=== PATIENT | male | born 1945 | race Caucasian/White ===

== ENCOUNTER 2017-01-27 22:18 | Observation (INO) | payer MEDICARE ==
[~2017-01-27] VITALS: Ht 182.9 cm; Wt 117.5 kg
[~2017-01-27 22:18] MED LIST: ASPI1TAB7 PO; ATOR20TA PO; CLOP75 PO; DEXA1TAB2; FISH500C PO; METO50CR PO; PACLPB100P; RAMI10CA35 PO; TAMS0.4C4 PO; UBIQ100C PO; [UNRECOGNIZED DRUG - CODE]; [UNRECOGNIZED DRUG - CODE]
[2017-01-27 22:30] VITALS: BP 139/78; PULSE 159; RESP 22; TEMP 98.3; O2SAT 92; O2SAT 96
[2017-01-27] MEDS ORDERED: SODIUM CHLORIDE 0.9% FLUSH 10 ML FLUSH IVF PRN ×2 (22:30)
[2017-01-27] MEDS ORDERED: ASPIRIN 81 MG CHEW TAB PO ONE (22:30)
[2017-01-27] MEDS ORDERED: DILTIAZEM HCL 25 MG/5 ML VIAL IV ONE ×2 (22:30→23:00)
[2017-01-27] MEDS ORDERED: SODIUM CHLORID 0.9% 500 ML INJ 500 ML IV ONE (22:30)
--- NOTE | 2017-01-27 22:35 | PD ---
HPI Chief Complaint: shortness of breath Time Seen by Provider: 22:28 Travel History International Travel<30 days: No Contact w/Intl Traveler<30days: No Traveled to known affect area: No History of Present Illness HPI The patient is a 71-year-old male who presents emergency department via EMS for shortness of breath. Patient has shortness breath or last several hours that is worse with exertion, but still present at rest. The patient does have a history of stage IV non-small cell lung carcinoma which is followed by Dr. Muhammad. The patient's primary physician is Dr. Cortez. The patient is currently receiving chemotherapy every 2 weeks on a Saturday, followed by one half week. The patient is scheduled for his next chemotherapy on this Saturday. 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 Andrews. Symptoms are moderate, exacerbated by activity, minimally alleviated at rest. Patient does note shortness of breath, but denies any chest pain, diaphoresis, nausea, or vomiting. The patient is on home oxygen, 2 L via nasal cannula. PFSH Past Medical History Cancer: Yes ("STAGE 4 CHEST AND LUNG" PER PT) Cardiovascular Problems: Yes (MD YEARS AGO, HIGH CHOLESTEROL) High Cholesterol: Yes Diabetes: No Endocrine: No Genitourinary: No Hepatitis: No Hiatal Hernia: No Hypertension: Yes Immune Disorder: No Musculoskeletal: No Neurologic: No Psychiatric: No Reproductive: No Respiratory: No Myocardial Infarction: Yes () Thyroid Disease: No Past Surgical History Abdominal Surgery: No AICD: No Cardiac Surgery: Yes (ANGIOPLASTY) Ear Surgery: Yes (RIGHT EAR REMOVED) Endocrine Surgery: No Genitourinary Surgery: No Gynecologic Surgery: No Joint Replacement: No Oral Surgery: No Pacemaker: No Thoracic Surgery: No Other Surgery: Yes (RIGHT EAR REMOVAL FROM CANCER) Social History Alcohol Use: Yes (occ) Tobacco Use: No Substance Use: No Allergies-Medications (Allergen,Severity, Reaction): Coded Allergies: No Known Allergies (Unverified , 01/27/17) Reported Meds & Prescriptions Reported Meds & Active Scripts Active Plavix (Clopidogrel Bisulfate) 75 Mg Tab 75 Mg PO DAILY 30 Days Reported Aloxi (Palonosetron HCl) 0.25 Mg/5 Ml Inj 25 Mcg Decadron 1 mg (Dexamethasone) 1 Mg Tab 1 Take 4 tabs by mouth 4 times a day for 3 days then 3 tabs 4 times a day for 3 days then 2 tabs 4 times a day for 3 days then 1 tab 4 times a day for 3 days then 1 tab 2 times a day for 3 days then 1/2 tab 2 times a day for 3 doses, then stop. Should have 1/2 tab left over when finished. Carboplatin 50 Mg/5 Ml Inj 50 Mg Abraxane (Paclitaxel Protein-Bound) 100 Mg Inj 1 Mg Fish Oil 500 Mg Cap 500 Mg PO DAILY Ubiquinol 100 Mg Cap 100 Mg PO DAILY Aspirin 81 mg Tab (Aspirin) 81 Mg Tab 1 Tab PO HS Metoprolol Succinate ER 50 mg (Metoprolol Succinate) 50 Mg Tab 50 Mg PO DAILY Tamsulosin 0.4 mg (Tamsulosin HCl) 0.4 Mg Cap 1 Cap PO HS Atorvastatin 20 mg tab (Atorvastatin Calcium) 20 Mg Tab 20 Mg PO HS 30 Days Ramipril 10 mg (Ramipril) 10 Mg Cap 10 Cap PO DAILY Review of Systems Except as stated in HPI: all other systems reviewed are Neg General / Constitutional: No: Fever HENT: No: Lightheadedness Cardiovascular: Positive: Tachycardia, Dyspnea on exertion, No: Chest Pain or Discomfort, Irregular Rhythm (denies any previous history of atrial fibrillation ) Respiratory: Positive: Shortness of Breath Gastrointestinal: No: Nausea, Vomiting, Abdominal Pain Neurologic: No: Dizziness Physical Exam Narrative GENERAL: Awake, alert, pleasant 71-year-old male who appears his stated age and is in no acute respiratory distress. SKIN: Focused skin assessment warm/dry. HEAD: Atraumatic. Normocephalic. EYES: Pupils equal and round. No scleral icterus. No injection or drainage. ENT: No nasal bleeding or discharge. Right facial droop noted on the right. NECK: Trachea midline. No JVD. CARDIOVASCULAR: Irregularly irregular, tachycardic with a heart rate in the 150s. Port in place right chest wall. RESPIRATORY: No accessory muscle use. Clear to auscultation. Breath sounds equal bilaterally. GASTROINTESTINAL: Abdomen soft, non-tender, nondistended. No rebound tenderness. MUSCULOSKELETAL: No obvious deformities. No clubbing. No cyanosis. No edema. NEUROLOGICAL: Awake and alert. Right facial droop and ptosis of the right upper eyelid. PSYCHIATRIC: Appropriate mood and affect; insight and judgment normal. Data Data Last Documented VS Vital Signs Date Time Temp Pulse Resp B/P Pulse Ox O2 Delivery O2 Flow Rate FiO2 01/27/17 23:19 85 18 130/71 95 Nasal Cannula 2 01/27/17 22:30 98.3 Orders Electrocardiogram (01/27/17 22:28) B-Type Natriuretic Peptide (01/27/17 22:28) Ckmb (Isoenzyme) Profile (01/27/17 22:28) Complete Blood Count With Diff (01/27/17 22:28) Comprehensive Metabolic Panel (01/27/17 22:28) Magnesium (Mg) (01/27/17 22:28) Prothrombin Time / Inr (Pt) (01/27/17 22:28) Act Partial Throm Time (Ptt) (01/27/17 22:28) Troponin I (01/27/17 22:28) Chest, Single Ap (01/27/17 22:28) Ecg Monitoring (01/27/17 22:28) Bilateral Bp Monitoring (01/27/17 22:28) Iv Access Insert/Monitor (01/27/17 22:28) Oximetry (01/27/17 22:28) Oxygen Administration (01/27/17 22:28) Aspirin Chew (Aspirin Chew) (01/27/17 22:30) Sodium Chloride 0.9% Flush (Ns Flush) (01/27/17 22:30) Sodium Chloride 0.9% Flush (Ns Flush) (01/27/17 22:30) Diltiazem Inj (Cardizem Inj) (01/27/17 22:30) Sodium Chlorid 0.9% 500 Ml Inj (Ns 500 M (01/27/17 22:30) Diltiazem Inj (Cardizem Inj) (01/27/17 23:00) Diltiazem Inj (Cardizem Inj) (01/27/17 23:00) Admit Order (Ed Use Only) (01/27/17 23:56) Labs Laboratory Tests Test 01/27/17 22:45 White Blood Count 7.6 TH/MM3 Red Blood Count 3.66 MIL/MM3 Hemoglobin 12.2 GM/DL Hematocrit 37.8 % Mean Corpuscular Volume 103.3 FL Mean Corpuscular Hemoglobin 33.2 PG Mean Corpuscular Hemoglobin 32.2 % Concent Red Cell Distribution Width 21.4 % Platelet Count 181 TH/MM3 Mean Platelet Volume 8.9 FL Neutrophils (%) (Auto) 66.7 % Lymphocytes (%) (Auto) 17.3 % Monocytes (%) (Auto) 14.2 % Eosinophils (%) (Auto) 1.1 % Basophils (%) (Auto) 0.7 % Neutrophils # (Auto) 5.1 TH/MM3 Lymphocytes # (Auto) 1.3 TH/MM3 Monocytes # (Auto) 1.1 TH/MM3 Eosinophils # (Auto) 0.1 TH/MM3 Basophils # (Auto) 0.1 TH/MM3 CBC Comment DIFF FINAL Differential Comment Prothrombin Time 13.8 SEC Prothromb Time International 1.2 RATIO Ratio Activated Partial 55.5 SEC Thromboplast Time Sodium Level 140 MEQ/L Potassium Level 3.9 MEQ/L Chloride Level 105 MEQ/L Carbon Dioxide Level 26.0 MEQ/L Anion Gap 9 MEQ/L Blood Urea Nitrogen 12 MG/DL Creatinine 0.95 MG/DL Estimat Glomerular Filtration 78 ML/MIN Rate Random Glucose 93 MG/DL Calcium Level 8.6 MG/DL Magnesium Level 2.1 MG/DL Total Bilirubin 1.0 MG/DL Aspartate Amino Transf 22 U/L (AST/SGOT) Alanine Aminotransferase 27 U/L (ALT/SGPT) Alkaline Phosphatase 103 U/L Total Creatine Kinase 50 U/L Troponin I 0.03 NG/ML B-Type Natriuretic Peptide 112 PG/ML Total Protein 6.7 GM/DL Albumin 3.1 GM/DL MDM Medical Decision Making Medical Screen Exam Complete: Yes Emergency Medical Condition: Yes Medical Record Reviewed: Yes Interpretation(s) EKG reveals atrial flutter with what appears to be 2-1 block, rate 153. Nonspecific T wave changes. EKG #2 reveals normal sinus rhythm with a rate 82. Low QRS voltage precordial leads. Last Impressions Chest X-Ray 01/27/17 9743 Signed Impressions: Service Date/Time: Friday, January 27, 2017 22:51 - CONCLUSION: 1. Bibasilar patchiness consistent with atelectasis and/or infiltrates. 2. Stable mild cardiomegaly. Dionte Barnes MD Laboratory Tests Test 01/27/17 22:45 White Blood Count 7.6 TH/MM3 Red Blood Count 3.66 MIL/MM3 Hemoglobin 12.2 GM/DL Hematocrit 37.8 % Mean Corpuscular Volume 103.3 FL Mean Corpuscular Hemoglobin 33.2 PG Mean Corpuscular Hemoglobin 32.2 % Concent Red Cell Distribution Width 21.4 % Platelet Count 181 TH/MM3 Mean Platelet Volume 8.9 FL Neutrophils (%) (Auto) 66.7 % Lymphocytes (%) (Auto) 17.3 % Monocytes (%) (Auto) 14.2 % Eosinophils (%) (Auto) 1.1 % Basophils (%) (Auto) 0.7 % Neutrophils # (Auto) 5.1 TH/MM3 Lymphocytes # (Auto) 1.3 TH/MM3 Monocytes # (Auto) 1.1 TH/MM3 Eosinophils # (Auto) 0.1 TH/MM3 Basophils # (Auto) 0.1 TH/MM3 CBC Comment DIFF FINAL Differential Comment Prothrombin Time 13.8 SEC Prothromb Time International 1.2 RATIO Ratio Activated Partial 55.5 SEC Thromboplast Time Sodium Level 140 MEQ/L Potassium Level 3.9 MEQ/L Chloride Level 105 MEQ/L Carbon Dioxide Level 26.0 MEQ/L Anion Gap 9 MEQ/L Blood Urea Nitrogen 12 MG/DL Creatinine 0.95 MG/DL Estimat Glomerular Filtration 78 ML/MIN Rate Random Glucose 93 MG/DL Calcium Level 8.6 MG/DL Magnesium Level 2.1 MG/DL Total Bilirubin 1.0 MG/DL Aspartate Amino Transf 22 U/L (AST/SGOT) Alanine Aminotransferase 27 U/L (ALT/SGPT) Alkaline Phosphatase 103 U/L Total Creatine Kinase 50 U/L Troponin I 0.03 NG/ML B-Type Natriuretic Peptide 112 PG/ML Total Protein 6.7 GM/DL Albumin 3.1 GM/DL Differential Diagnosis Differential diagnosis includes atrial flutter with RVR, A. fib with RVR, pulmonary embolism, congestive heart failure, cardiomyopathy, pneumonia, sepsis , electrolyte abnormality. Narrative Course IV was established, labs are drawn and sent, and the patient was placed on cardiac telemetry monitoring and continuous pulse oximetry monitoring. EKG was ordered and interpreted. Chest x-ray was obtained. The patient was administered Cardizem 20 mg intravenously, after 20 minutes the patient converted to what appeared to be a normal sinus rhythm. Repeat EKG was performed which revealed normal sinus rhythm with a rate in the 80s. The patient already takes aspirin and Plavix on a daily basis as well as metoprolol. The patient thinks he had a nuclear medicine myocardial perfusion scan performed at his online marketing coordinator office within the last 6 months. The patient 's symptoms had improved, had a discussion with the patient regarding outpatient follow-up versus 23 hour observation for cardiac telemetry monitoring and echocardiogram. After discussion with the patient, he would prefer to stay overnight for telemetry monitoring and possible echocardiogram. Therefore, the on-call medical service was paged for admission. The patient will need admission/observation to [facility] as he did have atrial flutter with RVR and may require further boluses of IV medicines if the atrial fibrillation/ atrial flutter reoccurs. I reviewed the patient's chest x-ray and previous chest x-ray, no significant changes, I do not believe the patient has acute pneumonia. Physician Communication Physician Communication The on-call medical service was paged for 23 hour observation. I discussed patient with Dr. Su who agrees with 23 hour observation. Diagnosis Primary Impression: Atrial flutter with rapid ventricular response Admitting Information Admitting Physician Requests: Observation Condition: Stable Prieto Rizzo MD January 27, 2017 22:35
[2017-01-27 22:50] VITALS: BP 134/86; PULSE 84; RESP 18; O2SAT 96
[2017-01-27 22:53] LABS: AUTOMATED NEUTROPHIL # 5.1 TH/MM3 (1.8-7.7); BASOPHIL # 0.1 TH/MM3 (0-0.2); BASOPHIL % 0.7 % (0.0-2.0); EOSINOPHIL # 0.1 TH/MM3 (0-0.4); EOSINOPHIL % 1.1 % (0.0-4.0); HEMATOCRIT 37.8 % (39.0-51.0); HEMO FLAGS DIFF FINAL; LYMPH % 17.3 % (9.0-44.0); LYMPHOCYTE # 1.3 TH/MM3 (1.0-4.8); MEAN CELL VOLUME 103.3 FL (80.0-100.0); MEAN CORPUSCULAR HEMOGLOBIN 33.2 PG (27.0-34.0); MEAN CORPUSCULAR HGB CONC 32.2 % (32.0-36.0); MONO % 14.2 % (0.0-8.0); NEUT % 66.7 % (16.0-70.0); PLATELET COUNT 181 TH/MM3 (150-450); RED BLOOD COUNT 3.66 MIL/MM3 (4.50-5.90); RED CELL DISTRIBUTION WIDTH 21.4 % (11.6-17.2); WHITE BLOOD COUNT 7.6 TH/MM3 (4.0-11.0)
--- NOTE | 2017-01-27 22:59 | RADRPT ---
EXAM DATE/TIME: 01/27/2017 22:51 [facility] COMPARISON: CHEST SINGLE AP, November 04, 2015, 3:08. INDICATIONS : Chest pain MEDICAL HISTORY : Squamous cell lung carcinoma. SURGICAL HISTORY : [id number], cardiac stent ENCOUNTER: Initial ACUITY: 1 day PAIN SCORE: 4/10 LOCATION: Bilateral chest FINDINGS: A right internal jugular [id number] has its tip in the superior vena cava. There is no pneumothor ax. The heart is mildly prominent but stable. Bibasilar patchiness is noted consistent with atelect asis and/or infiltrates. Degenerative changes are noted throughout the thoracic spine. CONCLUSION: 1. Bibasilar patchiness consistent with atelectasis and/or infiltrates. 2. Stable mild cardiomegaly. Dionte Barnes MD on January 27, 2017 at 22:54 Board Certified Radiologist. This report was verified electronically.
[2017-01-27] MEDS ORDERED: DILTIAZEM INJ 125 MG in SODIUM CHLORIDE 0.9% INJ 100 ML IV SCH (23:00)
[2017-01-27 23:17] LABS: ANION GAP 9 MEQ/L (5-15); AST (GOT) 22 U/L (15-37); BLOOD UREA NITROGEN 12 MG/DL (7-18); CHLORIDE 105 MEQ/L (98-107); GLOMERULAR FILTRATION RATE 78 ML/MIN (>89); MAGNESIUM 2.1 MG/DL (1.5-2.5); POTASSIUM 3.9 MEQ/L (3.5-5.1); SODIUM (NA) 140 MEQ/L (136-145)
[2017-01-27 23:19] VITALS: BP_SYST 130; BP_DIAS 68; BP_DIAS 71; PULSE 85; RESP 18; O2SAT 95
[2017-01-27 23:19] LABS: APTT (PATIENT) 55.5 SEC (24.3-30.1); INTERNATIONAL NORMALIZED RATIO 1.2 RATIO; PROTHROMBIN TIME - PATIENT 13.8 SEC (9.8-11.6)
[2017-01-27 23:22] LABS: ALKALINE PHOSPHATASE 103 U/L (45-117); ALT (GPT) 27 U/L (12-78)
[2017-01-27 23:25] LABS: CREATINE KINASE 50 U/L (39-308)
--- NOTE | 2017-01-27 23:59 | HHI.HP ---
HPI Service [facility] Primary Care Physician Isac Cortez M.D. Admission Diagnosis new onset atrial flutter with RVR Diagnoses: (1) New onset a-fib Diagnosis: Principal (2) CAD (coronary artery disease) Diagnosis: Principal (3) HTN (hypertension) Diagnosis: Principal (4) Lung cancer Diagnosis: Principal Travel History International Travel<30 Days: No Contact w/Intl Traveler <30 Da: No Traveled to Known Affected Are: No History of Present Illness This is a 71-year-old male with a PMH of HTN, Redd's Palsy, CAD and Stage IV Non -Small Cell Lung Ca on Chemo who was brought to the ER by EMS secondary to acute onset of SOB and chest pain. Per pt, he is usually on 2L NC at home during the day, has noted increased SOB x2 days but "mild". Today, had sudden onset of severe SOB, "couldn't catch my breath" and associated chest tightness. Denies fever, chills or cough. Follows w/ Dr. Muhammad as outpatient, next Chemo scheduled for Saturday. Also follows w/ Diplomatic Officer Dr. Mcintosh as outpatient. Notes recent Nuclear Stress and Echo as outpatient, reportedly normal. H/o NSTEMI 11/2015 s/p stent to LAD and LCx, currently on ASA/Plavix. On arrival, pt noted to be in A-fib w/ RVR, HR 150's. No h/o A-fib in the past. S/p Cardizem IV x1 dose w/ conversion back to NSR, no recurrent A-fib. CBC with no significant abnormalities. Chemistry unremarkable except for GFR 78. Troponin 0.03. EKG with no acute ischemia. INR 1.2. CXR with bibasilar patchiness consistent with atelectasis and or infiltrates. Review of Systems Except as stated in HPI: all other systems reviewed are Neg ROS: 14 point review of systems otherwise negative. Past Family Social History Past Medical History PMH: HTN, CAD, Redd's Palsy and Stage IV Non-Small Cell Lung Ca on Chemo Past Surgical History PAST SURGICAL HISTORY: Cardiac Stent, Right Ear Surgery Allergies: Coded Allergies: No Known Allergies (Unverified , 01/27/17) Family History PAST FAMILY HISTORY: Reviewed. No h/o DM or CAD Social History PAST SOCIAL HISTORY: Occasional alcohol. Negative for tobacco or drugs. Physical Exam Vital Signs Vital Signs Date Time Temp Pulse Resp B/P Pulse Ox O2 Delivery O2 Flow Rate FiO2 01/27/17 23:19 85 18 130/71 95 Nasal Cannula 2 01/27/17 23:19 130/68 01/27/17 22:50 84 18 134/86 96 Nasal Cannula 2 01/27/17 22:30 96 Nasal Cannula 2 01/27/17 22:30 98.3 159 22 139/78 92 01/27/17 22:30 160 22 95 Nasal Cannula 2 01/27/17 22:30 96 Nasal Cannula 2 Physical Exam PE: GENERAL: Very pleasant elderly white male in no acute distress. at bedside. HEENT: PERRLA, EOMI. No scleral icterus or conjunctival pallor. No lid lag. Right facial droop, chronic. CARDIOVASCULAR: Regular rate and rhythm, in NSR. No obvious murmurs to auscultation. No chest tenderness to palpation. RESPIRATORY: No obvious rhonchi or wheezing. Clear to auscultation. Breath sounds equal bilaterally. GASTROINTESTINAL: Abdomen soft, non-tender, nondistended. BS normal. MUSCULOSKELETAL: Extremities without clubbing, cyanosis, or edema. No obvious deformities. NEUROLOGICAL: Awake, alert and oriented x4. No focal neurologic deficits. Moving both upper and lower extremities spontaneously. Laboratory Laboratory Tests Test 01/27/17 22:45 White Blood Count 7.6 Red Blood Count 3.66 Hemoglobin 12.2 Hematocrit 37.8 Mean Corpuscular Volume 103.3 Mean Corpuscular Hemoglobin 33.2 Mean Corpuscular Hemoglobin 32.2 Concent Red Cell Distribution Width 21.4 Platelet Count 181 Mean Platelet Volume 8.9 Neutrophils (%) (Auto) 66.7 Lymphocytes (%) (Auto) 17.3 Monocytes (%) (Auto) 14.2 Eosinophils (%) (Auto) 1.1 Basophils (%) (Auto) 0.7 Neutrophils # (Auto) 5.1 Lymphocytes # (Auto) 1.3 Monocytes # (Auto) 1.1 Eosinophils # (Auto) 0.1 Basophils # (Auto) 0.1 CBC Comment DIFF FINAL Differential Comment Prothrombin Time 13.8 Prothromb Time International 1.2 Ratio Activated Partial 55.5 Thromboplast Time Sodium Level 140 Potassium Level 3.9 Chloride Level 105 Carbon Dioxide Level 26.0 Anion Gap 9 Blood Urea Nitrogen 12 Creatinine 0.95 Estimat Glomerular Filtration 78 Rate Random Glucose 93 Calcium Level 8.6 Magnesium Level 2.1 Total Bilirubin 1.0 Aspartate Amino Transf 22 (AST/SGOT) Alanine Aminotransferase 27 (ALT/SGPT) Alkaline Phosphatase 103 Total Creatine Kinase 50 Troponin I 0.03 B-Type Natriuretic Peptide 112 Total Protein 6.7 Albumin 3.1 Result Diagram: 01/27/17224401/27/172244 Assessment and Plan Problem List: (1) New onset a-fib ICD Code: I48.91 Status: Acute (2) CAD (coronary artery disease) ICD Code: I25.10 Status: Acute (3) HTN (hypertension) ICD Code: I10 Status: Acute (4) Lung cancer ICD Code: C34.90 Status: Acute Assessment and Plan A/P: 1. A. fib: New Onset. Acute episode of SOB and chest tightness, on arrival noted to be in A-fib w/ RVR, HR 150's. S/p Cardizem IV x1 dose in ER w/ conversion to NSR. No h/o A-fib in the past. Follows w/ Diplomatic Officer Dr. Mcintosh as outpatient, recent Echo reportedly normal. Remains in A-fib. Will admit for observation, telemetry, monitor for recurrence of A-fib. Initial trop negative, check serial enzymes to eval for underlying ischemia. O2 sat stable. Plan for outpatient follow up w/ Dr. Mcintosh. Continue Metoprolol, increase to bid , continue home ASA/Plavix. 2. CAD: H/o NSTEMI 11/2015, s/p Cardiac Cath by Dr. Mcintosh w/ stent to LAD and LCx. Compliant w/ meds and follow up. Continue home medications. Telemetry, check serial cardiac enzymes. 3. HTN: Controlled. BP 130-140's. Resume home medications. 4. Lung CA: Metastatic. O2 Dependent on 2L, O2 stable. Will monitor. 5. DVT Prophylaxis: SCD/Teds 6. Social work for d/c planning as needed. 7. Case discussed at length w/ ER physician Sahara Su MD January 27, 2017 23:59
[2017-01-28] VITALS (14 sets, daily range): BP systolic 129–145; BP diastolic 62–86; PULSE 70–82; RESP 16–18; TEMP 97.7–98; O2SAT 93–96
[2017-01-28] MEDS ORDERED: ACETAMINOPHEN/HYDROcodone 325 MG/5 MG TAB PO PRN (00:15)
[2017-01-28] MEDS ORDERED: MAGNESIUM HYDROXIDE SUSP 30 ML CUP PO PRN (00:15)
[2017-01-28] MEDS ORDERED: ACETAMINOPHEN 325 MG TAB PO PRN (00:15)
[2017-01-28] MEDS ORDERED: SENNOSIDES 8.6 MG TAB PO PRN (00:15)
[2017-01-28] MEDS ORDERED: BISACODYL 10 MG SUPP RECTAL PRN (00:15)
[2017-01-28] MEDS ORDERED: ONDANSETRON HCL 4 MG/2 ML VIAL IVP PRN (00:15)
[2017-01-28] MEDS ORDERED: SODIUM CHLORIDE 0.9% FLUSH 10 ML FLUSH IV FLUSH PRN (00:15)
[2017-01-28] MEDS ORDERED: MORPHINE SULFATE 4 MG/ML INJ IV PRN (00:15)
[2017-01-28] MEDS ORDERED: LACTULOSE SYRUP 20 GM/30 ML CUP PO PRN (00:15)
--- NOTE | 2017-01-28 08:19 | EKG ---
Date Performed: 01/27/2017 Time Performed: 23:12:37 PTAGE: 71 years EKG: Sinus rhythm LOW QRS VOLTAGE IN PRECORDIAL LEADS POSSIBLE ANTERIOR MYOCARDIAL INFARCTION BORDERLINE ECG Compared to prior electrocardiogram,Rate has slowed. Prior EKG has marked artifact and this may have represen liz atrial flutter. NO PREVIOUS TRACING DOCTOR: Rodo Ricketts Interpretating Date/Time 01/28/2017 08:18:16
--- NOTE | 2017-01-28 08:21 | EKG ---
Date Performed: 01/27/2017 Time Performed: 22:29:19 PTAGE: 71 years EKG: ATRIAL FLUTTER/TACHYCARDIA WITH RAPID VENTRICULAR RESPONSE LOW QRS VOLTAGE IN PRECORDIAL LE ADS NONSPECIFIC ST & T-WAVE ABNORMALITY ABNORMAL RHYTHM ECG Compared to prior electrocardiogram,Proba ble atrial flutter with rapid response has replaced Sinus rhythm . PREVIOUS TRACING : 11/05/2015 16.17 DOCTOR: Rodo Ricketts Interpretating Date/Time 01/28/2017 08:20:04
[2017-01-28] MEDS ORDERED: DOCUSATE SODIUM 50 MG/SENNA 8.6 MG TAB PO SCH (09:00)
[2017-01-28] MEDS ORDERED: CLOPIDOGREL 75 MG TAB PO SCH (09:00)
[2017-01-28] MEDS ORDERED: RAMIPRIL 5 MG CAP PO SCH (09:00)
[2017-01-28] MEDS ORDERED: METOPROLOL TARTRATE 50 MG TAB PO SCH (09:00)
[2017-01-28] MEDS ORDERED: SODIUM CHLORIDE 0.9% FLUSH 10 ML FLUSH IV FLUSH SCH (09:00)
[2017-01-28] MEDS ORDERED: METO-309 PO (09:25)
--- NOTE | 2017-01-28 09:25 | HHI.DS ---
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 Per pt, he is usually on 2L NC at home during the day, has noted increased SOB x2 days but "mild". Today, had sudden onset of severe SOB, "couldn't catch my breath" and associated chest tightness. Denies fever, chills or cough. Follows w/ Dr. Muhammad as outpatient, next Chemo scheduled for Saturday. Also follows w/ [employer] Dr. Mcintosh as outpatient. Notes recent Nuclear Stress and Echo as outpatient, reportedly normal. H/o NSTEMI 11/2015 s/p stent to LAD and LCx, currently on ASA/Plavix. On arrival, pt noted to be in A-fib w/ RVR, HR 150's. No h/o A-fib in the past. S/p Cardizem IV x1 dose w/ conversion back to NSR, no recurrent A-fib. CBC with no significant abnormalities. Chemistry unremarkable except for GFR 78. Troponin 0.03. EKG with no acute ischemia. INR 1.2. CXR with bibasilar patchiness consistent with atelectasis and or infiltrates. CBC/BMP: 01/27/17224401/27/172244 Significant Findings Laboratory Tests Test 01/27/17 01/28/17 22:45 04:28 Red Blood Count 3.66 MIL/MM3 (4.50-5.90) Hemoglobin 12.2 GM/DL (13.0-17.0) Hematocrit 37.8 % (39.0-51.0) Mean Corpuscular Volume 103.3 FL (80.0-100.0) Red Cell Distribution Width 21.4 % (11.6-17.2) Monocytes (%) (Auto) 14.2 % (0.0-8.0) Monocytes # (Auto) 1.1 TH/MM3 (0-0.9) Prothrombin Time 13.8 SEC (9.8-11.6) Activated Partial 55.5 SEC Thromboplast Time (24.3-30.1) Estimat Glomerular Filtration 78 ML/MIN (>89) Rate B-Type Natriuretic Peptide 112 PG/ML (0-100) Albumin 3.1 GM/DL (3.4-5.0) Troponin I 0.06 NG/ML (0.02-0.05) Imaging Last Impressions Chest X-Ray 01/27/17 8140 Signed Impressions: Service Date/Time: Friday, January 27, 2017 22:51 - CONCLUSION: 1. Bibasilar patchiness consistent with atelectasis and/or infiltrates. 2. Stable mild cardiomegaly. Dionte Barnes MD PE at Discharge GENERAL: in NAD CARDIOVASCULAR: Regular rate and rhythm without murmurs, gallops, or rubs. RESPIRATORY: Breath sounds equal bilaterally. No accessory muscle use. GASTROINTESTINAL: Abdomen soft, non-tender, nondistended. MUSCULOSKELETAL: No cyanosis, or edema. Pt update on day of discharge Follow-up with shortness of breathing secondary to atrial fibrillation with RVR Patient has been in sinus rhythm since last night. He stated that since he's been in sinus rhythm his symptoms has resolved. Patient stated that he does have baseline shortness of breathing due to his cancer but that is at his baseline. Patient stated that he feels great wants to go home. Denies any chest pain, palpitation, lightheadedness or dizziness. Hospital Course 1. A. fib: New Onset. Resolved quickly. -Acute episode of SOB and chest tightness, on arrival noted to be in A-fib w/ RVR, HR 150's. - S/p Cardizem IV x1 dose in ER w/ conversion to NSR. No h/o A-fib in the past. Follows w/ [employer] Dr. Mcintosh as outpatient, recent Echo reportedly normal. -Patient is on aspirin and Plavix. He converted quickly back into sinus rhythm. Since patient converted back quickly and this seems to be a isolated episode he was told to follow with his knee bolter in regards to anticoagulation. Patient is currently on aspirin and Plavix. -Patient educated on diagnosis, and management. -Patient total follow with his knee bolter this week. -His metoprolol was increased to short acting 5 mg by mouth twice a day. CAD: - H/o NSTEMI 11/2015, s/p Cardiac Cath by Dr. Mcintosh w/ stent to LAD and LCx. - Compliant w/ meds and follow up. Continue home medications. -He had no events over telemetry. Mildly elevated troponin due to age of fibrillation with RVR caused by demand ischemia. Otherwise asymptomatic. HTN: - Controlled. BP 130-140's. His home medication was resumed. Lung CA: -Metastatic. O2 Dependent on 2L, O2 stable. He was stable on his home oxygen. Pt Condition on Discharge: Good Discharge Disposition: Discharge Home Discharge Time: <= 30 minutes Discharge Instructions DIET: Follow Instructions for: Heart Healthy Diet Activities you can perform: Regular-No Restrictions Follow up Referrals: Cardiology - 3-5 Days PCP Follow-up - 1 Week New Medications: Metoprolol Tartrate (Lopressor) 50 Mg Tab 50 MG PO Q12HR atrial fibrillation and CAD #60 Ref 0 TAB Continued Medications: Aspirin 81 mg Tab (Aspirin 81 mg Tab) 81 Mg Tab 1 TAB PO HS TAB Atorvastatin 20 mg (Atorvastatin 20 mg tab) 20 Mg Tab 20 MG PO HS Days 30 TAB Carboplatin (Carboplatin) 50 Mg/5 Ml Inj 50 MG Clopidogrel Bisulfate (Plavix) 75 Mg Tab 75 MG PO DAILY CAD Days 30 TAB Dexamethasone 1 mg (Decadron 1 mg) 1 Mg Tab 1 Take 4 tabs by mouth 4 times a day for 3 days then 3 tabs 4 times a day for 3 days then 2 tabs 4 times a day for 3 days then 1 tab 4 times a day for 3 days then 1 tab 2 times a day for 3 days then 1/2 tab 2 times a day for 3 doses, then stop. Should have 1/2 tab left over when finished. #128 TAB [place]-3 Fatty Acids (Fish Oil) 500 Mg Cap 500 MG PO DAILY CAP Paclitaxel Protein-Bound (Abraxane) 100 Mg Inj 1 MG Palonosetron HCl (Aloxi) 0.25 Mg/5 Ml Inj 25 MCG Ramipril 10 mg (Ramipril 10 mg) 10 Mg Cap 10 CAP PO DAILY CAP Tamsulosin 0.4 mg (Tamsulosin 0.4 mg) 0.4 Mg Cap 1 CAP PO HS Ubiquinol (Ubiquinol) 100 Mg Cap 100 MG PO DAILY CAP Discontinued Medications: Metoprolol Succinate ER 50 mg (Metoprolol Succinate ER 50 mg) 50 Mg Tab 50 MG PO DAILY TAB Charmaine Macario MD January 28, 2017 09:25
--- NOTE | 2017-01-28 09:25 | HHI.DCPOC ---
Discharge Care Plan Diagnosis: (1) New onset a-fib (2) HTN (hypertension) (3) Lung cancer (4) CAD (coronary artery disease) Goals to Promote Your Health * To prevent worsening of your condition and complications * To maintain your health at the optimal level Directions to Meet Your Goals Take your medications as prescribed Follow your dietary instruction Follow activity as directed Keep your appointments as scheduled Take your immunizations and boosters as scheduled If your symptoms worsen call your PCP, if no PCP go to Urgent Care Center or Emergency Room Smoking is Dangerous to Your Health. Avoid second hand smoke Call the 24-hour hour crisis hotline for domestic abuse at Charmaine Macario MD January 28, 2017 09:25
[2017-01-28] MEDS ORDERED: ATORVASTATIN 20 MG TAB PO SCH (21:00)
[2017-01-28] MEDS ORDERED: ASPIRIN EC 81 MG TABEC PO SCH (21:00)
[2017-01-28] MEDS ORDERED: TAMSULOSIN HCL 0.4 MG CAP PO SCH (21:00)
== END 2017-01-28 11:15 | disposition home or self-care (01) ==
LOC: NEPC 22:18 → NEDA 23:58 → UNDOADMOB 23:58 → HCIN 01-28 01:02 → NEDA 01-28 01:02 → UNDODISOB 01-28 11:15
PROVIDERS: ADMIT Family Medicine; ATTEND Family Medicine
DX: I48.91 Unspecified atrial fibrillation (principal); I25.10 Atherosclerotic heart disease of native coronary artery without angina pectoris; I10 Essential (primary) hypertension; C78.00 Secondary malignant neoplasm of unspecified lung; G51.0 Bell's palsy; Z79.82 Long term (current) use of aspirin; Z95.5 Presence of coronary angioplasty implant and graft; Z99.81 Dependence on supplemental oxygen; E78.00 Pure hypercholesterolemia, unspecified; Z79.02 Long term (current) use of antithrombotics/antiplatelets; I25.2 Old myocardial infarction; Z85.22 Personal history of malignant neoplasm of nasal cavities, middle ear, and accessory sinuses
CPT/HCPCS: 71010; 80053; 82550; 83735; 83880; 84484; 85025; 85610; 85730; 93005; 96361; 96374; 99285; J7040; G0378

== ENCOUNTER 2017-02-07 18:38 | Inpatient (IN) | payer MEDICARE ==
[2017-02-07] VITALS (9 sets, daily range): BP systolic 112–126; BP diastolic 65–90; PULSE 67–160; RESP 18–28; TEMP 97.8; O2SAT 89–97
[~2017-02-07] VITALS: Ht 180.3 cm; Wt 110.0 kg
[~2017-02-07 18:38] MED LIST changes: +METO-309 PO; -METO50CR PO
[2017-02-07] MEDS ORDERED: DILTIAZEM INJ 125 MG in SODIUM CHLORIDE 0.9% INJ 100 ML IV SCH (19:15)
[2017-02-07] MEDS ORDERED: DILTIAZEM HCL 25 MG/5 ML VIAL IV PUSH ONE (19:15)
[2017-02-07] MEDS ORDERED: SODIUM CHLORIDE 0.9% FLUSH 10 ML FLUSH IVF PRN (19:15)
--- NOTE | 2017-02-07 19:45 | RADRPT ---
EXAM DATE/TIME: 02/07/2017 19:15 [facility] COMPARISON: CHEST SINGLE AP, January 27, 2017, 22:51. INDICATIONS : Shortness of breath and heart palpitations. MEDICAL HISTORY : Squamous cell lung carcinoma. A-fib. SURGICAL HISTORY : [id number]. ENCOUNTER: Initial ACUITY: 1 day PAIN SCORE: 0/10 LOCATION: Bilateral chest FINDINGS: Right chest port is stable in position. Lungs are symmetrically aerated and grossly clear. Cardiac co ntours are stable. CONCLUSION: Stable chest without definite acute disease Carlos Sebastian MD on February 07, 2017 at 19:42 Board Certified Radiologist. This report was verified electronically.
[2017-02-07 19:52] LABS: AUTOMATED NEUTROPHIL # 6.9 TH/MM3 (1.8-7.7); BASOPHIL % 0.6 % (0.0-2.0); EOSINOPHIL # 0.2 TH/MM3 (0-0.4); HEMATOCRIT 33.2 % (39.0-51.0); HEMO FLAGS DIFF FINAL; LYMPH % 13.1 % (9.0-44.0); LYMPHOCYTE # 1.1 TH/MM3 (1.0-4.8); MEAN CELL VOLUME 101.8 FL (80.0-100.0); MEAN CORPUSCULAR HGB CONC 33.4 % (32.0-36.0); MONO % 3.4 % (0.0-8.0); NEUT % 80.9 % (16.0-70.0); PLATELET COUNT 154 TH/MM3 (150-450); RED BLOOD COUNT 3.26 MIL/MM3 (4.50-5.90); RED CELL DISTRIBUTION WIDTH 19.6 % (11.6-17.2); WHITE BLOOD COUNT 8.5 TH/MM3 (4.0-11.0)
[2017-02-07 20:04] LABS: APTT (PATIENT) 57.2 SEC (24.3-30.1); INTERNATIONAL NORMALIZED RATIO 1.1 RATIO; PROTHROMBIN TIME - PATIENT 12.7 SEC (9.8-11.6)
--- NOTE | 2017-02-07 20:17 | PD ---
HPI Chief Complaint: Cardiac Complaint Time Seen by Provider: 19:03 Travel History International Travel<30 days: No Contact w/Intl Traveler<30days: No Traveled to known affect area: No History of Present Illness HPI Patient is a 71-year-old male with history of lung cancer on chemotherapy presents emergency Department with "I think I have atrial fibrillation". Patient states he was just recently diagnosed atrial fibrillation spent the day in the hospital. He states his heart is been racing fast all day and is been having shortness of breath. States never had any blood clots before. Is not currently on any blood thinners. Review the patient's chart indeed shows that he presented in atrial flutter and had to be rate controlled with Cardizem and went home the next morning. Patient on arrival is tachycardic able to give his own history. Symptoms are moderate, stable for the past few hours. PFSH Past Medical History Hx Anticoagulant Therapy: Yes (PLAVIX) Atrial Fibrillation: Yes Cancer: Yes ("STAGE 4 CHEST AND LUNG" PER PT) Cardiovascular Problems: Yes High Cholesterol: Yes Chemotherapy: Yes COPD: Yes Diabetes: No Diminished Hearing: Yes Endocrine: No Genitourinary: No Hepatitis: No Hiatal Hernia: No Hypertension: Yes Immune Disorder: No Implanted Vascular Access Dvce: Yes (RIGHT CHEST) Musculoskeletal: No Neurologic: No Psychiatric: No Reproductive: No Respiratory: Yes Myocardial Infarction: Yes () Sleep Apnea: Yes (NEVRER BEEN DX) Thyroid Disease: No Past Surgical History Abdominal Surgery: No AICD: No Cardiac Surgery: Yes (ANGIOPLASTY EITH STENTS) Ear Surgery: Yes (RIGHT EAR REMOVED) Endocrine Surgery: No Genitourinary Surgery: No Gynecologic Surgery: No Joint Replacement: No Oral Surgery: No Pacemaker: No Thoracic Surgery: No Other Surgery: Yes (PORT PLACE RIGHT CHEST) Social History Alcohol Use: No Tobacco Use: No Substance Use: No Allergies-Medications (Allergen,Severity, Reaction): Coded Allergies: No Known Allergies (Unverified , 01/28/17) Reported Meds & Prescriptions Reported Meds & Active Scripts Active Lopressor (Metoprolol Tartrate) 50 Mg Tab 50 Mg PO Q12HR Reported Digoxin 0.125 Mg Tab 0.125 Mg PO DAILY Potassium Chloride ER (Potassium Chloride) 10 Meq Cap 10 Meq PO DAILY Furosemide 40 Mg Tab 40 Mg PO DAILY Aspirin 81 Mg Chew 81 Mg CHEW DAILY Clopidogrel (Clopidogrel Bisulfate) 75 Mg Tab 75 Mg PO DAILY Tamsulosin (Tamsulosin HCl) 0.4 Mg Cap 0.4 Mg PO HS Atorvastatin (Atorvastatin Calcium) 20 Mg Tab 20 Mg PO HS Review of Systems Except as stated in HPI: all other systems reviewed are Neg Physical Exam Narrative GENERAL: Well-developed well-nourished no apparent distress. SKIN: Focused skin assessment warm/dry. HEAD: Atraumatic. Normocephalic. EYES: Pupils equal and round. No scleral icterus. No injection or drainage. ENT: No nasal bleeding or discharge. Mucous membranes pink and moist. NECK: Trachea midline. No JVD. CARDIOVASCULAR: Regular rhythm with tachycardia. No murmur appreciated. 2+ bilateral equal pulses in all 4 extremities. RESPIRATORY: No accessory muscle use. Clear to auscultation. Breath sounds equal bilaterally. GASTROINTESTINAL: Abdomen soft, non-tender, nondistended. Hepatic and splenic margins not palpable. MUSCULOSKELETAL: No obvious deformities. No clubbing. No cyanosis. No edema. NEUROLOGICAL: Awake and alert. No obvious cranial nerve deficits. Motor grossly within normal limits. Normal speech. PSYCHIATRIC: Appropriate mood and affect; insight and judgment normal. Data Data Last Documented VS Vital Signs Date Time Temp Pulse Resp B/P Pulse Ox O2 Delivery O2 Flow Rate FiO2 02/07/17 22:00 137 20 116/78 96 Nasal Cannula 2 02/07/17 18:56 97.8 Orders Complete Blood Count With Diff (02/07/17 19:03) Comprehensive Metabolic Panel (02/07/17 19:03) Magnesium (Mg) (02/07/17 19:03) Prothrombin Time / Inr (Pt) (02/07/17 19:03) Act Partial Throm Time (Ptt) (02/07/17 19:03) Troponin I (02/07/17 19:03) Chest, Single Ap (02/07/17 19:03) Ecg Monitoring (02/07/17 19:03) Iv Access Insert/Monitor (02/07/17 19:03) Oximetry (02/07/17 19:03) Oxygen Administration (02/07/17 19:03) Sodium Chloride 0.9% Flush (Ns Flush) (02/07/17 19:15) Vital Signs (Adult) Q15MX4,Q4H (02/07/17 19:04) Magnet Placer / Telemetry MYLENE.Q8H (02/07/17 19:04) Cardiac Rhythm MYLENE.Q8H (02/07/17 19:04) Notify Dr: Other (02/07/17 19:04) Diltiazem Inj (Cardizem Inj) (02/07/17 19:15) Diltiazem Inj (Cardizem Inj) (02/07/17 19:15) B-Type Natriuretic Peptide (02/07/17 19:04) Ct Pulmonary Angiogram (02/07/17 ) Iohexol 350 Inj (Omnipaque 350 Inj) (02/07/17 21:22) Electrocardiogram (02/07/17 18:51) Electrocardiogram (02/07/17 20:11) Aspirin Chew (Aspirin Chew) (02/07/17 22:00) Admit Order (Ed Use Only) (02/07/17 ) Labs Laboratory Tests Test 02/07/17 19:15 White Blood Count 8.5 TH/MM3 Red Blood Count 3.26 MIL/MM3 Hemoglobin 11.1 GM/DL Hematocrit 33.2 % Mean Corpuscular Volume 101.8 FL Mean Corpuscular Hemoglobin 34.0 PG Mean Corpuscular Hemoglobin 33.4 % Concent Red Cell Distribution Width 19.6 % Platelet Count 154 TH/MM3 Mean Platelet Volume 8.3 FL Neutrophils (%) (Auto) 80.9 % Lymphocytes (%) (Auto) 13.1 % Monocytes (%) (Auto) 3.4 % Eosinophils (%) (Auto) 2.0 % Basophils (%) (Auto) 0.6 % Neutrophils # (Auto) 6.9 TH/MM3 Lymphocytes # (Auto) 1.1 TH/MM3 Monocytes # (Auto) 0.3 TH/MM3 Eosinophils # (Auto) 0.2 TH/MM3 Basophils # (Auto) 0.0 TH/MM3 CBC Comment DIFF FINAL Differential Comment Prothrombin Time 12.7 SEC Prothromb Time International 1.1 RATIO Ratio Activated Partial 57.2 SEC Thromboplast Time Sodium Level 141 MEQ/L Potassium Level 4.5 MEQ/L Chloride Level 106 MEQ/L Carbon Dioxide Level 22.8 MEQ/L Anion Gap 12 MEQ/L Blood Urea Nitrogen 28 MG/DL Creatinine 0.96 MG/DL Estimat Glomerular Filtration 77 ML/MIN Rate Random Glucose 91 MG/DL Calcium Level 8.7 MG/DL Magnesium Level 1.9 MG/DL Total Bilirubin 1.0 MG/DL Aspartate Amino Transf 29 U/L (AST/SGOT) Alanine Aminotransferase 34 U/L (ALT/SGPT) Alkaline Phosphatase 86 U/L Troponin I 0.21 NG/ML B-Type Natriuretic Peptide 565 PG/ML Total Protein 6.4 GM/DL Albumin 3.0 GM/DL MDM Medical Decision Making Medical Screen Exam Complete: Yes Emergency Medical Condition: Yes Interpretation(s) EKG shows atrial flutter 2-1, rate of 154, borderline left axis deviation late R -wave transition. No concerning ST segment changes. Intervals otherwise within normal limits. This an abnormal EKG. Repeat EKG after Cardizem shows atrial flutter 41, rate of 82, no concerning ST segment changes otherwise unchanged EKG. This an abnormal EKG. Differential Diagnosis Age fibrillation, ACS, AMI, PE. Narrative Course Patient was roomed emergency department, he was given Cardizem bolus which seemed to control his heart rate for some time but ultimately he required a drip. He is otherwise stable, no signs of overt congestive heart failure. Patient's labs are significant for a troponin of 0.21, review of his labs his eyes troponin on last admission was 0.06. Patient does have risk factors for pulmonary embolism and I believe that this needs exclusion at this point. Last 24 hours Impressions Chest X-Ray 02/07/17 1903 Signed Impressions: Service Date/Time: January 19:15 - CONCLUSION: Stable chest without definite acute disease Carlos Sebastian MD CT Angiography 02/07/17 0000 Signed Impressions: Service Date/Time: January 21:16 - CONCLUSION: Mild parenchymal edema and bilateral effusions. No evidence of pulmonary embolism Carlos Sebastian MD Results were discussed with the patient and recommended admission to the hospital for rate control and further evaluation. He was given aspirin, this point his troponin is equivocal and I will defer to the admitting team regarding heparinization. Patient was discussed with Dr. Beck for admission and she is agreeable. Go to [facility]. Diagnosis Primary Impression: Atrial flutter with rapid ventricular response Admitting Information Admitting Physician Requests: Admit Condition: Stable Dionte Leon MD Feb 07, 2017 20:17
[2017-02-07 20:21] LABS: ALT (GPT) 34 U/L (12-78); ANION GAP 12 MEQ/L (5-15); AST (GOT) 29 U/L (15-37); BICARBONATE 22.8 MEQ/L (21.0-32.0); BLOOD UREA NITROGEN 28 MG/DL (7-18); CHLORIDE 106 MEQ/L (98-107); MAGNESIUM 1.9 MG/DL (1.5-2.5); POTASSIUM 4.5 MEQ/L (3.5-5.1); SODIUM (NA) 141 MEQ/L (136-145)
[2017-02-07 20:25] LABS: ALKALINE PHOSPHATASE 86 U/L (45-117); GLOMERULAR FILTRATION RATE 77 ML/MIN (>89)
[2017-02-07] MEDS ORDERED: POTA10CA PO (20:36)
[2017-02-07] MEDS ORDERED: DIGO0.12 PO (20:36)
[2017-02-07] MEDS ORDERED: CLOP75TA PO (20:36)
[2017-02-07] MEDS ORDERED: FURO40TA PO (20:36)
[2017-02-07] MEDS ORDERED: TAMS0.4C4 PO (20:36)
[2017-02-07] MEDS ORDERED: ATOR20TA15 PO (20:36)
[2017-02-07] MEDS ORDERED: ASPI81CH CHEW (20:36)
[2017-02-07] MEDS ORDERED: IOHEXOL 350 MG/ML 10 ML VIAL (for RAD DIAG) IV ONE (21:22)
--- NOTE | 2017-02-07 21:39 | RADRPT ---
EXAM DATE/TIME: 02/07/2017 21:16 This report includes an Addendum and supersedes previous reports for this exam. [facility] COMPARISON: CHEST SINGLE AP, February 07, 2017, 19:15. INDICATIONS : Shortness of breath. IV CONTRAST: 75 cc Omnipaque 350 (iohexol) IV RADIATION DOSE: 27.07 CTDIvol (mGy) MEDICAL HISTORY : Hypertension. Myocardial infarction. Emphysema.COPD. Carcinoma, lung. SURGICAL HISTORY : Port. ENCOUNTER: Initial ACUITY: 1 day PAIN SCALE: 0/10 LOCATION: chest TECHNIQUE: Volumetric scanning of the chest was performed using a pulmonary embolism protocol MIP images were re constructed. Using automated exposure control and adjustment of the mA and/or kV according to patien t size, radiation dose was kept as low as reasonably achievable to obtain optimal diagnostic quality images. FINDINGS: PULMONARY ARTERIES: No filling defects are seen in the pulmonary arteries through the segmental level. LUNGS: Mild groundglass parenchymal opacities. PLEURAE: Moderate bilateral effusions. MEDIASTINUM: There is good visualization of the great vessels of the middle mediastinum. No evidence of mediastin al or hilar adenopathy/mass. MUSCULOSKELETAL: Within normal limits for patient age. MISCELLANEOUS: The visualized upper abdominal organs demonstrate no acute abnormality. CONCLUSION: Mild parenchymal edema and bilateral effusions. No evidence of pulmonary embolism Carlos Sebastian MD on February 07, 2017 at 21:35 Board Certified Radiologist. This report was verified electronically. ADDENDUM: The previously described 3.2 cm nodular density within the posterior medial aspect of the left lower lobe is again noted and the essentially stable in appearance compared to previous examination. The pa tient has developed small pleural effusions and bibasilar atelectasis which are new compared to previ ous examination. Mild scattered ground-glass infiltrates are also new compared to the previous examin ation. Dionte Barnes MD on February 12, 2017 at 12:48 Board Certified Radiologist. This report was verified electronically.
[2017-02-07] MEDS ORDERED: ASPIRIN 81 MG CHEW TAB CHEW ONE (22:00)
--- NOTE | 2017-02-07 22:26 | HHI.HP ---
HPI Service [facility] Primary Care Physician Isac Cortez M.D. 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 Recent admit 01/27-01/28/17 for New Onset A-fib w/ conversion to NSR after Cardizem IV x1 dose. Follows w/ Dr. Mcintosh as outpatient. States he had episode of palpitations earlier today w/ HR 150's, was seen in Cardiologists office, had EKG and was started on Digoxin 0.125mg qd, told to take 2 tablets today which he did at approx 3pm and was to follow up again in office tomorrow morning. States he had no improvement after Digoxin w/ persistent palpitations at which point he decided to come to ER. On arrival, pt noted to be in A-fib w/ RVR, HR 150-160's. S/p Cardizem x1 and started on Cardizem gtt, HR currently 60-80's. Recent outpatient Echo reportedly normal per patient. CBC at baseline. Chemistry essentially unremarkable except for GFR 77. Troponin 0.21. BNP 565. INR 1.1. CXR with no acute findings. CTA Pulm negative for PE, mild parenchymal edema and bilateral pleural effusions. Review of Systems Except as stated in HPI: all other systems reviewed are Neg ROS: 14 point review of systems otherwise negative. Past Family Social History Past Medical History PMH: HTN, Redd's Palsy, CAD and Stage IV Non-Small Cell Lung Ca on Chemo Past Surgical History PAST SURGICAL HISTORY: Cardiac Stent, Right Ear Surgery Allergies: Coded Allergies: No Known Allergies (Unverified , 01/28/17) Family History PAST FAMILY HISTORY: Reviewed. No h/o DM or CAD Social History PAST SOCIAL HISTORY: Occasional alcohol. Negative for tobacco or drugs. Physical Exam Vital Signs Vital Signs Date Time Temp Pulse Resp B/P Pulse Ox O2 Delivery O2 Flow Rate FiO2 02/07/17 22:00 137 20 116/78 96 Nasal Cannula 2 02/07/17 21:44 154 20 116/90 95 Nasal Cannula 2 02/07/17 20:58 128 18 121/71 96 Nasal Cannula 2 02/07/17 20:10 82 20 123/65 96 Nasal Cannula 2 02/07/17 19:21 102 20 115/69 95 Nasal Cannula 2 02/07/17 19:18 96 Nasal Cannula 2 02/07/17 19:17 160 20 112/74 96 Nasal Cannula 2 02/07/17 18:56 97.8 154 20 116/81 97 Nasal Cannula 02/07/17 18:50 22 Nasal Cannula 2 02/07/17 18:41 150 28 126/77 89 Room Air Physical Exam PE: GENERAL: Very pleasant elderly white male in no acute distress. at bedside. HEENT: PERRLA, EOMI. No scleral icterus or conjunctival pallor. No lid lag. Right facial droop, chronic. CARDIOVASCULAR: Irregularly irregular, and A. fib. No obvious murmurs to auscultation. No chest tenderness to palpation. RESPIRATORY: No obvious rhonchi or wheezing. Clear to auscultation. Breath sounds equal bilaterally. GASTROINTESTINAL: Abdomen soft, non-tender, nondistended. BS normal. MUSCULOSKELETAL: Extremities without clubbing, cyanosis, or edema. No obvious deformities. NEUROLOGICAL: Awake, alert and oriented x4. No focal neurologic deficits. Moving both upper and lower extremities spontaneously. Laboratory Laboratory Tests Test 02/07/17 19:15 White Blood Count 8.5 Red Blood Count 3.26 Hemoglobin 11.1 Hematocrit 33.2 Mean Corpuscular Volume 101.8 Mean Corpuscular Hemoglobin 34.0 Mean Corpuscular Hemoglobin 33.4 Concent Red Cell Distribution Width 19.6 Platelet Count 154 Mean Platelet Volume 8.3 Neutrophils (%) (Auto) 80.9 Lymphocytes (%) (Auto) 13.1 Monocytes (%) (Auto) 3.4 Eosinophils (%) (Auto) 2.0 Basophils (%) (Auto) 0.6 Neutrophils # (Auto) 6.9 Lymphocytes # (Auto) 1.1 Monocytes # (Auto) 0.3 Eosinophils # (Auto) 0.2 Basophils # (Auto) 0.0 CBC Comment DIFF FINAL Differential Comment Prothrombin Time 12.7 Prothromb Time International 1.1 Ratio Activated Partial 57.2 Thromboplast Time Sodium Level 141 Potassium Level 4.5 Chloride Level 106 Carbon Dioxide Level 22.8 Anion Gap 12 Blood Urea Nitrogen 28 Creatinine 0.96 Estimat Glomerular Filtration 77 Rate Random Glucose 91 Calcium Level 8.7 Magnesium Level 1.9 Total Bilirubin 1.0 Aspartate Amino Transf 29 (AST/SGOT) Alanine Aminotransferase 34 (ALT/SGPT) Alkaline Phosphatase 86 Troponin I 0.21 B-Type Natriuretic Peptide 565 Total Protein 6.4 Albumin 3.0 Result Diagram: 02/07/17191402/07/171914 Assessment and Plan Problem List: (1) Atrial fibrillation with RVR ICD Code: I48.91 Status: Acute (2) HTN (hypertension) ICD Code: I10 Status: Acute (3) Lung cancer ICD Code: C34.90 Status: Acute Assessment and Plan A/P: 1. A-fib: w/ RVR, recent admit 01/27-01/28/17 for New Onset A-fib s/p conversion to NSR during hospitalization, now w/ recurrent A-fib. Follows w/ Dr. Mcintosh as outpatient, seen in office today and started on Digoxin 0.125mg qd, told to take 2 tablets today which he did. Currently on Cardizem gtt, HR 60-70 , wean gtt as tolerated. Cardiology consult for further evaluation. Resume home ASA, Plavix, Metoprolol and Statin. CXR negative for acute findings, images reviewed by me. 2. Lung CA: Metastatic. Currently on Chemo. O2 Dependent on 2L, O2 stable. Will monitor. CTA Pulm negative for PE, images reviewed by me. 3. HTN: Controlled. BP 120's, will monitor. Resume home medications. 4. DVT Prophylaxis: Heparin sq 5. Social work for d/c planning as needed. 6. Case discussed w/ ER physician at length. Physician Certification 2 Midnight Certification Type: Admission for Inpatient Services Order for Inpatient Services The services are ordered in accordance with Medicare regulations or non- Medicare payer requirements, as applicable. In the case of services not specified as inpatient-only, they are appropriately provided as inpatient services in accordance with the 2-midnight benchmark. Estimated LOS (days): 2 days is the estimated time the patient will need to remain in the hospital, assuming treatment plan goals are met and no additional complications. Post-Hospital Plan: Not yet determined Sahara Su MD Feb 07, 2017 22:26
[2017-02-07] MEDS ORDERED: MORPHINE SULFATE 4 MG/ML INJ IV PRN (22:30)
[2017-02-07] MEDS ORDERED: SENNOSIDES 8.6 MG TAB PO PRN (22:30)
[2017-02-07] MEDS ORDERED: ONDANSETRON HCL 4 MG/2 ML VIAL IVP PRN (22:30)
[2017-02-07] MEDS ORDERED: MAGNESIUM HYDROXIDE SUSP 30 ML CUP PO PRN (22:30)
[2017-02-07] MEDS ORDERED: SODIUM CHLORIDE 0.9% FLUSH 10 ML FLUSH IV FLUSH PRN (22:30)
[2017-02-07] MEDS ORDERED: ACETAMINOPHEN 325 MG TAB PO PRN (22:30)
[2017-02-07] MEDS ORDERED: LACTULOSE SYRUP 20 GM/30 ML CUP PO PRN (22:30)
[2017-02-07] MEDS ORDERED: ACETAMINOPHEN/HYDROcodone 325 MG/5 MG TAB PO PRN (22:30)
[2017-02-07] MEDS ORDERED: BISACODYL 10 MG SUPP RECTAL PRN (22:30)
[2017-02-07] MEDS: SODIUM CHLOR 0.9% 1000 ML INJ 1,000 ML IV SCH (22:50)
[2017-02-08] VITALS (12 sets, daily range): BP systolic 99–151; BP diastolic 57–83; PULSE 68–79; RESP 16–22; TEMP 97.6–98.3; O2SAT 92–95
[2017-02-08] MEDS ORDERED: SODIUM CHLORIDE 0.9% FLUSH 10 ML FLUSH IVF PRN (06:15)
[2017-02-08 07:04] LABS: AUTOMATED NEUTROPHIL # 6.2 TH/MM3 (1.8-7.7); BASOPHIL % 0.3 % (0.0-2.0); EOSINOPHIL # 0.3 TH/MM3 (0-0.4); EOSINOPHIL % 3.3 % (0.0-4.0); HEMATOCRIT 30.3 % (39.0-51.0); HEMO FLAGS DIFF FINAL; LYMPH % 12.8 % (9.0-44.0); MEAN CELL VOLUME 101.2 FL (80.0-100.0); MEAN CORPUSCULAR HEMOGLOBIN 34.5 PG (27.0-34.0); MEAN CORPUSCULAR HGB CONC 34.1 % (32.0-36.0); MONO % 2.2 % (0.0-8.0); NEUT % 81.4 % (16.0-70.0); PLATELET COUNT 132 TH/MM3 (150-450); RED CELL DISTRIBUTION WIDTH 19.1 % (11.6-17.2); WHITE BLOOD COUNT 7.7 TH/MM3 (4.0-11.0)
[2017-02-08 07:29] LABS: ALT (GPT) 31 U/L (12-78); ANION GAP 11 MEQ/L (5-15); AST (GOT) 24 U/L (15-37); BICARBONATE 23.3 MEQ/L (21.0-32.0); BLOOD UREA NITROGEN 28 MG/DL (7-18); CHLORIDE 108 MEQ/L (98-107); GLOMERULAR FILTRATION RATE 78 ML/MIN (>89); POTASSIUM 4.1 MEQ/L (3.5-5.1); SODIUM (NA) 142 MEQ/L (136-145)
[2017-02-08 07:33] LABS: ALKALINE PHOSPHATASE 81 U/L (45-117)
[2017-02-08] MEDS: SODIUM CHLOR 0.9% 1000 ML INJ 1,000 ML IV SCH (08:18)
--- NOTE | 2017-02-08 08:44 | PD.CONS ---
HPI Service cardiology Consult Requested By Dr. Su Reason for Consult recurrent Afib Primary Care Physician Isac Cortez M.D. History of Present Illness 71 yo WM with history of HTN, CAD s/p 2 cardiac stents placed approximately one year ago by and non-small cell lung ca currently receiving chemo who was admitted yesterday for palpitations and found to be in afib RVR. He was recently admitted for new onset afib RVR that converted with cardizem po x 1. He then began to noticed increased SOB and fast heart rate a few days ago; he contacted Dr. Mcintosh's office who advised to increase his digoxin. When this did not offer relief he came to the ED. Currently he is feeling well and rate controlled on Cardizem gtt. denies chest pain. 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 Past Surgical History PAST SURGICAL HISTORY: Cardiac Stent, Right Ear Surgery Reported Medications Reported Meds & Active Scripts Active Lopressor (Metoprolol Tartrate) 50 Mg Tab 50 Mg PO Q12HR Reported Digoxin 0.125 Mg Tab 0.125 Mg PO DAILY Potassium Chloride ER (Potassium Chloride) 10 Meq Cap 10 Meq PO DAILY Furosemide 40 Mg Tab 40 Mg PO DAILY Aspirin 81 Mg Chew 81 Mg CHEW DAILY Clopidogrel (Clopidogrel Bisulfate) 75 Mg Tab 75 Mg PO DAILY Tamsulosin (Tamsulosin HCl) 0.4 Mg Cap 0.4 Mg PO HS Atorvastatin (Atorvastatin Calcium) 20 Mg Tab 20 Mg PO HS Active Ordered Medications Current Medications Medications (Trade) Dose Ordered Sig/Angie Route Start Time Stop Time Status Last Admin Sodium Chloride 2 ml 2 ml UNSCH PRN IVF 02/07/17 19:15 Diltiazem HCl 125 mg/Sodium Chloride 125 ml @ 0 mls/hr TITRATE IV 02/07/17 19:15 02/07/17 20:57 (NS 1000 ml Inj) 1,000 ml @ 100 mls/hr Q10H IV 02/07/17 22:18 02/07/17 22:50 (NS Flush) 2 ml UNSCH PRN IV FLUSH 02/07/17 22:30 (NS Flush) 2 ml BID IV FLUSH 02/08/17 09:00 (Zofran Inj) 4 mg Q6H PRN IVP 02/07/17 22:30 (Heparin Inj) 5,000 units Q12H SQ 02/08/17 23:00 (Tylenol) 650 mg Q6H PRN PO 02/07/17 22:30 (Cumby 5-325 Mg) 1 tab Q4H PRN PO 02/07/17 22:30 (Morphine Inj) 4 mg Q3H PRN IV 02/07/17 22:30 (Amelia-Colace) 1 tab BID PO 02/08/17 09:00 (Milk Of Magnesia Liq) 30 ml Q12H PRN PO 02/07/17 22:30 (Senokot) 17.2 mg Q12H PRN PO 02/07/17 22:30 (Dulcolax Supp) 10 mg DAILY PRN RECTAL 02/07/17 22:30 (Lactulose Liq) 30 ml DAILY PRN PO 02/07/17 22:30 (Aspirin Chew) 81 mg DAILY CHEW 02/08/17 09:00 (Lipitor) 20 mg HS PO 02/08/17 21:00 (Plavix) 75 mg DAILY PO 02/08/17 09:00 (Lanoxin) 0.125 mg DAILY PO 02/08/17 09:00 (Lasix) 40 mg DAILY PO 02/08/17 09:00 (Lopressor) 50 mg Q12HR PO 02/08/17 09:00 (Flomax) 0.4 mg HS PO 02/08/17 21:00 (Heparin Central Flush) 500 units UNSCH IV FLUSH 02/08/17 06:15 (NS Flush) 5 ml UNSCH PRN IVF 02/08/17 06:15 (Heparin Central Flush) 250 units UNSCH PRN IV FLUSH 02/08/17 06:15 Family History PAST FAMILY HISTORY: Reviewed. No h/o DM or CAD Social History Occasional alcohol. Negative for tobacco or drugs. (Joselyn Barry) Physical Exam Vital Signs Vital Signs Date Time Temp Pulse Resp B/P Pulse Ox O2 Delivery O2 Flow Rate FiO2 02/08/17 08:00 98.3 68 20 133/65 94 02/08/17 07:51 69 18 95 02/08/17 06:00 69 02/08/17 05:46 97.6 68 16 151/83 92 02/08/17 05:00 69 02/08/17 04:10 68 18 99/58 94 2 02/08/17 03:43 69 18 106/57 94 Nasal Cannula 2 02/08/17 00:17 77 18 104/59 95 Nasal Cannula 2 02/07/17 22:52 67 20 119/72 97 Nasal Cannula 2 02/07/17 22:00 137 20 116/78 96 Nasal Cannula 2 02/07/17 21:44 154 20 116/90 95 Nasal Cannula 2 02/07/17 20:58 128 18 121/71 96 Nasal Cannula 2 02/07/17 20:10 82 20 123/65 96 Nasal Cannula 2 02/07/17 19:21 102 20 115/69 95 Nasal Cannula 2 02/07/17 19:18 96 Nasal Cannula 2 02/07/17 19:17 160 20 112/74 96 Nasal Cannula 2 02/07/17 18:56 97.8 154 20 116/81 97 Nasal Cannula 02/07/17 18:50 22 Nasal Cannula 2 02/07/17 18:41 150 28 126/77 89 Room Air Physical Exam SKIN: Warm and dry. HEAD: Atraumatic. Normocephalic. EYES: Pupils equal and round. ENT: No nasal bleeding or discharge. t. NECK: Trachea midline. No JVD. CARDIOVASCULAR: Regular rate and rhythm. No murmur RESPIRATORY: No accessory muscle use. Clear to auscultation. Breath sounds equal bilaterally. GASTROINTESTINAL: Abdomen soft, non-tender, nondistended. MUSCULOSKELETAL: Extremities without clubbing, cyanosis, or edema. No obvious deformities. NEUROLOGICAL: Awake and alert. No obvious cranial nerve deficits. Normal speech. PSYCHIATRIC: Appropriate mood and affect; insight and judgment normal. Laboratory Laboratory Tests Test 02/07/17 02/08/17 02/08/17 19:15 02:05 05:45 White Blood Count 8.5 7.7 Red Blood Count 3.26 3.00 Hemoglobin 11.1 10.3 Hematocrit 33.2 30.3 Mean Corpuscular Volume 101.8 101.2 Mean Corpuscular Hemoglobin 34.0 34.5 Mean Corpuscular Hemoglobin 33.4 34.1 Concent Red Cell Distribution Width 19.6 19.1 Platelet Count 154 132 Mean Platelet Volume 8.3 8.0 Neutrophils (%) (Auto) 80.9 81.4 Lymphocytes (%) (Auto) 13.1 12.8 Monocytes (%) (Auto) 3.4 2.2 Eosinophils (%) (Auto) 2.0 3.3 Basophils (%) (Auto) 0.6 0.3 Neutrophils # (Auto) 6.9 6.2 Lymphocytes # (Auto) 1.1 1.0 Monocytes # (Auto) 0.3 0.2 Eosinophils # (Auto) 0.2 0.3 Basophils # (Auto) 0.0 0.0 CBC Comment DIFF FINAL DIFF FINAL Differential Comment Prothrombin Time 12.7 Prothromb Time International 1.1 Ratio Activated Partial 57.2 Thromboplast Time Sodium Level 141 142 Potassium Level 4.5 4.1 Chloride Level 106 108 Carbon Dioxide Level 22.8 23.3 Anion Gap 12 11 Blood Urea Nitrogen 28 28 Creatinine 0.96 0.95 Estimat Glomerular Filtration 77 78 Rate Random Glucose 91 92 Calcium Level 8.7 8.6 Magnesium Level 1.9 Total Bilirubin 1.0 1.0 Aspartate Amino Transf 29 24 (AST/SGOT) Alanine Aminotransferase 34 31 (ALT/SGPT) Alkaline Phosphatase 86 81 Troponin I 0.21 0.59 0.51 B-Type Natriuretic Peptide 565 Total Protein 6.4 5.8 Albumin 3.0 2.9 Date/Time Procedure Status Source Growth 02/08/17 04:40 MRSA Surveillance Culture Received Nasopharyngeal Pending (Joselyn Barry) Result Diagram: 02/08/17 0545 02/08/17 0545 Imaging Last Impressions Chest X-Ray 02/07/17 1903 Signed Impressions: Service Date/Time: January 19:15 - CONCLUSION: Stable chest without definite acute disease Carlos Sebastian MD CT Angiography 02/07/17 0000 Signed Impressions: Service Date/Time: January 21:16 - CONCLUSION: Mild parenchymal edema and bilateral effusions. No evidence of pulmonary embolism Carlos Sebastian MD (Joselyn Barry) Assessment and Plan Problem List: (1) Atrial flutter with rapid ventricular response (2) HTN (hypertension) Assessment and Plan 71 yo WM with hx of CAD s/p stenting, HTN, NSCLC, and recent admission for new onset afib. He converted on last admission with cardizem po x.1. Yesterday readmitted for aflutter RVR; now in NSR with cardizem gtt. afib RVR- in NSR and rate controlled. troponin elevation likely demand mediated , no chest pain. cont metoprolol and digoxin. follow up with Dr.s Mcintosh and Deepak in outpatient setting. ok for dischage. (Joselyn Barry) Assessment and Plan agree with above (Bao Davis MD) Joselyn Barry Feb 08, 2017 08:44 Bao Davis MD Feb 08, 2017 11:46
[2017-02-08] MEDS ORDERED: DIGOXIN 0.125 MG TAB PO SCH (09:00)
[2017-02-08] MEDS ORDERED: FUROSEMIDE 40 MG TAB PO SCH (09:00)
[2017-02-08] MEDS ORDERED: CLOPIDOGREL 75 MG TAB PO SCH (09:00)
[2017-02-08] MEDS ORDERED: ASPIRIN 81 MG CHEW TAB CHEW SCH (09:00)
[2017-02-08] MEDS ORDERED: SODIUM CHLORIDE 0.9% FLUSH 10 ML FLUSH IV FLUSH SCH (09:00)
[2017-02-08] MEDS ORDERED: METOPROLOL TARTRATE 50 MG TAB PO SCH (09:00)
[2017-02-08] MEDS ORDERED: DOCUSATE SODIUM 50 MG/SENNA 8.6 MG TAB PO SCH (09:00)
--- NOTE | 2017-02-08 09:09 | HHI.PR ---
Subjective Remarks Pt denies any CP/SOB/n/v/palpitations. tells me that he was supposed to have an appt w Dr. Eason today but will call to reschedule for next week. is hopeful to go home later today Objective Vitals Vital Signs Date Time Temp Pulse Resp B/P Pulse Ox O2 Delivery O2 Flow Rate FiO2 02/08/17 08:00 98.3 68 20 133/65 94 02/08/17 07:51 69 18 95 02/08/17 06:00 69 02/08/17 05:46 97.6 68 16 151/83 92 02/08/17 05:00 69 02/08/17 04:10 68 18 99/58 94 2 02/08/17 03:43 69 18 106/57 94 Nasal Cannula 2 02/08/17 00:17 77 18 104/59 95 Nasal Cannula 2 02/07/17 22:52 67 20 119/72 97 Nasal Cannula 2 02/07/17 22:00 137 20 116/78 96 Nasal Cannula 2 02/07/17 21:44 154 20 116/90 95 Nasal Cannula 2 02/07/17 20:58 128 18 121/71 96 Nasal Cannula 2 02/07/17 20:10 82 20 123/65 96 Nasal Cannula 2 02/07/17 19:21 102 20 115/69 95 Nasal Cannula 2 02/07/17 19:18 96 Nasal Cannula 2 02/07/17 19:17 160 20 112/74 96 Nasal Cannula 2 02/07/17 18:56 97.8 154 20 116/81 97 Nasal Cannula 02/07/17 18:50 22 Nasal Cannula 2 02/07/17 18:41 150 28 126/77 89 Room Air I/O 02/07/17 02/07/17 02/07/17 02/08/17 02/08/17 02/08/17 07:00 15:00 23:00 07:00 15:00 23:00 Intake Total 818 ml Output Total 350 ml Balance 468 ml Intake Oral 50 ml IV Total 768 ml Output Urine Total 350 ml Result Diagram: 02/08/17 0545 02/08/17 0545 Imaging Last Impressions Chest X-Ray 02/07/17 178 Signed Impressions: Service Date/Time: January 19:15 - CONCLUSION: Stable chest without definite acute disease Carlos Sebastian MD CT Angiography 02/07/17 0000 Signed Impressions: Service Date/Time: January 21:16 - CONCLUSION: Mild parenchymal edema and bilateral effusions. No evidence of pulmonary embolism Carlos Sebastian MD Objective Remarks GENERAL: Very pleasant elderly white male in no acute distress. at bedside. CARDIOVASCULAR: Irregularly irregular,rate controlled. No obvious murmurs to auscultation. No chest tenderness to palpation. RESPIRATORY: No obvious rhonchi or wheezing. Clear to auscultation. GASTROINTESTINAL: Abdomen soft, non-tender, nondistended. BS normal. MUSCULOSKELETAL: Extremities without edema. No obvious deformities. NEUROLOGICAL: Awake, alert and oriented x4. No focal neurologic deficits. Moving both upper and lower extremities spontaneously A/P Problem List: (1) Atrial fibrillation with RVR ICD Code: I48.91 Status: Acute (2) HTN (hypertension) ICD Code: I10 Status: Acute (3) Lung cancer ICD Code: C34.90 Status: Acute Assessment and Plan 1. A-fib: w/ RVR, recent admit 01/27-01/28/17 for New Onset A-fib s/p conversion to NSR during hospitalization, now w/ recurrent A-fib. Follows w/ Dr. Eason as outpatient, seen in office day of admission and started on Digoxin 0.125mg qd, told to take 2 tablets that day which he did. Currently on Cardizem gtt on 5mcg/hr, HR 60-70. Cardiology evaluated the pt and recommends restarting home meds and then ok to d/c home. Pt back on his ASA, Plavix, Metoprolol and Statin. CXR negative for acute findings. d/c cardizem gtt, once pt take his meds. monitor until noon and if rate controlled w d/c home. 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 appreciate assistance from cards. pt has been chest pain free and elevated troponins felt to be demand mediated. 2. Lung CA: Metastatic. Currently on Chemo. O2 Dependent on 2L, O2 stable. CTA Pulm negative for PE 3. HTN: Controlled. BP 120's, will monitor. on home medications. 4. DVT Prophylaxis: Heparin sq Discharge Planning anticipate d/c later today Shantel Estrella MD Feb 08, 2017 09:09
[2017-02-08] MEDS ORDERED: POTASSIUM CHLORIDE 10 MEQ CAP PO SCH (09:15)
--- NOTE | 2017-02-08 17:43 | EKG ---
Date Performed: 02/07/2017 Time Performed: 20:11:48 PTAGE: 71 years EKG: ATRIAL FLUTTER LOW QRS VOLTAGE IN PRECORDIAL LEADS ABNORMAL RHYTHM ECG PREVIOUS TRACING : 02/07/2017 18.51 Compared to the previous tracing rate slower DOCTOR: Bettye Rausch Interpretating Date/Time 02/08/2017 17:41:53
--- NOTE | 2017-02-08 17:44 | EKG ---
Date Performed: 02/07/2017 Time Performed: 18:51:56 PTAGE: 71 years EKG: ATRIAL FLUTTER WITH RAPID VENTRICULAR RESPONSE ABNORMAL RHYTHM ECG PREVIOUS TRACING : 01/27/2017 23.12 Compared to the previous tracing SR no longer present DOCTOR: Bettye Rausch Interpretating Date/Time 02/08/2017 17:43:59
[2017-02-08] MEDS ORDERED: TAMSULOSIN HCL 0.4 MG CAP PO SCH (21:00)
[2017-02-08] MEDS ORDERED: ATORVASTATIN 20 MG TAB PO SCH (21:00)
[2017-02-08] MEDS ORDERED: HEPARIN SODIUM - SQ 10,000 UNITS/ML VIAL SQ SCH (23:00)
== END 2017-02-08 16:35 | disposition home or self-care (01) | DRG 309 ==
LOC: NEPC 18:38 → NEDA 22:00 → HIMN 02-08 04:28 → HCIS 02-08 14:53
PROVIDERS: ADMIT Hospitalist; ATTEND Hospitalist
DX: I48.91 Unspecified atrial fibrillation (principal); C34.90 Malignant neoplasm of unspecified part of unspecified bronchus or lung; Z99.81 Dependence on supplemental oxygen; J44.9 Chronic obstructive pulmonary disease, unspecified; I10 Essential (primary) hypertension; I25.10 Atherosclerotic heart disease of native coronary artery without angina pectoris; E78.00 Pure hypercholesterolemia, unspecified; I25.2 Old myocardial infarction; I48.92 Unspecified atrial flutter; H91.90 Unspecified hearing loss, unspecified ear; Z95.5 Presence of coronary angioplasty implant and graft
CPT/HCPCS: 71010; 71275; 80053; 83735; 83880; 84484; 85025; 85610; 85730; 86403; 87081; 87186; 93005; 96365; 96366; J7030; Q9967

== ENCOUNTER 2017-02-22 17:44 | Inpatient (IN) | payer MEDICARE ==
[~2017-02-22] VITALS: Ht 180.3 cm; Wt 105.6 kg
[~2017-02-22 17:44] MED LIST changes: -ASPI1TAB7 PO; +ASPI81CH CHEW; -ATOR20TA PO; +ATOR20TA15 PO; -CLOP75 PO; +CLOP75TA PO; -DEXA1TAB2; +DIGO0.12 PO; -FISH500C PO; +FURO40TA PO; -PACLPB100P; +POTA10CA PO; -RAMI10CA35 PO; -UBIQ100C PO; -[UNRECOGNIZED DRUG - CODE]; -[UNRECOGNIZED DRUG - CODE]
[2017-02-22 17:52] VITALS: BP 141/63; PULSE 68; RESP 22; O2SAT 85
[2017-02-22 17:59] VITALS: BP 170/67; PULSE 75; RESP 22; O2SAT 99
--- NOTE | 2017-02-22 18:10 | PD ---
HPI . increasing shortness of breath Chief Complaint: Respiratory Distress Time Seen by Provider: 18:10 Travel History International Travel<30 days: No Contact w/Intl Traveler<30days: No Traveled to known affect area: No History of Present Illness HPI 71-year-old male with history of stage IV lung cancer non-small cell who receives chemotherapy every Saturday here with complaints of worsening shortness of breath brought in by fire rescue. Patient reports baseline level of shortness of breath and uses oxygen at home, however over the past few days he' s been developing increasingly worse shortness of breath. He does report that he was recently in the hospital twice within the past several weeks for A. fib. He tells me that he was given medication and immediately cardioverted. He has since followed with cardiology and had a couple of tests including a stress test and echocardiogram done. He was in the hospital on February [address] angiogram done without any evidence of pulmonary emboli. At this present time patient is complaining of shortness of breath. On room air oxygen saturation 85 %, with nonrebreather his oxygen saturation is 100%. PFSH Past Medical History Hx Anticoagulant Therapy: Yes (PLAVIX) Atrial Fibrillation: Yes Heart Rhythm Problems: No (Afib started last week.) Cancer: Yes (stage 4 non-small cell lung and stomach since 2015) Cardiovascular Problems: Yes (2 stents 2015) High Cholesterol: Yes Chemotherapy: Yes Chest Pain: No Congestive Heart Failure: No COPD: Yes Diabetes: No Diminished Hearing: Yes Endocrine: No Genitourinary: No Hepatitis: No Hiatal Hernia: No Hypertension: Yes Immune Disorder: No Implanted Vascular Access Dvce: Yes (RIGHT CHEST) Musculoskeletal: No Neurologic: No Psychiatric: No Reproductive: No Respiratory: No Myocardial Infarction: Yes Radiation Therapy: No Sleep Apnea: Yes (NEVRER BEEN DX) Thyroid Disease: No Tetanus Vaccination: Unknown Influenza Vaccination: Yes ?: Not Past Surgical History Abdominal Surgery: No AICD: No Arteriovenous Shunt: No Cardiac Surgery: Yes (2 stents 2015) Ear Surgery: Yes (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) Endocrine Surgery: No Eye Surgery: Yes (2015: cataract both eyes & cornea surgery to right eye ) Genitourinary Surgery: No Gynecologic Surgery: No Insulin Pump: No Joint Replacement: No Oral Surgery: Yes (several crowns) Pacemaker: No Thoracic Surgery: Yes (right side rib biopsy for cancer) Other Surgery: Yes (PORT PLACE RIGHT CHEST) Social History Alcohol Use: No Tobacco Use: No Substance Use: No Allergies-Medications (Allergen,Severity, Reaction): Coded Allergies: No Known Allergies (Unverified , 01/28/17) Reported Meds & Prescriptions Reported Meds & Active Scripts Active Lopressor (Metoprolol Tartrate) 50 Mg Tab 50 Mg PO Q12HR Reported Digoxin 0.125 Mg Tab 0.125 Mg PO DAILY Potassium Chloride ER (Potassium Chloride) 10 Meq Cap 10 Meq PO DAILY Furosemide 40 Mg Tab 40 Mg PO DAILY Aspirin 81 Mg Chew 81 Mg CHEW DAILY Clopidogrel (Clopidogrel Bisulfate) 75 Mg Tab 75 Mg PO DAILY Tamsulosin (Tamsulosin HCl) 0.4 Mg Cap 0.4 Mg PO HS Atorvastatin (Atorvastatin Calcium) 20 Mg Tab 20 Mg PO HS Review of Systems General / Constitutional: No: Fever Eyes: No: Visual changes HENT: No: Headaches Cardiovascular: No: Chest Pain or Discomfort Respiratory: Positive: Shortness of Breath Gastrointestinal: No: Abdominal Pain Genitourinary: No: Dysuria Musculoskeletal: No: Pain Skin: No Rash Neurologic: No: Weakness Psychiatric: No: Depression Endocrine: No: Polydipsia Hematologic/Lymphatic: No: Easy Bruising Physical Exam Narrative GENERAL: AAO x 3, no acute distress, Well-nourished, well-developed patient. SKIN: Warm and dry. No visible rashes or bruising. HEAD: Normocephalic and atraumatic. EYES: No scleral icterus. No injection or drainage. EOM intact, PERRLA ENT: No nasal drainage noted. Mucous membranes pink. Airway patent. right sided facial droop NECK: Supple, trachea midline. No JVD. no lymphadenopathy CARDIOVASCULAR: Regular rate and rhythm without murmurs, gallops, or rubs. RESPIRATORY: diminished breath sounds b/l, slight rales, GASTROINTESTINAL: Abdomen soft, non-tender, nondistended. EXTREMITIES: No cyanosis or edema. BACK: Nontender without obvious deformity. No CVA tenderness. 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 Data Data Last Documented VS Vital Signs Date Time Temp Pulse Resp B/P Pulse Ox O2 Delivery O2 Flow Rate FiO2 02/22/17 22:11 61 19 137/61 95 Nasal Cannula 6 Orders Electrocardiogram (02/22/17 ) Arterial Blood Gas (Abg) (02/22/17 ) Chest, Single Ap (02/22/17 ) Albuterol-Ipratropium Neb (Duoneb Neb) (02/22/17 18:15) Albuterol Neb (Albuterol Neb) (02/22/17 18:15) Electrocardiogram (02/22/17 19:59) Basic Metabolic Panel (Bmp) (02/22/17 19:59) B-Type Natriuretic Peptide (02/22/17 19:59) Ckmb (Isoenzyme) Profile (02/22/17 19:59) Complete Blood Count With Diff (02/22/17 19:59) Magnesium (Mg) (02/22/17 19:59) Prothrombin Time / Inr (Pt) (02/22/17 19:59) Act Partial Throm Time (Ptt) (02/22/17 19:59) Troponin I (02/22/17 19:59) Ecg Monitoring (02/22/17 19:59) Bilateral Bp Monitoring (02/22/17 19:59) Iv Access Insert/Monitor (02/22/17 19:59) Oximetry (02/22/17 19:59) Oxygen Administration (02/22/17 19:59) Sodium Chloride 0.9% Flush (Ns Flush) (02/22/17 20:00) Furosemide Inj (Lasix Inj) (02/22/17 20:30) Admit Order (Ed Use Only) (02/22/17 22:18) Labs Laboratory Tests Test 02/22/17 02/22/17 18:34 20:10 Blood Gas Puncture Site RT RADIAL Blood Gas Patient Temperature 98.6 Blood Gas HCO3 26 mmol/L Blood Gas Base Excess 2.2 mmol/L Blood Gas Oxygen Saturation 81 % Arterial Blood pH 7.48 Arterial Blood Partial 35 mmHg Pressure CO2 Arterial Blood Partial 46 mmHG Pressure O2 Arterial Blood Oxygen Content 11.0 Vol % Arterial Blood 2.3 % Carboxyhemoglobin Arterial Blood Methemoglobin 0.4 % Blood Gas Hemoglobin 9.7 G/DL Oxygen Delivery Device ROOM AIR White Blood Count 9.8 TH/MM3 Red Blood Count 2.76 MIL/MM3 Hemoglobin 9.4 GM/DL Hematocrit 28.5 % Mean Corpuscular Volume 103.1 FL Mean Corpuscular Hemoglobin 34.1 PG Mean Corpuscular Hemoglobin 33.0 % Concent Red Cell Distribution Width 20.0 % Platelet Count 265 TH/MM3 Mean Platelet Volume 8.1 FL Neutrophils (%) (Auto) 94.1 % Lymphocytes (%) (Auto) 4.0 % Monocytes (%) (Auto) 0.6 % Eosinophils (%) (Auto) 0.5 % Basophils (%) (Auto) 0.8 % Neutrophils # (Auto) 9.3 TH/MM3 Lymphocytes # (Auto) 0.4 TH/MM3 Monocytes # (Auto) 0.1 TH/MM3 Eosinophils # (Auto) 0.0 TH/MM3 Basophils # (Auto) 0.1 TH/MM3 CBC Comment DIFF FINAL Differential Comment Prothrombin Time 14.6 SEC Prothromb Time International 1.3 RATIO Ratio Activated Partial 34.3 SEC Thromboplast Time Sodium Level 138 MEQ/L Potassium Level 4.4 MEQ/L Chloride Level 103 MEQ/L Carbon Dioxide Level 26.0 MEQ/L Anion Gap 9 MEQ/L Blood Urea Nitrogen 35 MG/DL Creatinine 1.28 MG/DL Estimat Glomerular Filtration 55 ML/MIN Rate Random Glucose 115 MG/DL Calcium Level 8.1 MG/DL Magnesium Level 2.4 MG/DL Total Creatine Kinase 65 U/L Troponin I 0.05 NG/ML B-Type Natriuretic Peptide 103 PG/ML MDM Medical Decision Making Medical Screen Exam Complete: Yes Emergency Medical Condition: Yes Medical Record Reviewed: Yes Differential Diagnosis CHF, non small cell lung cancer, stage IV lung cancer, pulmonary emboli, worsening lung cancer, pneumonia Narrative Course 71-year-old male here with complaints of worsening shortness of breath. Blood gas and chest x-ray ordered. Patient recently had CT angio done and demonstrated no evidence of pulmonary emboli on February 07. Labs were ordered. Xray with pulmonary edema. Patient given IV lasix here in ED. Labs reviewed; slight decrease in H/H. Elevated BNP as expected. His oxygen saturation is improved significantly on nasal cannula. He is hemodynamically stable and in no signs of distress. Case discussed with Dr. Su. Patient accepted for admission; He will go to med /surg with tele. Last Impressions Chest X-Ray 02/22/17 0000 Signed Impressions: Service Date/Time: Wednesday, February 22, 2017 18:29 - CONCLUSION: Radiographic findings consistent with intra-alveolar pulmonary edema. Ric Chang Jr., MD Laboratory Tests Test 02/22/17 02/22/17 18:34 20:10 Blood Gas Puncture Site RT RADIAL Blood Gas Patient Temperature 98.6 Blood Gas HCO3 26 mmol/L Blood Gas Base Excess 2.2 mmol/L Blood Gas Oxygen Saturation 81 % Arterial Blood pH 7.48 Arterial Blood Partial 35 mmHg Pressure CO2 Arterial Blood Partial 46 mmHG Pressure O2 Arterial Blood Oxygen Content 11.0 Vol % Arterial Blood 2.3 % Carboxyhemoglobin Arterial Blood Methemoglobin 0.4 % Blood Gas Hemoglobin 9.7 G/DL Oxygen Delivery Device ROOM AIR White Blood Count 9.8 TH/MM3 Red Blood Count 2.76 MIL/MM3 Hemoglobin 9.4 GM/DL Hematocrit 28.5 % Mean Corpuscular Volume 103.1 FL Mean Corpuscular Hemoglobin 34.1 PG Mean Corpuscular Hemoglobin 33.0 % Concent Red Cell Distribution Width 20.0 % Platelet Count 265 TH/MM3 Mean Platelet Volume 8.1 FL Neutrophils (%) (Auto) 94.1 % Lymphocytes (%) (Auto) 4.0 % Monocytes (%) (Auto) 0.6 % Eosinophils (%) (Auto) 0.5 % Basophils (%) (Auto) 0.8 % Neutrophils # (Auto) 9.3 TH/MM3 Lymphocytes # (Auto) 0.4 TH/MM3 Monocytes # (Auto) 0.1 TH/MM3 Eosinophils # (Auto) 0.0 TH/MM3 Basophils # (Auto) 0.1 TH/MM3 CBC Comment DIFF FINAL Differential Comment Prothrombin Time 14.6 SEC Prothromb Time International 1.3 RATIO Ratio Activated Partial 34.3 SEC Thromboplast Time Sodium Level 138 MEQ/L Potassium Level 4.4 MEQ/L Chloride Level 103 MEQ/L Carbon Dioxide Level 26.0 MEQ/L Anion Gap 9 MEQ/L Blood Urea Nitrogen 35 MG/DL Creatinine 1.28 MG/DL Estimat Glomerular Filtration 55 ML/MIN Rate Random Glucose 115 MG/DL Calcium Level 8.1 MG/DL Magnesium Level 2.4 MG/DL Total Creatine Kinase 65 U/L Troponin I 0.05 NG/ML B-Type Natriuretic Peptide 103 PG/ML Admission with discussed with patient and his at bedside. They are in agreement with the current treatment plan. Patient also seen by Dr. Rodriguez. Diagnosis Primary Impression: Pulmonary edema Qualified Code: J81.0 - Acute pulmonary edema Admitting Information Admitting Physician Requests: Admit Condition: Stable Penny Burgos Feb 22, 2017 18:10
[2017-02-22] MEDS ORDERED: RESP: ALBUTEROL 2.5 MG/3 ML NEB (SCH) NEB ONE (18:15)
[2017-02-22] MEDS ORDERED: RESP: ALBUTEROL 2.5 MG/IPRATROPIUM 0.5 MG NEB (SCH) NEB ONE (18:15)
[2017-02-22 18:39] LABS: BLOOD GAS BASE EXCESS 2.2 mmol/L (-2-2); BLOOD GAS CARBOXYHEMOGLOBIN 2.3 % (0-4); BLOOD GAS HCO3 26 mmol/L (22-26); BLOOD GAS METHEMOGLOBIN 0.4 % (0-2); BLOOD GAS O2 HGB SATURATION 81 % (90-100); BLOOD GAS PCO2 35 mmHg (38-42); BLOOD GAS PO2 46 mmHG (61-120); BLOOD GAS TOTAL HGB 9.7 G/DL (12.0-16.0); TEMP CORR TO 98.6
[2017-02-22 18:40] LABS: CRITICAL VALUE YES; DRAW SITE RT RADIAL; NUMBER OF ARTERIAL PUNCTURES 1; OXYGEN DEVICE ROOM AIR; STAT YES; ULNAR PULSE PRESENT
[2017-02-22 18:59] VITALS: BP 142/64; PULSE 67; RESP 19; O2SAT 98
--- NOTE | 2017-02-22 19:04 | RADRPT ---
EXAM DATE/TIME: 02/22/2017 18:29 [facility] COMPARISON: CHEST SINGLE AP, February 07, 2017, 19:15. INDICATIONS : Patient states Shortness of breath. MEDICAL HISTORY : Hypertension. Carcinoma, lung. Squamous cell lung carcinoma. A-fib. SURGICAL HISTORY : [id number]. ENCOUNTER: Initial ACUITY: 1 day PAIN SCORE: 0/10 LOCATION: Bilateral chest FINDINGS: A single portable frontal view the chest shows small bilateral pleural effusions and bibasilar intra- alveolar infiltrates. Heart is enlarged. Port-A-Cath overlies the right chest. A degenerative thoraci c spine. CONCLUSION: Radiographic findings consistent with intra-alveolar pulmonary edema. Ric Chang Jr., MD on February 22, 2017 at 19:01 Board Certified Radiologist. This report was verified electronically.
[2017-02-22] MEDS ORDERED: SODIUM CHLORIDE 0.9% FLUSH 10 ML FLUSH IVF PRN (20:00)
[2017-02-22 20:29] LABS: AUTOMATED NEUTROPHIL # 9.3 TH/MM3 (1.8-7.7); BASOPHIL # 0.1 TH/MM3 (0-0.2); BASOPHIL % 0.8 % (0.0-2.0); EOSINOPHIL % 0.5 % (0.0-4.0); HEMATOCRIT 28.5 % (39.0-51.0); HEMO FLAGS DIFF FINAL; LYMPHOCYTE # 0.4 TH/MM3 (1.0-4.8); MEAN CELL VOLUME 103.1 FL (80.0-100.0); MEAN CORPUSCULAR HEMOGLOBIN 34.1 PG (27.0-34.0); MONO % 0.6 % (0.0-8.0); NEUT % 94.1 % (16.0-70.0); PLATELET COUNT 265 TH/MM3 (150-450); RED BLOOD COUNT 2.76 MIL/MM3 (4.50-5.90); WHITE BLOOD COUNT 9.8 TH/MM3 (4.0-11.0)
[2017-02-22] MEDS ORDERED: FUROSEMIDE 40 MG/4 ML VIAL IV PUSH ONE (20:30)
[2017-02-22 20:42] LABS: APTT (PATIENT) 34.3 SEC (24.3-30.1); INTERNATIONAL NORMALIZED RATIO 1.3 RATIO; PROTHROMBIN TIME - PATIENT 14.6 SEC (9.8-11.6)
[2017-02-22 20:48] LABS: MAGNESIUM 2.4 MG/DL (1.5-2.5); POTASSIUM 4.4 MEQ/L (3.5-5.1)
--- NOTE | 2017-02-22 20:54 | PD ---
Physical Exam Date Seen by Provider: Feb 22, 2017 Time Seen by Provider: 20:48 Narrative 71-year-old male came to the emergency room with history of respiratory distress. He was hypoxic when he initially arrived. ABG was suggestive of hypoxia as well. Patient was seen by the nurse practitioner and I'm supervising her. The workup included the ABG and the chest x-ray. The chest x- ray suggestive of pulmonary edema. Patient has history of lung cancer as well and is getting chemotherapy. 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 He was told that everything looked okay. However patient was in the emergency room 3 times in past 3 weeks and was diagnosed with atrial fibrillation in the first time. He says he went back and saw his apparatus lineman and was started on Eliquis which he has been taking every day for past 1 week like he supposed to. He did not have any repeat echocardiogram at that point. He was back again for shortness of breath and then today was the third time. I discussed with him and his at length to let them know that he probably should get admitted at this point given the pulmonary edema finding and may require an echocardiogram. hall monitor showed that he was in atrial fibrillation which was confirmed by a repeat EKG done. His blood pressure is okay. I have asked the nurse practitioner to order further labs including cardiac enzymes. He will be getting IV 40 of Lasix. Once the lab test results are back and she will talk to the admitting physician. All this was explained to the patient and the in all their questions were answered to the best of my ability. Data Data Last Documented VS Orders Electrocardiogram (02/22/17 ) Arterial Blood Gas (Abg) (02/22/17 ) Chest, Single Ap (02/22/17 ) Albuterol-Ipratropium Neb (Duoneb Neb) (02/22/17 18:15) Albuterol Neb (Albuterol Neb) (02/22/17 18:15) Electrocardiogram (02/22/17 19:59) Basic Metabolic Panel (Bmp) (02/22/17 19:59) B-Type Natriuretic Peptide (02/22/17 19:59) Ckmb (Isoenzyme) Profile (02/22/17 19:59) Complete Blood Count With Diff (02/22/17 19:59) Magnesium (Mg) (02/22/17 19:59) Prothrombin Time / Inr (Pt) (02/22/17 19:59) Act Partial Throm Time (Ptt) (02/22/17 19:59) Troponin I (02/22/17 19:59) Ecg Monitoring (02/22/17 19:59) Bilateral Bp Monitoring (02/22/17 19:59) Iv Access Insert/Monitor (02/22/17 19:59) Oximetry (02/22/17 19:59) Oxygen Administration (02/22/17 19:59) Sodium Chloride 0.9% Flush (Ns Flush) (02/22/17 20:00) Furosemide Inj (Lasix Inj) (02/22/17 20:30) Admit Order (Ed Use Only) (02/22/17 22:18) Labs MDM Supervised Visit with TIO: Yes Critical Care Narrative Aggregate critical care time was 30 minutes. Time to perform other separately billable procedures was not included in the critical care time. My time did not include minutes spent treating any other patients simultaneously or on activities that did not directly contribute to the patient's treatment. The services I provided to this patient were to treat and/or prevent clinically significant deterioration that could result in: Respiratory distress, hypoxia, A. fib I provided critical care services requiring my management, as noted below: Chart data review, documentation time, medication orders and management, vital sign assessments/reviewing monitor data, ordering and reviewing lab tests, ordering and interpreting/reviewing x-rays and diagnostic studies, care of the patient and discussion of the patient with the admitting physicians. Condition: Stable Zechariah Sánchez MD Feb 22, 2017 20:54 Blood Gas Oxygen Saturation 81 % Arterial Blood pH 7.48 Arterial Blood Partial 35 mmHg Pressure CO2 Arterial Blood Partial 46 mmHG Pressure O2 Arterial Blood Oxygen Content 11.0 Vol % Arterial Blood 2.3 % Carboxyhemoglobin Arterial Blood Methemoglobin 0.4 % Blood Gas Hemoglobin 9.7 G/DL Oxygen Delivery Device ROOM AIR White Blood Count 9.8 TH/MM3 Red Blood Count 2.76 MIL/MM3 Hemoglobin 9.4 GM/DL Hematocrit 28.5 % Mean Corpuscular Volume 103.1 FL Mean Corpuscular Hemoglobin 34.1 PG Mean Corpuscular Hemoglobin 33.0 % Concent Red Cell Distribution Width 20.0 % Platelet Count 265 TH/MM3 Mean Platelet Volume 8.1 FL Neutrophils (%) (Auto) 94.1 % Lymphocytes (%) (Auto) 4.0 % Monocytes (%) (Auto) 0.6 % Eosinophils (%) (Auto) 0.5 % Basophils (%) (Auto) 0.8 % Neutrophils # (Auto) 9.3 TH/MM3 Lymphocytes # (Auto) 0.4 TH/MM3 Monocytes # (Auto) 0.1 TH/MM3 Eosinophils # (Auto) 0.0 TH/MM3 Basophils # (Auto) 0.1 TH/MM3 CBC Comment DIFF FINAL Differential Comment Prothrombin Time 14.6 SEC Prothromb Time International 1.3 RATIO Ratio Activated Partial 34.3 SEC Thromboplast Time Sodium Level 138 MEQ/L Potassium Level 4.4 MEQ/L Chloride Level 103 MEQ/L Carbon Dioxide Level 26.0 MEQ/L Anion Gap 9 MEQ/L Blood Urea Nitrogen 35 MG/DL Creatinine 1.28 MG/DL Estimat Glomerular Filtration 55 ML/MIN Rate Random Glucose 115 MG/DL Calcium Level 8.1 MG/DL Magnesium Level 2.4 MG/DL [facility] Supervised Visit with TIO: Yes Critical Care Narrative Aggregate critical care time was 30 minutes. Time to perform other separately billable procedures was not included in the critical care time. My time did not include minutes spent treating any other patients simultaneously or on activities that did not directly contribute to the patient's treatment. The services I provided to this patient were to treat and/or prevent clinically significant deterioration that could result in: Respiratory distress, hypoxia, A. fib I provided critical care services requiring my management, as noted below: Chart data review, documentation time, medication orders and management, vital sign assessments/reviewing monitor data, ordering and reviewing lab tests, ordering and interpreting/reviewing x-rays and diagnostic studies, care of the patient and discussion of the patient with the admitting physicians. Condition: Stable Zechariah Sánchez MD Feb 22, 2017 20:54
[2017-02-22 22:11] VITALS: BP 137/61; PULSE 61; RESP 19; O2SAT 95
--- NOTE | 2017-02-22 22:37 | HHI.HP ---
[facility] Isac Cortez M.D. Admission Diagnosis Pulmonary edema Diagnoses: (1) Hypoxia Diagnosis: Principal (2) Lung cancer Diagnosis: Principal (3) CHF (congestive heart failure) Diagnosis: Principal (4) A-fib Diagnosis: Principal (5) HTN (hypertension) Diagnosis: Principal Travel History International Travel<30 Days: No Contact w/Intl Traveler <30 Da: No Traveled to Known Affected Are: No History of Present Illness This is a 71-year-old male with a PMH of Stage IV Lung CA, HTN, COPD, O2 Dependent and A-fib who was brought to the ER by EMS secondary to SOB since this morning. O2 sat 85% on RA, placed on NRM w/ improvement. Denies fever, chills, cough or chest pain. On arrival, BP 141/63, HR 68 On arrival, , O2 sat currently 94% on 6L NC. CBC essentially at baseline. Chemistry unremarkable except for mild hypocalcemia. Troponin 0.05. INR 1.3. CXR with intra- alveolar pulmonary edema. While in ER, patient noted to be in A. fib however no episodes of RVR. Admitted twice since 01/27/17 for A-fib w/ RVR. Follows w/ Dr. Eason as outpatient. Review of Systems Except as stated in HPI: all other systems reviewed are Neg ROS: 14 point review of systems otherwise negative. Past Family Social History Past Medical History PMH: Stage IV Lung CA, HTN, COPD, O2 Dependent and A-fib Past Surgical History PAST SURGICAL HISTORY: Cardiac Stent, Cataract Surgery, Right Chest Port Allergies: Coded Allergies: No Known Allergies (Unverified , 01/28/17) Family History PAST FAMILY HISTORY: Reviewed. No h/o DM or CAD Social History PAST SOCIAL HISTORY: Negative for alcohol, tobacco or drugs Physical Exam Vital Signs Vital Signs Date Time Temp Pulse Resp B/P Pulse Ox O2 Delivery O2 Flow Rate FiO2 02/22/17 22:11 61 19 137/61 95 Nasal Cannula 6 02/22/17 19:00 75 19 96 Nasal Cannula 6 02/22/17 18:59 67 19 142/64 98 Non-Rebreather 15 02/22/17 17:59 75 22 170/67 99 Non-Rebreather 15 02/22/17 17:59 77 22 99 Non-Rebreather 15 02/22/17 17:52 68 22 141/63 85 Physical Exam PE: GENERAL: Pleasant elderly white male in no acute distress. HEENT: PERRLA, EOMI. No scleral icterus or conjunctival pallor. No lid lag. h/o Redd's Palsy, chronic facial droop. CARDIOVASCULAR: Regular rate and rhythm. No obvious murmurs to auscultation. No chest tenderness to palpation. RESPIRATORY: No obvious rhonchi or wheezing. Clear to auscultation. Breath sounds equal bilaterally. GASTROINTESTINAL: Abdomen soft, non-tender, nondistended. BS normal. MUSCULOSKELETAL: Extremities without clubbing, cyanosis, or edema. No obvious deformities. NEUROLOGICAL: Awake, alert and oriented x4. No focal neurologic deficits. Moving both upper and lower extremities spontaneously. Laboratory Laboratory Tests Test 02/22/17 02/22/17 18:34 20:10 Blood Gas Puncture Site RT RADIAL Blood Gas Patient Temperature 98.6 Blood Gas HCO3 26 Blood Gas Base Excess 2.2 Blood Gas Oxygen Saturation 81 Arterial Blood pH 7.48 Arterial Blood Partial 35 Pressure CO2 Arterial Blood Partial 46 Pressure O2 Arterial Blood Oxygen Content 11.0 Arterial Blood 2.3 Carboxyhemoglobin Arterial Blood Methemoglobin 0.4 Blood Gas Hemoglobin 9.7 Oxygen Delivery Device ROOM AIR White Blood Count 9.8 Red Blood Count 2.76 Hemoglobin 9.4 Hematocrit 28.5 Mean Corpuscular Volume 103.1 Mean Corpuscular Hemoglobin 34.1 Mean Corpuscular Hemoglobin 33.0 Concent Red Cell Distribution Width 20.0 Platelet Count 265 Mean Platelet Volume 8.1 Neutrophils (%) (Auto) 94.1 Lymphocytes (%) (Auto) 4.0 Monocytes (%) (Auto) 0.6 Eosinophils (%) (Auto) 0.5 Basophils (%) (Auto) 0.8 Neutrophils # (Auto) 9.3 Lymphocytes # (Auto) 0.4 Monocytes # (Auto) 0.1 Eosinophils # (Auto) 0.0 Basophils # (Auto) 0.1 CBC Comment DIFF FINAL Differential Comment Prothrombin Time 14.6 Prothromb Time International 1.3 Ratio Activated Partial 34.3 Thromboplast Time Sodium Level 138 Potassium Level 4.4 Chloride Level 103 Carbon Dioxide Level 26.0 Anion Gap 9 Blood Urea Nitrogen 35 Creatinine 1.28 Estimat Glomerular Filtration 55 Rate Random Glucose 115 Calcium Level 8.1 Magnesium Level 2.4 Total Creatine Kinase 65 Troponin I 0.05 B-Type Natriuretic Peptide 103 Result Diagram: 02/22/17200902/22/172009 Assessment and Plan Problem List: (1) Hypoxia ICD Code: R09.02 Status: Acute (2) CHF (congestive heart failure) ICD Code: I50.9 Status: Acute (3) Lung cancer ICD Code: C34.90 Status: Acute (4) A-fib ICD Code: I48.91 Status: Acute (5) HTN (hypertension) ICD Code: I10 Status: Acute Assessment and Plan A/P: 1. Hypoxia: Multifactorial-State IV Lung CA, COPD and CHF. O2 sat 85% on RA, placed on NRM w/ improvement, now weaned to 6L NC w/ O2 sat 94%. Will continue to monitor. CXR w/ intra-alveolar pulmonary edema, images reviewed by me. 2. CHF: Follows w/ Dr. Eason as outpatient, EF unknown. Will obtain Echo. S/p Lasix IV, will continue w/ Lasix, monitor I/O. 3. Lung CA: Stage IV, currently on Chemo. Continue w/ treatment as planned. 4. HTN: BP 170's on arrival, currently 130's systolic. Will monitor. Resume home medications. 5. A-fib: Paroxysmal. Rate-controlled. Resume home medications. Will monitor. 6. DVT Prophylaxis: SCD/Teds. 7. Social work for d/c planning as needed. 8. Case discussed w/ ER physician at length Physician Certification 2 Midnight Certification Type: Admission for Inpatient Services Order for Inpatient Services The services are ordered in accordance with Medicare regulations or non- Medicare payer requirements, as applicable. In the case of services not specified as inpatient-only, they are appropriately provided as inpatient services in accordance with the 2-midnight benchmark. Estimated LOS (days): 2 days is the estimated time the patient will need to remain in the hospital, assuming treatment plan goals are met and no additional complications. Post-Hospital Plan: Not yet determined Sahara Su MD Feb 22, 2017 22:37
[2017-02-22] MEDS ORDERED: ACETAMINOPHEN/HYDROcodone 325 MG/5 MG TAB PO PRN (22:45)
[2017-02-22] MEDS ORDERED: BISACODYL 10 MG SUPP RECTAL PRN (22:45)
[2017-02-22] MEDS ORDERED: RESP: ALBUTEROL 2.5 MG/IPRATROPIUM 0.5 MG NEB (PRN) NEB (22:45)
[2017-02-22] MEDS ORDERED: LACTULOSE SYRUP 20 GM/30 ML CUP PO PRN (22:45)
[2017-02-22] MEDS ORDERED: MAGNESIUM HYDROXIDE SUSP 30 ML CUP PO PRN (22:45)
[2017-02-22] MEDS ORDERED: SENNOSIDES 8.6 MG TAB PO PRN (22:45)
[2017-02-22] MEDS ORDERED: SODIUM CHLORIDE 0.9% FLUSH 10 ML FLUSH IV FLUSH PRN (22:45)
[2017-02-22] MEDS ORDERED: ACETAMINOPHEN 325 MG TAB PO PRN (22:45)
[2017-02-22 23:33] VITALS: RESP 20; O2SAT 94
[2017-02-23] VITALS (12 sets, daily range): BP systolic 116–142; BP diastolic 57–66; PULSE 50–82; RESP 16–20; TEMP 96.1–97.6; O2SAT 90–97
[2017-02-23] MEDS: HEPARIN SODIUM - SQ 10,000 UNITS/ML VIAL SQ SCH ×4 (00:07→23:18)
[2017-02-23] MEDS: ASPIRIN 81 MG CHEW TAB CHEW SCH (08:40)
[2017-02-23] MEDS: SODIUM CHLORIDE 0.9% FLUSH 10 ML FLUSH IV FLUSH SCH ×2 (08:40→21:00)
[2017-02-23] MEDS: DIGOXIN 0.125 MG TAB PO SCH (08:41)
[2017-02-23] MEDS: DOCUSATE SODIUM 50 MG/SENNA 8.6 MG TAB PO SCH ×2 (08:43→21:00)
[2017-02-23] MEDS: FUROSEMIDE 40 MG/4 ML VIAL IV PUSH SCH ×2 (08:44→17:31)
[2017-02-23] MEDS: CLOPIDOGREL 75 MG TAB PO SCH (08:45)
[2017-02-23] MEDS ORDERED: METOPROLOL TARTRATE 50 MG TAB PO SCH (09:00)
[2017-02-23 10:57] LABS: AUTOMATED NEUTROPHIL # 7.5 TH/MM3 (1.8-7.7); BASOPHIL % 0.3 % (0.0-2.0); EOSINOPHIL # 0.1 TH/MM3 (0-0.4); EOSINOPHIL % 1.4 % (0.0-4.0); HEMO FLAGS DIFF FINAL; LYMPH % 6.1 % (9.0-44.0); LYMPHOCYTE # 0.5 TH/MM3 (1.0-4.8); MEAN CELL VOLUME 103.7 FL (80.0-100.0); MEAN CORPUSCULAR HEMOGLOBIN 33.8 PG (27.0-34.0); MEAN CORPUSCULAR HGB CONC 32.6 % (32.0-36.0); MONO % 1.1 % (0.0-8.0); NEUT % 91.1 % (16.0-70.0); PLATELET COUNT 270 TH/MM3 (150-450); RED BLOOD COUNT 2.89 MIL/MM3 (4.50-5.90); RED CELL DISTRIBUTION WIDTH 19.4 % (11.6-17.2); WHITE BLOOD COUNT 8.2 TH/MM3 (4.0-11.0)
[2017-02-23 11:13] LABS: ANION GAP 6 MEQ/L (5-15); AST (GOT) 21 U/L (15-37); BICARBONATE 28.9 MEQ/L (21.0-32.0); BLOOD UREA NITROGEN 32 MG/DL (7-18); CHLORIDE 104 MEQ/L (98-107); GLOMERULAR FILTRATION RATE 55 ML/MIN (>89); POTASSIUM 4.5 MEQ/L (3.5-5.1); SODIUM (NA) 139 MEQ/L (136-145)
[2017-02-23 11:15] LABS: ALKALINE PHOSPHATASE 83 U/L (45-117); ALT (GPT) 28 U/L (12-78); TOTAL BILIRUBIN ADULT 0.8 MG/DL (0.2-1.0)
[2017-02-23] MEDS: DILTIAZEM HCL 60 MG TAB PO SCH ×3 (11:32→23:18)
--- NOTE | 2017-02-23 11:51 | EKG ---
Date Performed: 02/22/2017 Time Performed: 18:00:25 PTAGE: 71 years EKG: Sinus rhythm WITH FIRST DEGREE AV BLOCK LOW QRS VOLTAGE IN PRECORDIAL LEADS POSSIBLE ANTERIOR MYOCARDIAL INFARCTI ON NONSPECIFIC ST-T CHANGES Compared to previous tracing, sinus rhythm has replaced atrial fibrillati on and nonspecific ST-T changes are more prominant. ABNORMAL ECG PREVIOUS TRACING : 02/07/2017 20.11 DOCTOR: Justice Merlos Interpretating Date/Time 02/23/2017 11:49:40
--- NOTE | 2017-02-23 11:51 | EKG ---
Date Performed: 02/22/2017 Time Performed: 20:37:08 PTAGE: 71 years EKG: ATRIAL FIBRILLATION WITH SLOW VENTRICULAR RESPONSE LOW QRS VOLTAGE IN PRECORDIAL LEADS POSS IBLE ANTERIOR MYOCARDIAL INFARCTION Compared to previous tracing, atrial fibrillation has replaced Si nus rhythm . ABNORMAL RHYTHM ECG PREVIOUS TRACING : 02/22/2017 18.00 DOCTOR: Justice Merlos Interpretating Date/Time 02/23/2017 11:50:22
--- NOTE | 2017-02-23 13:48 | HHI.PR ---
Subjective Remarks The patient says he is normally on 2 L of oxygen at home. His is at the bedside. The patient endorses blurry vision. He says he normally has blurry vision that goes away after the morning but today it has lingered. He says he has not urinated too much today. Discussed with nursing. Objective Vitals Vital Signs Date Time Temp Pulse Resp B/P Pulse Ox O2 Delivery O2 Flow Rate FiO2 02/23/17 12:42 96.8 82 20 131/61 91 02/23/17 08:59 97.6 77 20 142/66 92 02/23/17 08:30 97 Nasal Cannula 6.00 02/23/17 08:01 50 02/23/17 06:40 71 02/23/17 02:45 96.3 72 18 137/59 92 02/23/17 00:06 91 Nasal Cannula 6.00 02/23/17 00:00 96.1 68 18 116/57 91 02/22/17 23:33 20 94 Nasal Cannula 6 02/22/17 22:11 61 19 137/61 95 Nasal Cannula 6 02/22/17 19:10 96 Nasal Cannula 6 02/22/17 19:00 75 19 96 Nasal Cannula 6 02/22/17 18:59 67 19 142/64 98 Non-Rebreather 15 02/22/17 17:59 75 22 170/67 99 Non-Rebreather 15 02/22/17 17:59 77 22 99 Non-Rebreather 15 02/22/17 17:52 68 22 141/63 85 I/O 02/22/17 02/22/17 02/22/17 02/23/17 02/23/17 02/23/17 07:00 15:00 23:00 07:00 15:00 23:00 Intake Total 480 ml Balance 480 ml Intake Oral 480 ml # Voids 1 # Bowel Movements 1 Result Diagram: 02/23/17 1023 02/23/17 1023 Imaging Last Impressions Chest X-Ray 02/22/17 0000 Signed Impressions: Service Date/Time: Wednesday, February 22, 2017 18:29 - CONCLUSION: Radiographic findings consistent with intra-alveolar pulmonary edema. Ric Chang Jr., MD Objective Remarks GENERAL: Pleasant elderly male in no acute distress. HEENT: PERRLA, EOMI. No scleral icterus or conjunctival pallor. Chronic facial droop on the right. CARDIOVASCULAR: Regular rate and rhythm. No obvious murmurs to auscultation. No chest tenderness to palpation. RESPIRATORY: No obvious rhonchi or wheezing. Clear to auscultation. Breath sounds equal bilaterally. GASTROINTESTINAL: Abdomen soft, non-tender, nondistended. BS normal. MUSCULOSKELETAL: Extremities without clubbing, cyanosis, or edema. No obvious deformities. NEUROLOGICAL: Awake, alert and oriented x4. No focal neurologic deficits. Moving both upper and lower extremities spontaneously. PSYCH: Mood and affect appropriate. Medications and IVs Current Medications Medications (Trade) Dose Ordered Sig/Angie Route Start Time Stop Time Status Last Admin (Lasix Inj) 40 mg BID@,18 IV PUSH 02/23/17 09:00 02/23/17 08:44 (NS Flush) 2 ml UNSCH PRN IV FLUSH 02/22/17 22:45 (NS Flush) 2 ml BID IV FLUSH 02/23/17 09:00 02/23/17 08:40 (Zofran Inj) 4 mg Q6H PRN IVP 02/22/17 22:45 (Heparin Inj) 5,000 units Q8H SQ 02/23/17 00:00 02/23/17 08:45 (Tylenol) 650 mg Q6H PRN PO 02/22/17 22:45 ([place] 5-325 Mg) 1 tab Q4H PRN PO 02/22/17 22:45 (Morphine Inj) 2 mg Q3H PRN IV 02/22/17 22:45 (Amelia-Colace) 1 tab BID PO 02/23/17 09:00 (Milk Of Magnesia Liq) 30 ml Q12H PRN PO 02/22/17 22:45 (Senokot) 17.2 mg Q12H PRN PO 02/22/17 22:45 (Dulcolax Supp) 10 mg DAILY PRN RECTAL 02/22/17 22:45 (Lactulose Liq) 30 ml DAILY PRN PO 02/22/17 22:45 (Aspirin Chew) 81 mg DAILY CHEW 02/23/17 09:00 02/23/17 08:40 (Lipitor) 20 mg HS PO 02/23/17 21:00 (Plavix) 75 mg DAILY PO 02/23/17 09:00 02/23/17 08:45 (Lanoxin) 0.125 mg DAILY PO 02/23/17 09:00 02/23/17 08:41 (Flomax) 0.4 mg HS PO 02/23/17 21:00 (Cardizem) 60 mg QID PO 02/23/17 12:00 02/23/17 11:32 A/P Problem List: (1) Hypoxia ICD Code: R09.02 Status: Acute (2) CHF (congestive heart failure) ICD Code: I50.9 Status: Acute (3) Lung cancer ICD Code: C34.90 Status: Acute (4) A-fib ICD Code: I48.91 Status: Acute (5) HTN (hypertension) ICD Code: I10 Status: Acute Assessment and Plan Hypoxemia Multifactorial. The pt has stage IV Lung CA, COPD and CHF. O2 sat 85% on RA, placed on NRM w/ improvement, now weaned to 3L NC. CXR w/ intra-alveolar pulmonary edema. - oxygen and nebs as needed. - continue diuresis. - incentive spirometry. - physical therapy. CHF Follows w/ Dr. Eason as outpatient. Echo with normal EF, trace MR, trace TR. - continue w/ Lasix. - monitor I/O. Lung CA Stage IV, currently on Chemo. - Continue w/ treatment as planned. Blurry vision Chronic, but more prolonged. - CT of the brain pending to rule out mets. - ophtho consult if no improvement. HTN BP 170's on arrival. Improved. - Resume home medications. A-fib Paroxysmal. Rate-controlled. - Resume home medications. - telemetry. Hyperglycemia Glucose has been elevated. - Check hemoglobin A1c. DVT Prophylaxis: SCD/Teds. Discharge Planning Awaiting clinical improvement Juan Luis Perea DO Feb 23, 2017 13:48
--- NOTE | 2017-02-23 15:50 | ECHRPT ---
Indication: Cardiomyopathy, unspecified CONCLUSIONS Mildly dilated left ventricle. Wall thickness is normal. The left ventricular systolic function is normal with an estimated ejection fraction in the range of 55-60%. Trace mitral valve regurgitation. There is trace tricuspid valve regurgitation. BP: / HR: 79 Rhythm: MEASUREMENTS (Male / Female) Normal Values Technical Quality:Technically difficult study 2D ECHO LV Diastolic Diameter PLAX 5.8 cm 4.2 - 5.9 / 3.9 - 5.3 cm LV Systolic Diameter PLAX 4.3 cm IVS Diastolic Thickness 0.8 cm 0.6 - 1.0 / 0.6 - 0.9 cm LVPW Diastolic Thickness 1.0 cm 0.6 - 1.0 / 0.6 - 0.9 cm LV Relative Wall Thickness 0.3 RV Internal Dim ED PLAX 2.5 cm M-MODE Aortic Root Diameter MM 3.7 cm LA Systolic Diameter MM 4.4 cm LA Ao Ratio MM 1.2 AV Cusp Separation MM 2.2 cm FINDINGS LEFT VENTRICLE There was limited left ventricular wall motion assessment due to poor endocardial visualization. Mildly dilated left ventricle. Wall thickness is normal. The left ventricular systolic function is normal with an estimated ejection fraction in the range of 55-60%. MITRAL VALVE Structurally normal mitral valve. Trace mitral valve regurgitation. AORTIC VALVE Aortic valve sclerosis is present. Trileaflet aortic valve. No aortic valve stenosis or regurgitation. TRICUSPID VALVE There is trace tricuspid valve regurgitation. Structurally normal tricuspid valve. Olu Padron MD (Electronically Signed) Final Date:23 February 2017 15:49
--- NOTE | 2017-02-23 17:38 | RADRPT ---
EXAM DATE/TIME: 02/23/2017 17:12 [place] COMPARISON: No previous studies available for comparison. INDICATIONS : Lung cancer; evaluate for metastatic disease. RADIATION DOSE: 42.43 CTDIvol (mGy) MEDICAL HISTORY : Cardiovascular disease. Hypertension. Carcinoma, lung. SURGICAL HISTORY : eye prostesis. ENCOUNTER: Initial ACUITY: 1 day PAIN SCALE: 3/10 LOCATION: cranial TECHNIQUE: Multiple contiguous axial images were obtained of the head. Using automated exposure control and adj ustment of the mA and/or kV according to patient size, radiation dose was kept as low as reasonably a chievable to obtain optimal diagnostic quality images. DICOM format image data is available electro nically for review and comparison. FINDINGS: CEREBRUM: The ventricles are normal for age. No evidence of midline shift, mass lesion, hemorrhage or acute in farction. No extra-axial fluid collections are seen. Mild periventricular and subcortical white castro er small vessel ischemic changes are noted bilaterally. POSTERIOR FOSSA: The cerebellum and brainstem are intact. The 4th ventricle is midline. The cerebellopontine angle i s unremarkable. EXTRACRANIAL: The visualized portion of the orbits is intact. SKULL: The calvaria is intact. No evidence of skull fracture. CONCLUSION: 1. Mild periventricular and subcortical white matter small vessel ischemic changes bilaterally. 2. No acute infarct, acute hemorrhage, mass effect or extra-axial fluid collections. Dionte Barnes MD on February 23, 2017 at 17:34 Board Certified Radiologist. This report was verified electronically.
[2017-02-23] MEDS: ATORVASTATIN 20 MG TAB PO SCH (23:18)
[2017-02-23] MEDS: TAMSULOSIN HCL 0.4 MG CAP PO SCH (23:18)
[2017-02-24] VITALS (9 sets, daily range): BP systolic 132–144; BP diastolic 60–67; PULSE 69–87; RESP 16–21; TEMP 96.3–97.8; O2SAT 92–95
[2017-02-24 06:39] LABS: MEAN CELL VOLUME 101.7 FL (80.0-100.0); MEAN CORPUSCULAR HEMOGLOBIN 33.9 PG (27.0-34.0); MEAN CORPUSCULAR HGB CONC 33.4 % (32.0-36.0); PLATELET COUNT 268 TH/MM3 (150-450); RED BLOOD COUNT 2.85 MIL/MM3 (4.50-5.90); RED CELL DISTRIBUTION WIDTH 19.4 % (11.6-17.2); REVIEW FLAG FINAL; WHITE BLOOD COUNT 4.9 TH/MM3 (4.0-11.0)
[2017-02-24 07:06] LABS: BICARBONATE 30.3 MEQ/L (21.0-32.0); MAGNESIUM 2.3 MG/DL (1.5-2.5); POTASSIUM 3.9 MEQ/L (3.5-5.1)
[2017-02-24] MEDS: CLOPIDOGREL 75 MG TAB PO SCH (08:35)
[2017-02-24] MEDS: ASPIRIN 81 MG CHEW TAB CHEW SCH (08:36)
[2017-02-24] MEDS: DILTIAZEM HCL 60 MG TAB PO SCH ×4 (08:36→20:47)
[2017-02-24] MEDS: DIGOXIN 0.125 MG TAB PO SCH (08:36)
[2017-02-24] MEDS: DOCUSATE SODIUM 50 MG/SENNA 8.6 MG TAB PO SCH ×2 (08:36→20:48)
[2017-02-24] MEDS: HEPARIN SODIUM - SQ 10,000 UNITS/ML VIAL SQ SCH ×3 (08:37→20:54)
[2017-02-24] MEDS: SODIUM CHLORIDE 0.9% FLUSH 10 ML FLUSH IV FLUSH SCH ×2 (08:37→20:48)
[2017-02-24] MEDS: FUROSEMIDE 40 MG/4 ML VIAL IV PUSH SCH (08:37)
[2017-02-24 13:09] LABS: HEMOGLOBIN A1a 1.1 %; HEMOGLOBIN A1b 0.9 %; HEMOGLOBIN Ao 86.3 %; HEMOGLOBIN F 1.3 %; HEMOGLOBIN LA1C 1.7 %; HEMOGLOBIN P3 4.6 %
--- NOTE | 2017-02-24 14:17 | HHI.PR ---
Subjective Remarks The patient wanted to go home. He said he was breathing at baseline while sitting but still is very short of breath with minimal movement. He says he does not have lung doctor. He also says his eye blurriness continues and has not improved. is at the bedside. Discussed with nursing. Objective Vitals Vital Signs Date Time Temp Pulse Resp B/P Pulse Ox O2 Delivery O2 Flow Rate FiO2 02/24/17 12:05 96.4 80 21 136/60 94 02/24/17 09:00 95 Nasal Cannula 5.00 02/24/17 08:54 96.3 87 21 140/63 93 02/24/17 04:00 97.8 73 16 133/62 94 02/24/17 00:00 97.8 76 18 141/65 95 02/23/17 20:52 66 02/23/17 20:40 90 Nasal Cannula 5.00 02/23/17 20:00 97.4 67 16 121/57 92 02/23/17 16:54 96.4 65 20 125/60 93 I/O 02/23/17 02/23/17 02/23/17 02/24/17 02/24/17 02/24/17 06:59 14:59 22:59 06:59 14:59 22:59 Intake Total 480 ml 600 ml 720 ml 240 ml 600 ml Balance 480 ml 600 ml 720 ml 240 ml 600 ml Intake Oral 480 ml 600 ml 720 ml 240 ml 600 ml # Voids 1 2 1 2 # Bowel Movements 1 1 Result Diagram: 02/24/17 0555 02/24/17 0555 Imaging Last Impressions Head CT 02/23/17 0000 Signed Impressions: Service Date/Time: Thursday, February 23, 2017 17:12 - CONCLUSION: 1. Mild periventricular and subcortical white matter small vessel ischemic changes bilaterally. 2. No acute infarct, acute hemorrhage, mass effect or extra- axial fluid collections. Dionte Barnes MD Chest X-Ray 02/22/17 0000 Signed Impressions: Service Date/Time: Wednesday, February 22, 2017 18:29 - CONCLUSION: Radiographic findings consistent with intra-alveolar pulmonary edema. Ric Chang Jr., MD Objective Remarks GENERAL: Pleasant elderly male in no acute distress. HEENT: PERRLA, EOMI. No scleral icterus or conjunctival pallor. Chronic facial droop on the right. CARDIOVASCULAR: Regular rate and rhythm. No obvious murmurs to auscultation. No chest tenderness to palpation. RESPIRATORY: No obvious rhonchi or wheezing. Clear to auscultation. Breath sounds equal bilaterally. GASTROINTESTINAL: Abdomen soft, non-tender, nondistended. BS normal. MUSCULOSKELETAL: Extremities without clubbing, cyanosis, or edema. No obvious deformities. NEUROLOGICAL: Awake, alert and oriented x4. No focal neurologic deficits. Moving both upper and lower extremities spontaneously. PSYCH: Mood and affect appropriate. Medications and IVs Current Medications Medications (Trade) Dose Ordered Sig/Angie Route Start Time Stop Time Status Last Admin (NS Flush) 2 ml UNSCH PRN IV FLUSH 02/22/17 22:45 (NS Flush) 2 ml BID IV FLUSH 02/23/17 09:00 02/24/17 08:37 (Zofran Inj) 4 mg Q6H PRN IVP 02/22/17 22:45 (Heparin Inj) 5,000 units Q8H SQ 02/23/17 00:00 02/24/17 08:37 (Tylenol) 650 mg Q6H PRN PO 02/22/17 22:45 ([place] 5-325 Mg) 1 tab Q4H PRN PO 02/22/17 22:45 (Morphine Inj) 2 mg Q3H PRN IV 02/22/17 22:45 (Amelia-Colace) 1 tab BID PO 02/23/17 09:00 (Milk Of Magnesia Liq) 30 ml Q12H PRN PO 02/22/17 22:45 (Senokot) 17.2 mg Q12H PRN PO 02/22/17 22:45 (Dulcolax Supp) 10 mg DAILY PRN RECTAL 02/22/17 22:45 (Lactulose Liq) 30 ml DAILY PRN PO 02/22/17 22:45 (Aspirin Chew) 81 mg DAILY CHEW 02/23/17 09:00 02/24/17 08:36 (Lipitor) 20 mg HS PO 02/23/17 21:00 02/23/17 23:18 (Plavix) 75 mg DAILY PO 02/23/17 09:00 02/24/17 08:35 (Lanoxin) 0.125 mg DAILY PO 02/23/17 09:00 02/24/17 08:36 (Flomax) 0.4 mg HS PO 02/23/17 21:00 02/23/17 23:18 (Cardizem) 60 mg QID PO 02/23/17 12:00 02/24/17 13:15 (Tears Naturale Opth Soln) 1 drop Q2H PRN EACH EYE 02/24/17 15:00 A/P Problem List: (1) Hypoxia ICD Code: R09.02 Status: Acute (2) CHF (congestive heart failure) ICD Code: I50.9 Status: Acute (3) Lung cancer ICD Code: C34.90 Status: Acute (4) A-fib ICD Code: I48.91 Status: Acute (5) HTN (hypertension) ICD Code: I10 Status: Acute Assessment and Plan Hypoxemia Multifactorial. The pt has stage IV Lung CA, COPD and CHF. O2 sat 85% on RA, placed on NRM w/ improvement, now weaned to 3L NC. CXR w/ intra-alveolar pulmonary edema. - oxygen and nebs as needed. Add standing nebs. - continue PO Lasix in the AM. - incentive spirometry. - physical therapy. - pulmonology consult requested. CHF Follows w/ Dr. Eason as outpatient. Echo with normal EF, trace MR, trace TR. - continue w/ PO Lasix. - monitor I/O. Lung CA Stage IV, currently on Chemo. Significant reason for his hypoxemia. - Continue w/ treatment as planned. Blurry vision Chronic, but more prolonged. CT of the brain negative for an acute process. - ophtho consult requested. HTN BP 170's on arrival. Improved. - Resume home medications. A-fib Paroxysmal. Rate-controlled. - Resume home medications. - telemetry. Hyperglycemia Glucose has been elevated. - Check hemoglobin A1c. DVT Prophylaxis: SCD/Teds. Discharge Planning Awaiting clinical improvement Juan Luis Perea DO Feb 24, 2017 14:16
[2017-02-24] MEDS ORDERED: ARTIFICIAL TEARS OPTH SOLN 15 ML BTL EACH EYE PRN (15:00)
[2017-02-24] MEDS: RESP: ALBUTEROL 2.5 MG/IPRATROPIUM 0.5 MG NEB (SCH) NEB ×2 (16:06→19:51)
[2017-02-24] MEDS: ONDANSETRON HCL 4 MG/2 ML VIAL IVP PRN (17:05)
[2017-02-24] MEDS: TAMSULOSIN HCL 0.4 MG CAP PO SCH (20:47)
[2017-02-24] MEDS: ATORVASTATIN 20 MG TAB PO SCH (20:47)
[2017-02-25] VITALS (12 sets, daily range): BP systolic 117–175; BP diastolic 57–71; PULSE 72–105; RESP 19–28; TEMP 98.3–104.1; O2SAT 88–96
[2017-02-25] MEDS: RESP: ALBUTEROL 2.5 MG/IPRATROPIUM 0.5 MG NEB (SCH) NEB ×3 (08:53→19:57)
[2017-02-25] MEDS: DOCUSATE SODIUM 50 MG/SENNA 8.6 MG TAB PO SCH ×2 (10:24→20:07)
[2017-02-25] MEDS: CLOPIDOGREL 75 MG TAB PO SCH (10:24)
[2017-02-25] MEDS: SODIUM CHLORIDE 0.9% FLUSH 10 ML FLUSH IV FLUSH SCH ×2 (10:25→20:09)
[2017-02-25] MEDS: DIGOXIN 0.125 MG TAB PO SCH (10:25)
[2017-02-25] MEDS: DILTIAZEM HCL 60 MG TAB PO SCH ×4 (10:25→20:07)
[2017-02-25] MEDS: ASPIRIN 81 MG CHEW TAB CHEW SCH (10:25)
[2017-02-25] MEDS: HEPARIN SODIUM - SQ 10,000 UNITS/ML VIAL SQ SCH ×2 (10:27→17:40)
--- NOTE | 2017-02-25 10:47 | RADRPT ---
EXAM DATE/TIME: 02/25/2017 09:58 [facility] COMPARISON: CT PULMONARY ANGIOGRAM, February 07, 2017, 21:16. CT NEEDLE BIOPSY LUNG, LEFT, July 13, 2015, 11:06. INDICATIONS : Short of breath,lung and stomach cancer RADIATION DOSE: 10.00 CTDIvol (mGy) MEDICAL HISTORY : Cardiovascular disease. Hypertension. Chronic obstructive pulmonary disease. SURGICAL HISTORY : Cardiac stent ENCOUNTER: Subsequent ACUITY: 4 - 6 days PAIN SCALE: 2/10 LOCATION: Bilateral chest TECHNIQUE: Volumetric scanning of the chest was performed. Using automated exposure control and adjustment of t he mA and/or kV according to patient size, radiation dose was kept as low as reasonably achievable to obtain optimal diagnostic quality images. DICOM format image data is available electronically for r eview and comparison. FINDINGS: LUNGS: Previously described diffuse bilateral groundglass opacities have improved. There are slightly more p rominent bilateral lower lobe air space consolidation likely reflecting worsening compressive atelect asis. Previously noted 3 cm posterior medial left lower lobe mass is obscured by lower lobe airspace consolidation. PLEURAE: There are moderate sized bilateral pleural effusions, mildly enlarged in the interval. MEDIASTINUM: There is a right IJ central line with tip terminating in the atrial caval junction. Severe coronary a rtery calcifications are noted. Mild pericardial effusion. Heart is otherwise grossly unremarkable. S ubcentimeter mediastinal nodes do not need CT size criteria. AXILLAE: Within normal limits. No lymphadenopathy. MUSCULOSKELETAL: Within normal limits for patient age. MISCELLANEOUS: Partially imaged splenic calcified mass similar to prior exam. Otherwise, as well as upper abdomen is unremarkable. CONCLUSION: 1. Moderate sized simple appearing bilateral pleural effusions, mildly enlarged since 02/07/2017. 2. Improved diffuse bilateral groundglass opacities likely reflects improved positive fluid balance. 3. Slightly more prominent associated bilateral lower lobe airspace consolidation likely reflects pro gressive compressive atelectasis. 4. Previously noted 3 cm posterior medial left lower lobe mass is obscured by left lower lobe air spa ce consolidation on current exam. 5. Severe coronary artery calcifications. 6. Stable very small pericardial effusion. Wayne Betancur MD on February 25, 2017 at 10:05 Board Certified Radiologist. This report was verified electronically.
[2017-02-25] MEDS: FUROSEMIDE 40 MG TAB PO SCH (13:09)
--- NOTE | 2017-02-25 13:19 | HHI.PR ---
Subjective Remarks The patient was feeling tired today. His is at the bedside. He was unsure that he could go home today. He still had blurry vision. Has not been ambulating much. Was seen by pulmonology earlier. Objective Vitals Vital Signs Date Time Temp Pulse Resp B/P Pulse Ox O2 Delivery O2 Flow Rate FiO2 02/25/17 08:54 92 Nasal Cannula 3.00 02/25/17 08:00 98.9 93 22 154/67 91 02/25/17 04:00 98.3 92 19 158/69 91 02/25/17 00:00 98.3 81 19 144/65 93 02/24/17 20:00 96.9 85 20 144/67 92 02/24/17 19:51 94 Nasal Cannula 2.50 02/24/17 16:11 96.6 79 21 132/62 95 I/O 02/24/17 02/24/17 02/24/17 02/25/17 02/25/17 02/25/17 07:00 15:00 23:00 07:00 15:00 23:00 Intake Total 240 ml 600 ml 480 ml Balance 240 ml 600 ml 480 ml Intake Oral 240 ml 600 ml 480 ml # Voids 1 2 1 # Bowel Movements 1 Result Diagram: 02/24/17 0555 02/24/17 0555 Imaging Last Impressions Chest CT 02/25/17 0000 Signed Impressions: Service Date/Time: Saturday, February 25, 2017 09:58 - CONCLUSION: 1. Moderate sized simple appearing bilateral pleural effusions, mildly enlarged since 02/07/2017. 2. Improved diffuse bilateral groundglass opacities likely reflects improved positive fluid balance. 3. Slightly more prominent associated bilateral lower lobe airspace consolidation likely reflects progressive compressive atelectasis. 4. Previously noted 3 cm posterior medial left lower lobe mass is obscured by left lower lobe air space consolidation on current exam. 5. Severe coronary artery calcifications. 6. Stable very small pericardial effusion. Wayne Betancur MD Head CT 02/23/17 0000 Signed Impressions: Service Date/Time: Thursday, February 23, 2017 17:12 - CONCLUSION: 1. Mild periventricular and subcortical white matter small vessel ischemic changes bilaterally. 2. No acute infarct, acute hemorrhage, mass effect or extra- axial fluid collections. Dionte Barnes MD Chest X-Ray 02/22/17 0000 Signed Impressions: Service Date/Time: Wednesday, February 22, 2017 18:29 - CONCLUSION: Radiographic findings consistent with intra-alveolar pulmonary edema. Ric Chang Jr., MD Objective Remarks GENERAL: Pleasant elderly male in no acute distress. HEENT: PERRLA, EOMI. No scleral icterus or conjunctival pallor. Chronic facial droop on the right. CARDIOVASCULAR: Regular rate and rhythm. No obvious murmurs to auscultation. No chest tenderness to palpation. RESPIRATORY: No obvious rhonchi or wheezing. Clear to auscultation. Breath sounds equal bilaterally. GASTROINTESTINAL: Abdomen soft, non-tender, nondistended. BS normal. MUSCULOSKELETAL: Extremities without clubbing, cyanosis, or edema. No obvious deformities. NEUROLOGICAL: Lethargic. No focal neurologic deficits. Moving both upper and lower extremities spontaneously. PSYCH: Flattened affect. Medications and IVs Current Medications Medications (Trade) Dose Ordered Sig/Angie Route Start Time Stop Time Status Last Admin (NS Flush) 2 ml UNSCH PRN IV FLUSH 02/22/17 22:45 (NS Flush) 2 ml BID IV FLUSH 02/23/17 09:00 02/25/17 10:25 (Zofran Inj) 4 mg Q6H PRN IVP 02/22/17 22:45 02/24/17 17:05 (Heparin Inj) 5,000 units Q8H SQ 02/23/17 00:00 02/25/17 10:27 (Tylenol) 650 mg Q6H PRN PO 02/22/17 22:45 02/25/17 13:09 ([place] 5-325 Mg) 1 tab Q4H PRN PO 02/22/17 22:45 (Morphine Inj) 2 mg Q3H PRN IV 02/22/17 22:45 (Amelia-Colace) 1 tab BID PO 02/23/17 09:00 02/25/17 10:24 (Milk Of Magnesia Liq) 30 ml Q12H PRN PO 02/22/17 22:45 (Senokot) 17.2 mg Q12H PRN PO 02/22/17 22:45 (Dulcolax Supp) 10 mg DAILY PRN RECTAL 02/22/17 22:45 (Lactulose Liq) 30 ml DAILY PRN PO 02/22/17 22:45 (Aspirin Chew) 81 mg DAILY CHEW 02/23/17 09:00 02/25/17 10:25 (Lipitor) 20 mg HS PO 02/23/17 21:00 02/24/17 20:47 (Plavix) 75 mg DAILY PO 02/23/17 09:00 02/25/17 10:24 (Lanoxin) 0.125 mg DAILY PO 02/23/17 09:00 02/25/17 10:25 (Flomax) 0.4 mg HS PO 02/23/17 21:00 02/24/17 20:47 (Cardizem) 60 mg QID PO 02/23/17 12:00 02/25/17 13:09 (Tears Naturale Opth Soln) 1 drop Q2H PRN EACH EYE 02/24/17 15:00 02/24/17 14:49 (Lasix) 40 mg DAILY PO 02/25/17 12:30 02/25/17 13:09 A/P Problem List: (1) Hypoxia ICD Code: R09.02 Status: Acute (2) CHF (congestive heart failure) ICD Code: I50.9 Status: Acute (3) Lung cancer ICD Code: C34.90 Status: Acute (4) A-fib ICD Code: I48.91 Status: Acute (5) HTN (hypertension) ICD Code: I10 Status: Acute Assessment and Plan Hypoxemia Multifactorial. The pt has stage IV Lung CA, COPD and CHF. O2 sat 85% on RA, placed on NRM w/ improvement, now weaned to 3L NC. CXR w/ intra-alveolar pulmonary edema. Pulmonology consult appreciated. CT scan noted, no acute changes. - oxygen and nebs as needed. Add standing nebs. - continue PO Lasix. - incentive spirometry. - physical therapy. - pulmonology f/u. - PFTs ordered. - recheck ABG. CHF Follows w/ Dr. Eason as outpatient. Echo with normal EF, trace MR, trace TR. - continue w/ PO Lasix. - monitor I/O. Lung CA Stage IV, currently on Chemo. Significant reason for his hypoxemia. - Continue w/ treatment as planned. Blurry vision Chronic, but more prolonged. CT of the brain negative for an acute process. - ophtho consult requested. Lethargy Likely s/t underlying illness. - check ABG, TSH. - treatment as above. HTN BP 170's on arrival. Improved. - Resume home medications. A-fib Paroxysmal. Rate-controlled. - Resume home medications. - telemetry. Hyperglycemia Glucose has been elevated. Hemoglobin A1c 5.1%. - resolved. DVT Prophylaxis: SCD/Teds. Discharge Planning Awaiting clinical improvement Juan Luis Perea DO Feb 25, 2017 13:19
[2017-02-25 13:55] LABS: BLOOD GAS BASE EXCESS 0.8 mmol/L (-2-2); BLOOD GAS CARBOXYHEMOGLOBIN 2.6 % (0-4); BLOOD GAS HCO3 24 mmol/L (22-26); BLOOD GAS METHEMOGLOBIN 1.1 % (0-2); BLOOD GAS O2 HGB SATURATION 77 % (90-100); BLOOD GAS OXYGEN CONTENT 11.1 Vol % (12.0-20.0); BLOOD GAS PCO2 30 mmHg (38-42); BLOOD GAS PO2 43 mmHg (61-120); BLOOD GAS TOTAL HGB 10.3 G/DL (12.0-16.0); TEMP CORR TO 98.6
[2017-02-25 13:57] LABS: CRITICAL VALUE YES; DRAW SITE RT RADIAL; LITER FLOW 3 L/M; NUMBER OF ARTERIAL PUNCTURES 1; OXYGEN DEVICE NASAL CANNULA; STAT NO; ULNAR PULSE PRESENT
[2017-02-25] MEDS ORDERED: FUROSEMIDE 40 MG/4 ML VIAL IV PUSH ONE ×2 (15:00→16:45)
[2017-02-25] MEDS ORDERED: methylPREDNISolone SOD SUCC 125 MG/2 ML VIAL ONE (16:43)
[2017-02-25] MEDS ORDERED: LORazepam 2 MG/ML VIAL ONE (16:44)
[2017-02-25] MEDS ORDERED: methylPREDNISolone SOD SUCC 125 MG/2 ML VIAL IV ONE (16:45)
[2017-02-25] MEDS ORDERED: LORazepam 2 MG/ML VIAL IM ONE (16:45)
[2017-02-25] MEDS ORDERED: DILTIAZEM HCL 25 MG/5 ML VIAL IVP ONE (17:30)
[2017-02-25] MEDS ORDERED: DILTIAZEM INJ 125 MG in SODIUM CHLORIDE 0.9% INJ 100 ML IV SCH (17:30)
[2017-02-25] MEDS ORDERED: Vancomycin Consult Pharmacy 1 EA OTHER SCH (17:30)
[2017-02-25 17:54] LABS: AUTOMATED NEUTROPHIL # 5.4 TH/MM3 (1.8-7.7); BASOPHIL % 0.4 % (0.0-2.0); EOSINOPHIL % 0.4 % (0.0-4.0); HEMATOCRIT 32.8 % (39.0-51.0); LYMPH % 2.5 % (9.0-44.0); LYMPHOCYTE # 0.1 TH/MM3 (1.0-4.8); MEAN CELL VOLUME 101.4 FL (80.0-100.0); MEAN CORPUSCULAR HEMOGLOBIN 33.7 PG (27.0-34.0); MEAN CORPUSCULAR HGB CONC 33.3 % (32.0-36.0); MONO % 5.8 % (0.0-8.0); NEUT % 90.9 % (16.0-70.0); PLATELET COUNT 230 TH/MM3 (150-450); RED BLOOD COUNT 3.24 MIL/MM3 (4.50-5.90); RED CELL DISTRIBUTION WIDTH 19.3 % (11.6-17.2)
--- NOTE | 2017-02-25 17:58 | RADRPT ---
EXAM DATE/TIME: 02/25/2017 17:18 [facility] COMPARISON: CHEST SINGLE AP, February 22, 2017, 18:29. INDICATIONS : Respiratory failure. MEDICAL HISTORY : Cardiovascular disease. Hypertension. Chronic obstructive pulmonary disease. SURGICAL HISTORY : Cardiac stent. ENCOUNTER: Subsequent ACUITY: 4 - 6 days PAIN SCORE: Non-responsive. LOCATION: Bilateral chest FINDINGS: [id number] in good position. The heart is enlarged. Mild interstitial edema is present. Minimal bibasilar parenchymal changes are noted, worse on the right than the left. CONCLUSION: 1. Congestive failure. 2. Minimal improvement when compared to 02/22/17. Yaron Peters MD FACR on February 25, 2017 at 17:49 Board Certified Radiologist. This report was verified electronically.
[2017-02-25 18:00] LABS: HEMO FLAGS AUTO DIFF
[2017-02-25] MEDS ORDERED: SODIUM CHLOR 0.9% 1000 ML INJ 1,000 ML IV SCH (18:00)
[2017-02-25] MEDS: MORPHINE SULFATE 4 MG/ML INJ IV PRN (18:33)
[2017-02-25 18:35] LABS: BANDS 11 % (0-6); CORRECTED NUCLEATED RBC 3 /100 WBC (0-0); MYELOCYTES 1 % (0-0); NEUTROPHIL # MANUAL DIFF 5.5 TH/MM3 (1.8-7.7); POLYS (SEG NEUTROPHILS) 79 % (16-70); WBC DIFF SAMPLE 100
[2017-02-25 18:36] LABS: ALKALINE PHOSPHATASE 115 U/L (45-117); ALT (GPT) 39 U/L (12-78); ANION GAP 12 MEQ/L (5-15); AST (GOT) 72 U/L (15-37); BICARBONATE 25.3 MEQ/L (21.0-32.0); BLOOD UREA NITROGEN 24 MG/DL (7-18); CHLORIDE 99 MEQ/L (98-107); GLOMERULAR FILTRATION RATE 50 ML/MIN (>89); PLATELET ESTIMATE SMEAR NORMAL (NORMAL); PLATELET MORPHOLOGY NORMAL (NORMAL); SCAN/DIFF FINAL DIFF MANUAL; SODIUM (NA) 136 MEQ/L (136-145); TOTAL BILIRUBIN ADULT 1.3 MG/DL (0.2-1.0)
[2017-02-25] MEDS ORDERED: METOLAZONE 5 MG TAB PO ONE (19:30)
[2017-02-25] MEDS ORDERED: VANCOMYCIN INJ 1,500 MG in SODIUM CHLORID 0.9% 500 ML INJ 500 ML IV ONE (20:00)
[2017-02-25] MEDS: SODIUM CHLOR 0.9% 1000 ML INJ 1,000 ML IV SCH (20:00)
[2017-02-25] MEDS: TAMSULOSIN HCL 0.4 MG CAP PO SCH (20:07)
[2017-02-25] MEDS: PIPERACIL-TAZO 4.5 GM PREMIX 100 ML IV SCH (20:08)
[2017-02-25] MEDS: ATORVASTATIN 20 MG TAB PO SCH (20:08)
[2017-02-25 20:21] LABS: BACTERIA, URINE RARE /hpf; BLOOD, URINE SMALL (NEG); GLUCOSE,URINE NEG (NEG); HYALINE CAST, URINE 1 /lpf (RARE); KETONE, URINE NEG (NEG); NITRITE,URINE NEG (NEG); PH, URINE 5.5 (5.0-8.5); SQUAMOUS EPITHELIAL CELL URINE <1 /hpf (0-5); URINE COLOR YELLOW (YELLW/STRAW)
[2017-02-25 20:24] LABS: COMMENT (UR) CATH-CULTURE IND; CULTURE IF INDICATED CATH CULTURE IND
[2017-02-26] VITALS (11 sets, daily range): BP systolic 111–144; BP diastolic 55–66; PULSE 63–86; RESP 16–27; TEMP 96–98.5; O2SAT 90–95
[2017-02-26] MEDS: PIPERACIL-TAZO 4.5 GM PREMIX 100 ML IV SCH ×3 (00:44→13:30)
[2017-02-26] MEDS: HEPARIN SODIUM - SQ 10,000 UNITS/ML VIAL SQ SCH ×3 (00:44→16:11)
[2017-02-26 05:04] LABS: BICARBONATE 27.5 MEQ/L (21.0-32.0); POTASSIUM 4.3 MEQ/L (3.5-5.1)
--- NOTE | 2017-02-26 07:51 | MB ---
cc: Marlena HEMPHILL M.D. DATE OF CONSULTATION 02/25/2017 HISTORY Mr. Ramos is a 71-year-old white male with a past history of stage IV lung cancer that is treated by Dr. Muhammad at [facility] and he has received chemotherapy for that, no surgery and no radiation. That was originally diagnosed in June of 2016. It appears as though he has a history of the left lower lobe mass. He could not recall the details of the diagnosis or the side of his lung. He was a former smoker of one to two packs per day for 25-30 years although he quit smoking over 20 years ago. He was brought into the hospital for shortness of breath. He has been recently diagnosed with atrial fibrillation that has been controlled with medication and he also has a prior history of coronary artery disease having had a stent placed back in December of 2015. His first heart attack was at 40 at which time he had an angioplasty. He had an echocardiogram during this admission which reveals good LV function, although the LV is dilated with an EF of 55-60%, trace mitral and tricuspid regurgitation. He also has a past history of a basal cell cancer on his head which metastasized it sounds like to the lymph nodes in his neck. He had some major reconstructive surgery on that at [facility] a number of years ago, I think about 15. ALLERGIES None known. MEDICATIONS Reviewed in the EMR. 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 No alcohol use. living with his who is at his bedside today. Originally from the [facility] area. REVIEW OF SYSTEMS He denies chest pain. His breathing has improved since admission. No cough or purulent sputum. Increased fluid in his legs. No recent GI symptoms such as reflux or diarrhea. PHYSICAL EXAMINATION 98 degrees, 150/67, pulse is 90, respirations 18-20 and his sat is 92-93% on three liters. HEAD, EYES, EARS, NOSE, AND THROAT: Pharynx is clear. Neck veins are flat. CHEST: Diminished at both bases, soft systolic murmur. No audible S3. ABDOMEN: Very obese, but soft. He does have peripheral edema. No cyanosis or clubbing. CT scan does reveal bilateral effusions and some basilar atelectasis and some ground glass densities possibly infection or fluid. White blood cell counts 4900, hemoglobin is 9.7, BUN is 27 with a creatinine of one. DISCUSSION Mr. Ramos presents with several comorbidities, probably underlying COPD is a prior smoker, also was some degree of left ventricular dysfunction with a dilated left ventricle and probable cardiomyopathy. He does have a history of ischemic heart disease. He has responded to some extent to diuresis. I am giving him an extra dose of Zaroxolyn today making his aerosol therapy four times a day and continuing his oxygen. He does not appear to have significant advance in his lung cancer at this point at least based on a CT of his chest. Further diagnostic and/or therapeutic intervention will depend on his response and ongoing clinical course. R. MD JULISSA Argueta/JELANI /5:33 PM /7:45 AM
[2017-02-26] MEDS: RESP: ALBUTEROL 2.5 MG/IPRATROPIUM 0.5 MG NEB (SCH) NEB ×4 (08:45→19:21)
[2017-02-26] MEDS ORDERED: BUMETANIDE INJ 1 MG/4 ML VIAL IV PUSH ONE (09:00)
--- NOTE | 2017-02-26 09:00 | RADRPT ---
EXAM DATE/TIME: 02/26/2017 08:14 [facility] COMPARISON: CT THORAX W/O CONTRAST, February 25, 2017, 9:58. CHEST SINGLE AP, February 25, 2017, 17:18. INDICATIONS : Short of breath. MEDICAL HISTORY : Cardiovascular disease. Hypertension. Carcinoma, lung. SURGICAL HISTORY : eye prostesis. ENCOUNTER: Subsequent ACUITY: 2 weeks PAIN SCORE: 0/10 LOCATION: Bilateral chest FINDINGS: Stable right IJ [id number]. Cardiac silhouette is enlarged. There is diffuse interstitial prominen ce with small to moderate left pleural effusion and improved small right pleural effusion and associa liz lower lobe airspace disease. Remainder of exam is unchanged. CONCLUSION: 1. Cardiomegaly with perivascular congestion. 2. Small right pleural effusion and associated right lower lobe airspace disease improved from prior exams. 3. Stable small to moderate left pleural effusion with associated airspace disease. Wayne Betancur MD on February 26, 2017 at 8:54 Board Certified Radiologist. This report was verified electronically.
[2017-02-26 09:15] LABS: AUTOMATED NEUTROPHIL # 11.1 TH/MM3 (1.8-7.7); BASOPHIL % 0.2 % (0.0-2.0); HEMATOCRIT 30.5 % (39.0-51.0); LYMPH % 1.8 % (9.0-44.0); LYMPHOCYTE # 0.2 TH/MM3 (1.0-4.8); MEAN CELL VOLUME 100.4 FL (80.0-100.0); MEAN CORPUSCULAR HGB CONC 33.8 % (32.0-36.0); PLATELET COUNT 159 TH/MM3 (150-450); RED BLOOD COUNT 3.04 MIL/MM3 (4.50-5.90); RED CELL DISTRIBUTION WIDTH 19.5 % (11.6-17.2); WHITE BLOOD COUNT 12.1 TH/MM3 (4.0-11.0)
--- NOTE | 2017-02-26 09:15 | HHI.PR ---
Subjective Remarks The pt is resting comfortably in bed, still on BiPAP. at the bedside. The pt said his breathing was better. He has some face and neck pain s/t BiPAP use. He still has not seen the eye doctor. His updated his oncologist. He denied any acute complaints. Objective Vitals Vital Signs Date Time Temp Pulse Resp B/P Pulse Ox O2 Delivery O2 Flow Rate FiO2 02/26/17 08:53 95 40 02/26/17 07:00 90 Bi-Pap 70 02/26/17 04:06 94 70 02/26/17 04:00 97.3 63 16 114/55 94 02/26/17 01:15 93 70 02/26/17 00:00 96.0 66 25 111/57 93 02/25/17 23:00 72 02/25/17 20:00 100.9 83 21 117/57 95 02/25/17 19:58 93 70 02/25/17 19:01 22 02/25/17 19:00 90 Bi-Pap 70 02/25/17 18:00 105 02/25/17 18:00 104.1 02/25/17 18:00 94 Bi-Pap 70 02/25/17 17:30 103.1 88 28 175/71 96 02/25/17 17:20 96 70 02/25/17 16:53 94 70 02/25/17 12:00 101.6 105 24 151/68 88 I/O 02/25/17 02/25/17 02/25/17 02/26/17 02/26/17 02/26/17 07:00 15:00 23:00 07:00 15:00 23:00 Intake Total 806 ml 388 ml Output Total 650 ml 150 ml Balance 156 ml 238 ml IV Total 806 ml 388 ml Output Urine Total 650 ml 150 ml Result Diagram: 02/25/17 1730 02/26/17 0402 Imaging Last Impressions Chest CT 02/25/17 0000 Signed Impressions: Service Date/Time: Saturday, February 25, 2017 09:58 - CONCLUSION: 1. Moderate sized simple appearing bilateral pleural effusions, mildly enlarged since 02/07/2017. 2. Improved diffuse bilateral groundglass opacities likely reflects improved positive fluid balance. 3. Slightly more prominent associated bilateral lower lobe airspace consolidation likely reflects progressive compressive atelectasis. 4. Previously noted 3 cm posterior medial left lower lobe mass is obscured by left lower lobe air space consolidation on current exam. 5. Severe coronary artery calcifications. 6. Stable very small pericardial effusion. Wayne Betancur MD Head CT 02/23/17 0000 Signed Impressions: Service Date/Time: Thursday, February 23, 2017 17:12 - CONCLUSION: 1. Mild periventricular and subcortical white matter small vessel ischemic changes bilaterally. 2. No acute infarct, acute hemorrhage, mass effect or extra- axial fluid collections. Dionte Barnes MD Chest X-Ray 02/22/17 0000 Signed Impressions: Service Date/Time: Wednesday, February 22, 2017 18:29 - CONCLUSION: Radiographic findings consistent with intra-alveolar pulmonary edema. Ric Chang Jr., MD Objective Remarks GENERAL: Pleasant elderly male in no acute distress, on BiPAP. HEENT: PERRLA, EOMI. No scleral icterus or conjunctival pallor. Chronic facial droop on the right. CARDIOVASCULAR: Irregularly irregular rhythm. No obvious murmurs to auscultation. No chest tenderness to palpation. RESPIRATORY: Crackles at the bases. GASTROINTESTINAL: Abdomen soft, non-tender, nondistended. BS normal. MUSCULOSKELETAL: TR edema in the lower extremities. NEUROLOGICAL: Awake and alert. No focal neurologic deficits. Moving both upper and lower extremities spontaneously. PSYCH: Mood and affect appropriate. Medications and IVs Current Medications Medications (Trade) Dose Ordered Sig/Angie Route Start Time Stop Time Status Last Admin (NS Flush) 2 ml UNSCH PRN IV FLUSH 02/22/17 22:45 (NS Flush) 2 ml BID IV FLUSH 02/23/17 09:00 02/25/17 20:09 (Zofran Inj) 4 mg Q6H PRN IVP 02/22/17 22:45 02/24/17 17:05 (Heparin Inj) 5,000 units Q8H SQ 02/23/17 00:00 02/26/17 00:44 (Tylenol) 650 mg Q6H PRN PO 02/22/17 22:45 02/25/17 13:09 ([place] 5-325 Mg) 1 tab Q4H PRN PO 02/22/17 22:45 (Morphine Inj) 2 mg Q3H PRN IV 02/22/17 22:45 02/25/17 18:33 (Amelia-Colace) 1 tab BID PO 02/23/17 09:00 02/25/17 20:07 (Milk Of Magnesia Liq) 30 ml Q12H PRN PO 02/22/17 22:45 (Senokot) 17.2 mg Q12H PRN PO 02/22/17 22:45 (Dulcolax Supp) 10 mg DAILY PRN RECTAL 02/22/17 22:45 (Lactulose Liq) 30 ml DAILY PRN PO 02/22/17 22:45 (Aspirin Chew) 81 mg DAILY CHEW 02/23/17 09:00 02/25/17 10:25 (Lipitor) 20 mg HS PO 02/23/17 21:00 02/25/17 20:08 (Plavix) 75 mg DAILY PO 02/23/17 09:00 02/25/17 10:24 (Lanoxin) 0.125 mg DAILY PO 02/23/17 09:00 02/25/17 10:25 (Flomax) 0.4 mg HS PO 02/23/17 21:00 02/25/17 20:07 (Cardizem) 60 mg QID PO 02/23/17 12:00 02/25/17 20:07 (Tears Naturale Opth Soln) 1 drop Q2H PRN EACH EYE 02/24/17 15:00 02/24/17 14:49 Furosemide 40 mg 40 mg DAILY PO 02/25/17 12:30 Hold 02/25/17 13:09 Pharmacy Profile Note 0 ml @ 0 mls/hr UNSCH OTHER 02/25/17 17:30 Piperacillin Sod/ Tazobactam Sod 100 ml @ 200 mls/hr Q6H IV 02/25/17 20:00 02/26/17 00:44 Sodium Chloride 1,000 ml @ 10 mls/hr Q24H IV 02/25/17 20:00 (Vancomycin Inj/ NS 500 ml Inj) 517 ml @ 250 mls/hr Q18H IV 02/26/17 15:00 Miscellaneous Information SPECIFIC LAB TO BE DRAWN:VANCO TROUGH DATE TO BE DRJoan.. ONCE ONCE .XX 02/28/17 02:45 02/28/17 02:46 (Bumex Inj) 2 mg ONCE ONCE IV PUSH 02/26/17 09:00 02/26/17 09:01 UNV (SoluMEDROL INJ) 40 mg Q8HR IV PUSH 02/26/17 09:00 UNV A/P Problem List: (1) Hypoxia ICD Code: R09.02 Status: Acute (2) CHF (congestive heart failure) ICD Code: I50.9 Status: Acute (3) Lung cancer ICD Code: C34.90 Status: Acute (4) A-fib ICD Code: I48.91 Status: Acute (5) HTN (hypertension) ICD Code: I10 Status: Acute Assessment and Plan Sepsis/ Bacteremia He was found to be febrile up to 104 so vancomycin and Zosyn were ordered. He was pancultured. Blood cultures growing 4/4 gpc. UA indicative of possible infection. Pt recently had an echo without evidence of vegetation. Likely has post-obstructive PNA s/t lung cancer. - continue IV vancomycin and Zosyn. - follow culture data. - ID consult requested. - Tylenol as needed. Hypoxemia Multifactorial. The pt has stage IV Lung CA, COPD and CHF. CXR w/ intra- alveolar pulmonary edema. Pulmonology consult appreciated. CT scan noted, no acute changes. The patient required a simple mask and was saturating low on that. He was also quite tremulous. A Halicat was called. The patient was started on BiPAP. IV Solu-Medrol, IV Lasix were ordered. He received fluids for sepsis. Repeat CXR with evidence of volume overload. - oxygen and nebs as needed. Add standing nebs. - continue diuretics. - incentive spirometry. - physical therapy. - pulmonology f/u. - PFTs ordered. - recheck ABG. - continue BiPAP for now. - palliative care consult requested. CHF/ Elevated troponin Follows w/ Dr. Sotelo as an outpatient. Echo with normal EF, trace MR, trace TR. Evidence of volume overload. Elevated troponin likely s/t sepsis. - continue diuresis. - cardiology consult requested. - monitor I/O. - trend trops. - monitor on telemetry. - repeat EKG. Lung CA Stage IV, currently on Chemo. Significant reason for his hypoxemia. - Continue w/ treatment as planned. His notified his oncologist, Dr. Muhammad, about the current status of the pt. Blurry vision Chronic, but more prolonged. CT of the brain negative for an acute process. - ophtho consult requested. HTN BP 170's on arrival. Improved. - Resume home medications. A-fib Paroxysmal. Rate-controlled at this time. - Resume home medications. - telemetry. Hyperglycemia Glucose has been elevated. Hemoglobin A1c 5.1%. - resolved. DVT Prophylaxis: SCD/Teds. Discharge Planning Awaiting clinical improvement Juan Luis Perea DO Feb 26, 2017 09:15
[2017-02-26 09:23] LABS: HEMO FLAGS AUTO DIFF
[2017-02-26 09:36] LABS: BLOOD GAS BASE EXCESS 2.2 mmol/L (-2-2); BLOOD GAS CARBOXYHEMOGLOBIN 1.8 % (0-4); BLOOD GAS HCO3 26 mmol/L (22-26); BLOOD GAS METHEMOGLOBIN 0.8 % (0-2); BLOOD GAS O2 HGB SATURATION 90 % (90-100); BLOOD GAS OXYGEN CONTENT 13.2 Vol % (12.0-20.0); BLOOD GAS PCO2 36 mmHg (38-42); BLOOD GAS PO2 63 mmHg (61-120); BLOOD GAS TOTAL HGB 10.4 G/DL (12.0-16.0); CRITICAL VALUE NO; DRAW SITE RT RADIAL; FIO2 40 %; NUMBER OF ARTERIAL PUNCTURES 1; OXYGEN DEVICE BIPAP; STAT NO; TEMP CORR TO 98.6; ULNAR PULSE PRESENT
[2017-02-26] MEDS: DILTIAZEM HCL 60 MG TAB PO SCH ×4 (10:01→21:19)
[2017-02-26] MEDS: CLOPIDOGREL 75 MG TAB PO SCH (10:01)
[2017-02-26] MEDS: DIGOXIN 0.125 MG TAB PO SCH (10:01)
[2017-02-26] MEDS: DOCUSATE SODIUM 50 MG/SENNA 8.6 MG TAB PO SCH ×2 (10:02→21:19)
[2017-02-26] MEDS: ASPIRIN 81 MG CHEW TAB CHEW SCH (10:02)
[2017-02-26] MEDS: methylPREDNISolone SOD SUCC 40 MG/1 ML VIAL IV PUSH SCH ×3 (10:02→21:19)
[2017-02-26] MEDS: SODIUM CHLORIDE 0.9% FLUSH 10 ML FLUSH IV FLUSH SCH ×2 (10:03→21:19)
[2017-02-26 10:22] LABS: BANDS 31 % (0-6); CORRECTED NUCLEATED RBC 1 /100 WBC (0-0); NEUTROPHIL # MANUAL DIFF 11.3 TH/MM3 (1.8-7.7); PLATELET ESTIMATE SMEAR NORMAL (NORMAL); PLATELET MORPHOLOGY CLUMPED (NORMAL); POLYS (SEG NEUTROPHILS) 62 % (16-70); SCAN/DIFF FINAL DIFF MANUAL; WBC DIFF SAMPLE 100
--- NOTE | 2017-02-26 10:29 | PD.CONS ---
Consult Service Palliative Care Consult Requested By Dr Perea . Primary Care Physician Isac Cortez M.D. Reason for Consultation a. To assist with evaluation and management of symptoms including: dyspnea, anxiety b. To assist medical decision maker(s) with: better understanding of current medical conditions; weighing benefits/burdens of medical treatment options; making medical treatment decisions. HPI History of Present Illness 71-year-old patient presented to the ED on 02/22/17, with complaints of worsening shortness of breath, via EMS. Receives chemotherapy every Saturday, reports some baseline level of shortness of breath, O2 dependent at home. Over the few days prior to admission developed worsening shortness of breath. Also noted to recently rehospitalized for atrial fibrillation, which was apparently treated with medication, immediately cardioverted. Apparently in the hospital on February [address] angiogram done without any evidence of pulmonary emboli. * ED course: O2 sats 85% on roomair, 100% on NRB. Noted to have recent CT angiogram which demonstrated no evidence of PE. CXR indicative of pulmonary edema, patient treated with IV Lasix. BNP 103. Troponin 0.05. BUN 35/. 1.2. Patient was admitted for further evaluation and management. * 2-D echo: EF 5560 percent. Trace mitral valve regurg.Aortic valve sclerosis. * 02/25 c/o blurry vision, ? chronic/ CT brain neg for acute process. ophthalmology consulted. Still w shortness of breath, O2 sats decreased later in the day- required simple mask. Pulmonology consulted. [facility]ICAT called 545pm, pt started on BIPAP. Febrile, 103.1. Panculture sent, + started vancomycin, Zosyn. Telemetry noted with atrial fibrillation, rate controlled. Additional labs pending. Transferred to ICU. Medical attending notes discussion with patient and regarding CODE STATUS, they both confirmed DNR status. * Pulmonology: Dr. Londono evaluated patient 02/25 he notes patient original cancer diagnosis June 2016, follows with Dr. Muhammad receiving chemotherapy no surgery, no radiation. + left lower lobe mass. Patient noted to be responding some to diuresis, giving extra diuretic as well as nebulizers. Pulmonology further notes does not appear to have significant advance of lung cancer at this point based on CT of chest. * Palliative care was consulted to assist with clarification of goals of treatment. Patient has apparently updated his known oncologist regarding hospitalized status. Repeat troponin 0.15. BUN 24/creatinine 1.39. TSH 7.1. Albumin 2.8. Pt on/off BIPAP * 02/26 preliminary blood culture results from 02/25 with gram-positive cocci. ID consultation is pending. Remains on Zosyn, Vanco. Pt seen in room, step son at bedside. Met w pt, step son at length. D/w RN, pulmonary . Function/Cognitive Trajectory ambulatory without assist at home, + short distances, limited by SOB. O2 dependent. No cognitive deficits. . Review of Systems Constitutional: COMPLAINS OF: Weight loss (20-30 lbs since 2016), Change in appetite (decreased w ongoing chemo), Generalized weakness, DENIES: Pain Endocrine: DENIES: Polyuria Eyes: COMPLAINS OF: Blurred vision (onset during hospital course), DENIES: Vision loss, Double Vision Ears, nose, mouth, throat: COMPLAINS OF: Throat pain (mild soreness while on BIPAP), DENIES: Oral lesions, Hoarseness Respiratory: COMPLAINS OF: Wheezing, Shortness of breath, DENIES: Apneas, Cough, Sputum production Cardiovascular: COMPLAINS OF: Palpitations (intermittent , none currently ), Dyspnea on Exertion, Lower Extremity Edema, DENIES: Chest pain, Syncope Gastrointestinal: COMPLAINS OF: Constipation, Diarrhea (reports "normal" is alt. w/ constipation/ alt w diarrhea depending on oral intake ), Nausea ( intermittent following chemo), DENIES: Abdominal pain, Vomiting, Difficulty Swallowing Genitourinary: DENIES: Urinary frequency, Urinary incontinence, Hematuria Musculoskeletal: DENIES: Joint pain, Muscle aches, Back pain Integumentary: DENIES: Rash Neurologic: DENIES: Abnormal gait, Headache, Localized weakness Psychiatric: COMPLAINS OF: Anxiety (mild with SOB) Past Family Social History Coded Allergies: No Known Allergies (Unverified , 01/28/17) Past Medical History Stage IV Lung Cancer-currently on chemotherapy Hypertension CAD MD at age 40 COPD, O2 Dependent Atrial fibrillation (newly dx 01/2017) Basal cell carcinoma face . Past Surgical History Cardiac Stent x2 2016 Cataract Surgery bilateral, 2015 Right Chest Port resection right face/jaw/earlobe 2/2 basal cell carcinoma right chest biopsy . Reported Medications Lopressor (Metoprolol Tartrate) 50 Mg Tab 50 Mg PO Q12HR Digoxin 0.125 Mg Tab 0.125 Mg PO DAILY Potassium Chloride ER (Potassium Chloride) 10 Meq Cap 10 Meq PO DAILY Furosemide 40 Mg Tab 40 Mg PO DAILY Aspirin 81 Mg Chew 81 Mg CHEW DAILY Clopidogrel (Clopidogrel Bisulfate) 75 Mg Tab 75 Mg PO DAILY Tamsulosin (Tamsulosin HCl) 0.4 Mg Cap 0.4 Mg PO HS Atorvastatin (Atorvastatin Calcium) 20 Mg Tab 20 Mg PO HS . Current Medications Medications (Trade) Dose Ordered Sig/Angie Route Start Time Stop Time Status Last Admin (NS Flush) 2 ml UNSCH PRN IV FLUSH 02/22/17 22:45 (NS Flush) 2 ml BID IV FLUSH 02/23/17 09:00 02/25/17 20:09 (Zofran Inj) 4 mg Q6H PRN IVP 02/22/17 22:45 02/24/17 17:05 (Heparin Inj) 5,000 units Q8H SQ 02/23/17 00:00 02/26/17 00:44 (Tylenol) 650 mg Q6H PRN PO 02/22/17 22:45 02/25/17 13:09 (Victor 5-325 Mg) 1 tab Q4H PRN PO 02/22/17 22:45 (Morphine Inj) 2 mg Q3H PRN IV 02/22/17 22:45 02/25/17 18:33 (Amelia-Colace) 1 tab BID PO 02/23/17 09:00 02/25/17 20:07 (Milk Of Magnesia Liq) 30 ml Q12H PRN PO 02/22/17 22:45 (Senokot) 17.2 mg Q12H PRN PO 02/22/17 22:45 (Dulcolax Supp) 10 mg DAILY PRN RECTAL 02/22/17 22:45 (Lactulose Liq) 30 ml DAILY PRN PO 02/22/17 22:45 (Aspirin Chew) 81 mg DAILY CHEW 02/23/17 09:00 02/25/17 10:25 (Lipitor) 20 mg HS PO 02/23/17 21:00 02/25/17 20:08 (Plavix) 75 mg DAILY PO 02/23/17 09:00 02/25/17 10:24 (Lanoxin) 0.125 mg DAILY PO 02/23/17 09:00 02/25/17 10:25 (Flomax) 0.4 mg HS PO 02/23/17 21:00 02/25/17 20:07 (Cardizem) 60 mg QID PO 02/23/17 12:00 02/25/17 20:07 (Tears Naturale Opth Soln) 1 drop Q2H PRN EACH EYE 02/24/17 15:00 02/24/17 14:49 Furosemide 40 mg 40 mg DAILY PO 02/25/17 12:30 Hold 02/25/17 13:09 Pharmacy Profile Note 0 ml @ 0 mls/hr UNSCH OTHER 02/25/17 17:30 Piperacillin Sod/ Tazobactam Sod 100 ml @ 200 mls/hr Q6H IV 02/25/17 20:00 02/26/17 00:44 Sodium Chloride 1,000 ml @ 10 mls/hr Q24H IV 02/25/17 20:00 (Vancomycin Inj/ NS 500 ml Inj) 517 ml @ 250 mls/hr Q18H IV 02/26/17 15:00 Miscellaneous Information SPECIFIC LAB TO BE DRAWN:VANCO TROUGH DATE TO BE DR... ONCE ONCE .XX 02/28/17 02:45 02/28/17 02:46 (SoluMEDROL INJ) 40 mg Q8HR IV PUSH 02/26/17 09:00 Family History No h/o DM or CAD . Substance Use Tobacco: Former smoker 12 PPD times 2530 years, quit > 20 years ago. Alcohol: None Prescription med abuse: None Illicits: None . Psychosocial History Originally from [facility]. 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 , supported by his . + also supported by daughter, jonoon, and 5 grandchildren. . Spiritual/Cultural Factors Rastafarian . Ethical and Legal Issues Pt is alert, oriented, appears capacitated to make his own decisions. This may fluctuate with oxygenation status. Supported by his spouse. . Physical Exam Vital Signs Date Time Temp Pulse Resp B/P Pulse Ox O2 Delivery O2 Flow Rate FiO2 02/26/17 08:53 95 40 02/26/17 08:00 98.5 72 24 122/60 93 02/26/17 07:00 90 Bi-Pap 70 02/26/17 04:06 94 70 02/26/17 04:00 97.3 63 16 114/55 94 02/26/17 01:15 93 70 02/26/17 00:00 96.0 66 25 111/57 93 02/25/17 23:00 72 02/25/17 20:00 100.9 83 21 117/57 95 02/25/17 19:58 93 70 02/25/17 19:01 22 02/25/17 19:00 90 Bi-Pap 70 02/25/17 18:00 105 02/25/17 18:00 104.1 02/25/17 18:00 94 Bi-Pap 70 02/25/17 17:30 103.1 88 28 175/71 96 02/25/17 17:20 96 70 02/25/17 16:53 94 70 02/25/17 12:00 101.6 105 24 151/68 88 02/25/17 02/26/17 19:00 07:00 Intake Total 1194 ml Output Total 800 ml Balance 394 ml IV Total 1194 ml Output Urine Total 800 ml Exam Draft/pending/template CONSTITUTIONAL/GENERAL: This is an adequately nourished patient, in no apparent distress. TUBES/LINES/DRAINS: SKIN: No jaundice, rashes, or lesions. Ecchymoses on upper extremities. No wounds seen anteriorly. Skin temperature appropriate. Not diaphoretic. HEAD: Atraumatic. Normocephalic. EYES: Pupils equal and round and reactive. Extraocular motions intact. No scleral icterus. No injection or drainage. Fundi not examined. ENT: Hearing grossly normal. Nose without bleeding or purulent drainage. Throat without visible erythema, exudates, masses, or lesions. NECK: Trachea midline. Supple, nontender. No palpable thyroid enlargement or nodularity. CARDIOVASCULAR: Regular rate and rhythm without murmurs, gallops, or rubs. No JVD. Peripheral pulses symmetric. RESPIRATORY/CHEST: Symmetric, unlabored respirations. Clear to auscultation. Breath sounds equal bilaterally. No wheezes, rales, or rhonchi. GASTROINTESTINAL: Abdomen soft, non-tender, nondistended. No hepato-splenomegaly , or palpable masses. No guarding. Bowel sounds present. GENITOURINARY: Without palpable bladder distension. Montilla catheter in place. MUSCULOSKELETAL: Extremities without clubbing, cyanosis, or edema. No joint tenderness or effusion noted. No calf tenderness. No mottling or clubbing. LYMPHATICS: No palpable cervical or supraclavicular adenopathy. NEUROLOGICAL: Awake and alert. Motor and sensory grossly within normal limits. Follows commands. Cognitively sharp. Moves all extremities. PSYCHIATRIC: No obvious anxiety/depression. no apparent hallucinations or other psychotic thought process. Diagnostic Tests Laboratory Laboratory Tests Test 02/23/17 02/24/17 02/25/17 02/25/17 10:23 05:55 13:39 17:30 White Blood Count 8.2 TH/MM3 4.9 TH/MM3 6.0 TH/MM3 (4.0-11.0) (4.0-11.0) (4.0-11.0) Red Blood Count 2.89 MIL/MM3 2.85 MIL/MM3 3.24 MIL/MM3 (4.50-5.90) (4.50-5.90) (4.50-5.90) Hemoglobin 9.8 GM/DL 9.7 GM/DL 10.9 GM/DL (13.0-17.0) (13.0-17.0) (13.0-17.0) Hematocrit 30.0 % 29.0 % 32.8 % (39.0-51.0) (39.0-51.0) (39.0-51.0) Mean Corpuscular Volume 103.7 FL 101.7 FL 101.4 FL (80.0-100.0) (80.0-100.0) (80.0-100.0) Mean Corpuscular Hemoglobin 33.8 PG 33.9 PG 33.7 PG (27.0-34.0) (27.0-34.0) (27.0-34.0) Mean Corpuscular Hemoglobin 32.6 % 33.4 % 33.3 % Concent (32.0-36.0) (32.0-36.0) (32.0-36.0) Red Cell Distribution Width 19.4 % 19.4 % 19.3 % (11.6-17.2) (11.6-17.2) (11.6-17.2) Platelet Count 270 TH/MM3 268 TH/MM3 230 TH/MM3 (150-450) (150-450) (150-450) Mean Platelet Volume 7.9 FL 7.5 FL 8.1 FL (7.0-11.0) (7.0-11.0) (7.0-11.0) Neutrophils (%) (Auto) 91.1 % 90.9 % (16.0-70.0) (16.0-70.0) Lymphocytes (%) (Auto) 6.1 % 2.5 % (9.0-44.0) (9.0-44.0) Monocytes (%) (Auto) 1.1 % (0.0-8.0) 5.8 % (0.0-8.0) Eosinophils (%) (Auto) 1.4 % (0.0-4.0) 0.4 % (0.0-4.0) Basophils (%) (Auto) 0.3 % (0.0-2.0) 0.4 % (0.0-2.0) Neutrophils # (Auto) 7.5 TH/MM3 5.4 TH/MM3 (1.8-7.7) (1.8-7.7) Lymphocytes # (Auto) 0.5 TH/MM3 0.1 TH/MM3 (1.0-4.8) (1.0-4.8) Monocytes # (Auto) 0.1 TH/MM3 0.3 TH/MM3 (0-0.9) (0-0.9) Eosinophils # (Auto) 0.1 TH/MM3 0.0 TH/MM3 (0-0.4) (0-0.4) Basophils # (Auto) 0.0 TH/MM3 0.0 TH/MM3 (0-0.2) (0-0.2) CBC Comment DIFF FINAL AUTO DIFF Differential Comment FINAL DIFF MANUAL Sodium Level 139 MEQ/L 141 MEQ/L 136 MEQ/L (136-145) (136-145) (136-145) Potassium Level 4.5 MEQ/L 3.9 MEQ/L 5.0 MEQ/L (3.5-5.1) (3.5-5.1) (3.5-5.1) Chloride Level 104 MEQ/L 103 MEQ/L 99 MEQ/L (98-107) (98-107) (98-107) Carbon Dioxide Level 28.9 MEQ/L 30.3 MEQ/L 25.3 MEQ/L (21.0-32.0) (21.0-32.0) (21.0-32.0) Anion Gap 6 MEQ/L (5-15) 8 MEQ/L (5-15) 12 MEQ/L (5-15) Blood Urea Nitrogen 32 MG/DL (7-18) 27 MG/DL (7-18) 24 MG/DL (7-18) Creatinine 1.29 MG/DL 1.08 MG/DL 1.39 MG/DL (0.60-1.30) (0.60-1.30) (0.60-1.30) Estimat Glomerular Filtration 55 ML/MIN (>89) 67 ML/MIN (>89) 50 ML/MIN (>89) Rate Random Glucose 153 MG/DL 88 MG/DL 109 MG/DL (74-106) (74-106) (74-106) Calcium Level 8.2 MG/DL 8.4 MG/DL 8.5 MG/DL (8.5-10.1) (8.5-10.1) (8.5-10.1) Total Bilirubin 0.8 MG/DL 1.3 MG/DL (0.2-1.0) (0.2-1.0) Aspartate Amino Transf 21 U/L (15-37) 72 U/L (15-37) (AST/SGOT) Alanine Aminotransferase 28 U/L (12-78) 39 U/L (12-78) (ALT/SGPT) Alkaline Phosphatase 83 U/L (45-117) 115 U/L (45-117) Total Protein 6.3 GM/DL 7.0 GM/DL (6.4-8.2) (6.4-8.2) Albumin 2.8 GM/DL 2.8 GM/DL (3.4-5.0) (3.4-5.0) Hemoglobin A1c 5.1 % (4.3-6.0) Magnesium Level 2.3 MG/DL (1.5-2.5) Thyroid Stimulating Hormone 7.100 uIU/ML 3rd Gen (0.358-3.740) Blood Gas Puncture Site RT RADIAL Blood Gas Patient Temperature 98.6 Blood Gas HCO3 24 mmol/L (22-26) Blood Gas Base Excess 0.8 mmol/L (-2-2) Blood Gas Oxygen Saturation 77 % (90-100) Arterial Blood pH 7.51 (7.380-7.420) Arterial Blood Partial 30 mmHg (38-42) Pressure CO2 Arterial Blood Partial 43 mmHg Pressure O2 (61-120) Arterial Blood Oxygen Content 11.1 Vol % (12.0-20.0) Arterial Blood 2.6 % (0-4) Carboxyhemoglobin Arterial Blood Methemoglobin 1.1 % (0-2) Blood Gas Hemoglobin 10.3 G/DL (12.0-16.0) Oxygen Delivery Device NASAL CANNULA Blood Gas Liter Flow 3 L/M Differential Total Cells 100 Counted Neutrophils % (Manual) 79 % (16-70) Band Neutrophils % 11 % (0-6) Lymphocytes % 7 % (9-44) Monocytes % 2 % (0-8) Neutrophils # (Manual) 5.5 TH/MM3 (1.8-7.7) Myelocytes 1 % (0-0) Nucleated Red Blood Cells 3 /100 WBC (0-0) Platelet Estimate NORMAL (NORMAL) Platelet Morphology Comment NORMAL (NORMAL) Urine Color YELLOW (YELLW/STRAW) Urine Turbidity CLEAR (CLEAR) Urine pH 5.5 (5.0-8.5) Urine Specific [place] 1.011 (1.002-1.035) Urine Protein 30 mg/dL (NEG-TRACE) Urine Glucose (UA) NEG mg/dL (NEG) Urine Ketones NEG mg/dL (NEG) Urine Occult Blood SMALL (NEG) Urine Nitrite NEG (NEG) Urine Bilirubin NEG (NEG) Urine Urobilinogen LESS THAN 2.0 MG/DL (LESS THAN 2.0) Urine Leukocyte Esterase TRACE (NEG) Urine RBC 2 /hpf (0-3) Urine WBC 2 /hpf (0-5) Urine Squamous Epithelial <1 /hpf (0-5) Cells Urine Amorphous Sediment RARE Urine Bacteria RARE /hpf (NONE) Urine Hyaline Casts 1 /lpf (RARE) Microscopic Urinalysis Comment CATH-CULTURE IND Nasal Screen MRSA (PCR) MRSA NOT DETECTED (NOT DETECT) Lactic Acid Level 4.7 mmol/L (0.4-2.0) Troponin I 0.15 NG/ML (0.02-0.05) Test 02/26/17 02/26/17 02/26/17 04:02 08:42 09:26 Sodium Level 138 MEQ/L (136-145) Potassium Level 4.3 MEQ/L (3.5-5.1) Chloride Level 102 MEQ/L (98-107) Carbon Dioxide Level 27.5 MEQ/L (21.0-32.0) Anion Gap 9 MEQ/L (5-15) Blood Urea Nitrogen 27 MG/DL (7-18) Creatinine 1.25 MG/DL (0.60-1.30) Estimat Glomerular Filtration 57 ML/MIN (>89) Rate Random Glucose 149 MG/DL (74-106) Calcium Level 7.9 MG/DL (8.5-10.1) White Blood Count 12.1 TH/MM3 (4.0-11.0) Red Blood Count 3.04 MIL/MM3 (4.50-5.90) Hemoglobin 10.3 GM/DL (13.0-17.0) Hematocrit 30.5 % (39.0-51.0) Mean Corpuscular Volume 100.4 FL (80.0-100.0) Mean Corpuscular Hemoglobin 34.0 PG (27.0-34.0) Mean Corpuscular Hemoglobin 33.8 % Concent (32.0-36.0) Red Cell Distribution Width 19.5 % (11.6-17.2) Platelet Count 159 TH/MM3 (150-450) Mean Platelet Volume 7.7 FL (7.0-11.0) Neutrophils (%) (Auto) 92.0 % (16.0-70.0) Lymphocytes (%) (Auto) 1.8 % (9.0-44.0) Monocytes (%) (Auto) 6.0 % (0.0-8.0) Eosinophils (%) (Auto) 0.0 % (0.0-4.0) Basophils (%) (Auto) 0.2 % (0.0-2.0) Neutrophils # (Auto) 11.1 TH/MM3 (1.8-7.7) Lymphocytes # (Auto) 0.2 TH/MM3 (1.0-4.8) Monocytes # (Auto) 0.7 TH/MM3 (0-0.9) Eosinophils # (Auto) 0.0 TH/MM3 (0-0.4) Basophils # (Auto) 0.0 TH/MM3 (0-0.2) CBC Comment AUTO DIFF Lactic Acid Level 2.3 mmol/L (0.4-2.0) Troponin I 0.10 NG/ML (0.02-0.05) Blood Gas Puncture Site RT RADIAL Blood Gas Patient Temperature 98.6 Blood Gas HCO3 26 mmol/L (22-26) Blood Gas Base Excess 2.2 mmol/L (-2-2) Blood Gas Oxygen Saturation 90 % (90-100) Arterial Blood pH 7.46 (7.380-7.420) Arterial Blood Partial 36 mmHg (38-42) Pressure CO2 Arterial Blood Partial 63 mmHg Pressure O2 (61-120) Arterial Blood Oxygen Content 13.2 Vol % (12.0-20.0) Arterial Blood 1.8 % (0-4) Carboxyhemoglobin Arterial Blood Methemoglobin 0.8 % (0-2) Blood Gas Hemoglobin 10.4 G/DL (12.0-16.0) Oxygen Delivery Device BIPAP Blood Gas Inspired Oxygen 40 % Result Diagram: 02/26/17 0842 02/26/17 0402 Microbiology Microbiology Date/Time Procedure Status Source Growth 02/25/17 17:30 Urine Culture Received Urine Catheterized Urine Pending 02/25/17 17:45 Aerobic Blood Culture - Preliminary Resulted Blood Peripheral Gram Positive Cocci 02/25/17 17:45 Anaerobic Blood Culture - Preliminary Resulted Gram Positive Cocci 02/25/17 18:33 Aerobic Blood Culture - Preliminary Resulted Blood Peripheral Gram Positive Cocci 02/25/17 18:33 Anaerobic Blood Culture - Preliminary Resulted Gram Positive Cocci Imaging Last Impressions Chest X-Ray 02/26/17 0000 Signed Impressions: Service Date/Time: Sunday, February 26, 2017 08:14 - CONCLUSION: 1. Cardiomegaly with perivascular congestion. 2. Small right pleural effusion and associated right lower lobe airspace disease improved from prior exams. 3. Stable small to moderate left pleural effusion with associated airspace disease. Wayne Betancur MD Chest CT 02/25/17 0000 Signed Impressions: Service Date/Time: Saturday, February 25, 2017 09:58 - CONCLUSION: 1. Moderate sized simple appearing bilateral pleural effusions, mildly enlarged since 02/07/2017. 2. Improved diffuse bilateral groundglass opacities likely reflects improved positive fluid balance. 3. Slightly more prominent associated bilateral lower lobe airspace consolidation likely reflects progressive compressive atelectasis. 4. Previously noted 3 cm posterior medial left lower lobe mass is obscured by left lower lobe air space consolidation on current exam. 5. Severe coronary artery calcifications. 6. Stable very small pericardial effusion. Wayne Betancur MD Head CT 02/23/17 0000 Signed Impressions: Service Date/Time: Thursday, February 23, 2017 17:12 - CONCLUSION: 1. Mild periventricular and subcortical white matter small vessel ischemic changes bilaterally. 2. No acute infarct, acute hemorrhage, mass effect or extra- axial fluid collections. Dionte Barnes MD Patient/Family Conference Present at Family Conference: pt, step son Family Conference Time (mins): 40 Family Conference Location: Bedside Issues Discussed: Pt has gone home to rest. met w pt, step son at bedside. Discussion included: * Palliative care role, purpose, approach * Additional medical, psychosocial, and spiritual history * Patients general health, functional status, in the months leading up to the current hospitalization * Patient/family understanding of the current medical problems; review of COPD process/trajectory, review of underlying lung disease process/recent trajectory as per patient * Patient/family understanding of prognosis * Patients goals of care as best understood from advance directives and/or conversations and/or values * Current medical treatment options and benefits/burdens of those options * code status--patientrachid affirmed DNR status * Likely scenarios comparing ongoing aggressive care with a transition to comfort measures only-- gentle exploration of limitations of BiPAP, in the presence of underlying lung disease, and that in patients who do not desire escalation to intubation and mechanical ventilation if lung condition worsens and is not responsive to BiPAP and other medical treatments then alternative option would be transition to comfort focus. * Questions answered to the best of my ability * Palliative care contact information provided Bulmaro and rachid appear to have a reasonable understanding of conditions, prognosis. Patient indicates lots of physicians have been coming in, he just wants to know what is causing "it" -meaning his breathing difficulties. Explore with him underlying disease process and that probable COPD exacerbation on top of underlying lung cancer is causing his current dyspneic state, explain ongoing treatment course treating with diuretics etc. and giving time for response to treatments. Review that in the coming days medical team will monitor condition and response and adjust therapies as indicated. Currently his goals are aggressive to continue treatment course with the hopes that his disease process can be stabilized, and that he can return home to his prior quality of life. He does not desire CPR or artificial life support. He is open to ongoing review of conditions and goals as clinical course evolves. Assessment and Plan Disease Oriented Problem List: (1) Lung cancer, lower lobe (2) CAD (coronary artery disease) (3) CHF (congestive heart failure) (4) Pulmonary edema (5) Hypoxia (6) A-fib (7) HTN (hypertension) (8) Status post coronary artery stent placement Symptom Scale: (1) Anxiety 0-10 Scale: Unable to quantify (2) Dyspnea 0-10 Scale: Unable to quantify (3) Malnutrition 0-10 Scale: Unable to quantify (4) Weakness 0-10 Scale: Unable to quantify Pertinent Non-Medical Issues Psychosocial: Originally from [facility]. 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 , supported by his . + also supported by daughter, rachid, and 5 grandchildren. Spiritual:. amish Legal:Pt is alert, oriented, appears capacitated to make his own decisions. This may fluctuate with oxygenation status. Supported by his spouse Ethical issues impacting care: . Important Contacts spouse Moon Rachel [phone] / [phone] . Prognosis This patient has an underlying stage IV non-small cell carcinoma of the lung, undergoing chemotherapy treatment with Dr. Muhammad. He was diagnosed in 2016, given a prognosis To live until August 2016. His disease has apparently responded well to chemotherapy and has not seen any increase in tumor burden. There is some question of COPD the patient indicates has not yet been formally diagnosed with this, hx 1-2 PPD smoker , COPD would be likely. Possible his conditions could be stabilized and with optimize medical management he could discharge home and continue to have some quality of life though long-term prognosis for survival will likely be limited by stage IV cancer, possible COPD exacerbations. Code Status: No Code Plan Legal decision maker: Pt is alert, oriented, appears capacitated to make his own decisions. This may fluctuate with oxygenation status. Supported by his spouse Goals: Met w ptrachid today. Patient and stepson appear to have a reasonable understanding of conditions, prognosis. Patient indicates lots of physicians have been coming in, he just wants to know what is causing "it" - meaning his breathing difficulties. Explore with him underlying disease process and that probable COPD exacerbation on top of underlying lung cancer is causing his current dyspneic state, explain ongoing treatment course treating with diuretics etc. and giving time for response to treatments. Review that in the coming days medical team will monitor condition and response and adjust therapies as indicated. Currently his goals are aggressive to continue treatment course with the hopes that his disease process can be stabilized, and that he can return home to his prior quality of life. He does not desire CPR or artificial life support. He is open to ongoing review of conditions and goals as clinical course evolves CODE STATUS: DNR SYMPTOMS: --Dyspnea- progressively worsening SOB in days prior to ED presentation; underlying lung CA, probable COPD (though had not been formally Dx w COPD) ; currently tx with steroids, nebulizers, abx, BIPAP --Anxiety- some mild anxiety accompanying episodes of shortness of breath; consider adding low-dose Xanax 0.25mg PO Q 6 hr PRN --Malnutrition-patient describes chronic lack of appetite/intermittent nausea with no vomiting for several days following his chemotherapy. He does indicate some weight loss though not exactly sure how much may be 20-30 pounds since sometime in 2016. Albumin is low 2.8. + Hypermetabolic state from COPD. Would benefit from high-calorie, high-protein supplement. --Weakness-patient describes generalized fatigue and weakness, activity limited by shortness of breath. Likely this is chronic deconditioning secondary to his cancer, chemotherapy, and pulmonary limitations. Recommend PT inpatient to maximize safe physical mobility, possible may benefit from home health at discharge Palliative care will continue to follow during hospital course as condition evolves, to assist patient/decision-maker with understanding of medical conditions, weighing benefits/burdens of treatment options, for clarification of goals of treatment. Additionally will assist with any symptoms of palliative concern Time Spent Total Floor Time (mins): 60 Thank you for the opportunity to participate in the care of Mr. Ramos. Attestation To help prompt me to consider important information that might be impacting today's encounter and assessment, information from prior notes written by myself or my colleagues may have been "brought forward" into today's note. My signature on this note, however, is an attestation that I personally performed the exam, history, and/or decision-making noted today, and, unless otherwise indicated, the interactions with patient, family, and staff as well as the review of records all occurred today. I also attest that the listed assessment and stated plan reflect my best clinical judgment today based on the combination of historical information, prior notes, and today's exam/ interactions. When time spent is documented, it refers only to time spent today by the signer, or if indicated, combined time spent today by collaborating physician/nurse practitioner. Laura Moss Feb 26, 2017 10:29
--- NOTE | 2017-02-26 11:30 | RSPPFT ---
DATE OF PROCEDURE: 02/25/17 COMMENTS: VOLUMES DYNAMIC: FVC and FEV1 severely reduced. FLOWS: FEV1% moderately reduced; FEF 25-75 severely reduced. IMPRESSION: Probable significant restrictive ventilatory defect with associated obstruction. There is no improvement post-bronchodilator. Full lung volumes might be of help if clinically indicated.
--- NOTE | 2017-02-26 12:56 | PD.ID.CON ---
History of Present Illness Service ID Consult Requested By Dr Perea Reason for Consult sepsis, bacteremia 12/04 Primary Care Physician Isac Cortez M.D. Diagnoses: History of Present Illness 71-year-old male with stage IV lung cancer on palliative chemotherapy presented to the ED on 02/22/17, with complaints of worsening shortness of breath , via EMS. He was placed on BIPAP for acute resp failure, he is DNR 2 days into hospitalisation he developped fever up to 104 and blood clx were taken He was started on vancomycin and zosyn; his blood cultures came positive with MSSA 4/ bottles He has Infusaport for chemotherapy that was placed by Radiology 1 year ago Review of Systems Constitutional: COMPLAINS OF: Fever, Chills Eyes: COMPLAINS OF: Blurred vision Respiratory: COMPLAINS OF: Shortness of breath Cardiovascular: COMPLAINS OF: Dyspnea on Exertion Except as stated in HPI: all other systems reviewed are Neg Past Family Social History Allergies: Coded Allergies: No Known Allergies (Unverified , 01/28/17) Past Medical History Stage IV Lung Cancer-currently on chemotherapy Hypertension CAD CT at age 40 COPD, O2 Dependent Atrial fibrillation (newly dx 01/2017) Basal cell carcinoma face . Past Surgical History Cardiac Stent x2 2016 Cataract Surgery bilateral, 2014 Right Chest Port resection right face/jaw/earlobe 2/2 basal cell carcinoma right chest biopsy Active Ordered Medications Medications where reviewed in EMR Antibiotics Include: vancomycin zosyn Family History Reviewed. No h/o DM or CAD Social History Negative for alcohol, tobacco or drugs Physical Exam Vital Signs Vital Signs Date Time Temp Pulse Resp B/P Pulse Ox O2 Delivery O2 Flow Rate FiO2 02/26/17 08:53 95 40 02/26/17 08:00 98.5 72 24 122/60 93 02/26/17 07:00 90 Bi-Pap 70 02/26/17 04:06 94 70 02/26/17 04:00 97.3 63 16 114/55 94 02/26/17 01:15 93 70 02/26/17 00:00 96.0 66 25 111/57 93 02/25/17 23:00 72 02/25/17 20:00 100.9 83 21 117/57 95 02/25/17 19:58 93 70 02/25/17 19:01 22 02/25/17 19:00 90 Bi-Pap 70 02/25/17 18:00 105 6/26/17 18:00 104.1 02/25/17 18:00 94 Bi-Pap 70 02/25/17 17:30 103.1 88 28 175/71 96 02/25/17 17:20 96 70 02/25/17 16:53 94 70 Physical Exam CONSTITUTIONAL/GENERAL: This is an obses elderly patient, in no apparent distress. TUBES/LINES/DRAINS: PORT in place R chest wo skin changes or tenderness to palpation SKIN: No jaundice, rashes, or lesions. Skin temperature appropriate. Not diaphoretic. HEAD: Atraumatic. Normocephalic. R facial droop ( chronic) Surgically absent R pinna EYES: Pupils equaly dilated (for ophthalmology exam). Extraocular motions intact. No scleral icterus. No injection or drainage. Fundi not examined. R eyelid droop (chronic) ENT: Hearing grossly normal. Nose without bleeding or purulent drainage. Throat without visible erythema, exudates, masses, or lesions. NECK: Trachea midline. Supple, nontender. CARDIOVASCULAR: Regular rate and rhythm without murmurs, gallops, or rubs. No JVD. Peripheral pulses symmetric. RESPIRATORY/CHEST: Symmetric, unlabored respirations. Clear to auscultation. Breath sounds equal bilaterally. No wheezes, rales, or rhonchi. GASTROINTESTINAL: Abdomen soft, non-tender, nondistended. No hepato-splenomegaly , or palpable masses. No guarding. Bowel sounds present. GENITOURINARY: Without palpable bladder distension. Montilla catheter in place with clear yellow urine MUSCULOSKELETAL: Extremities without clubbing, cyanosis, + 1 edema. No mottling or clubbing. LYMPHATICS: No palpable cervical or supraclavicular adenopathy. NEUROLOGICAL: Awake and alert. Motor and sensory grossly within normal limits. Follows commands. Clear speech . Moves all extremities. PSYCHIATRIC: No obvious anxiety/depression. no apparent hallucinations or other psychotic thought process. Laboratory Laboratory Tests Test 02/25/17 02/25/17 02/26/17 02/26/17 13:39 17:30 04:02 08:42 Blood Gas Puncture Site RT RADIAL Blood Gas Patient Temperature 98.6 Blood Gas HCO3 24 Blood Gas Base Excess 0.8 Blood Gas Oxygen Saturation 77 Arterial Blood pH 7.51 Arterial Blood Partial 30 Pressure CO2 Arterial Blood Partial 43 Pressure O2 Arterial Blood Oxygen Content 11.1 Arterial Blood 2.6 Carboxyhemoglobin Arterial Blood Methemoglobin 1.1 Blood Gas Hemoglobin 10.3 Oxygen Delivery Device NASAL CANNULA Blood Gas Liter Flow 3 White Blood Count 6.0 12.1 Red Blood Count 3.24 3.04 Hemoglobin 10.9 10.3 Hematocrit 32.8 30.5 Mean Corpuscular Volume 101.4 100.4 Mean Corpuscular Hemoglobin 33.7 34.0 Mean Corpuscular Hemoglobin 33.3 33.8 Concent Red Cell Distribution Width 19.3 19.5 Platelet Count 230 159 Mean Platelet Volume 8.1 7.7 Neutrophils (%) (Auto) 90.9 92.0 Lymphocytes (%) (Auto) 2.5 1.8 Monocytes (%) (Auto) 5.8 6.0 Eosinophils (%) (Auto) 0.4 0.0 Basophils (%) (Auto) 0.4 0.2 Neutrophils # (Auto) 5.4 11.1 Lymphocytes # (Auto) 0.1 0.2 Monocytes # (Auto) 0.3 0.7 Eosinophils # (Auto) 0.0 0.0 Basophils # (Auto) 0.0 0.0 CBC Comment AUTO DIFF AUTO DIFF Differential Total Cells 100 100 Counted Neutrophils % (Manual) 79 62 Band Neutrophils % 11 31 Lymphocytes % 7 1 Monocytes % 2 6 Neutrophils # (Manual) 5.5 11.3 Myelocytes 1 Nucleated Red Blood Cells 3 1 Differential Comment FINAL DIFF FINAL DIFF MANUAL MANUAL Platelet Estimate NORMAL NORMAL Platelet Morphology Comment NORMAL CLUMPED Urine Color YELLOW Urine Turbidity CLEAR Urine pH 5.5 Urine Specific [place] 1.011 Urine Protein 30 Urine Glucose (UA) NEG Urine Ketones NEG Urine Occult Blood SMALL Urine Nitrite NEG Urine Bilirubin NEG Urine Urobilinogen LESS THAN 2.0 Urine Leukocyte Esterase TRACE Urine RBC 2 Urine WBC 2 Urine Squamous Epithelial <1 Cells Urine Amorphous Sediment RARE Urine Bacteria RARE Urine Hyaline Casts 1 Microscopic Urinalysis Comment CATH-CULTURE IND Nasal Screen MRSA (PCR) MRSA NOT DETECTED Sodium Level 136 138 Potassium Level 5.0 4.3 Chloride Level 99 102 Carbon Dioxide Level 25.3 27.5 Anion Gap 12 9 Blood Urea Nitrogen 24 27 Creatinine 1.39 1.25 Estimat Glomerular Filtration 50 57 Rate Random Glucose 109 149 Lactic Acid Level 4.7 2.3 Calcium Level 8.5 7.9 Total Bilirubin 1.3 Aspartate Amino Transf 72 (AST/SGOT) Alanine Aminotransferase 39 (ALT/SGPT) Alkaline Phosphatase 115 Troponin I 0.15 0.10 Total Protein 7.0 Albumin 2.8 B-Type Natriuretic Peptide 115 Test 02/26/17 09:26 Blood Gas Puncture Site RT RADIAL Blood Gas Patient Temperature 98.6 Blood Gas HCO3 26 Blood Gas Base Excess 2.2 Blood Gas Oxygen Saturation 90 Arterial Blood pH 7.46 Arterial Blood Partial 36 Pressure CO2 Arterial Blood Partial 63 Pressure O2 Arterial Blood Oxygen Content 13.2 Arterial Blood 1.8 Carboxyhemoglobin Arterial Blood Methemoglobin 0.8 Blood Gas Hemoglobin 10.4 Oxygen Delivery Device BIPAP Blood Gas Inspired Oxygen 40 Date/Time Procedure Status Source Growth 02/25/17 18:33 Aerobic Blood Culture - Preliminary Resulted Blood Peripheral Gram Positive Cocci 02/25/17 18:33 Anaerobic Blood Culture - Preliminary Resulted Gram Positive Cocci 02/25/17 17:30 Urine Culture - Preliminary Resulted Urine Catheterized Urine RESULTS PENDING Result Diagram: 02/26/17 0842 02/26/17 0402 Imaging Last Impressions Chest X-Ray 02/26/17 0000 Signed Impressions: Service Date/Time: Sunday, February 26, 2017 08:14 - CONCLUSION: 1. Cardiomegaly with perivascular congestion. 2. Small right pleural effusion and associated right lower lobe airspace disease improved from prior exams. 3. Stable small to moderate left pleural effusion with associated airspace disease. Wayne Betancur MD Chest CT 02/25/17 0000 Signed Impressions: Service Date/Time: Saturday, February 25, 2017 09:58 - CONCLUSION: 1. Moderate sized simple appearing bilateral pleural effusions, mildly enlarged since 02/07/2017. 2. Improved diffuse bilateral groundglass opacities likely reflects improved positive fluid balance. 3. Slightly more prominent associated bilateral lower lobe airspace consolidation likely reflects progressive compressive atelectasis. 4. Previously noted 3 cm posterior medial left lower lobe mass is obscured by left lower lobe air space consolidation on current exam. 5. Severe coronary artery calcifications. 6. Stable very small pericardial effusion. Wayne Betancur MD Head CT 02/23/17 0000 Signed Impressions: Service Date/Time: Thursday, February 23, 2017 17:12 - CONCLUSION: 1. Mild periventricular and subcortical white matter small vessel ischemic changes bilaterally. 2. No acute infarct, acute hemorrhage, mass effect or extra- axial fluid collections. Dionte Barnes MD Assessment and Plan Assessment and Plan Stage IV non small lung CA, on chemotherapy Resp distress - reason for admission COPD /CHF exacerabation Staph aureaus sepsis, ? PORT infection - prelim MSSA Leukocytosis, bandemia 2/2 MSSA sepsis dc zosyn start cefazolin - will dc vanco once RYAN s availabe consult int radiology to remove the PORT fu BC to ensure resolution of bvacterimia after PORT is removed 2 D echo Vale Mccall MD Feb 26, 2017 12:56
--- NOTE | 2017-02-26 13:38 | PD.CONS ---
History of Present Illness Consult Requested By Primary Care Physician Isac Cortez M.D. Diagnoses: History of Present Illness 71 yo M with stage IV lung cancer on palliative chemotherapy, HTN, COPD, AFib presented to the ED on 02/22/17 with SOB. Blood cultures came positive with MSSA. CXR shows intra-alveolar pulmonary edema. Patient states 3 days ago he noticed his vision getting blurry in both eyes. Since then his right eye seems to have improved but his left eye is still blurry. He normally wakes up with blurry vision, which clears up as the day progresses but this seems to not have gotten better. Ocular history significant for cataract surgery in both eyes ( Dr. 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 Past Family Social History Allergies: Coded Allergies: No Known Allergies (Unverified , 01/28/17) Physical Exam Vital Signs Vital Signs Date Time Temp Pulse Resp B/P Pulse Ox O2 Delivery O2 Flow Rate FiO2 02/26/17 12:36 92 Nasal Cannula 4.00 02/26/17 08:53 95 40 02/26/17 08:00 98.5 72 24 122/60 93 02/26/17 07:00 90 Bi-Pap 70 02/26/17 04:06 94 70 02/26/17 04:00 97.3 63 16 114/55 94 02/26/17 01:15 93 70 02/26/17 00:00 96.0 66 25 111/57 93 02/25/17 23:00 72 02/25/17 20:00 100.9 83 21 117/57 95 02/25/17 19:58 93 70 02/25/17 19:01 22 02/25/17 19:00 90 Bi-Pap 70 02/25/17 18:00 105 02/25/17 18:00 104.1 02/25/17 18:00 94 Bi-Pap 70 02/25/17 17:30 103.1 88 28 175/71 96 02/25/17 17:20 96 70 02/25/17 16:53 94 70 Physical Exam Va cc at near OD 20/100, OS 20/200 EOM full OU, no diplopia CVF full OU Pupils 3-1 no APD OU IOP normal to palpation OU Anterior exam OD - normal eyelid, C/S W&Q, DSEK in place, AC deep, pupil round, PCIOL OS - normal eyelid, C/S W&Q, K edema?, AC deep, pupil round, PCIOL Dilated exam OD - ON s/p/f, ves normal, vit clear, retina flat OS - ON s/p/f, ves normal, vit clear, retina flat Laboratory Laboratory Tests Test 02/25/17 02/25/17 02/26/17 02/26/17 13:39 17:30 04:02 08:42 Blood Gas Puncture Site RT RADIAL Blood Gas Patient Temperature 98.6 Blood Gas HCO3 24 Blood Gas Base Excess 0.8 Blood Gas Oxygen Saturation 77 Arterial Blood pH 7.51 Arterial Blood Partial 30 Pressure CO2 Arterial Blood Partial 43 Pressure O2 Arterial Blood Oxygen Content 11.1 Arterial Blood 2.6 Carboxyhemoglobin Arterial Blood Methemoglobin 1.1 Blood Gas Hemoglobin 10.3 Oxygen Delivery Device NASAL CANNULA Blood Gas Liter Flow 3 White Blood Count 6.0 12.1 Red Blood Count 3.24 3.04 Hemoglobin 10.9 10.3 Hematocrit 32.8 30.5 Mean Corpuscular Volume 101.4 100.4 Mean Corpuscular Hemoglobin 33.7 34.0 Mean Corpuscular Hemoglobin 33.3 33.8 Concent Red Cell Distribution Width 19.3 19.5 Platelet Count 230 159 Mean Platelet Volume 8.1 7.7 Neutrophils (%) (Auto) 90.9 92.0 Lymphocytes (%) (Auto) 2.5 1.8 Monocytes (%) (Auto) 5.8 6.0 Eosinophils (%) (Auto) 0.4 0.0 Basophils (%) (Auto) 0.4 0.2 Neutrophils # (Auto) 5.4 11.1 Lymphocytes # (Auto) 0.1 0.2 Monocytes # (Auto) 0.3 0.7 Eosinophils # (Auto) 0.0 0.0 Basophils # (Auto) 0.0 0.0 CBC Comment AUTO DIFF AUTO DIFF Differential Total Cells 100 100 Counted Neutrophils % (Manual) 79 62 Band Neutrophils % 11 31 Lymphocytes % 7 1 Monocytes % 2 6 Neutrophils # (Manual) 5.5 11.3 Myelocytes 1 Nucleated Red Blood Cells 3 1 Differential Comment FINAL DIFF FINAL DIFF MANUAL MANUAL Platelet Estimate NORMAL NORMAL Platelet Morphology Comment NORMAL CLUMPED Urine Color YELLOW Urine Turbidity CLEAR Urine pH 5.5 Urine Specific [place] 1.011 Urine Protein 30 Urine Glucose (UA) NEG Urine Ketones NEG Urine Occult Blood SMALL Urine Nitrite NEG Urine Bilirubin NEG Urine Urobilinogen LESS THAN 2.0 Urine Leukocyte Esterase TRACE Urine RBC 2 Urine WBC 2 Urine Squamous Epithelial <1 Cells Urine Amorphous Sediment RARE Urine Bacteria RARE Urine Hyaline Casts 1 Microscopic Urinalysis Comment CATH-CULTURE IND Nasal Screen MRSA (PCR) MRSA NOT DETECTED Sodium Level 136 138 Potassium Level 5.0 4.3 Chloride Level 99 102 Carbon Dioxide Level 25.3 27.5 Anion Gap 12 9 Blood Urea Nitrogen 24 27 Creatinine 1.39 1.25 Estimat Glomerular Filtration 50 57 Rate Random Glucose 109 149 Lactic Acid Level 4.7 2.3 Calcium Level 8.5 7.9 Total Bilirubin 1.3 Aspartate Amino Transf 72 (AST/SGOT) Alanine Aminotransferase 39 (ALT/SGPT) Alkaline Phosphatase 115 Troponin I 0.15 0.10 Total Protein 7.0 Albumin 2.8 B-Type Natriuretic Peptide 115 Test 02/26/17 09:26 Blood Gas Puncture Site RT RADIAL Blood Gas Patient Temperature 98.6 Blood Gas HCO3 26 Blood Gas Base Excess 2.2 Blood Gas Oxygen Saturation 90 Arterial Blood pH 7.46 Arterial Blood Partial 36 Pressure CO2 Arterial Blood Partial 63 Pressure O2 Arterial Blood Oxygen Content 13.2 Arterial Blood 1.8 Carboxyhemoglobin Arterial Blood Methemoglobin 0.8 Blood Gas Hemoglobin 10.4 Oxygen Delivery Device BIPAP Blood Gas Inspired Oxygen 40 Date/Time Procedure Status Source Growth 02/25/17 18:33 Aerobic Blood Culture - Preliminary Resulted Blood Peripheral Gram Positive Cocci 02/25/17 18:33 Anaerobic Blood Culture - Preliminary Resulted Gram Positive Cocci 02/25/17 17:30 Urine Culture - Preliminary Resulted Urine Catheterized Urine RESULTS PENDING Result Diagram: 02/26/17 0842 02/26/17 0402 Assessment and Plan Problem List: (1) Corneal edema Status: Acute Plan: Most likely cause of blurry vision (has a history of Fuchs corneal dystrophy). Difficult to assess corneal edema at bedside without a slit lamp. Will start NaCl 5% eyedrops and ointment to see if this helps his symptoms. Will follow. Karen Leach MD Feb 26, 2017 13:38
[2017-02-26 13:54] LABS: MAGNESIUM 2.1 MG/DL (1.5-2.5); POTASSIUM 3.9 MEQ/L (3.5-5.1)
[2017-02-26] MEDS: VANCOMYCIN INJ 1,700 MG in SODIUM CHLORID 0.9% 500 ML INJ 500 ML IV SCH (14:26)
--- NOTE | 2017-02-26 16:06 | EKG ---
Date Performed: 02/26/2017 Time Performed: 10:57:44 PTAGE: 71 years EKG: ATRIAL FIBRILLATION LOW QRS VOLTAGE IN PRECORDIAL LEADS ABNORMAL QRS-T ANGLE ABNORMAL ECG PREVIOUS TRACING : 02/25/2017 19.55 DOCTOR: Umberto Mccall Interpretating Date/Time 02/26/2017 16:05:54
--- NOTE | 2017-02-26 16:06 | EKG ---
Date Performed: 02/25/2017 Time Performed: 19:55:02 PTAGE: 71 years EKG: ATRIAL FLUTTER/TACHYCARDIA LOW QRS VOLTAGE IN PRECORDIAL LEADS ANTEROSEPTAL MYOCARDIAL INFA RCTION , OF INDETERMINATE AGE ABNORMAL ECG PREVIOUS TRACING : 02/25/2017 16.56 DOCTOR: Umberto Mccall Interpretating Date/Time 02/26/2017 16:05:47
--- NOTE | 2017-02-26 16:06 | EKG ---
Date Performed: 02/25/2017 Time Performed: 16:56:09 PTAGE: 71 years EKG: ATRIAL FIBRILLATION WITH RAPID VENTRICULAR RESPONSE LOW QRS VOLTAGE POSSIBLE ANTERIOR MYOCA RDIAL INFARCTION , PROBABLY OLD ABNORMAL ECG Baseline artifact significantly limits accuracy of inter pretation. PREVIOUS TRACING : 02/22/2017 20.37 DOCTOR: Umberto Mccall Interpretating Date/Time 02/26/2017 16:04:53
[2017-02-26] MEDS: SODIUM CHLORIDE 5% OPHT SOLN 15 ML BTL EACH EYE SCH ×2 (18:00→21:52)
[2017-02-26] MEDS: ceFAZolin 2 GM PREMIX 50 ML IV SCH (18:33)
--- NOTE | 2017-02-26 20:21 | PD.CONS ---
HPI Service Cardiology Consult Requested By Dr. Perea Reason for Consult Acute on Chronic CHF, afib Primary Care Physician Isac Cortez M.D. History of Present Illness 71-year-old man, patient known to my practice, with history of stage IV lung cancer non-small cell who receives chemotherapy every Saturday here with complaints of worsening shortness of breath brought in by fire rescue on 2016. He has been treated for pneumonia, and bacteremia. He has had several hospitalizations recently. He has hx of paroxysmal afib, diastolic CHF, CAD, s/p LAD stenting 11/04/2015 CRISTY, HTN JHLP. Recent echo 10/2016 and 02/23/2017 LVEF 55-60%. Telemetry showed afib with rate control. Review of Systems Consitutional: COMPLAINS OF: Fatigue Eyes: COMPLAINS OF: Change in vision HEENT: COMPLAINS OF: Lightheadedness Respiratory: COMPLAINS OF: See HPI Cardiovascular: COMPLAINS OF: See HPI Gastrointestinal: COMPLAINS OF: Nausea Genitourinary: DENIES: Urinary incontinence Integumentary: DENIES: Rash Neurologic: DENIES: Tingling or numbness Musculoskeletal: COMPLAINS OF: Joint pain, Muscle pain Psychiatric: DENIES: Depression Hematologic: DENIES: Bruising tendencies Endocrine: DENIES: Weight gain Past Family Social History Allergies: Coded Allergies: No Known Allergies (Unverified , 01/28/17) Past Medical History Stage IV Lung CA, HTN, COPD, O2 Dependent and A-fib, CAD, Past Surgical History Cardiac Stent, Cataract Surgery, Right Chest Port Reported Medications Reported Meds & Active Scripts Active Lopressor (Metoprolol Tartrate) 50 Mg Tab 50 Mg PO Q12HR Reported Digoxin 0.125 Mg Tab 0.125 Mg PO DAILY Potassium Chloride ER (Potassium Chloride) 10 Meq Cap 10 Meq PO DAILY Furosemide 40 Mg Tab 40 Mg PO DAILY Aspirin 81 Mg Chew 81 Mg CHEW DAILY Clopidogrel (Clopidogrel Bisulfate) 75 Mg Tab 75 Mg PO DAILY Tamsulosin (Tamsulosin HCl) 0.4 Mg Cap 0.4 Mg PO HS Atorvastatin (Atorvastatin Calcium) 20 Mg Tab 20 Mg PO HS Active Ordered Medications Current Medications Medications (Trade) Dose Ordered Sig/Angie Route Start Time Stop Time Status Last Admin (NS Flush) 2 ml UNSCH PRN IV FLUSH 02/22/17 22:45 (NS Flush) 2 ml BID IV FLUSH 02/23/17 09:00 02/26/17 10:03 (Zofran Inj) 4 mg Q6H PRN IVP 02/22/17 22:45 02/24/17 17:05 (Heparin Inj) 5,000 units Q8H SQ 02/23/17 00:00 02/26/17 16:11 (Tylenol) 650 mg Q6H PRN PO 02/22/17 22:45 02/25/17 13:09 (Lindside 5-325 Mg) 1 tab Q4H PRN PO 02/22/17 22:45 (Morphine Inj) 2 mg Q3H PRN IV 02/22/17 22:45 02/25/17 18:33 (Amelia-Colace) 1 tab BID PO 02/23/17 09:00 02/26/17 10:02 (Milk Of Magnesia Liq) 30 ml Q12H PRN PO 02/22/17 22:45 (Senokot) 17.2 mg Q12H PRN PO 02/22/17 22:45 (Dulcolax Supp) 10 mg DAILY PRN RECTAL 02/22/17 22:45 (Lactulose Liq) 30 ml DAILY PRN PO 02/22/17 22:45 (Aspirin Chew) 81 mg DAILY CHEW 02/23/17 09:00 02/26/17 10:02 (Lipitor) 20 mg HS PO 02/23/17 21:00 02/25/17 20:08 (Plavix) 75 mg DAILY PO 02/23/17 09:00 02/26/17 10:01 (Lanoxin) 0.125 mg DAILY PO 02/23/17 09:00 02/26/17 10:01 (Flomax) 0.4 mg HS PO 02/23/17 21:00 02/25/17 20:07 (Cardizem) 60 mg QID PO 02/23/17 12:00 02/26/17 18:32 (Tears Naturale Opth Soln) 1 drop Q2H PRN EACH EYE 02/24/17 15:00 02/24/17 14:49 Furosemide 40 mg 40 mg DAILY PO 02/25/17 12:30 Hold 02/25/17 13:09 Pharmacy Profile Note 0 ml @ 0 mls/hr UNSCH OTHER 02/25/17 17:30 Sodium Chloride 1,000 ml @ 10 mls/hr Q24H IV 02/25/17 20:00 (Vancomycin Inj/ NS 500 ml Inj) 517 ml @ 250 mls/hr Q18H IV 02/26/17 15:00 02/26/17 14:26 Miscellaneous Information SPECIFIC LAB TO BE DRAWN:VANCO TROUGH DATE TO BE DR... ONCE ONCE .XX 02/28/17 02:45 02/28/17 02:46 (SoluMEDROL INJ) 40 mg Q8HR IV PUSH 02/26/17 09:00 02/26/17 14:26 (Jayashree 128 5% Opth Oint) 1 applic HS EACH EYE 02/26/17 21:00 Sodium Chloride 1 drop 1 drop QID EACH EYE 02/26/17 18:00 (Ancef 2 Gm Premix) 50 ml @ 150 mls/hr Q8H IV 02/26/17 18:00 02/26/17 18:33 Family History No h/o DM or CAD Social History Negative for alcohol, tobacco or drugs Physical Exam Vital Signs Vital Signs Date Time Temp Pulse Resp B/P Pulse Ox O2 Delivery O2 Flow Rate FiO2 02/26/17 19:22 90 Nasal Cannula 4.00 02/26/17 16:00 97.7 79 18 123/60 02/26/17 12:36 92 Nasal Cannula 4.00 02/26/17 12:00 97.7 66 17 144/65 92 02/26/17 08:53 95 40 02/26/17 08:00 98.5 72 24 122/60 93 02/26/17 07:00 90 Bi-Pap 70 02/26/17 04:06 94 70 02/26/17 04:00 97.3 63 16 114/55 94 02/26/17 01:15 93 70 02/26/17 00:00 96.0 66 25 111/57 93 02/25/17 23:00 72 Physical Exam GENERAL: Pleasant elderly white male in no acute distress. HEENT: PERRLA, EOMI. No scleral icterus or conjunctival pallor. No lid lag. h/o Redd's Palsy, chronic facial droop. CARDIOVASCULAR: Irregularily irregular rate and rhythm. No obvious murmurs to auscultation. No chest tenderness to palpation. RESPIRATORY: No obvious rhonchi or wheezing. Clear to auscultation. Breath sounds equal bilaterally. GASTROINTESTINAL: Abdomen soft, non-tender, nondistended. BS normal. MUSCULOSKELETAL: Extremities without clubbing, cyanosis, or edema. No obvious deformities. NEUROLOGICAL: Awake, alert and oriented x4. No focal neurologic deficits. Moving both upper and lower extremities spontaneously. Laboratory Laboratory Tests Test 02/26/17 02/26/17 02/26/17 02/26/17 04:02 08:42 09:26 13:22 Sodium Level 138 Potassium Level 4.3 3.9 Chloride Level 102 Carbon Dioxide Level 27.5 Anion Gap 9 Blood Urea Nitrogen 27 Creatinine 1.25 Estimat Glomerular Filtration 57 Rate Random Glucose 149 Calcium Level 7.9 White Blood Count 12.1 Red Blood Count 3.04 Hemoglobin 10.3 Hematocrit 30.5 Mean Corpuscular Volume 100.4 Mean Corpuscular Hemoglobin 34.0 Mean Corpuscular Hemoglobin 33.8 Concent Red Cell Distribution Width 19.5 Platelet Count 159 Mean Platelet Volume 7.7 Neutrophils (%) (Auto) 92.0 Lymphocytes (%) (Auto) 1.8 Monocytes (%) (Auto) 6.0 Eosinophils (%) (Auto) 0.0 Basophils (%) (Auto) 0.2 Neutrophils # (Auto) 11.1 Lymphocytes # (Auto) 0.2 Monocytes # (Auto) 0.7 Eosinophils # (Auto) 0.0 Basophils # (Auto) 0.0 CBC Comment AUTO DIFF Differential Total Cells 100 Counted Neutrophils % (Manual) 62 Band Neutrophils % 31 Lymphocytes % 1 Monocytes % 6 Neutrophils # (Manual) 11.3 Nucleated Red Blood Cells 1 Differential Comment FINAL DIFF MANUAL Platelet Estimate NORMAL Platelet Morphology Comment CLUMPED Lactic Acid Level 2.3 Troponin I 0.10 B-Type Natriuretic Peptide 115 Blood Gas Puncture Site RT RADIAL Blood Gas Patient Temperature 98.6 Blood Gas HCO3 26 Blood Gas Base Excess 2.2 Blood Gas Oxygen Saturation 90 Arterial Blood pH 7.46 Arterial Blood Partial 36 Pressure CO2 Arterial Blood Partial 63 Pressure O2 Arterial Blood Oxygen Content 13.2 Arterial Blood 1.8 Carboxyhemoglobin Arterial Blood Methemoglobin 0.8 Blood Gas Hemoglobin 10.4 Oxygen Delivery Device BIPAP Blood Gas Inspired Oxygen 40 Magnesium Level 2.1 Date/Time Procedure Status Source Growth 02/25/17 18:33 Aerobic Blood Culture - Preliminary Resulted Blood Peripheral Gram Positive Cocci 02/25/17 18:33 Anaerobic Blood Culture - Preliminary Resulted Gram Positive Cocci 02/25/17 17:30 Urine Culture - Preliminary Resulted Urine Catheterized Urine RESULTS PENDING Result Diagram: 02/26/17 0842 02/26/17 1322 Assessment and Plan Problem List: (1) A-fib (2) HTN (hypertension) (3) CAD (coronary artery disease) (4) Lung cancer, lower lobe (5) Weakness (6) CHF (congestive heart failure) Assessment and Plan 1. CHF, Diastolic, normal LVEF, acute on chronic, likely due to COPD exacerbation and pneumonia. 2. Paroxysmal afib. Continue Eliquis for stroke prevention. Rate control on CCB 3. CAD, s/p LAD CRISTY stenting 11/2015 stable 4. stage IV lung cancer, \ 5. Pneumonia with bacteremia. ID follows. Echo 02/23/2017 showed no vegetation. Port was removed. Wing Katarzyna Sotelo MD Feb 26, 2017 20:20
[2017-02-26] MEDS: TAMSULOSIN HCL 0.4 MG CAP PO SCH (21:19)
[2017-02-26] MEDS: SODIUM CHLORIDE 5% OPHT OINT 3.5 GM TUBE EACH EYE SCH (21:19)
[2017-02-26] MEDS: ATORVASTATIN 20 MG TAB PO SCH (21:19)
[2017-02-26] MEDS: SODIUM CHLOR 0.9% 1000 ML INJ 1,000 ML IV SCH (21:20)
[2017-02-26] MEDS: APIXABAN 5 MG TABLET PO SCH (21:52)
[2017-02-26] MEDS: ONDANSETRON HCL 4 MG/2 ML VIAL IVP PRN (22:52)
[2017-02-26] MEDS: MORPHINE SULFATE 4 MG/ML INJ IV PRN (22:52)
[2017-02-27] VITALS (8 sets, daily range): BP systolic 128–147; BP diastolic 63–66; PULSE 78–89; RESP 14–24; TEMP 97.2–98; O2SAT 90–98
[2017-02-27] MEDS: ceFAZolin 2 GM PREMIX 50 ML IV SCH ×3 (02:00→18:27)
[2017-02-27] MEDS: methylPREDNISolone SOD SUCC 40 MG/1 ML VIAL IV PUSH SCH ×2 (06:32→20:53)
[2017-02-27] MEDS: RESP: ALBUTEROL 2.5 MG/IPRATROPIUM 0.5 MG NEB (SCH) NEB ×4 (08:20→19:35)
[2017-02-27] MEDS: ASPIRIN 81 MG CHEW TAB CHEW SCH (09:00)
[2017-02-27] MEDS: APIXABAN 5 MG TABLET PO SCH ×2 (09:00→21:12)
[2017-02-27] MEDS: SODIUM CHLORIDE 0.9% FLUSH 10 ML FLUSH IV FLUSH SCH ×2 (09:00→20:53)
[2017-02-27] MEDS: DIGOXIN 0.125 MG TAB PO SCH (10:10)
[2017-02-27] MEDS: DILTIAZEM HCL 60 MG TAB PO SCH ×4 (10:10→20:53)
[2017-02-27] MEDS: VANCOMYCIN INJ 1,700 MG in SODIUM CHLORID 0.9% 500 ML INJ 500 ML IV SCH (10:10)
[2017-02-27] MEDS: DOCUSATE SODIUM 50 MG/SENNA 8.6 MG TAB PO SCH ×2 (10:10→20:53)
[2017-02-27] MEDS: SODIUM CHLORIDE 5% OPHT SOLN 15 ML BTL EACH EYE SCH ×4 (10:43→20:54)
--- NOTE | 2017-02-27 11:45 | HHI.HCPN ---
Reason for visit a. To assist with evaluation and management of symptoms including: dyspnea, anxiety b. To assist medical decision maker(s) with: better understanding of current medical conditions; weighing benefits/burdens of medical treatment options; making medical treatment decisions. Subjective/Interval History Stable, off of Bipap, tolerating NC 4-5L. ID consulted, following. BC + MSSA. Remains on Vanco, zosyn d/c, cefazolin added. Afebrile. VS WNL. Pt seen in room, at bedside. Seen with Katy Mendiola RN, [employer]-student. Pt alert , oriented, pleasant. Good insight. Able to report recommendations/course per ID , ophthalmology etc. Feeling well today overall. Endorses no pain currently, + some pain to rt abd/flank with activity, ?muscle strain. Responded to low dose morphine, pain has not returned. Still w mild, intermittent nausea. Appetite fair, ate breakfast good per . Recommend utilize zofran at meal times to help with nausea. d/w pt, , COPD, trajectory, txs, underlying lung CA, + MSSA infection, port removal, potential can be replaced once infection cleared. Overall prognosis, that current conditions still treatable however given mutl co morbids does remain at risk for complications/setbacks. All questions answered. Goals remain aggressive, open to ongoing conversations as condition evolves. D/w RN . Objective Vital Signs Date Time Temp Pulse Resp B/P Pulse Ox O2 Delivery O2 Flow Rate FiO2 02/27/17 08:21 96 Nasal Cannula 5.00 02/27/17 04:00 97.8 78 16 139/65 92 02/27/17 00:00 97.4 82 14 133/63 92 02/26/17 22:57 26 02/26/17 20:00 97.8 86 27 143/66 90 02/26/17 19:22 90 Nasal Cannula 4.00 02/26/17 19:00 90 Nasal Cannula 3.00 02/26/17 16:00 97.7 79 18 123/60 02/26/17 12:36 92 Nasal Cannula 4.00 02/26/17 12:00 97.7 66 17 144/65 92 Physical Exam CONSTITUTIONAL/GENERAL: This is an adequately nourished patient, in no apparent distress, alert pleasant TUBES/LINES/DRAINS: PIV upper extremity, NC, barker catheter , SCDs SKIN: No jaundice, rashes, or lesions. several areas Ecchymoses on upper extremities. skin warm,dry CARDIOVASCULAR: Irregular rate and rhythm without murmurs. Peripheral pulses symmetric. RESPIRATORY/CHEST: Symmetric, unlabored respirations. On NC. Clear to auscultation, decreased air movement. Breath sounds equal bilaterally. GASTROINTESTINAL: Abdomen soft,round, non-tender, nondistended. No palpable masses. No guarding. Bowel sounds present. GENITOURINARY: Without palpable bladder distension. Barker catheter in place clear yellow MUSCULOSKELETAL: Extremities without clubbing, cyanosis, or edema. N No mottling or clubbing. NEUROLOGICAL: Awake and alert. Oriented, appropriate, good insight. Moves all 4 extremities well, equal. + rt facial droop evident today, was not visible yesterday w bipap, reports 2/2 nerve damage from surgery. PSYCHIATRIC: No obvious anxiety/depression. no apparent hallucinations or other psychotic thought process. Diagnostic Tests Laboratory Laboratory Tests Test 02/25/17 02/25/17 02/26/17 02/26/17 13:39 17:30 04:02 08:42 Blood Gas Puncture Site RT RADIAL Blood Gas Patient Temperature 98.6 Blood Gas HCO3 24 mmol/L (22-26) Blood Gas Base Excess 0.8 mmol/L (-2-2) Blood Gas Oxygen Saturation 77 % (90-100) Arterial Blood pH 7.51 (7.380-7.420) Arterial Blood Partial 30 mmHg (38-42) Pressure CO2 Arterial Blood Partial 43 mmHg Pressure O2 (61-120) Arterial Blood Oxygen Content 11.1 Vol % (12.0-20.0) Arterial Blood 2.6 % (0-4) Carboxyhemoglobin Arterial Blood Methemoglobin 1.1 % (0-2) Blood Gas Hemoglobin 10.3 G/DL (12.0-16.0) Oxygen Delivery Device NASAL CANNULA Blood Gas Liter Flow 3 L/M White Blood Count 6.0 TH/MM3 12.1 TH/MM3 (4.0-11.0) (4.0-11.0) Red Blood Count 3.24 MIL/MM3 3.04 MIL/MM3 (4.50-5.90) (4.50-5.90) Hemoglobin 10.9 GM/DL 10.3 GM/DL (13.0-17.0) (13.0-17.0) Hematocrit 32.8 % 30.5 % (39.0-51.0) (39.0-51.0) Mean Corpuscular Volume 101.4 FL 100.4 FL (80.0-100.0) (80.0-100.0) Mean Corpuscular Hemoglobin 33.7 PG 34.0 PG (27.0-34.0) (27.0-34.0) Mean Corpuscular Hemoglobin 33.3 % 33.8 % Concent (32.0-36.0) (32.0-36.0) Red Cell Distribution Width 19.3 % 19.5 % (11.6-17.2) (11.6-17.2) Platelet Count 230 TH/MM3 159 TH/MM3 (150-450) (150-450) Mean Platelet Volume 8.1 FL 7.7 FL (7.0-11.0) (7.0-11.0) Neutrophils (%) (Auto) 90.9 % 92.0 % (16.0-70.0) (16.0-70.0) Lymphocytes (%) (Auto) 2.5 % 1.8 % (9.0-44.0) (9.0-44.0) Monocytes (%) (Auto) 5.8 % (0.0-8.0) 6.0 % (0.0-8.0) Eosinophils (%) (Auto) 0.4 % (0.0-4.0) 0.0 % (0.0-4.0) Basophils (%) (Auto) 0.4 % (0.0-2.0) 0.2 % (0.0-2.0) Neutrophils # (Auto) 5.4 TH/MM3 11.1 TH/MM3 (1.8-7.7) (1.8-7.7) Lymphocytes # (Auto) 0.1 TH/MM3 0.2 TH/MM3 (1.0-4.8) (1.0-4.8) Monocytes # (Auto) 0.3 TH/MM3 0.7 TH/MM3 (0-0.9) (0-0.9) Eosinophils # (Auto) 0.0 TH/MM3 0.0 TH/MM3 (0-0.4) (0-0.4) Basophils # (Auto) 0.0 TH/MM3 0.0 TH/MM3 (0-0.2) (0-0.2) CBC Comment AUTO DIFF AUTO DIFF Differential Total Cells 100 100 Counted Neutrophils % (Manual) 79 % (16-70) 62 % (16-70) Band Neutrophils % 11 % (0-6) 31 % (0-6) Lymphocytes % 7 % (9-44) 1 % (9-44) Monocytes % 2 % (0-8) 6 % (0-8) Neutrophils # (Manual) 5.5 TH/MM3 11.3 TH/MM3 (1.8-7.7) (1.8-7.7) Myelocytes 1 % (0-0) Nucleated Red Blood Cells 3 /100 WBC 1 /100 WBC (0-0) (0-0) Differential Comment FINAL DIFF FINAL DIFF MANUAL MANUAL Platelet Estimate NORMAL NORMAL (NORMAL) (NORMAL) Platelet Morphology Comment NORMAL CLUMPED (NORMAL) (NORMAL) Urine Color YELLOW (YELLW/STRAW) Urine Turbidity CLEAR (CLEAR) Urine pH 5.5 (5.0-8.5) Urine Specific Mcdonald 1.011 (1.002-1.035) Urine Protein 30 mg/dL (NEG-TRACE) Urine Glucose (UA) NEG mg/dL (NEG) Urine Ketones NEG mg/dL (NEG) Urine Occult Blood SMALL (NEG) Urine Nitrite NEG (NEG) Urine Bilirubin NEG (NEG) Urine Urobilinogen LESS THAN 2.0 MG/DL (LESS THAN 2.0) Urine Leukocyte Esterase TRACE (NEG) Urine RBC 2 /hpf (0-3) Urine WBC 2 /hpf (0-5) Urine Squamous Epithelial <1 /hpf (0-5) Cells Urine Amorphous Sediment RARE Urine Bacteria RARE /hpf (NONE) Urine Hyaline Casts 1 /lpf (RARE) Microscopic Urinalysis Comment CATH-CULTURE IND Nasal Screen MRSA (PCR) MRSA NOT DETECTED (NOT DETECT) Sodium Level 136 MEQ/L 138 MEQ/L (136-145) (136-145) Potassium Level 5.0 MEQ/L 4.3 MEQ/L (3.5-5.1) (3.5-5.1) Chloride Level 99 MEQ/L 102 MEQ/L (98-107) (98-107) Carbon Dioxide Level 25.3 MEQ/L 27.5 MEQ/L (21.0-32.0) (21.0-32.0) Anion Gap 12 MEQ/L (5-15) 9 MEQ/L (5-15) Blood Urea Nitrogen 24 MG/DL (7-18) 27 MG/DL (7-18) Creatinine 1.39 MG/DL 1.25 MG/DL (0.60-1.30) (0.60-1.30) Estimat Glomerular Filtration 50 ML/MIN (>89) 57 ML/MIN (>89) Rate Random Glucose 109 MG/DL 149 MG/DL (74-106) (74-106) Lactic Acid Level 4.7 mmol/L 2.3 mmol/L (0.4-2.0) (0.4-2.0) Calcium Level 8.5 MG/DL 7.9 MG/DL (8.5-10.1) (8.5-10.1) Total Bilirubin 1.3 MG/DL (0.2-1.0) Aspartate Amino Transf 72 U/L (15-37) (AST/SGOT) Alanine Aminotransferase 39 U/L (12-78) (ALT/SGPT) Alkaline Phosphatase 115 U/L (45-117) Troponin I 0.15 NG/ML 0.10 NG/ML (0.02-0.05) (0.02-0.05) Total Protein 7.0 GM/DL (6.4-8.2) Albumin 2.8 GM/DL (3.4-5.0) B-Type Natriuretic Peptide 115 PG/ML (0-100) Test 02/26/17 02/26/17 09:26 13:22 Blood Gas Puncture Site RT RADIAL Blood Gas Patient Temperature 98.6 Blood Gas HCO3 26 mmol/L (22-26) Blood Gas Base Excess 2.2 mmol/L (-2-2) Blood Gas Oxygen Saturation 90 % (90-100) Arterial Blood pH 7.46 (7.380-7.420) Arterial Blood Partial 36 mmHg (38-42) Pressure CO2 Arterial Blood Partial 63 mmHg Pressure O2 (61-120) Arterial Blood Oxygen Content 13.2 Vol % (12.0-20.0) Arterial Blood 1.8 % (0-4) Carboxyhemoglobin Arterial Blood Methemoglobin 0.8 % (0-2) Blood Gas Hemoglobin 10.4 G/DL (12.0-16.0) Oxygen Delivery Device BIPAP Blood Gas Inspired Oxygen 40 % Potassium Level 3.9 MEQ/L (3.5-5.1) Magnesium Level 2.1 MG/DL (1.5-2.5) Result Diagram: 02/26/17 0842 02/26/17 1322 Microbiology Microbiology Date/Time Procedure Status Source Growth 02/25/17 17:30 Urine Culture - Final Complete Urine Catheterized Urine NO GROWTH IN 48 HOURS. 02/25/17 17:45 Aerobic Blood Culture - Preliminary Resulted Blood Peripheral Staphylococcus Aureus 02/25/17 17:45 Anaerobic Blood Culture - Preliminary Resulted Staphylococcus Aureus 02/25/17 18:33 Aerobic Blood Culture - Preliminary Resulted Blood Peripheral Staphylococcus Aureus 02/25/17 18:33 Anaerobic Blood Culture - Preliminary Resulted Staphylococcus Aureus Imaging Last Impressions Chest X-Ray 02/26/17 0000 Signed Impressions: Service Date/Time: Sunday, February 26, 2017 08:14 - CONCLUSION: 1. Cardiomegaly with perivascular congestion. 2. Small right pleural effusion and associated right lower lobe airspace disease improved from prior exams. 3. Stable small to moderate left pleural effusion with associated airspace disease. Wayne Betancur MD Chest CT 02/25/17 0000 Signed Impressions: Service Date/Time: Saturday, February 25, 2017 09:58 - CONCLUSION: 1. Moderate sized simple appearing bilateral pleural effusions, mildly enlarged since 02/07/2017. 2. Improved diffuse bilateral groundglass opacities likely reflects improved positive fluid balance. 3. Slightly more prominent associated bilateral lower lobe airspace consolidation likely reflects progressive compressive atelectasis. 4. Previously noted 3 cm posterior medial left lower lobe mass is obscured by left lower lobe air space consolidation on current exam. 5. Severe coronary artery calcifications. 6. Stable very small pericardial effusion. Wayne Betancur MD Head CT 02/23/17 0000 Signed Impressions: Service Date/Time: Thursday, February 23, 2017 17:12 - CONCLUSION: 1. Mild periventricular and subcortical white matter small vessel ischemic changes bilaterally. 2. No acute infarct, acute hemorrhage, mass effect or extra- axial fluid collections. Dionte Barnes MD Assessment and Plan Disease Oriented Problem List: (1) Lung cancer, lower lobe (2) CAD (coronary artery disease) (3) CHF (congestive heart failure) (4) Pulmonary edema (5) Hypoxia (6) A-fib (7) HTN (hypertension) (8) Status post coronary artery stent placement Symptom Scale: (1) Anxiety 0-10 Scale: Unable to quantify (2) Dyspnea 0-10 Scale: Unable to quantify (3) Malnutrition 0-10 Scale: Unable to quantify (4) Weakness 0-10 Scale: Unable to quantify Pertinent Non-Medical Issues Psychosocial: Originally from [facility]. 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 , supported by his . + also supported by daughter, jonoon, and 5 grandchildren. Spiritual:. orthodoxy Legal:Pt is alert, oriented, appears capacitated to make his own decisions. This may fluctuate with oxygenation status. Supported by his spouse Ethical issues impacting care: . Important Contacts spouse Moon Rachel [phone] / [phone] . Prognosis This patient has an underlying stage IV non-small cell carcinoma of the lung, undergoing chemotherapy treatment with Dr. Muhammad. He was diagnosed in 2016, given a prognosis To live until August 2016. His disease has apparently responded well to chemotherapy and has not seen any increase in tumor burden. There is some question of COPD the patient indicates has not yet been formally diagnosed with this, hx 1-2 PPD smoker , COPD would be likely. Possible his conditions could be stabilized and with optimize medical management he could discharge home and continue to have some quality of life though long-term prognosis for survival will likely be limited by stage IV cancer, possible COPD exacerbations. Code Status: No Code Plan * Legal decision maker: Pt is alert, oriented, appears capacitated to make his own decisions. This may fluctuate with oxygenation status. Supported by his spouse * Goals: Met w pt, today. Currently his goals are aggressive to continue treatment course with the hopes that his disease process can be stabilized, and that he can return home to his prior quality of life. He does not desire CPR or artificial life support. He is open to ongoing review of conditions and goals as clinical course evolves * CODE STATUS: DNR * SYMPTOMS: --Dyspnea- progressively worsening SOB in days prior to ED presentation; underlying lung CA, probable COPD (though had not been formally Dx w COPD) ; currently tx with steroids, nebulizers, abx, BIPAP --Anxiety- some mild anxiety accompanying episodes of shortness of breath; consider adding low-dose Xanax 0.25mg PO Q 6 hr PRN --Malnutrition-patient describes chronic lack of appetite/intermittent nausea with no vomiting for several days following his chemotherapy. He does indicate some weight loss though not exactly sure how much may be 20-30 pounds since sometime in 2016. Albumin is low 2.8. + Hypermetabolic state from COPD. Would benefit from high-calorie, high-protein supplement. --Weakness-patient describes generalized fatigue and weakness, activity limited by shortness of breath. Likely this is chronic deconditioning secondary to his cancer, chemotherapy, and pulmonary limitations. Recommend PT inpatient to maximize safe physical mobility, possible may benefit from home health at discharge * Palliative care will continue to follow during hospital course as condition evolves, to assist patient/decision-maker with understanding of medical conditions, weighing benefits/burdens of treatment options, for clarification of goals of treatment. Additionally will assist with any symptoms of palliative concern Attestation To help prompt me to consider important information that might be impacting today's encounter and assessment, information from prior notes written by myself or my colleagues may have been "brought forward" into today's note. My signature on this note, however, is an attestation that I personally performed the exam, history, and/or decision-making noted today, and, unless otherwise indicated, the interactions with patient, family, and staff as well as the review of records all occurred today. I also attest that the listed assessment and stated plan reflect my best clinical judgment today based on the combination of historical information, prior notes, and today's exam/ interactions. When time spent is documented, it refers only to time spent today by the signer, or if indicated, combined time spent today by collaborating physician/nurse practitioner. Laura Moss Feb 27, 2017 11:45
--- NOTE | 2017-02-27 12:32 | HHI.PR ---
Subjective Remarks The patient was resting comfortably in bed. His was at the bedside. The patient said his breathing was a lot better. He was waiting to get his port removed. 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 He still gets chills from time to time. Discussed with nursing at the bedside. Objective Vitals Vital Signs Date Time Temp Pulse Resp B/P Pulse Ox O2 Delivery O2 Flow Rate FiO2 02/27/17 08:21 96 Nasal Cannula 5.00 02/27/17 04:00 97.8 78 16 139/65 92 02/27/17 00:00 97.4 82 14 133/63 92 02/26/17 22:57 26 02/26/17 20:00 97.8 86 27 143/66 90 02/26/17 19:22 90 Nasal Cannula 4.00 02/26/17 19:00 90 Nasal Cannula 3.00 02/26/17 16:00 97.7 79 18 123/60 02/26/17 12:36 92 Nasal Cannula 4.00 I/O 02/26/17 02/26/17 02/26/17 02/27/17 02/27/17 02/27/17 07:00 15:00 23:00 07:00 15:00 23:00 Intake Total 388 ml 385 ml 1212 ml 378 ml Output Total 150 ml 801 ml 500 ml 450 ml Balance 238 ml -416 ml 712 ml -72 ml Intake Oral 600 ml 240 ml IV Total 388 ml 385 ml 612 ml 138 ml Output Urine Total 150 ml 801 ml 500 ml 450 ml # Bowel Movements 0 0 Result Diagram: 02/26/17 0842 02/26/17 1322 Imaging Last Impressions Chest X-Ray 02/26/17 0000 Signed Impressions: Service Date/Time: Sunday, February 26, 2017 08:14 - CONCLUSION: 1. Cardiomegaly with perivascular congestion. 2. Small right pleural effusion and associated right lower lobe airspace disease improved from prior exams. 3. Stable small to moderate left pleural effusion with associated airspace disease. Wayne Betancur MD Chest CT 02/25/17 0000 Signed Impressions: Service Date/Time: Saturday, February 25, 2017 09:58 - CONCLUSION: 1. Moderate sized simple appearing bilateral pleural effusions, mildly enlarged since 02/07/2017. 2. Improved diffuse bilateral groundglass opacities likely reflects improved positive fluid balance. 3. Slightly more prominent associated bilateral lower lobe airspace consolidation likely reflects progressive compressive atelectasis. 4. Previously noted 3 cm posterior medial left lower lobe mass is obscured by left lower lobe air space consolidation on current exam. 5. Severe coronary artery calcifications. 6. Stable very small pericardial effusion. Wayne Betancur MD Head CT 02/23/17 0000 Signed Impressions: Service Date/Time: Saturday, February 23, 2017 17:12 - CONCLUSION: 1. Mild periventricular and subcortical white matter small vessel ischemic changes bilaterally. 2. No acute infarct, acute hemorrhage, mass effect or extra- axial fluid collections. Dionte Barnes MD Objective Remarks GENERAL: Pleasant elderly male in no acute distress. SKIN: Pale. HEENT: PERRLA, EOMI. No scleral icterus or conjunctival pallor. Chronic facial droop on the right. CARDIOVASCULAR: Irregularly irregular rhythm. No obvious murmurs to auscultation. No chest tenderness to palpation. RESPIRATORY: Mild wheezing. GASTROINTESTINAL: Abdomen soft, non-tender, nondistended. BS normal. MUSCULOSKELETAL: TR edema in the lower extremities. NEUROLOGICAL: Awake and alert. No focal neurologic deficits. Moving both upper and lower extremities spontaneously. PSYCH: Mood and affect appropriate. Medications and IVs Current Medications Medications (Trade) Dose Ordered Sig/Angie Route Start Time Stop Time Status Last Admin (NS Flush) 2 ml UNSCH PRN IV FLUSH 02/22/17 22:45 (NS Flush) 2 ml BID IV FLUSH 02/23/17 09:00 02/26/17 21:19 (Zofran Inj) 4 mg Q6H PRN IVP 02/22/17 22:45 02/26/17 22:52 (Tylenol) 650 mg Q6H PRN PO 02/22/17 22:45 02/25/17 13:09 ([place] 5-325 Mg) 1 tab Q4H PRN PO 02/22/17 22:45 (Morphine Inj) 2 mg Q3H PRN IV 02/22/17 22:45 02/26/17 22:52 (Amelia-Colace) 1 tab BID PO 02/23/17 09:00 02/27/17 10:10 (Milk Of Magnesia Liq) 30 ml Q12H PRN PO 02/22/17 22:45 (Senokot) 17.2 mg Q12H PRN PO 02/22/17 22:45 (Dulcolax Supp) 10 mg DAILY PRN RECTAL 02/22/17 22:45 (Lactulose Liq) 30 ml DAILY PRN PO 02/22/17 22:45 (Aspirin Chew) 81 mg DAILY CHEW 02/23/17 09:00 Hold 02/26/17 10:02 (Lipitor) 20 mg HS PO 02/23/17 21:00 02/26/17 21:19 (Lanoxin) 0.125 mg DAILY PO 02/23/17 09:00 02/27/17 10:10 (Flomax) 0.4 mg HS PO 02/23/17 21:00 02/26/17 21:19 (Cardizem) 60 mg QID PO 02/23/17 12:00 02/27/17 10:10 (Tears Naturale Opth Soln) 1 drop Q2H PRN EACH EYE 02/24/17 15:00 02/24/17 14:49 Furosemide 40 mg 40 mg DAILY PO 02/25/17 12:30 Hold 02/25/17 13:09 Pharmacy Profile Note 0 ml @ 0 mls/hr UNSCH OTHER 02/25/17 17:30 Sodium Chloride 1,000 ml @ 10 mls/hr Q24H IV 02/25/17 20:00 02/26/17 21:20 (Vancomycin Inj/ NS 500 ml Inj) 517 ml @ 250 mls/hr Q18H IV 02/26/17 15:00 02/27/17 10:10 Miscellaneous Information SPECIFIC LAB TO BE DRAWN:[facility] TROUGH DATE TO BE DRJoan.. ONCE ONCE .XX 02/28/17 02:45 02/28/17 02:46 (SoluMEDROL INJ) 40 mg Q8HR IV PUSH 02/26/17 09:00 02/27/17 06:32 (Jayashree 128 5% Opth Oint) 1 applic HS EACH EYE 02/26/17 21:00 02/26/17 21:19 Sodium Chloride 1 drop 1 drop QID EACH EYE 02/26/17 18:00 02/27/17 10:43 (Ancef 2 Gm Premix) 50 ml @ 150 mls/hr Q8H IV 02/26/17 18:00 02/27/17 10:10 (Eliquis) 5 mg BID PO 02/26/17 21:00 Hold 02/26/17 21:52 (Xanax) 0.25 mg Q6H PRN PO 02/27/17 13:00 A/P Problem List: (1) Hypoxia ICD Code: R09.02 Status: Acute (2) CHF (congestive heart failure) ICD Code: I50.9 Status: Acute (3) Lung cancer ICD Code: C34.90 Status: Acute (4) A-fib ICD Code: I48.91 Status: Acute (5) HTN (hypertension) ICD Code: I10 Status: Acute Assessment and Plan Sepsis/ Bacteremia He was found to be febrile up to 104 so vancomycin and Zosyn were ordered. He was pancultured. Blood cultures growing 4/4 staph aureus. UA indicative of possible infection. Pt recently had an echo without evidence of vegetation. ID consult appreciated. Source likely port. - continue IV vancomycin and cefazolin per ID. - follow culture data. - Tylenol as needed. - IR consult for port removal. Hypoxemia Multifactorial. The pt has stage IV Lung CA, COPD and CHF. CXR w/ intra- alveolar pulmonary edema. Pulmonology consult appreciated. CT scan noted, no acute changes. The patient required a simple mask and was saturating low on that. He was also quite tremulous. A Halicat was called. The patient was started on BiPAP. IV Solu-Medrol, IV Lasix were ordered. He received fluids for sepsis. Repeat CXR with evidence of volume overload. - oxygen and nebs as needed. Add standing nebs. - incentive spirometry. - pulmonology f/u. - PFTs ordered. - BiPAP as needed. - palliative care consult appreciated. Start low dose Xanax as needed. CHF/ Elevated troponin/ A fib Follows w/ Dr. Sotelo as an outpatient. Echo with normal EF, trace MR, trace TR. Evidence of volume overload. Elevated troponin likely s/t sepsis. Appreciate cardiology consult. - follow up with cardiology. - monitor I/O. - monitor on telemetry. - resume anticoagulation after port removal. Lung CA Stage IV, currently on Chemo. Significant reason for his hypoxemia. - Continue w/ treatment as planned. His notified his oncologist, Dr. Muhammad, about the current status of the pt. - PT/ OT. Blurry vision Chronic, but more prolonged. CT of the brain negative for an acute process. Appreciate ophtho consult. - continue eye drops. HTN BP 170's on arrival. Improved. - Resume home medications. DVT Prophylaxis: Eliquis Discharge Planning Awaiting clinical improvement Juan Luis Perea DO Feb 27, 2017 12:32
[2017-02-27] MEDS ORDERED: ALPRAZolam 0.25 MG TAB PO PRN (13:00)
[2017-02-27] MEDS ORDERED: fentaNYL CITRATE 250 MCG/5 ML AMP ONE (14:23)
[2017-02-27] MEDS ORDERED: LORazepam 2 MG/ML VIAL ONE (14:23)
--- NOTE | 2017-02-27 14:26 | HHI.IDPN ---
Subjective Subjective Remarks doing well no fevers scheduled for the PORT removal today 2 D echo w/o vegetations Antibiotics cafazolin vancomycin Allergies: Coded Allergies: No Known Allergies (Unverified , 01/28/17) Objective . Vital Signs Date Time Temp Pulse Resp B/P Pulse Ox O2 Delivery O2 Flow Rate FiO2 02/27/17 08:21 96 Nasal Cannula 5.00 02/27/17 04:00 97.8 78 16 139/65 92 02/27/17 00:00 97.4 82 14 133/63 92 02/26/17 22:57 26 02/26/17 20:00 97.8 86 27 143/66 90 02/26/17 19:22 90 Nasal Cannula 4.00 02/26/17 19:00 90 Nasal Cannula 3.00 02/26/17 16:00 97.7 79 18 123/60 02/26/17 02/26/17 02/27/17 15:00 23:00 07:00 Intake Total 385 ml 1212 ml 378 ml Output Total 801 ml 500 ml 450 ml Balance -416 ml 712 ml -72 ml Intake Oral 600 ml 240 ml IV Total 385 ml 612 ml 138 ml Output Urine Total 801 ml 500 ml 450 ml # Bowel Movements 0 0 . Laboratory Tests Test 02/25/17 02/26/17 17:30 08:42 White Blood Count 6.0 TH/MM3 12.1 TH/MM3 Red Blood Count 3.24 MIL/MM3 3.04 MIL/MM3 Hemoglobin 10.9 GM/DL 10.3 GM/DL Hematocrit 32.8 % 30.5 % Mean Corpuscular Volume 101.4 FL 100.4 FL Mean Corpuscular Hemoglobin 33.7 PG 34.0 PG Mean Corpuscular Hemoglobin 33.3 % 33.8 % Concent Red Cell Distribution Width 19.3 % 19.5 % Platelet Count 230 TH/MM3 159 TH/MM3 Mean Platelet Volume 8.1 FL 7.7 FL Neutrophils (%) (Auto) 90.9 % 92.0 % Lymphocytes (%) (Auto) 2.5 % 1.8 % Monocytes (%) (Auto) 5.8 % 6.0 % Eosinophils (%) (Auto) 0.4 % 0.0 % Basophils (%) (Auto) 0.4 % 0.2 % Neutrophils # (Auto) 5.4 TH/MM3 11.1 TH/MM3 Lymphocytes # (Auto) 0.1 TH/MM3 0.2 TH/MM3 Monocytes # (Auto) 0.3 TH/MM3 0.7 TH/MM3 Eosinophils # (Auto) 0.0 TH/MM3 0.0 TH/MM3 Basophils # (Auto) 0.0 TH/MM3 0.0 TH/MM3 CBC Comment AUTO DIFF AUTO DIFF Differential Total Cells 100 100 Counted Neutrophils % (Manual) 79 % 62 % Band Neutrophils % 11 % 31 % Lymphocytes % 7 % 1 % Monocytes % 2 % 6 % Neutrophils # (Manual) 5.5 TH/MM3 11.3 TH/MM3 Myelocytes 1 % Nucleated Red Blood Cells 3 /100 WBC 1 /100 WBC Differential Comment FINAL DIFF FINAL DIFF MANUAL MANUAL Platelet Estimate NORMAL NORMAL Platelet Morphology Comment NORMAL CLUMPED Laboratory Tests Test 02/25/17 02/26/17 02/26/17 02/26/17 17:30 04:02 08:42 13:22 Sodium Level 136 MEQ/L 138 MEQ/L Potassium Level 5.0 MEQ/L 4.3 MEQ/L 3.9 MEQ/L Chloride Level 99 MEQ/L 102 MEQ/L Carbon Dioxide Level 25.3 MEQ/L 27.5 MEQ/L Anion Gap 12 MEQ/L 9 MEQ/L Blood Urea Nitrogen 24 MG/DL 27 MG/DL Creatinine 1.39 MG/DL 1.25 MG/DL Estimat Glomerular Filtration 50 ML/MIN 57 ML/MIN Rate Random Glucose 109 MG/DL 149 MG/DL Lactic Acid Level 4.7 mmol/L 2.3 mmol/L Calcium Level 8.5 MG/DL 7.9 MG/DL Total Bilirubin 1.3 MG/DL Aspartate Amino Transf 72 U/L (AST/SGOT) Alanine Aminotransferase 39 U/L (ALT/SGPT) Alkaline Phosphatase 115 U/L Troponin I 0.15 NG/ML 0.10 NG/ML Total Protein 7.0 GM/DL Albumin 2.8 GM/DL B-Type Natriuretic Peptide 115 PG/ML Magnesium Level 2.1 MG/DL Microbiology Date/Time Procedure Status Source Growth 02/25/17 17:30 Urine Culture - Final Complete Urine Catheterized Urine NO GROWTH IN 48 HOURS. 02/25/17 17:45 Aerobic Blood Culture - Preliminary Resulted Blood Peripheral Staphylococcus Aureus 02/25/17 17:45 Anaerobic Blood Culture - Preliminary Resulted Staphylococcus Aureus 02/25/17 18:33 Aerobic Blood Culture - Preliminary Resulted Blood Peripheral Staphylococcus Aureus 02/25/17 18:33 Anaerobic Blood Culture - Preliminary Resulted Staphylococcus Aureus Imaging Last Impressions Chest X-Ray 02/26/17 0000 Signed Impressions: Service Date/Time: Sunday, February 26, 2017 08:14 - CONCLUSION: 1. Cardiomegaly with perivascular congestion. 2. Small right pleural effusion and associated right lower lobe airspace disease improved from prior exams. 3. Stable small to moderate left pleural effusion with associated airspace disease. Wayne Betancur MD Chest CT 02/25/17 0000 Signed Impressions: Service Date/Time: Saturday, February 25, 2017 09:58 - CONCLUSION: 1. Moderate sized simple appearing bilateral pleural effusions, mildly enlarged since 02/07/2017. 2. Improved diffuse bilateral groundglass opacities likely reflects improved positive fluid balance. 3. Slightly more prominent associated bilateral lower lobe airspace consolidation likely reflects progressive compressive atelectasis. 4. Previously noted 3 cm posterior medial left lower lobe mass is obscured by left lower lobe air space consolidation on current exam. 5. Severe coronary artery calcifications. 6. Stable very small pericardial effusion. Wayne Betancur MD Head CT 02/23/17 0000 Signed Impressions: Service Date/Time: Thursday, February 23, 2017 17:12 - CONCLUSION: 1. Mild periventricular and subcortical white matter small vessel ischemic changes bilaterally. 2. No acute infarct, acute hemorrhage, mass effect or extra- axial fluid collections. Dionte Barnes MD Physical Exam CONSTITUTIONAL/GENERAL: This is an obses elderly patient, in no apparent distress. TUBES/LINES/DRAINS: PORT in place R chest wo skin changes or tenderness to palpation SKIN: No jaundice, rashes, or lesions. Skin temperature appropriate. Not diaphoretic. HEAD: R facial droop ( chronic) Surgically absent R pinna EYES: Pupils equal. round. Extraocular motions intact. No scleral icterus. No injection or drainage. Fundi not examined. R eyelid droop (chronic) ENT: Hearing grossly normal. Nose without bleeding or purulent drainage. Throat without visible erythema, exudates, masses, or lesions. CARDIOVASCULAR: Regular rate and rhythm without murmurs, gallops, or rubs. No JVD. Peripheral pulses symmetric. RESPIRATORY/CHEST: Symmetric, unlabored respirations. Clear to auscultation. Breath sounds equal bilaterally. No wheezes, rales, or rhonchi. GASTROINTESTINAL: Abdomen soft, non-tender, nondistended. No hepato-splenomegaly , or palpable masses. No guarding. Bowel sounds present. GENITOURINARY: Without palpable bladder distension. Montilla catheter in place with clear yellow urine MUSCULOSKELETAL: Extremities without clubbing, cyanosis, + 1 edema. No mottling or clubbing. NEUROLOGICAL: Awake and alert. Motor and sensory grossly within normal limits. Follows commands. Clear speech . Moves all extremities. PSYCHIATRIC: calm and cooperative Assessment & Plan Remarks Stage IV non small lung CA, on chemotherapy Resp distress - reason for admission COPD /CHF exacerabation Staph aureaus sepsis, ? PORT infection - prelim MSSA Leukocytosis, bandemia 2/2 MSSA sepsis cont cefazolin - will dc vanco once RYAN s availabe repeat BC after PORT is removed to ensure resolution of bvacterimia Vale Mccall MD Feb 27, 2017 14:26
[2017-02-27] MEDS ORDERED: LIDOCAINE 1%/EPINEPHrine 1:100,000 SOLN 20 ML VIAL ONE (14:43)
[2017-02-27] MEDS ORDERED: RESP: ALBUTEROL 2.5 MG/IPRATROPIUM 0.5 MG NEB (PRN) NEB (16:00)
--- NOTE | 2017-02-27 16:04 | ECHRPT ---
Indication: EVAL FOR VEGETATIONS CONCLUSIONS Structurally normal mitral valve. No mitral valve regurgitation. Does not appear to be any vegetations on the mitral valve. Aortic valve sclerosis is present. No aortic valve regurgitation. No aortic valve stenosis. No visual vegetations. The pulmonary valve is not well visualized. The tricuspid valve is not well visualized. There is trace tricuspid valve regurgitation. No visible vegetation seen. BP: 145 / 65 HR: 85 Rhythm: Sinus MEASUREMENTS (Male / Female) Normal Values Technical Quality:Technically difficult study M-MODE AV Cusp Separation MM 2.2 cm DOPPLER AV Peak Velocity 135.0 cm/s AV Peak Gradient 7.3 mmHg AV Mean Gradient 4.0 mmHg AV Velocity Time Integral 25.2 cm LVOT Peak Velocity 94.0 cm/s LVOT Peak Gradient 3.5 mmHg LVOT Velocity Time Integral 15.7 cm FINDINGS MITRAL VALVE Structurally normal mitral valve. No mitral valve regurgitation. Does not appear to be any vegetations on the mitral valve. AORTIC VALVE Aortic valve sclerosis is present. No aortic valve regurgitation. No aortic valve stenosis. No visual vegetations. TRICUSPID VALVE The tricuspid valve is not well visualized. There is trace tricuspid valve regurgitation. No visible vegetation seen. PULMONARY VALVE The pulmonary valve is not well visualized. Stanislaw Barone MD (Electronically Signed) Final Date:27 February 2017 16:04
--- NOTE | 2017-02-27 17:08 | RADRPT ---
EXAM DATE/TIME: 02/27/2017 00:00 [facility] COMPARISON: No previous studies available for comparison. INDICATIONS : Patient with a history of sepsis needs port removal. MEDICAL HISTORY : CAD [place] HNT High cholesterol Renal cyst SURGICAL HISTORY : Cataract removal ENCOUNTER: Initial ACUITY: 1 day PAIN SCORE: 0/10 SEDATION TIME: 60 minutes 1.) 1 mg lorazepam (Ativan) IV 2.) 100 mcg fentanyl (Sublimaze) IV Prophylactic antibiotics were administered with appropriate pre-procedure timing. Vancomycin within 2 hrs of procedure, Ancef (or alternative) within 1 hr of procedure. PROCEDURE : 1. Removal of [id number]. 2. Conscious sedation with continuous EKG and oximetry monitoring. The risk, benefits and potential complications of [id number] removal were discussed. Written conse nt was obtained. The patient was placed supine. The chest wall was prepped in sterile fashion. Full sterile techniqu e was used, including cap, mask, sterile gloves and gown, and a large sterile sheet. Hand hygiene an d 2% chlorhexidine and/or Betadine/alcohol prep was utilized per protocol for cutaneous antisepsis. The skin and subcutaneous tissues were infiltrated with local anesthetic solution. A small incision w as made, the subcutaneous pocket was opened. The port was dissected from the subcutaneous tissues and easily removed in one piece. The pocket incision was closed with subcuticular Vicryl suture. Steri -Strips were applied. Conscious sedation was performed with the prescribed dosages and duration as above in the presence of an independent trained radiology nurse to assist in the monitoring of the patient. EKG and oximetry remained stable throughout the procedure. The patient tolerated the procedure well and there were no complications. The patient was sent to post anesthesia recovery in stable condition. CONCLUSION: Uncomplicated port removal as above. Catheter tip was submitted for Gram stain and C&S . Wayne Betancur MD on February 27, 2017 at 17:06 Board Certified Radiologist. This report was verified electronically.
[2017-02-27 17:55] LABS: AUTOMATED NEUTROPHIL # 12.1 TH/MM3 (1.8-7.7); BASOPHIL % 0.2 % (0.0-2.0); HEMATOCRIT 30.4 % (39.0-51.0); LYMPH % 3.2 % (9.0-44.0); LYMPHOCYTE # 0.4 TH/MM3 (1.0-4.8); MEAN CELL VOLUME 102.3 FL (80.0-100.0); MEAN CORPUSCULAR HEMOGLOBIN 32.8 PG (27.0-34.0); MEAN CORPUSCULAR HGB CONC 32.1 % (32.0-36.0); MONO % 7.2 % (0.0-8.0); NEUT % 89.4 % (16.0-70.0); PLATELET COUNT 124 TH/MM3 (150-450); RED BLOOD COUNT 2.97 MIL/MM3 (4.50-5.90); RED CELL DISTRIBUTION WIDTH 19.3 % (11.6-17.2); WHITE BLOOD COUNT 13.5 TH/MM3 (4.0-11.0)
[2017-02-27 18:07] LABS: HEMO FLAGS AUTO DIFF
[2017-02-27 18:25] LABS: BICARBONATE 27.5 MEQ/L (21.0-32.0); POTASSIUM 3.9 MEQ/L (3.5-5.1)
[2017-02-27 19:31] LABS: BANDS 13 % (0-6); MYELOCYTES 2 % (0-0); NEUTROPHIL # MANUAL DIFF 12.2 TH/MM3 (1.8-7.7); POLYS (SEG NEUTROPHILS) 74 % (16-70); PROMYELOCYTES 1 % (0-0); WBC DIFF SAMPLE 100
[2017-02-27 19:32] LABS: PLATELET ESTIMATE SMEAR LOW (NORMAL); PLATELET MORPHOLOGY NORMAL (NORMAL); SCAN/DIFF FINAL DIFF MANUAL
[2017-02-27] MEDS: TAMSULOSIN HCL 0.4 MG CAP PO SCH (20:53)
[2017-02-27] MEDS: ATORVASTATIN 20 MG TAB PO SCH (20:53)
[2017-02-27] MEDS: SODIUM CHLOR 0.9% 1000 ML INJ 1,000 ML IV SCH (20:54)
[2017-02-27] MEDS: SODIUM CHLORIDE 5% OPHT OINT 3.5 GM TUBE EACH EYE SCH (20:54)
[2017-02-28] VITALS (9 sets, daily range): BP systolic 143–164; BP diastolic 66–77; PULSE 71–88; RESP 17–23; TEMP 96.4–97.8; O2SAT 90–97
[2017-02-28] MEDS ORDERED: PHARMACY ORDERED LAB ONE (02:45)
[2017-02-28] MEDS: ceFAZolin 2 GM PREMIX 50 ML IV SCH ×3 (02:59→17:55)
[2017-02-28] MEDS: MORPHINE SULFATE 4 MG/ML INJ IV PRN (03:31)
[2017-02-28] MEDS: VANCOMYCIN INJ 1,700 MG in SODIUM CHLORID 0.9% 500 ML INJ 500 ML IV SCH (04:04)
[2017-02-28 05:04] LABS: AUTOMATED NEUTROPHIL # 12.6 TH/MM3 (1.8-7.7); HEMATOCRIT 28.7 % (39.0-51.0); LYMPH % 4.4 % (9.0-44.0); LYMPHOCYTE # 0.6 TH/MM3 (1.0-4.8); MEAN CELL VOLUME 101.6 FL (80.0-100.0); MEAN CORPUSCULAR HEMOGLOBIN 32.9 PG (27.0-34.0); MEAN CORPUSCULAR HGB CONC 32.4 % (32.0-36.0); NEUT % 88.6 % (16.0-70.0); PLATELET COUNT 110 TH/MM3 (150-450); RED BLOOD COUNT 2.82 MIL/MM3 (4.50-5.90); RED CELL DISTRIBUTION WIDTH 18.9 % (11.6-17.2); WHITE BLOOD COUNT 14.2 TH/MM3 (4.0-11.0)
[2017-02-28 05:05] LABS: HEMO FLAGS AUTO DIFF
[2017-02-28 06:16] LABS: BANDS 15 % (0-6); CORRECTED NUCLEATED RBC 3 /100 WBC (0-0); METAMYELOCYTES 1 % (0-1); NEUTROPHIL # MANUAL DIFF 13.3 TH/MM3 (1.8-7.7); PLATELET ESTIMATE SMEAR NORMAL (NORMAL); PLATELET MORPHOLOGY NORMAL (NORMAL); POLYS (SEG NEUTROPHILS) 78 % (16-70); SCAN/DIFF FINAL DIFF MANUAL; WBC DIFF SAMPLE 100
[2017-02-28 06:17] LABS: TOXIC GRANULATION 1+ (NORMAL)
[2017-02-28] MEDS: RESP: ALBUTEROL 2.5 MG/IPRATROPIUM 0.5 MG NEB (SCH) NEB ×3 (09:29→20:12)
[2017-02-28] MEDS: SODIUM CHLORIDE 0.9% FLUSH 10 ML FLUSH IV FLUSH SCH ×2 (10:32→22:15)
[2017-02-28] MEDS: methylPREDNISolone SOD SUCC 40 MG/1 ML VIAL IV PUSH SCH ×2 (10:32→22:15)
[2017-02-28] MEDS: DIGOXIN 0.125 MG TAB PO SCH (10:33)
[2017-02-28] MEDS: DILTIAZEM HCL 60 MG TAB PO SCH ×4 (10:33→22:14)
[2017-02-28] MEDS: DOCUSATE SODIUM 50 MG/SENNA 8.6 MG TAB PO SCH ×2 (10:33→21:00)
[2017-02-28] MEDS: APIXABAN 5 MG TABLET PO SCH ×2 (10:33→22:15)
[2017-02-28] MEDS: SODIUM CHLORIDE 5% OPHT SOLN 15 ML BTL EACH EYE SCH ×4 (10:34→22:16)
--- NOTE | 2017-02-28 13:58 | HHI.PR ---
Subjective Remarks The pt was resting in a chair, eating lunch. His family was at the bedside and their questions were answered. The pt says that he feels a lot better. He does not have any further chills. He has not had a bowel movement in a little while. He wants the Montilla catheter out. Objective Vitals Vital Signs Date Time Temp Pulse Resp B/P Pulse Ox O2 Delivery O2 Flow Rate FiO2 02/28/17 09:31 91 Nasal Cannula 6.00 02/28/17 08:00 97.2 72 23 163/71 90 02/28/17 07:00 90 Nasal Cannula 5.00 02/28/17 04:00 96.4 71 21 143/66 93 02/28/17 03:36 16 02/28/17 00:00 97.0 80 23 144/69 91 02/27/17 20:00 97.6 80 15 139/65 90 02/27/17 19:40 98 Nasal Cannula 5.00 02/27/17 19:00 92 Nasal Cannula 5.00 02/27/17 16:00 98.0 80 16 128/66 93 I/O 02/27/17 02/27/17 02/27/17 02/28/17 02/28/17 02/28/17 07:00 15:00 23:00 07:00 15:00 23:00 Intake Total 378 ml 1032 ml 618 ml 1093 ml Output Total 450 ml 400 ml 500 ml 500 ml Balance -72 ml 632 ml 118 ml 593 ml Intake Oral 240 ml 400 ml 480 ml 480 ml IV Total 138 ml 632 ml 138 ml 613 ml Output Urine Total 450 ml 400 ml 500 ml 500 ml # Bowel Movements 0 0 0 0 Result Diagram: 02/28/17 0429 02/27/17 1704 Imaging Last Impressions Port Line Revision 02/27/17 0000 Signed Impressions: Service Date/Time: Monday, February 27, 2017 00:00 - CONCLUSION: Uncomplicated port removal as above. Catheter tip was submitted for Gram stain and C&S. Wayne Betancur MD Chest X-Ray 02/26/17 0000 Signed Impressions: Service Date/Time: Sunday, February 26, 2017 08:14 - CONCLUSION: 1. Cardiomegaly with perivascular congestion. 2. Small right pleural effusion and associated right lower lobe airspace disease improved from prior exams. 3. Stable small to moderate left pleural effusion with associated airspace disease. Wayne Betancur MD Chest CT 02/25/17 0000 Signed Impressions: Service Date/Time: Saturday, February 25, 2017 09:58 - CONCLUSION: 1. Moderate sized simple appearing bilateral pleural effusions, mildly enlarged since 02/07/2017. 2. Improved diffuse bilateral groundglass opacities likely reflects improved positive fluid balance. 3. Slightly more prominent associated bilateral lower lobe airspace consolidation likely reflects progressive compressive atelectasis. 4. Previously noted 3 cm posterior medial left lower lobe mass is obscured by left lower lobe air space consolidation on current exam. 5. Severe coronary artery calcifications. 6. Stable very small pericardial effusion. Wayne Betancur MD Head CT 02/23/17 0000 Signed Impressions: Service Date/Time: Thursday, February 23, 2017 17:12 - CONCLUSION: 1. Mild periventricular and subcortical white matter small vessel ischemic changes bilaterally. 2. No acute infarct, acute hemorrhage, mass effect or extra- axial fluid collections. Dionte Barnes MD Objective Remarks GENERAL: Pleasant elderly male in no acute distress. SKIN: Pale. HEENT: PERRLA, EOMI. No scleral icterus or conjunctival pallor. Chronic facial droop on the right. CARDIOVASCULAR: Irregularly irregular rhythm. No obvious murmurs to auscultation. No chest tenderness to palpation. RESPIRATORY: Mild wheezing. GASTROINTESTINAL: Abdomen soft, non-tender, nondistended. BS normal. MUSCULOSKELETAL: TR edema in the lower extremities. NEUROLOGICAL: Awake and alert. No focal neurologic deficits. Moving both upper and lower extremities spontaneously. PSYCH: Mood and affect appropriate. Procedures Port removal Medications and IVs Current Medications Medications (Trade) Dose Ordered Sig/Angie Route Start Time Stop Time Status Last Admin (NS Flush) 2 ml UNSCH PRN IV FLUSH 02/22/17 22:45 (NS Flush) 2 ml BID IV FLUSH 02/23/17 09:00 02/28/17 10:32 (Zofran Inj) 4 mg Q6H PRN IVP 02/22/17 22:45 02/26/17 22:52 (Tylenol) 650 mg Q6H PRN PO 02/22/17 22:45 02/25/17 13:09 (Cranks 5-325 Mg) 1 tab Q4H PRN PO 02/22/17 22:45 (Morphine Inj) 2 mg Q3H PRN IV 02/22/17 22:45 02/28/17 03:31 (Amelia-Colace) 1 tab BID PO 02/23/17 09:00 02/28/17 10:33 (Milk Of Magnesia Liq) 30 ml Q12H PRN PO 02/22/17 22:45 (Senokot) 17.2 mg Q12H PRN PO 02/22/17 22:45 (Dulcolax Supp) 10 mg DAILY PRN RECTAL 02/22/17 22:45 (Lactulose Liq) 30 ml DAILY PRN PO 02/22/17 22:45 (Aspirin Chew) 81 mg DAILY CHEW 02/23/17 09:00 Hold 02/26/17 10:02 (Lipitor) 20 mg HS PO 02/23/17 21:00 02/27/17 20:53 (Lanoxin) 0.125 mg DAILY PO 02/23/17 09:00 02/28/17 10:33 (Flomax) 0.4 mg HS PO 02/23/17 21:00 02/27/17 20:53 (Cardizem) 60 mg QID PO 02/23/17 12:00 02/28/17 13:43 (Tears Naturale Opth Soln) 1 drop Q2H PRN EACH EYE 02/24/17 15:00 02/24/17 14:49 Furosemide 40 mg 40 mg DAILY PO 02/25/17 12:30 Hold 02/25/17 13:09 (NS 1000 ml Inj) 1,000 ml @ 10 mls/hr Q24H IV 02/25/17 20:00 02/27/17 20:54 (Jayashree 128 5% Opth Oint) 1 applic HS EACH EYE 02/26/17 21:00 02/27/17 20:54 Sodium Chloride 1 drop 1 drop QID EACH EYE 02/26/17 18:00 02/28/17 13:43 (Ancef 2 Gm Premix) 50 ml @ 150 mls/hr Q8H IV 02/26/17 18:00 02/28/17 10:32 (Eliquis) 5 mg BID PO 02/26/17 21:00 02/28/17 10:33 (Xanax) 0.25 mg Q6H PRN PO 02/27/17 13:00 (SoluMEDROL INJ) 40 mg BID IV PUSH 02/27/17 21:00 02/28/17 10:32 A/P Problem List: (1) Hypoxia ICD Code: R09.02 Status: Acute (2) CHF (congestive heart failure) ICD Code: I50.9 Status: Acute (3) Lung cancer ICD Code: C34.90 Status: Acute (4) A-fib ICD Code: I48.91 Status: Acute (5) HTN (hypertension) ICD Code: I10 Status: Acute Assessment and Plan Sepsis/ Bacteremia He was found to be febrile up to 104 so vancomycin and Zosyn were ordered. He was pancultured. Blood cultures growing 4/4 MSSA. UA indicative of possible infection. Pt recently had an echo without evidence of vegetation. ID consult appreciated. Source likely port. - continue IV cefazolin per ID. D/c vancomycin. - follow repeat cultures. - Tylenol as needed. Hypoxemia Multifactorial. The pt has stage IV Lung CA, COPD and CHF. CXR w/ intra- alveolar pulmonary edema. Pulmonology consult appreciated. CT scan noted, no acute changes. The patient required a simple mask and was saturating low on that. He was also quite tremulous. A Halicat was called. The patient was started on BiPAP. IV Solu-Medrol, IV Lasix were ordered. He received fluids for sepsis. Repeat CXR with evidence of volume overload. - oxygen and nebs as needed. Add standing nebs. - incentive spirometry. - pulmonology f/u. - PFTs ordered. - BiPAP as needed. - palliative care consult appreciated. Start low dose Xanax as needed. CHF/ Elevated troponin/ A fib Follows w/ Dr. Sotelo as an outpatient. Echo with normal EF, trace MR, trace TR. Evidence of volume overload. Elevated troponin likely s/t sepsis. Appreciate cardiology consult. - follow up with cardiology. - monitor I/O. - monitor on telemetry. - resume anticoagulation. Lung CA Stage IV, currently on Chemo. Significant reason for his hypoxemia. - Continue w/ treatment as planned. His notified his oncologist, Dr. Muhammad, about the current status of the pt. - PT/ OT. - Port removed for infection as above. Blurry vision Chronic, but more prolonged. CT of the brain negative for an acute process. Appreciate ophtho consult. Improved. - continue eye drops. HTN BP 170's on arrival. Improved. - Resume home medications. DVT Prophylaxis: Eliquis Discharge Planning Transfer to the floor Juan Luis Perea DO Feb 28, 2017 13:58
[2017-02-28] MEDS ORDERED: RESP: ALBUTEROL 2.5 MG/IPRATROPIUM 0.5 MG NEB (PRN) NEB (16:00)
--- NOTE | 2017-02-28 17:17 | HHI.HCPN ---
Reason for visit a. To assist with evaluation and management of symptoms including: dyspnea, anxiety b. To assist medical decision maker(s) with: better understanding of current medical conditions; weighing benefits/burdens of medical treatment options; making medical treatment decisions. Subjective/Interval History Mr. Ramos is awake, alert, and in good spirits at time of my visit. He is feeling much better. He has been out of bed and has ambulated. He is afebrile. Orders are in place to have him transfer out of the SICU. Still having some SOB and still requiring 02 via NC at 6 L/min. Denies chest pain. Denies other pain. No other complaints. Afebrile. Other VS stable. Urine output good. Last BM 02/25/17. WBC 14.2. Hg 9.3; Renal function stable. No new imaging today. . Family/friend interactions at bedside. Discussed how he will f/u with Dr. Muhammad as outpatient. Discussed how Dr. Muhammad will probably want to postpone further cancer directed therapies until he is sure that this infection is completely resolved. . Objective Vital Signs Date Time Temp Pulse Resp B/P Pulse Ox O2 Delivery O2 Flow Rate FiO2 02/28/17 16:00 97.3 77 23 148/66 93 02/28/17 12:00 97.3 79 17 155/69 92 02/28/17 09:31 91 Nasal Cannula 6.00 02/28/17 08:00 97.2 72 23 163/71 90 02/28/17 07:00 90 Nasal Cannula 5.00 02/28/17 04:00 96.4 71 21 143/66 93 02/28/17 03:36 16 02/28/17 00:00 97.0 80 23 144/69 91 02/27/17 20:00 97.6 80 15 139/65 90 02/27/17 19:40 98 Nasal Cannula 5.00 02/27/17 19:00 92 Nasal Cannula 5.00 Intake & Output 02/28/17 02/28/17 07:00 19:00 Intake Total 1711 ml 843 ml Output Total 1000 ml 500 ml Balance 711 ml 343 ml Intake Oral 960 ml 600 ml IV Total 751 ml 243 ml Output Urine Total 1000 ml 500 ml # Bowel Movements 0 0 . Physical Exam CONSTITUTIONAL/GENERAL: This is an adequately nourished patient, in no apparent distress, alert pleasant, conversational. TUBES/LINES/DRAINS: PIV upper extremity, NC, barker catheter . SKIN: No jaundice, rashes, or lesions. several areas Ecchymoses on upper extremities. skin warm,dry CARDIOVASCULAR: Irregular rate and rhythm without murmurs. RESPIRATORY/CHEST: Symmetric, unlabored respirations. On NC. Clear to auscultation, decreased air movement. Breath sounds equal bilaterally. GASTROINTESTINAL: Abdomen soft,round, non-tender, nondistended. No palpable masses. No guarding. Bowel sounds present. GENITOURINARY: Without palpable bladder distension. Barker catheter in place clear yellow MUSCULOSKELETAL: Extremities without clubbing, cyanosis, or edema. No mottling or clubbing. NEUROLOGICAL: Awake and alert. Oriented, appropriate, good insight. Moves all 4 extremities well, equal. + rt facial droop PSYCHIATRIC: No obvious anxiety/depression. no apparent hallucinations or other psychotic thought process. . Diagnostic Tests Laboratory Laboratory Tests Test 02/25/17 02/26/17 02/26/17 02/26/17 17:30 04:02 08:42 09:26 White Blood Count 6.0 TH/MM3 12.1 TH/MM3 (4.0-11.0) (4.0-11.0) Red Blood Count 3.24 MIL/MM3 3.04 MIL/MM3 (4.50-5.90) (4.50-5.90) Hemoglobin 10.9 GM/DL 10.3 GM/DL (13.0-17.0) (13.0-17.0) Hematocrit 32.8 % 30.5 % (39.0-51.0) (39.0-51.0) Mean Corpuscular Volume 101.4 FL 100.4 FL (80.0-100.0) (80.0-100.0) Mean Corpuscular Hemoglobin 33.7 PG 34.0 PG (27.0-34.0) (27.0-34.0) Mean Corpuscular Hemoglobin 33.3 % 33.8 % Concent (32.0-36.0) (32.0-36.0) Red Cell Distribution Width 19.3 % 19.5 % (11.6-17.2) (11.6-17.2) Platelet Count 230 TH/MM3 159 TH/MM3 (150-450) (150-450) Mean Platelet Volume 8.1 FL 7.7 FL (7.0-11.0) (7.0-11.0) Neutrophils (%) (Auto) 90.9 % 92.0 % (16.0-70.0) (16.0-70.0) Lymphocytes (%) (Auto) 2.5 % 1.8 % (9.0-44.0) (9.0-44.0) Monocytes (%) (Auto) 5.8 % (0.0-8.0) 6.0 % (0.0-8.0) Eosinophils (%) (Auto) 0.4 % (0.0-4.0) 0.0 % (0.0-4.0) Basophils (%) (Auto) 0.4 % (0.0-2.0) 0.2 % (0.0-2.0) Neutrophils # (Auto) 5.4 TH/MM3 11.1 TH/MM3 (1.8-7.7) (1.8-7.7) Lymphocytes # (Auto) 0.1 TH/MM3 0.2 TH/MM3 (1.0-4.8) (1.0-4.8) Monocytes # (Auto) 0.3 TH/MM3 0.7 TH/MM3 (0-0.9) (0-0.9) Eosinophils # (Auto) 0.0 TH/MM3 0.0 TH/MM3 (0-0.4) (0-0.4) Basophils # (Auto) 0.0 TH/MM3 0.0 TH/MM3 (0-0.2) (0-0.2) CBC Comment AUTO DIFF AUTO DIFF Differential Total Cells 100 100 Counted Neutrophils % (Manual) 79 % (16-70) 62 % (16-70) Band Neutrophils % 11 % (0-6) 31 % (0-6) Lymphocytes % 7 % (9-44) 1 % (9-44) Monocytes % 2 % (0-8) 6 % (0-8) Neutrophils # (Manual) 5.5 TH/MM3 11.3 TH/MM3 (1.8-7.7) (1.8-7.7) Myelocytes 1 % (0-0) Nucleated Red Blood Cells 3 /100 WBC 1 /100 WBC (0-0) (0-0) Differential Comment FINAL DIFF FINAL DIFF MANUAL MANUAL Platelet Estimate NORMAL NORMAL (NORMAL) (NORMAL) Platelet Morphology Comment NORMAL CLUMPED (NORMAL) (NORMAL) Urine Color YELLOW (YELLW/STRAW) Urine Turbidity CLEAR (CLEAR) Urine pH 5.5 (5.0-8.5) Urine Specific Dike 1.011 (1.002-1.035) Urine Protein 30 mg/dL (NEG-TRACE) Urine Glucose (UA) NEG mg/dL (NEG) Urine Ketones NEG mg/dL (NEG) Urine Occult Blood SMALL (NEG) Urine Nitrite NEG (NEG) Urine Bilirubin NEG (NEG) Urine Urobilinogen LESS THAN 2.0 MG/DL (LESS THAN 2.0) Urine Leukocyte Esterase TRACE (NEG) Urine RBC 2 /hpf (0-3) Urine WBC 2 /hpf (0-5) Urine Squamous Epithelial <1 /hpf (0-5) Cells Urine Amorphous Sediment RARE Urine Bacteria RARE /hpf (NONE) Urine Hyaline Casts 1 /lpf (RARE) Microscopic Urinalysis Comment CATH-CULTURE IND Nasal Screen MRSA (PCR) MRSA NOT DETECTED (NOT DETECT) Sodium Level 136 MEQ/L 138 MEQ/L (136-145) (136-145) Potassium Level 5.0 MEQ/L 4.3 MEQ/L (3.5-5.1) (3.5-5.1) Chloride Level 99 MEQ/L 102 MEQ/L (98-107) (98-107) Carbon Dioxide Level 25.3 MEQ/L 27.5 MEQ/L (21.0-32.0) (21.0-32.0) Anion Gap 12 MEQ/L (5-15) 9 MEQ/L (5-15) Blood Urea Nitrogen 24 MG/DL (7-18) 27 MG/DL (7-18) Creatinine 1.39 MG/DL 1.25 MG/DL (0.60-1.30) (0.60-1.30) Estimat Glomerular Filtration 50 ML/MIN (>89) 57 ML/MIN (>89) Rate Random Glucose 109 MG/DL 149 MG/DL (74-106) (74-106) Lactic Acid Level 4.7 mmol/L 2.3 mmol/L (0.4-2.0) (0.4-2.0) Calcium Level 8.5 MG/DL 7.9 MG/DL (8.5-10.1) (8.5-10.1) Total Bilirubin 1.3 MG/DL (0.2-1.0) Aspartate Amino Transf 72 U/L (15-37) (AST/SGOT) Alanine Aminotransferase 39 U/L (12-78) (ALT/SGPT) Alkaline Phosphatase 115 U/L (45-117) Troponin I 0.15 NG/ML 0.10 NG/ML (0.02-0.05) (0.02-0.05) Total Protein 7.0 GM/DL (6.4-8.2) Albumin 2.8 GM/DL (3.4-5.0) B-Type Natriuretic Peptide 115 PG/ML (0-100) Blood Gas Puncture Site RT RADIAL Blood Gas Patient Temperature 98.6 Blood Gas HCO3 26 mmol/L (22-26) Blood Gas Base Excess 2.2 mmol/L (-2-2) Blood Gas Oxygen Saturation 90 % (90-100) Arterial Blood pH 7.46 (7.380-7.420) Arterial Blood Partial 36 mmHg (38-42) Pressure CO2 Arterial Blood Partial 63 mmHg Pressure O2 (61-120) Arterial Blood Oxygen Content 13.2 Vol % (12.0-20.0) Arterial Blood 1.8 % (0-4) Carboxyhemoglobin Arterial Blood Methemoglobin 0.8 % (0-2) Blood Gas Hemoglobin 10.4 G/DL (12.0-16.0) Oxygen Delivery Device BIPAP Blood Gas Inspired Oxygen 40 % Test 02/26/17 02/27/17 02/28/17 02/28/17 13:22 17:04 01:40 04:29 Potassium Level 3.9 MEQ/L 3.9 MEQ/L (3.5-5.1) (3.5-5.1) Magnesium Level 2.1 MG/DL (1.5-2.5) White Blood Count 13.5 TH/MM3 14.2 TH/MM3 (4.0-11.0) (4.0-11.0) Red Blood Count 2.97 MIL/MM3 2.82 MIL/MM3 (4.50-5.90) (4.50-5.90) Hemoglobin 9.8 GM/DL 9.3 GM/DL (13.0-17.0) (13.0-17.0) Hematocrit 30.4 % 28.7 % (39.0-51.0) (39.0-51.0) Mean Corpuscular Volume 102.3 FL 101.6 FL (80.0-100.0) (80.0-100.0) Mean Corpuscular Hemoglobin 32.8 PG 32.9 PG (27.0-34.0) (27.0-34.0) Mean Corpuscular Hemoglobin 32.1 % 32.4 % Concent (32.0-36.0) (32.0-36.0) Red Cell Distribution Width 19.3 % 18.9 % (11.6-17.2) (11.6-17.2) Platelet Count 124 TH/MM3 110 TH/MM3 (150-450) (150-450) Mean Platelet Volume 8.0 FL 7.9 FL (7.0-11.0) (7.0-11.0) Neutrophils (%) (Auto) 89.4 % 88.6 % (16.0-70.0) (16.0-70.0) Lymphocytes (%) (Auto) 3.2 % 4.4 % (9.0-44.0) (9.0-44.0) Monocytes (%) (Auto) 7.2 % (0.0-8.0) 7.0 % (0.0-8.0) Eosinophils (%) (Auto) 0.0 % (0.0-4.0) 0.0 % (0.0-4.0) Basophils (%) (Auto) 0.2 % (0.0-2.0) 0.0 % (0.0-2.0) Neutrophils # (Auto) 12.1 TH/MM3 12.6 TH/MM3 (1.8-7.7) (1.8-7.7) Lymphocytes # (Auto) 0.4 TH/MM3 0.6 TH/MM3 (1.0-4.8) (1.0-4.8) Monocytes # (Auto) 1.0 TH/MM3 1.0 TH/MM3 (0-0.9) (0-0.9) Eosinophils # (Auto) 0.0 TH/MM3 0.0 TH/MM3 (0-0.4) (0-0.4) Basophils # (Auto) 0.0 TH/MM3 0.0 TH/MM3 (0-0.2) (0-0.2) CBC Comment AUTO DIFF AUTO DIFF Differential Total Cells 100 100 Counted Neutrophils % (Manual) 74 % (16-70) 78 % (16-70) Band Neutrophils % 13 % (0-6) 15 % (0-6) Lymphocytes % 3 % (9-44) 3 % (9-44) Monocytes % 7 % (0-8) 3 % (0-8) Neutrophils # (Manual) 12.2 TH/MM3 13.3 TH/MM3 (1.8-7.7) (1.8-7.7) Myelocytes 2 % (0-0) Promyelocytes 1 % (0-0) Differential Comment FINAL DIFF FINAL DIFF MANUAL MANUAL Platelet Estimate LOW (NORMAL) NORMAL (NORMAL) Platelet Morphology Comment NORMAL NORMAL (NORMAL) (NORMAL) Sodium Level 136 MEQ/L (136-145) Chloride Level 100 MEQ/L (98-107) Carbon Dioxide Level 27.5 MEQ/L (21.0-32.0) Anion Gap 9 MEQ/L (5-15) Blood Urea Nitrogen 38 MG/DL (7-18) Creatinine 1.28 MG/DL (0.60-1.30) Estimat Glomerular Filtration 55 ML/MIN (>89) Rate Random Glucose 123 MG/DL (74-106) Calcium Level 8.2 MG/DL (8.5-10.1) Vancomycin Level Trough 22.2 MCG/ML (5.0-10.0) Metamyelocytes 1 % (0-1) Nucleated Red Blood Cells 3 /100 WBC (0-0) Toxic Granulation 1+ (NORMAL) . Result Diagram: 02/28/17 0429 02/27/17 1704 Microbiology Microbiology Date/Time Procedure Status Source Growth 02/25/17 17:30 Urine Culture - Final Complete Urine Catheterized Urine NO GROWTH IN 48 HOURS. 02/25/17 17:45 Aerobic Blood Culture - Final Complete Blood Peripheral Staphylococcus Aureus 02/25/17 17:45 Anaerobic Blood Culture - Final Complete Staphylococcus Aureus 02/25/17 18:33 Aerobic Blood Culture - Final Complete Blood Peripheral Staphylococcus Aureus 02/25/17 18:33 Anaerobic Blood Culture - Final Complete Staphylococcus Aureus 02/27/17 15:25 Wound Culture - Preliminary Resulted Catheter Tip Central Venous Line 02/28/17 04:03 Aerobic Blood Culture Received Blood Peripheral Pending 02/28/17 04:03 Anaerobic Blood Culture Received Blood Peripheral Pending 02/28/17 04:12 Aerobic Blood Culture Received Blood Peripheral Pending 02/28/17 04:12 Anaerobic Blood Culture Received Blood Peripheral Pending . Imaging Last Impressions Port Line Revision 02/27/17 0000 Signed Impressions: Service Date/Time: Monday, February 27, 2017 00:00 - CONCLUSION: Uncomplicated port removal as above. Catheter tip was submitted for Gram stain and C&S. Wayne Betancur MD Chest X-Ray 02/26/17 0000 Signed Impressions: Service Date/Time: Sunday, February 26, 2017 08:14 - CONCLUSION: 1. Cardiomegaly with perivascular congestion. 2. Small right pleural effusion and associated right lower lobe airspace disease improved from prior exams. 3. Stable small to moderate left pleural effusion with associated airspace disease. Wayne Betancur MD Chest CT 02/25/17 0000 Signed Impressions: Service Date/Time: Saturday, February 25, 2017 09:58 - CONCLUSION: 1. Moderate sized simple appearing bilateral pleural effusions, mildly enlarged since 02/07/2017. 2. Improved diffuse bilateral groundglass opacities likely reflects improved positive fluid balance. 3. Slightly more prominent associated bilateral lower lobe airspace consolidation likely reflects progressive compressive atelectasis. 4. Previously noted 3 cm posterior medial left lower lobe mass is obscured by left lower lobe air space consolidation on current exam. 5. Severe coronary artery calcifications. 6. Stable very small pericardial effusion. Wayne Betancur MD Head CT 02/23/17 0000 Signed Impressions: Service Date/Time: Thursday, February 23, 2017 17:12 - CONCLUSION: 1. Mild periventricular and subcortical white matter small vessel ischemic changes bilaterally. 2. No acute infarct, acute hemorrhage, mass effect or extra- axial fluid collections. Dionte Barnes MD . Procedures * Port removal . Assessment and Plan Disease Oriented Problem List: (1) Sepsis Comment: Cultures show MSSA. . (2) Lung cancer, lower lobe Comment: Controlled with chemotherapy. No evidence of significant progression. . (3) CAD (coronary artery disease) (4) CHF (congestive heart failure) (5) Pulmonary edema (6) Hypoxia (7) A-fib (8) HTN (hypertension) (9) Status post coronary artery stent placement Symptom Scale: (1) Anxiety 0-10 Scale: Unable to quantify Comment: Minimal today. . (2) Dyspnea 0-10 Scale: Unable to quantify Comment: Managed with 02 via nasal cannula . (3) Malnutrition 0-10 Scale: Unable to quantify (4) Weakness 0-10 Scale: Unable to quantify Comment: Improving. . Pertinent Non-Medical Issues Psychosocial: Originally from [facility]. 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 , supported by his . + also supported by daughter, rachid, and 5 grandchildren. Spiritual:. rastafari Legal:Pt is alert, oriented, appears capacitated to make his own decisions. This may fluctuate with oxygenation status. Supported by his spouse Ethical issues impacting care: . Important Contacts spouse Moon [place] [phone] / [phone] . Prognosis This patient has an underlying stage IV non-small cell carcinoma of the lung, undergoing chemotherapy treatment with Dr. Muhammad. He was diagnosed in 2016, given a prognosis To live until August 2016. His disease has apparently responded well to chemotherapy and has not seen any increase in tumor burden. There is some question of COPD the patient indicates has not yet been formally diagnosed with this, hx 1-2 PPD smoker , COPD would be likely. Possible his conditions could be stabilized and with optimize medical management he could discharge home and continue to have some quality of life though long-term prognosis for survival will likely be limited by stage IV cancer, possible COPD exacerbations. Code Status: No Code Plan * Legal decision maker: Pt is alert, oriented, appears capacitated to make his own decisions. Supported by his spouse * Goals: Patient's goals are aggressive. As cancer has been well managed, he understandably wants to continue treatment course with the hopes that his disease process can be stabilized, and that he can return home to his prior quality of life. He does not desire CPR or artificial life support. He is open to ongoing review of conditions and goals as clinical course evolves * CODE STATUS: DNR * SYMPTOMS: --Dyspnea- Had progressively worsening SOB in days prior to ED presentation; underlying lung CA, probable COPD (though had not been formally Dx w COPD) ; currently tx with steroids, nebulizers, abx, BIPAP. Has responded well and now tolerating 02 via NC. No further recommendations at this time. --Anxiety- some mild anxiety accompanying episodes of shortness of breath; has order for low-dose Xanax 0.25mg PO Q 6 hr PRN -- not needing at this time. No further recommendations at this time. --Malnutrition-patient describes chronic lack of appetite/intermittent nausea with no vomiting for several days following his chemotherapy. He does indicate some weight loss though not exactly sure how much may be 20-30 pounds since sometime in 2016. Albumin is low 2.8. + Hypermetabolic state from COPD. Would benefit from high-calorie, high-protein supplement. --Weakness-patient describes generalized fatigue and weakness, activity limited by shortness of breath. Likely this is chronic deconditioning secondary to his cancer, chemotherapy, and pulmonary limitations. Recommend PT inpatient to maximize safe physical mobility, possible may benefit from home health at discharge * Will see if he has written advance directives somewhere and see if we can't get them scanned into our EMR. * Palliative care will continue to follow during hospital course as condition evolves, to assist patient/decision-maker with understanding of medical conditions, weighing benefits/burdens of treatment options, for clarification of goals of treatment. Additionally will assist with any symptoms of palliative concern Attestation To help prompt me to consider important information that might be impacting today's encounter and assessment, information from prior notes written by myself or my colleagues may have been "brought forward" into today's note. My signature on this note, however, is an attestation that I personally performed the exam, history, and/or decision-making noted today, and, unless otherwise indicated, the interactions with patient, family, and staff as well as the review of records all occurred today. I also attest that the listed assessment and stated plan reflect my best clinical judgment today based on the combination of historical information, prior notes, and today's exam/ interactions. When time spent is documented, it refers only to time spent today by the signer, or if indicated, combined time spent today by collaborating physician/nurse practitioner. . Brock Rodrigues MD Feb 28, 2017 17:16
[2017-02-28] MEDS: SODIUM CHLOR 0.9% 1000 ML INJ 1,000 ML IV SCH (20:00)
[2017-02-28] MEDS: TAMSULOSIN HCL 0.4 MG CAP PO SCH (22:14)
[2017-02-28] MEDS: ATORVASTATIN 20 MG TAB PO SCH (22:14)
[2017-02-28] MEDS: SODIUM CHLORIDE 5% OPHT OINT 3.5 GM TUBE EACH EYE SCH (22:16)
[2017-03-01] VITALS (8 sets, daily range): BP systolic 125–182; BP diastolic 68–90; PULSE 67–101; RESP 18–21; TEMP 95.5–97.3; O2SAT 92–96
[2017-03-01] MEDS: ceFAZolin 2 GM PREMIX 50 ML IV SCH ×3 (02:00→16:49)
[2017-03-01] MEDS: RESP: ALBUTEROL 2.5 MG/IPRATROPIUM 0.5 MG NEB (SCH) NEB ×3 (08:41→19:52)
[2017-03-01] MEDS: DOCUSATE SODIUM 50 MG/SENNA 8.6 MG TAB PO SCH ×2 (09:00→22:32)
[2017-03-01] MEDS: SODIUM CHLORIDE 0.9% FLUSH 10 ML FLUSH IV FLUSH SCH ×2 (09:00→22:30)
[2017-03-01] MEDS: SODIUM CHLORIDE 5% OPHT SOLN 15 ML BTL EACH EYE SCH ×4 (09:00→22:34)
[2017-03-01] MEDS: methylPREDNISolone SOD SUCC 40 MG/1 ML VIAL IV PUSH SCH (10:24)
[2017-03-01] MEDS: APIXABAN 5 MG TABLET PO SCH ×2 (10:24→22:30)
[2017-03-01] MEDS: DIGOXIN 0.125 MG TAB PO SCH (10:24)
[2017-03-01] MEDS: DILTIAZEM-CD 240 MG CAP ER PO SCH (10:28)
--- NOTE | 2017-03-01 11:08 | HHI.HCPN ---
Met with Mr. Ramos, also present. Mr. Ramos is alert, oriented, and able to make needs known. Pleasant throughout conversation. Appears to have a good understanding of his medical condition. Discussed advanced directives. He and his verbalize advanced directives (living will, health care surrogate) have been completed. to bring in documents over the weekend. Requested copies be provided for patient's chart. Will need to send to HIM to be scanned into EMR for future visits. Mr. Ramos verbalizes he does not wish to be kept alive by tubes and machines, confirms desire to be NO CODE. is reported health care surrogate, in absence of advanced directives she would be proxy per [place] Statutes. They both deny any questions or concerns at this time. Palliative care number provided. Palliative care will continue to follow throughout hospitalization. Светлана Chang, CHILD ADVOCATE Mar 01, 2017 11:08
--- NOTE | 2017-03-01 12:07 | HHI.PR ---
Subjective Remarks The patient was resting comfortably in bed. was at the bedside. He said that he wanted to be able to breathe better so he can walk around and to the movies and beach. He said he was feeling cold and the room temperature controller is not working that well. He said he has been sleepwalking and is concerned about that. He has been having bowel movements. Objective Vitals Vital Signs Date Time Temp Pulse Resp B/P Pulse Ox O2 Delivery O2 Flow Rate FiO2 03/01/17 08:42 94 Nasal Cannula 2.00 03/01/17 08:00 97.3 80 21 182/70 94 03/01/17 00:08 95.5 88 19 173/74 96 02/28/17 22:16 Nasal Cannula 2.00 70 02/28/17 20:12 95 Nasal Cannula 2.00 02/28/17 20:08 96.6 87 19 164/69 97 02/28/17 18:50 97.8 88 20 164/77 94 02/28/17 16:00 97.3 77 23 148/66 93 I/O 02/28/17 02/28/17 02/28/17 03/01/17 03/01/17 03/01/17 06:59 14:59 22:59 06:59 14:59 22:59 Intake Total 1093 ml 843 ml Output Total 500 ml 500 ml Balance 593 ml 343 ml Intake Oral 480 ml 600 ml IV Total 613 ml 243 ml Output Urine Total 500 ml 500 ml # Bowel Movements 0 0 Result Diagram: 02/28/17 0429 02/27/17 1704 Imaging Last Impressions Port Line Revision 02/27/17 0000 Signed Impressions: Service Date/Time: Monday, February 27, 2017 00:00 - CONCLUSION: Uncomplicated port removal as above. Catheter tip was submitted for Gram stain and C&S. Wayne Betancur MD Chest X-Ray 02/26/17 0000 Signed Impressions: Service Date/Time: Sunday, February 26, 2017 08:14 - CONCLUSION: 1. Cardiomegaly with perivascular congestion. 2. Small right pleural effusion and associated right lower lobe airspace disease improved from prior exams. 3. Stable small to moderate left pleural effusion with associated airspace disease. Wayne Betancur MD Chest CT 02/25/17 0000 Signed Impressions: Service Date/Time: Saturday, February 25, 2017 09:58 - CONCLUSION: 1. Moderate sized simple appearing bilateral pleural effusions, mildly enlarged since 02/07/2017. 2. Improved diffuse bilateral groundglass opacities likely reflects improved positive fluid balance. 3. Slightly more prominent associated bilateral lower lobe airspace consolidation likely reflects progressive compressive atelectasis. 4. Previously noted 3 cm posterior medial left lower lobe mass is obscured by left lower lobe air space consolidation on current exam. 5. Severe coronary artery calcifications. 6. Stable very small pericardial effusion. Wayne Betancur MD Head CT 02/23/17 0000 Signed Impressions: Service Date/Time: Thursday, February 23, 2017 17:12 - CONCLUSION: 1. Mild periventricular and subcortical white matter small vessel ischemic changes bilaterally. 2. No acute infarct, acute hemorrhage, mass effect or extra- axial fluid collections. Dionte Barnes MD Objective Remarks GENERAL: Pleasant elderly male in no acute distress. SKIN: Pale. HEENT: PERRLA, EOMI. No scleral icterus or conjunctival pallor. Chronic facial droop on the right. CARDIOVASCULAR: Irregularly irregular rhythm. No obvious murmurs to auscultation. No chest tenderness to palpation. RESPIRATORY: Clear to auscultation bilaterally. GASTROINTESTINAL: Abdomen soft, non-tender, nondistended. BS normal. MUSCULOSKELETAL: TR edema in the lower extremities. NEUROLOGICAL: Awake and alert. No focal neurologic deficits. Moving both upper and lower extremities spontaneously. PSYCH: Mood and affect appropriate. Procedures Port removal Medications and IVs Current Medications Medications (Trade) Dose Ordered Sig/Angie Route Start Time Stop Time Status Last Admin (NS Flush) 2 ml UNSCH PRN IV FLUSH 02/22/17 22:45 (NS Flush) 2 ml BID IV FLUSH 02/23/17 09:00 03/01/17 09:00 (Zofran Inj) 4 mg Q6H PRN IVP 02/22/17 22:45 02/26/17 22:52 (Tylenol) 650 mg Q6H PRN PO 02/22/17 22:45 02/25/17 13:09 ([place] 5-325 Mg) 1 tab Q4H PRN PO 02/22/17 22:45 (Amelia-Colace) 1 tab BID PO 02/23/17 09:00 02/28/17 10:33 (Milk Of Magnesia Liq) 30 ml Q12H PRN PO 02/22/17 22:45 (Senokot) 17.2 mg Q12H PRN PO 02/22/17 22:45 (Dulcolax Supp) 10 mg DAILY PRN RECTAL 02/22/17 22:45 (Lactulose Liq) 30 ml DAILY PRN PO 02/22/17 22:45 (Aspirin Chew) 81 mg DAILY CHEW 02/23/17 09:00 Hold 02/26/17 10:02 (Lipitor) 20 mg HS PO 02/23/17 21:00 02/28/17 22:14 (Lanoxin) 0.125 mg DAILY PO 02/23/17 09:00 03/01/17 10:24 (Flomax) 0.4 mg HS PO 02/23/17 21:00 02/28/17 22:14 (Tears Naturale Opth Soln) 1 drop Q2H PRN EACH EYE 02/24/17 15:00 02/24/17 14:49 Furosemide 40 mg 40 mg DAILY PO 02/25/17 12:30 Hold 02/25/17 13:09 (NS 1000 ml Inj) 1,000 ml @ 10 mls/hr Q24H IV 02/25/17 20:00 02/28/17 20:00 (Jayashree 128 5% Opth Oint) 1 applic HS EACH EYE 02/26/17 21:00 02/28/17 22:16 Sodium Chloride 1 drop 1 drop QID EACH EYE 02/26/17 18:00 03/01/17 09:00 (Ancef 2 Gm Premix) 50 ml @ 150 mls/hr Q8H IV 02/26/17 18:00 03/01/17 11:10 (Eliquis) 5 mg BID PO 02/26/17 21:00 03/01/17 10:24 (Cardizem Cd) 240 mg DAILY PO 03/01/17 09:00 03/01/17 10:28 (Deltasone) 20 mg BID PO 03/01/17 21:00 UNV A/P Problem List: (1) Hypoxia ICD Code: R09.02 Status: Acute (2) CHF (congestive heart failure) ICD Code: I50.9 Status: Acute (3) Lung cancer ICD Code: C34.90 Status: Acute (4) A-fib ICD Code: I48.91 Status: Acute (5) HTN (hypertension) ICD Code: I10 Status: Acute Assessment and Plan Sepsis/ Bacteremia He was found to be febrile up to 104 so vancomycin and Zosyn were ordered. He was pancultured. Blood cultures growing 4/4 MSSA. UA indicative of possible infection. Pt recently had an echo without evidence of vegetation. ID consult appreciated. Source likely port. Culture from port with no growth. - continue IV cefazolin per ID. D/c vancomycin. - follow repeat cultures. NGTD. - Tylenol as needed. Hypoxemia Multifactorial. The pt has stage IV Lung CA, COPD and CHF. CXR w/ intra- alveolar pulmonary edema. Pulmonology consult appreciated. CT scan noted, no acute changes. The patient required a simple mask and was saturating low on that. He was also quite tremulous. A Halicat was called. The patient was started on BiPAP. IV Solu-Medrol, IV Lasix were ordered. He received fluids for sepsis. Repeat CXR with evidence of volume overload. - oxygen and nebs as needed. Add standing nebs. - incentive spirometry. - pulmonology f/u. - PFTs ordered. - BiPAP as needed. - resume Lasix. CHF/ Elevated troponin/ A fib Follows w/ Dr. Sotelo as an outpatient. Echo with normal EF, trace MR, trace TR. Evidence of volume overload. Elevated troponin likely s/t sepsis. Appreciate cardiology consult. - follow up with cardiology. - monitor I/O. - monitor on telemetry. - resume anticoagulation. - resume Lasix. Lung CA Stage IV, currently on Chemo. Significant reason for his hypoxemia. Palliative care consult appreciated. - Continue w/ treatment as planned. His notified his oncologist, Dr. Muhammad, about the current status of the pt. - PT/ OT. - Port removed for infection as above. - palliative care following. Blurry vision Chronic, but more prolonged. CT of the brain negative for an acute process. Appreciate ophtho consult. Improved. - continue eye drops. HTN BP 170's on arrival. Still elevated. - change diltiazem to long-acting. - add lisinopril if needed. - Vasotec as needed. Thrombocytopenia Likely s/t sepsis. - continue to monitor and hold anticoagulation if continues to trend down. DVT Prophylaxis: Eliquis Discharge Planning Will need final ID recommendations for antibiotics and home health care. Anticipate 1-2 days Juan Luis Perea DO Mar 01, 2017 12:07
[2017-03-01] MEDS ORDERED: ENALAPRILAT 1.25 MG/ML VIAL IV PUSH PRN (12:15)
--- NOTE | 2017-03-01 12:16 | HHI.FF ---
Face to Face Verification Diagnosis: (1) Sepsis (2) Weakness (3) Dyspnea (4) Anxiety (5) Pulmonary edema (6) HTN (hypertension) (7) A-fib (8) Lung cancer (9) Hypoxia (10) CHF (congestive heart failure) (11) Bacteremia Physical Therapy Order: Evaluate and Treat, Improve ambulation, Strength and gait training Home Health Nursing Order: Medical education Signs/symptoms of disease process CHF education Oxygen administration education Medication education-adverse effect Nursing assessment with vital signs I have seen patient Carlos Ramos on 03/01/17. My clinical findings support the need for the requested home health care services because: Ltd mobility - disease progression Patient has SOB Deconditioned w/ increased weakness High risk of falls I certify that my clinical findings support that this patient is homebound because: Hx COPD- exertion dyspnea/weakness Unsafe to leave home unassisted Juan Luis Perea DO Mar 01, 2017 12:16
[2017-03-01 13:59] LABS: AUTOMATED NEUTROPHIL # 14.7 TH/MM3 (1.8-7.7); BASOPHIL % 0.2 % (0.0-2.0); HEMATOCRIT 33.2 % (39.0-51.0); LYMPHOCYTE # 0.7 TH/MM3 (1.0-4.8); MEAN CELL VOLUME 102.9 FL (80.0-100.0); MEAN CORPUSCULAR HEMOGLOBIN 33.3 PG (27.0-34.0); MEAN CORPUSCULAR HGB CONC 32.4 % (32.0-36.0); MONO % 6.1 % (0.0-8.0); NEUT % 89.7 % (16.0-70.0); PLATELET COUNT 90 TH/MM3 (150-450); RED BLOOD COUNT 3.22 MIL/MM3 (4.50-5.90); RED CELL DISTRIBUTION WIDTH 19.2 % (11.6-17.2); WHITE BLOOD COUNT 16.4 TH/MM3 (4.0-11.0)
[2017-03-01 14:04] LABS: HEMO FLAGS AUTO DIFF
[2017-03-01 14:13] LABS: BICARBONATE 25.4 MEQ/L (21.0-32.0); POTASSIUM 4.1 MEQ/L (3.5-5.1)
[2017-03-01 14:42] LABS: BANDS 6 % (0-6); CORRECTED NUCLEATED RBC 4 /100 WBC (0-0); METAMYELOCYTES 1 % (0-1); NEUTROPHIL # MANUAL DIFF 15.9 TH/MM3 (1.8-7.7); POLYS (SEG NEUTROPHILS) 90 % (16-70); WBC DIFF SAMPLE 100
[2017-03-01 14:43] LABS: PLATELET ESTIMATE SMEAR LOW (NORMAL); PLATELET MORPHOLOGY NORMAL (NORMAL); SCAN/DIFF FINAL DIFF MANUAL; TOXIC GRANULATION 2+ (NORMAL); TOXIC VACUOLATION PRESENT (NONE SEEN)
--- NOTE | 2017-03-01 19:49 | HHI.PR ---
Subjective Remarks 71 YOWM with Ca lung, COPD,CHF, sepsis Feels better On 02 5LNC No Fever Participates with PT Objective Vital Signs Vital Signs Date Time Temp Pulse Resp B/P Pulse Ox O2 Delivery O2 Flow Rate FiO2 03/01/17 16:00 97.2 100 21 125/68 92 03/01/17 12:00 97.3 101 18 125/75 92 03/01/17 09:00 Nasal Cannula 2.00 70 03/01/17 08:42 94 Nasal Cannula 2.00 03/01/17 08:00 97.3 80 21 182/70 94 03/01/17 00:08 95.5 88 19 173/74 96 02/28/17 22:16 Nasal Cannula 2.00 70 02/28/17 20:12 95 Nasal Cannula 2.00 02/28/17 20:08 96.6 87 19 164/69 97 I/O 02/28/17 02/28/17 02/28/17 03/01/17 03/01/17 03/01/17 07:00 15:00 23:00 07:00 15:00 23:00 Intake Total 1093 ml 843 ml 480 ml Output Total 500 ml 500 ml Balance 593 ml 343 ml 480 ml Intake Oral 480 ml 600 ml 480 ml IV Total 613 ml 243 ml Output Urine Total 500 ml 500 ml # Voids 3 # Bowel Movements 0 0 Result Diagram: 03/01/17 1346 03/01/17 1346 Objective Remarks GENERAL: MBMN WM,NAD SKIN: Warm and dry. HEAD: Normocephalic. EYES: No scleral icterus. No injection or drainage. NECK: Supple, trachea midline. No JVD or lymphadenopathy. CARDIOVASCULAR: Regular rate and rhythm without murmurs, gallops, or rubs. RESPIRATORY: Breath sounds equal bilaterally. No accessory muscle use. GASTROINTESTINAL: Abdomen soft, non-tender, nondistended. MUSCULOSKELETAL: No cyanosis, or edema. BACK: Nontender without obvious deformity. No CVA tenderness. A/P Assessment and Plan Ca lung COPD CHF AF Sepsis resolved PLAN: Cont Abx Diurease with Lasix Supplement 02 Cont Javad Menjivar MD Mar 01, 2017 19:49
[2017-03-01] MEDS ORDERED: predniSONE 20 MG TAB PO SCH (21:00)
[2017-03-01] MEDS: TAMSULOSIN HCL 0.4 MG CAP PO SCH (22:30)
[2017-03-01] MEDS: ATORVASTATIN 20 MG TAB PO SCH (22:30)
[2017-03-01] MEDS: SODIUM CHLOR 0.9% 1000 ML INJ 1,000 ML IV SCH (22:34)
[2017-03-01] MEDS: SODIUM CHLORIDE 5% OPHT OINT 3.5 GM TUBE EACH EYE SCH (22:35)
[2017-03-02] VITALS (11 sets, daily range): BP systolic 147–153; BP diastolic 66–72; PULSE 76–83; RESP 18–19; TEMP 96–97.3; O2SAT 93–99
[2017-03-02] MEDS: ceFAZolin 2 GM PREMIX 50 ML IV SCH ×3 (02:28→17:15)
[2017-03-02] MEDS: RESP: ALBUTEROL 2.5 MG/IPRATROPIUM 0.5 MG NEB (SCH) NEB ×3 (07:43→20:30)
[2017-03-02] MEDS: DILTIAZEM-CD 240 MG CAP ER PO SCH (09:56)
[2017-03-02] MEDS: DIGOXIN 0.125 MG TAB PO SCH (09:56)
[2017-03-02] MEDS: APIXABAN 5 MG TABLET PO SCH ×2 (09:57→21:14)
[2017-03-02] MEDS: predniSONE 20 MG TAB PO SCH (09:57)
[2017-03-02] MEDS: FUROSEMIDE 40 MG TAB PO SCH (09:57)
[2017-03-02] MEDS: SODIUM CHLORIDE 5% OPHT SOLN 15 ML BTL EACH EYE SCH ×4 (09:58→21:20)
[2017-03-02] MEDS: SODIUM CHLORIDE 0.9% FLUSH 10 ML FLUSH IV FLUSH SCH ×2 (09:58→21:00)
[2017-03-02] MEDS: DOCUSATE SODIUM 50 MG/SENNA 8.6 MG TAB PO SCH ×2 (10:02→21:00)
--- NOTE | 2017-03-02 10:37 | HHI.PR ---
Subjective Remarks No overnight events, no fever or chills. Has oxygen at home. Mild shortness of breath with ambulation but otherwise doing fine. Objective Vitals Vital Signs Date Time Temp Pulse Resp B/P Pulse Ox O2 Delivery O2 Flow Rate FiO2 03/02/17 09:58 95 Nasal Cannula 4.00 03/02/17 08:00 96.0 76 19 147/68 95 03/02/17 07:46 99 Nasal Cannula 4.00 03/02/17 04:00 97.2 80 18 152/70 96 03/02/17 00:00 96.9 82 18 153/72 96 03/01/17 22:20 95 Nasal Cannula 5.00 03/01/17 20:12 67 03/01/17 20:00 96.1 82 18 127/90 95 03/01/17 19:54 96 Nasal Cannula 5.00 03/01/17 16:00 97.2 100 21 125/68 92 03/01/17 12:00 97.3 101 18 125/75 92 I/O 03/01/17 03/01/17 03/01/17 03/02/17 03/02/17 03/02/17 07:00 15:00 23:00 07:00 15:00 23:00 Intake Total 480 ml 200 ml Output Total 500 ml Balance 480 ml -500 ml 200 ml Intake Oral 480 ml IV Total 200 ml Output Urine Total 500 ml # Voids 3 1 Result Diagram: 03/01/17 1346 03/01/17 1346 Objective Remarks GENERAL: Pleasant elderly male in no acute distress. SKIN: Pale. HEENT: PERRLA, EOMI. No scleral icterus or conjunctival pallor. Chronic facial droop on the right. CARDIOVASCULAR: Irregularly irregular rhythm. RESPIRATORY: Clear to auscultation bilaterally. GASTROINTESTINAL: Abdomen soft, non-tender, nondistended. BS normal. MUSCULOSKELETAL: TR edema in the lower extremities. NEUROLOGICAL: Awake and alert. No focal neurologic deficits. Moving both upper and lower extremities spontaneously. PSYCH: Mood and affect appropriate. Procedures Port removal A/P Problem List: (1) Hypoxia ICD Code: R09.02 Status: Acute (2) CHF (congestive heart failure) ICD Code: I50.9 Status: Acute (3) Lung cancer ICD Code: C34.90 Status: Acute (4) A-fib ICD Code: I48.91 Status: Acute (5) HTN (hypertension) ICD Code: I10 Status: Acute Assessment and Plan Sepsis/ Bacteremia He was found to be febrile up to 104 so vancomycin and Zosyn were ordered. He was pancultured. Blood cultures growing 4/4 MSSA. UA indicative of possible infection. Pt recently had an echo without evidence of vegetation. ID consult appreciated. Source likely port. Culture from port with no growth. Port removed , repeat blood culture negative to date for 2 days. Continue cefazolin per infectious disease. Awaiting final input Hypoxemia Multifactorial. The pt has stage IV Lung CA, COPD and CHF. CXR w/ intra- alveolar pulmonary edema. Pulmonology consult appreciated. CT scan noted, no acute changes. The patient required a simple mask and was saturating low on that. He was also quite tremulous. A Halicat was called. The patient was started on BiPAP. IV Solu-Medrol, IV Lasix were ordered. He received fluids for sepsis. Repeat CXR with evidence of volume overload. Continue duo nebs, oxygen support, wean oxygen. Continue incentive spirometry. Pulmonary following. Continue Lasix CHF/ Elevated troponin/ A fib Follows w/ Dr. Sotelo as an outpatient. Echo with normal EF, trace MR, trace TR. Evidence of volume overload. Elevated troponin likely s/t sepsis. Appreciate cardiology consult. Continue anticoagulation and Lasix. Lung CA Stage IV, currently on Chemo. Significant reason for his hypoxemia. Palliative care consult appreciated. - Continue w/ treatment as planned. His notified his oncologist, Dr. Muhammad, about the current status of the pt. - PT/ OT. - Port removed for infection as above. - palliative care following. Blurry vision Chronic, but more prolonged. CT of the brain negative for an acute process. Appreciate ophtho consult. Improved. - continue eye drops. HTN BP 170's on arrival. Still elevated. -Continue Cardizem, lisinopril and Vasotec as needed. Thrombocytopenia Likely s/t sepsis. - continue to monitor and hold anticoagulation if continues to trend down. DVT Prophylaxis: Eliquis Discharge Planning Discharge tomorrow or Saturday with home health care, awaiting final input from infectious disease. Kojo Leslie MD Mar 02, 2017 10:37 - continue to monitor and hold anticoagulation if continues to trend down. DVT Prophylaxis: Eliquis Discharge Planning Will need final ID recommendations for antibiotics and home health care. Anticipate 1-2 days Kojo Leslie MD Mar 02, 2017 10:37
--- NOTE | 2017-03-02 15:34 | HHI.PR ---
Subjective Remarks 71 YOWM with Ca lung, COPD,CHF, sepsis Feels better On 02 4LNC No Fever Participates with PT Up in chair at BS Appetite great. Objective Vital Signs Vital Signs Date Time Temp Pulse Resp B/P Pulse Ox O2 Delivery O2 Flow Rate FiO2 03/02/17 12:12 83 03/02/17 12:00 96.8 83 19 150/68 96 03/02/17 09:58 95 Nasal Cannula 4.00 03/02/17 08:21 76 03/02/17 08:00 96.0 76 19 147/68 95 03/02/17 07:46 99 Nasal Cannula 4.00 03/02/17 04:00 97.2 80 18 152/70 96 03/02/17 00:00 96.9 82 18 153/72 96 03/01/17 22:20 95 Nasal Cannula 5.00 03/01/17 20:12 67 03/01/17 20:00 96.1 82 18 127/90 95 03/01/17 19:54 96 Nasal Cannula 5.00 03/01/17 16:00 97.2 100 21 125/68 92 I/O 03/01/17 03/01/17 03/01/17 03/02/17 03/02/17 03/02/17 07:00 15:00 23:00 07:00 15:00 23:00 Intake Total 480 ml 200 ml 247 ml Output Total 500 ml Balance 480 ml -500 ml 200 ml 247 ml Intake Oral 480 ml IV Total 200 ml 247 ml Output Urine Total 500 ml # Voids 3 1 Result Diagram: 03/01/17 1346 03/01/17 1346 Objective Remarks GENERAL: MBMN WM,NAD SKIN: Warm and dry. HEAD: Normocephalic. EYES: No scleral icterus. No injection or drainage. NECK: Supple, trachea midline. No JVD or lymphadenopathy. CARDIOVASCULAR: Regular rate and rhythm without murmurs, gallops, or rubs. RESPIRATORY: Breath sounds equal bilaterally. No accessory muscle use. GASTROINTESTINAL: Abdomen soft, non-tender, nondistended. MUSCULOSKELETAL: No cyanosis, or edema. BACK: Nontender without obvious deformity. No CVA tenderness. A/P Assessment and Plan Ca lung COPD CHF AF Sepsis resolved PLAN: Cont Abx Diurease with Lasix Supplement Cont Javad Menjivar MD Mar 02, 2017 15:34
--- NOTE | 2017-03-02 19:36 | HHI.IDPN ---
Subjective Subjective Remarks doing well no fevers sp PORT removal repet blood clx negative 2 D echo w/o vegetations Antibiotics cafazolin vancomycin Allergies: Coded Allergies: No Known Allergies (Unverified , 01/28/17) Objective . Vital Signs Date Time Temp Pulse Resp B/P Pulse Ox O2 Delivery O2 Flow Rate FiO2 03/02/17 16:00 97.1 83 19 148/69 95 03/02/17 12:12 83 03/02/17 12:00 96.8 83 19 150/68 96 03/02/17 09:58 95 Nasal Cannula 4.00 03/02/17 08:21 76 03/02/17 08:00 96.0 76 19 147/68 95 03/02/17 07:46 99 Nasal Cannula 4.00 03/02/17 04:00 97.2 80 18 152/70 96 03/02/17 00:00 96.9 82 18 153/72 96 03/01/17 22:20 95 Nasal Cannula 5.00 03/01/17 20:12 67 03/01/17 20:00 96.1 82 18 127/90 95 03/01/17 19:54 96 Nasal Cannula 5.00 03/01/17 03/01/17 03/02/17 15:00 23:00 07:00 Intake Total 480 ml 200 ml Output Total 500 ml Balance 480 ml -500 ml 200 ml Intake Oral 480 ml IV Total 200 ml Output Urine Total 500 ml # Voids 3 1 . Laboratory Tests Test 03/01/17 13:46 White Blood Count 16.4 TH/MM3 Red Blood Count 3.22 MIL/MM3 Hemoglobin 10.7 GM/DL Hematocrit 33.2 % Mean Corpuscular Volume 102.9 FL Mean Corpuscular Hemoglobin 33.3 PG Mean Corpuscular Hemoglobin 32.4 % Concent Red Cell Distribution Width 19.2 % Platelet Count 90 TH/MM3 Mean Platelet Volume 8.5 FL Neutrophils (%) (Auto) 89.7 % Lymphocytes (%) (Auto) 4.0 % Monocytes (%) (Auto) 6.1 % Eosinophils (%) (Auto) 0.0 % Basophils (%) (Auto) 0.2 % Neutrophils # (Auto) 14.7 TH/MM3 Lymphocytes # (Auto) 0.7 TH/MM3 Monocytes # (Auto) 1.0 TH/MM3 Eosinophils # (Auto) 0.0 TH/MM3 Basophils # (Auto) 0.0 TH/MM3 CBC Comment AUTO DIFF Differential Total Cells 100 Counted Neutrophils % (Manual) 90 % Band Neutrophils % 6 % Lymphocytes % 2 % Monocytes % 1 % Neutrophils # (Manual) 15.9 TH/MM3 Metamyelocytes 1 % Nucleated Red Blood Cells 4 /100 WBC Differential Comment FINAL DIFF MANUAL Toxic Granulation 2+ Toxic Vacuolation PRESENT Platelet Estimate LOW Platelet Morphology Comment NORMAL Laboratory Tests Test 03/01/17 13:46 Sodium Level 139 MEQ/L Potassium Level 4.1 MEQ/L Chloride Level 102 MEQ/L Carbon Dioxide Level 25.4 MEQ/L Anion Gap 12 MEQ/L Blood Urea Nitrogen 36 MG/DL Creatinine 1.19 MG/DL Estimat Glomerular Filtration 60 ML/MIN Rate Random Glucose 130 MG/DL Calcium Level 8.8 MG/DL Microbiology Date/Time Procedure Status Source Growth 02/28/17 04:03 Aerobic Blood Culture - Preliminary Resulted Blood Peripheral NO GROWTH IN 2 DAYS 02/28/17 04:03 Anaerobic Blood Culture - Preliminary Resulted Blood Peripheral NO GROWTH IN 2 DAYS 02/28/17 04:12 Aerobic Blood Culture - Preliminary Resulted Blood Peripheral NO GROWTH IN 2 DAYS 02/28/17 04:12 Anaerobic Blood Culture - Preliminary Resulted Blood Peripheral NO GROWTH IN 2 DAYS Imaging Last Impressions Chest X-Ray 02/26/17 0000 Signed Impressions: Service Date/Time: Sunday, February 26, 2017 08:14 - CONCLUSION: 1. Cardiomegaly with perivascular congestion. 2. Small right pleural effusion and associated right lower lobe airspace disease improved from prior exams. 3. Stable small to moderate left pleural effusion with associated airspace disease. Wayne Betancur MD Chest CT 02/25/17 0000 Signed Impressions: Service Date/Time: Saturday, February 25, 2017 09:58 - CONCLUSION: 1. Moderate sized simple appearing bilateral pleural effusions, mildly enlarged since 02/07/2017. 2. Improved diffuse bilateral groundglass opacities likely reflects improved positive fluid balance. 3. Slightly more prominent associated bilateral lower lobe airspace consolidation likely reflects progressive compressive atelectasis. 4. Previously noted 3 cm posterior medial left lower lobe mass is obscured by left lower lobe air space consolidation on current exam. 5. Severe coronary artery calcifications. 6. Stable very small pericardial effusion. Wayne Betancur MD Head CT 02/23/17 0000 Signed Impressions: Service Date/Time: Thursday, February 23, 2017 17:12 - CONCLUSION: 1. Mild periventricular and subcortical white matter small vessel ischemic changes bilaterally. 2. No acute infarct, acute hemorrhage, mass effect or extra- axial fluid collections. Dionte Barnes MD Physical Exam CONSTITUTIONAL/GENERAL: This is an obses elderly patient, in no apparent distress.OOB in a chair TUBES/LINES/DRAINS: dressing over R chest, intact SKIN: No jaundice, rashes, or lesions. Skin temperature appropriate. Not diaphoretic. HEAD: R facial droop ( chronic) Surgically absent R pinna EYES: Pupils equal. round. Extraocular motions intact. No scleral icterus. No injection or drainage. Fundi not examined. R eyelid droop (chronic) ENT: Hearing grossly normal. Nose without bleeding or purulent drainage. Throat without visible erythema, exudates, masses, or lesions. CARDIOVASCULAR: Regular rate and rhythm without murmurs, gallops, or rubs. No JVD. Peripheral pulses symmetric. RESPIRATORY/CHEST: Symmetric, unlabored respirations. Clear to auscultation. Breath sounds equal bilaterally. No wheezes, rales, or rhonchi. GASTROINTESTINAL: Abdomen soft, non-tender, nondistended. No hepato-splenomegaly , or palpable masses. No guarding. Bowel sounds present. MUSCULOSKELETAL: Extremities without clubbing, cyanosis, tight 3+ BLE edema. No mottling or clubbing. NEUROLOGICAL: Awake and alert. Motor and sensory grossly within normal limits. Follows commands. Clear speech . Moves all extremities. PSYCHIATRIC: calm and cooperative Assessment & Plan Remarks Stage IV non small lung CA, on chemotherapy Resp distress - reason for admission COPD /CHF exacerabation Staph aureaus sepsis, likley PORT infection - confirmed MSSA - port was removed Leukocytosis, bandemia 2/2 MSSA sepsis fu blood clx - if repeat blood clx negative pt can get PICC and be discharged home on IV abc cont cefazolin Vale Mccall MD Mar 02, 2017 19:36
[2017-03-02] MEDS: TAMSULOSIN HCL 0.4 MG CAP PO SCH (21:13)
[2017-03-02] MEDS: ATORVASTATIN 20 MG TAB PO SCH (21:13)
[2017-03-02] MEDS: SODIUM CHLORIDE 5% OPHT OINT 3.5 GM TUBE EACH EYE SCH (21:22)
[2017-03-02] MEDS: SODIUM CHLOR 0.9% 1000 ML INJ 1,000 ML IV SCH (21:23)
[2017-03-03] VITALS: BP 147/67; PULSE 75; PULSE 82; RESP 18; TEMP 97.6; O2SAT 94
[2017-03-03] MEDS: ceFAZolin 2 GM PREMIX 50 ML IV SCH ×3 (02:56→16:35)
[2017-03-03 04:00] VITALS: BP 144/67; PULSE 75; PULSE 76; RESP 16; TEMP 97.1; O2SAT 94
[2017-03-03 06:45] LABS: AUTOMATED NEUTROPHIL # 15.7 TH/MM3 (1.8-7.7); BASOPHIL % 0.1 % (0.0-2.0); EOSINOPHIL % 0.1 % (0.0-4.0); HEMATOCRIT 28.4 % (39.0-51.0); LYMPH % 8.6 % (9.0-44.0); LYMPHOCYTE # 1.6 TH/MM3 (1.0-4.8); MEAN CELL VOLUME 102.9 FL (80.0-100.0); MEAN CORPUSCULAR HEMOGLOBIN 33.3 PG (27.0-34.0); MEAN CORPUSCULAR HGB CONC 32.3 % (32.0-36.0); MONO % 9.3 % (0.0-8.0); NEUT % 81.9 % (16.0-70.0); PLATELET COUNT 86 TH/MM3 (150-450); RED BLOOD COUNT 2.76 MIL/MM3 (4.50-5.90); RED CELL DISTRIBUTION WIDTH 19.6 % (11.6-17.2); WHITE BLOOD COUNT 19.2 TH/MM3 (4.0-11.0)
[2017-03-03 07:01] LABS: HEMO FLAGS AUTO DIFF
[2017-03-03 07:13] LABS: POTASSIUM 3.9 MEQ/L (3.5-5.1)
[2017-03-03 08:00] VITALS: BP 155/80; PULSE 75; RESP 18; TEMP 96.4; O2SAT 95
[2017-03-03] MEDS: DOCUSATE SODIUM 50 MG/SENNA 8.6 MG TAB PO SCH (09:00)
[2017-03-03 09:09] VITALS: O2SAT 95
[2017-03-03] MEDS: RESP: ALBUTEROL 2.5 MG/IPRATROPIUM 0.5 MG NEB (SCH) NEB ×2 (09:09→14:00)
[2017-03-03 09:33] LABS: BANDS 8 % (0-6); CORRECTED NUCLEATED RBC 2 /100 WBC (0-0); METAMYELOCYTES 3 % (0-1); MYELOCYTES 2 % (0-0); NEUTROPHIL # MANUAL DIFF 17.7 TH/MM3 (1.8-7.7); POLYS (SEG NEUTROPHILS) 78 % (16-70); PROMYELOCYTES 1 % (0-0); WBC DIFF SAMPLE 100
[2017-03-03 09:34] LABS: PLATELET ESTIMATE SMEAR LOW (NORMAL); PLATELET MORPHOLOGY NORMAL (NORMAL); SCAN/DIFF FINAL DIFF MANUAL
[2017-03-03] MEDS: APIXABAN 5 MG TABLET PO SCH (09:51)
[2017-03-03] MEDS: DIGOXIN 0.125 MG TAB PO SCH (09:51)
[2017-03-03] MEDS: predniSONE 20 MG TAB PO SCH (09:51)
[2017-03-03] MEDS: DILTIAZEM-CD 240 MG CAP ER PO SCH (09:51)
[2017-03-03] MEDS: FUROSEMIDE 40 MG TAB PO SCH (09:51)
[2017-03-03] MEDS: SODIUM CHLORIDE 0.9% FLUSH 10 ML FLUSH IV FLUSH SCH (09:52)
[2017-03-03] MEDS: SODIUM CHLORIDE 5% OPHT SOLN 15 ML BTL EACH EYE SCH ×3 (09:53→16:57)
[2017-03-03] MEDS ORDERED: CARD240C6 PO (10:01)
[2017-03-03] MEDS ORDERED: APIX5TAB PO (10:01)
--- NOTE | 2017-03-03 10:02 | HHI.PR ---
Subjective Remarks Follow-up for bacteremia No overnight events, patient still feels good, no shortness of breath, nausea, vomiting or diarrhea. Objective Vitals Vital Signs Date Time Temp Pulse Resp B/P Pulse Ox O2 Delivery O2 Flow Rate FiO2 03/03/17 09:09 95 Nasal Cannula 03/03/17 08:00 96.4 75 18 155/80 95 03/03/17 04:00 75 03/03/17 04:00 97.1 76 16 144/67 94 03/03/17 02:59 Nasal Cannula 2.50 03/03/17 00:00 97.6 82 18 147/67 94 03/03/17 00:00 75 03/02/17 20:55 Nasal Cannula 3.50 03/02/17 20:31 98 Nasal Cannula 3.50 03/02/17 20:05 78 03/02/17 20:00 97.3 80 18 150/66 93 03/02/17 16:00 97.1 83 19 148/69 95 03/02/17 12:12 83 03/02/17 12:00 96.8 83 19 150/68 96 03/02/17 09:58 95 Nasal Cannula 4.00 I/O 03/02/17 03/02/17 03/02/17 03/03/17 03/03/17 03/03/17 07:00 15:00 23:00 07:00 15:00 23:00 Intake Total 200 ml 1207 ml 480 ml 240 ml 480 ml Output Total 1200 ml 650 ml 300 ml Balance 200 ml 7 ml -170 ml -60 ml 480 ml Intake Oral 960 ml 480 ml 240 ml 480 ml IV Total 200 ml 247 ml Output Urine Total 1200 ml 650 ml 300 ml Result Diagram: 03/03/17 0611 03/03/17 0611 Objective Remarks GENERAL: Pleasant elderly male in no acute distress. SKIN: Pale. HEENT: PERRLA, EOMI. No scleral icterus or conjunctival pallor. Chronic facial droop on the right. CARDIOVASCULAR: Irregularly irregular rhythm. RESPIRATORY: Clear to auscultation bilaterally. No wheezing. GASTROINTESTINAL: Abdomen soft, non-tender, nondistended. BS normal. MUSCULOSKELETAL: TR edema in the lower extremities. NEUROLOGICAL: Awake and alert. No focal neurologic deficits. Moving both upper and lower extremities spontaneously. PSYCH: Mood and affect appropriate. Procedures Port removal A/P Problem List: (1) Hypoxia ICD Code: R09.02 Status: Acute (2) CHF (congestive heart failure) ICD Code: I50.9 Status: Acute (3) Lung cancer ICD Code: C34.90 Status: Acute (4) A-fib ICD Code: I48.91 Status: Acute (5) HTN (hypertension) ICD Code: I10 Status: Acute Assessment and Plan Sepsis/ Bacteremia - Blood cultures growing 4/4 MSSA. UA indicative of possible infection. Pt recently had an echo without evidence of vegetation. ID on board. Source likely port. Culture from port with no growth. Port removed, repeat blood culture negative to date for 2 days. Continue cefazolin per infectious disease discharge on cefazolin. Hypoxemia -Resolving, The pt has stage IV Lung CA, COPD and CHF. CXR w/ intra- alveolar pulmonary edema. Pulmonology consult appreciated. CT scan noted, no acute changes. He received fluids for sepsis. Repeat CXR with evidence of volume overload. Continue duo nebs, oxygen support, Lasix, incentive spirometry. Pulmonary following. Stop steroids today CHF/ Elevated troponin/ A fib -Follows w/ Dr. Sotelo as an outpatient. Echo with normal EF, trace MR, trace TR. Evidence of volume overload. Elevated troponin likely s/t sepsis. Appreciate cardiology consult. Continue anticoagulation and Lasix. Lung CA Stage IV, currently on Chemo. Significant reason for his hypoxemia. Palliative care consult appreciated. - Continue w/ treatment as planned. His notified his oncologist, Dr. Muhammad, about the current status of the pt. - PT/ OT. - Port removed for infection as above. - palliative care following. Blurry vision Chronic, but more prolonged. CT of the brain negative for an acute process. Appreciate ophtho consult. Improved. - continue eye drops. HTN-Continue Cardizem, lisinopril and Vasotec as needed. More controlled. Thrombocytopenia Likely s/t sepsis. - continue to monitor and hold anticoagulation if continues to trend down. DVT Prophylaxis: Eliquis No code Discharge Planning Discharge today or Saturday, insert PICC line, discharge home with home health care. Called ID . Kojo Leslie MD Mar 03, 2017 10:02
[2017-03-03 12:00] VITALS: BP 142/70; PULSE 88; RESP 20; TEMP 97.8; O2SAT 93
--- NOTE | 2017-03-03 12:22 | HHI.FF ---
Infusion Therapy Location of Infusion Therapy: Home Health Care IV Infusion Order Patient Information Patient Weight 105.6 kg Diagnosis: Diagnosis MSSA bacteremia Coded Allergies: No Known Allergies (Unverified , 01/28/17) Administer Medication Cefazolin 2 grams IV q 8 hours Start Treatment: Mar 03, 2017 Stop Treatment: Mar 27, 2017 Additional Information Venous access: PICC Line Additional Instructions [x] Peripheral flush and dressing changes per protocol [x] Implanted port and central walking dragline operator: * Implanted port: 10 ml Normal Saline followed by 5 ml Heparin 100 units/ml Heparin flush after each use and monthly to maintain. [] May leave port accessed during therapy. [] May leave peripheral site accessed for duration of therapy. [x] If patient has SOB or respiratory distress, check oxygen saturation. If less than 90% or clinical signs of respiratory distress, administer oxygen at 2 L/min. via nasal cannula and notify physician. [x] Anaphylaxis/Reaction orders: * Stop infusion. * Keep IV line open with saline flush. * Notify physician. * Monitor vital signs every 15 minutes until symptoms resolve. * Check Oxygen saturation; Oxygen at 2 L/min. via nasal cannula if less than 90% or clinical signs of respiratory distress. * Administer diphenhydramine (Benadryl) 25 mg IV STAT, (unless patient has received as pre-med). May repeat once, if necessary. * Solu-Cortef 250 mg IVP over 30-60 seconds, use 100 mg vials for each dissolution. * Epinephrine (1mg/1 ml) 0.3 mg subcutaneously or IVP now with any signs of respiratory distress. * Check with physician for new additional pre-med orders if patient is re- challenged or re-treated. [x] May remove PICC line when treatment complete, after confirming with Physician. [x] If the patient is admitted to the hospital, the ED, or transferred via [facility] , complete transfer form including medication reconciliation order sheet. Laboratory Tests Weekly Labs: CBC w/diff, Creatinine Vale Mccall MD Mar 03, 2017 12:22
--- NOTE | 2017-03-03 12:23 | HHI.PR ---
Addendum to Inpatient Note Additional Information Repeat blood clx remain negative @ [address] PICC line WIll obtain US Doppler of R UE (psilateral to the PORT) Anticipate 4 weeks of IV abx can be discharged after OPAT arranged dw Vale Durbin MD Mar 03, 2017 12:23
--- NOTE | 2017-03-03 14:45 | HHI.DS ---
Discharge Summary Admission Date Feb 22, 2017 at 22:19 Discharge Date: Mar 03, 2017 Admitting Diagnosis Pulmonary edema (1) Hypoxia ICD Code: R09.02 Diagnosis: Secondary (2) CHF (congestive heart failure) ICD Code: I50.9 Diagnosis: Secondary (3) Lung cancer ICD Code: C34.90 Diagnosis: Secondary (4) A-fib ICD Code: I48.91 Diagnosis: Secondary (5) HTN (hypertension) ICD Code: I10 Diagnosis: Secondary (6) mssa bacteremia Diagnosis: Principal Procedures Port removal Brief History - From Admission This is a 71-year-old male with a PMH of Stage IV Lung CA, HTN, COPD, O2 Dependent and A-fib who was brought to the ER by EMS secondary to SOB since this morning. O2 sat 85% on RA, placed on NRM w/ improvement. Denies fever, chills, cough or chest pain. On arrival, BP 141/63, HR 68 On arrival, , O2 sat currently 94% on 6L NC. CBC essentially at baseline. Chemistry unremarkable except for mild hypocalcemia. Troponin 0.05. INR 1.3. CXR with intra- alveolar pulmonary edema. While in ER, patient noted to be in A. fib however no episodes of RVR. Admitted twice since 01/27/17 for A-fib w/ RVR. Follows w/ Dr. Eason as outpatient. CBC/BMP: 03/03/17 0611 03/03/17 0611 Significant Findings Laboratory Tests Test 03/01/17 03/03/17 13:46 06:11 White Blood Count 16.4 TH/MM3 19.2 TH/MM3 (4.0-11.0) (4.0-11.0) Red Blood Count 3.22 MIL/MM3 2.76 MIL/MM3 (4.50-5.90) (4.50-5.90) Hemoglobin 10.7 GM/DL 9.2 GM/DL (13.0-17.0) (13.0-17.0) Hematocrit 33.2 % 28.4 % (39.0-51.0) (39.0-51.0) Mean Corpuscular Volume 102.9 FL 102.9 FL (80.0-100.0) (80.0-100.0) Red Cell Distribution Width 19.2 % 19.6 % (11.6-17.2) (11.6-17.2) Platelet Count 90 TH/MM3 86 TH/MM3 (150-450) (150-450) Neutrophils (%) (Auto) 89.7 % 81.9 % (16.0-70.0) (16.0-70.0) Lymphocytes (%) (Auto) 4.0 % 8.6 % (9.0-44.0) (9.0-44.0) Neutrophils # (Auto) 14.7 TH/MM3 15.7 TH/MM3 (1.8-7.7) (1.8-7.7) Lymphocytes # (Auto) 0.7 TH/MM3 (1.0-4.8) Monocytes # (Auto) 1.0 TH/MM3 1.8 TH/MM3 (0-0.9) (0-0.9) Neutrophils % (Manual) 90 % (16-70) 78 % (16-70) Lymphocytes % 2 % (9-44) 3 % (9-44) Neutrophils # (Manual) 15.9 TH/MM3 17.7 TH/MM3 (1.8-7.7) (1.8-7.7) Nucleated Red Blood Cells 4 /100 WBC 2 /100 WBC (0-0) (0-0) Toxic Granulation 2+ (NORMAL) Toxic Vacuolation PRESENT (NONE SEEN) Platelet Estimate LOW (NORMAL) LOW (NORMAL) Blood Urea Nitrogen 36 MG/DL (7-18) 33 MG/DL (7-18) Estimat Glomerular Filtration 60 ML/MIN (>89) 76 ML/MIN (>89) Rate Random Glucose 130 MG/DL (74-106) Monocytes (%) (Auto) 9.3 % (0.0-8.0) Band Neutrophils % 8 % (0-6) Metamyelocytes 3 % (0-1) Myelocytes 2 % (0-0) Promyelocytes 1 % (0-0) Imaging Last Impressions Port Line Revision 02/27/17 0000 Signed Impressions: Service Date/Time: Monday, February 27, 2017 00:00 - CONCLUSION: Uncomplicated port removal as above. Catheter tip was submitted for Gram stain and C&S. Wayne Betancur MD Chest X-Ray 02/26/17 0000 Signed Impressions: Service Date/Time: Sunday, February 26, 2017 08:14 - CONCLUSION: 1. Cardiomegaly with perivascular congestion. 2. Small right pleural effusion and associated right lower lobe airspace disease improved from prior exams. 3. Stable small to moderate left pleural effusion with associated airspace disease. Wayne Betancur MD Chest CT 02/25/17 0000 Signed Impressions: Service Date/Time: Saturday, February 25, 2017 09:58 - CONCLUSION: 1. Moderate sized simple appearing bilateral pleural effusions, mildly enlarged since 02/07/2017. 2. Improved diffuse bilateral groundglass opacities likely reflects improved positive fluid balance. 3. Slightly more prominent associated bilateral lower lobe airspace consolidation likely reflects progressive compressive atelectasis. 4. Previously noted 3 cm posterior medial left lower lobe mass is obscured by left lower lobe air space consolidation on current exam. 5. Severe coronary artery calcifications. 6. Stable very small pericardial effusion. Wayne Betancur MD Head CT 02/23/17 0000 Signed Impressions: Service Date/Time: Thursday, February 23, 2017 17:12 - CONCLUSION: 1. Mild periventricular and subcortical white matter small vessel ischemic changes bilaterally. 2. No acute infarct, acute hemorrhage, mass effect or extra- axial fluid collections. Dionte Barnes MD PE at Discharge GENERAL: Pleasant elderly male in no acute distress. SKIN: Pale. HEENT: PERRLA, EOMI. No scleral icterus or conjunctival pallor. Chronic facial droop on the right. CARDIOVASCULAR: Irregularly irregular rhythm. RESPIRATORY: Clear to auscultation bilaterally. No wheezing. GASTROINTESTINAL: Abdomen soft, non-tender, nondistended. BS normal. MUSCULOSKELETAL: TR edema in the lower extremities. NEUROLOGICAL: Awake and alert. No focal neurologic deficits. Moving both upper and lower extremities spontaneously. PSYCH: Mood and affect appropriate. Hospital Course This is a 71-year-old male with a PMH of Stage IV Lung CA, HTN, COPD, O2 Dependent and A-fib who was brought to the ER by EMS secondary to SOB since this morning. Initial workup revealed blood culture growing MSSA. Echocardiogram did not show any vegetation. Infectious disease was consulted. Patient was started on broad-spectrum empiric antibiotics. Since echocardiogram was normal, it was thought that the infection source was the patient's port. The port was removed. Blood culture was repeated. Patient also had hypoxemia which was thought to be secondary to pulmonary edema after volume resuscitation for sepsis. Pulmonary was consulted. Patient was started on diuresis and steroids. Chest x-ray showed volume overload. After a few days of diuresis, patient's respiratory status improved. Steroids were tapered fast, Lasix was continued per home dose. Patient had mild troponin elevation which was thought to be secondary to sepsis. Patient will resume treatment for lung cancer as outpatient. After removal of port, patient status remained stable, repeat blood culture remained negative. Final recommendations continue cefazolin for 1 week per infectious disease. Patient will be discharged home with home healthcare to continue and finish his antibiotic regimen. Pt Condition on Discharge: Good Discharge Disposition: Disch w/ Home Health Serv Discharge Time: > 30 minutes Discharge Instructions DIET: Follow Instructions for: As Tolerated, No Restrictions Activities you can perform: Regular-No Restrictions Follow up Referrals: PCP Follow-up - 1 Week New Medications: Apixaban (Eliquis) 5 Mg Tab 5 MG PO BID afib #603 TAB Diltiazem CD 24 HR (Cardizem CD 24 HR) 240 Mg Caper 240 MG PO DAILY afib #30 CAP Continued Medications: Atorvastatin (Atorvastatin) 20 Mg Tab 20 MG PO HS Cholesterol Management #30 Ref 0 TAB Digoxin (Digoxin) 0.125 Mg Tab 0.125 MG PO DAILY Regulate Heart Beat #30 Ref 0 TAB Furosemide (Furosemide) 40 Mg Tab 40 MG PO DAILY #30 Ref 0 TAB Potassium Chloride ER (Potassium Chloride ER) 10 Meq Cap 10 MEQ PO DAILY Electrolyte Replacement #30 Ref 0 CAP Tamsulosin (Tamsulosin) 0.4 Mg Cap 0.4 MG PO HS Manage Prostate Problems #30 Ref 0 CAP Discontinued Medications: Aspirin (Aspirin) 81 Mg Chew 81 MG CHEW DAILY Ref 0 TAB Clopidogrel (Clopidogrel) 75 Mg Tab 75 MG PO DAILY Blood Clot Prevention #30 Ref 0 TAB Metoprolol Tartrate (Lopressor) 50 Mg Tab 50 MG PO Q12HR atrial fibrillation and CAD #60 Ref 0 TAB Kojo Leslie MD Mar 03, 2017 14:45
[2017-03-03] MEDS ORDERED: EPIN1INJ21 SQ (14:53)
[2017-03-03] MEDS ORDERED: CEFA2SOL IV (14:53)
[2017-03-03] MEDS ORDERED: EPIN1INJ21 IV PUSH (14:53)
[2017-03-03] MEDS ORDERED: SOLU250I IV PUSH (14:53)
[2017-03-03] MEDS ORDERED: SODIUM CHLORIDE 0.9% FLUSH 10 ML FLUSH IV FLUSH PRN (15:30)
--- NOTE | 2017-03-03 15:52 | RADRPT ---
EXAM DATE/TIME: 03/03/2017 15:31 [facility] COMPARISON: CHEST SINGLE AP, February 26, 2017, 8:14. INDICATIONS : Evaluate PICC line placement MEDICAL HISTORY : Cardiovascular disease. Hypertension. Carcinoma, lung. SURGICAL HISTORY : eye prostesis. ENCOUNTER: Subsequent ACUITY: 1 day PAIN SCORE: 0/10 LOCATION: chest FINDINGS: A single view of the chest demonstrates basilar airspace disease. No significant effusion. No pneumot horax. Left PICC line in superior vena cava. Heart size enlarged. CONCLUSION: 1. Thank you for airspace disease with small effusions. Cardiomegaly. Left PICC line tip in superior vena cava. Fidel Singh MD on March 03, 2017 at 15:49 Board Certified Radiologist. This report was verified electronically.
[2017-03-03 16:00] VITALS: BP 165/75; PULSE 88; RESP 18; TEMP 97.2; O2SAT 94
[2017-03-04] MEDS ORDERED: SODIUM CHLORIDE 0.9% FLUSH 10 ML FLUSH IV FLUSH SCH (09:00)
--- NOTE | 2017-03-13 09:35 | PQ ---
Physician Query Response Document PATIENT: LISA PRAKASH : 1945 ADMIT DATE: 02/22/2017 10:19 PM DISCH DATE: 03/03/2017 7:50 PM RESPONDING PROVIDER #: diamond QUERY TEXT: Respiratory Failure Acuity and Type Respiratory Failure is documented in the Medical Record. Please specify the type and acuity (includes suspected or probable) Such as: -- Acute respiratory failure - With hypoxia - With hypercapnia -- Chronic respiratory failure - With hypoxia - With hypercapnia -- Acute on chronic respiratory failure - With hypoxia - With hypercapnia -- Other, please specify If you have any additional questions/comments and/or concerns, please do not hesitate to reach out to the [facility]/Coding Hotline, Ext. [phone]. The patient's Clinical Indicators include: Refer to ID consultation 02/26/17-History of Present Illness: Dr. Mccall documents: He was placed o n BIPAP for acute resp failure. H This is a 71-year-old male with a PMH of Stage IV Lung CA, HTN, COPD, O2 Dependent and A-fib who was brought to the ER by EMS secondary to SOB since this morning. O2 sat 85% on RA, placed on NRM w/ impr ovement. Denies fever, chills, cough or chest pain. On arrival, BP 141/63, HR 68 On arrival, , O2 sat currently 94% on 6L NC. Assessment and Plan: Hypoxia: Multifactorial-State IV Lung CA, COPD and CHF. O2 sat 85% on RA, place d on NRM w/ improvement, now weaned to 6L NC w/ O2 sat 94%. Discharge Summary - Hospital Course: Patient also had hypoxemia which was thought to be secondary to pulmonary edema after volume resuscitation for sepsis. Pulmonary was consulted. Query created by: Myrtle Monge on 03/06/2017 12:29 PM RESPONSE TEXT: Acute hypoxic respiratory failure Electronically signed by: Kojo Leslie MD 03/13/2017 9:32 AM
== END 2017-03-03 19:50 | disposition home health service (06) | DRG 291 ==
LOC: NEPC 17:44 → NEDA 22:19 → HOCB 23:52 → N03B 02-25 17:17 → HOCB 02-28 18:53 → HOCA 03-01 10:45
PROVIDERS: ADMIT Hospitalist; ATTEND Hospitalist
PROC: 5A09357 Assistance with Respiratory Ventilation, Less than 24 Consecutive Hours, Continuous Positive Airway Pressure (ICD-10-PCS; principal; 2017-02-25)
PROC: 0WP803Z Removal of Infusion Device from Chest Wall, Open Approach (ICD-10-PCS; 2017-02-27)
PROC: 02HV33Z Insertion of Infusion Device into Superior Vena Cava, Percutaneous Approach (ICD-10-PCS; 2017-03-03)
PROC: B548ZZA Ultrasonography of Superior Vena Cava, Guidance (ICD-10-PCS; 2017-03-03)
DX: I50.33 Acute on chronic diastolic (congestive) heart failure (principal); A41.01 Sepsis due to Methicillin susceptible Staphylococcus aureus; J96.01 Acute respiratory failure with hypoxia; J44.0 Chronic obstructive pulmonary disease with (acute) lower respiratory infection; J18.8 Other pneumonia, unspecified organism; D69.6 Thrombocytopenia, unspecified; Z99.81 Dependence on supplemental oxygen; C34.90 Malignant neoplasm of unspecified part of unspecified bronchus or lung; E83.51 Hypocalcemia; I48.0 Paroxysmal atrial fibrillation; J44.1 Chronic obstructive pulmonary disease with (acute) exacerbation; Z92.21 Personal history of antineoplastic chemotherapy; Z87.891 Personal history of nicotine dependence; I25.10 Atherosclerotic heart disease of native coronary artery without angina pectoris; Z95.5 Presence of coronary angioplasty implant and graft; I25.2 Old myocardial infarction; E66.9 Obesity, unspecified; Z68.35 Body mass index [BMI] 35.0-35.9, adult; Z66 Do not resuscitate; I10 Essential (primary) hypertension; H18.20 Unspecified corneal edema; R73.9 Hyperglycemia, unspecified; Z85.828 Personal history of other malignant neoplasm of skin
CPT/HCPCS: 36569; 36590; 36600; 70450; 71010; 71250; 76937; 80048; 80053; 80202; 81001; 82550; 82805; 83036; 83605; 83735; 83880; 84132; 84443; 84484; 85007; 85025; 85027; 85610; 85730; 86403; 87040; 87071; 87086; 87149; 87186; 87205; 87641; 93005; 93306; 93308; 94002; 94003; 94060; 94150; 94640; 94664; 96374; 99152; 99153; J0690; J1644; J1940; J2060; J2270; J2405; J2543; J2920; J2930; J3010; J3370; J7030; J7040; J7512; J7613

== ENCOUNTER 2017-03-16 20:42 | Inpatient (IN) | payer MEDICARE ==
[~2017-03-16] VITALS: Ht 180.3 cm; Wt 109.3 kg
[~2017-03-16 20:42] MED LIST changes: +APIX5TAB PO; -ASPI81CH CHEW; +CARD240C6 PO; +CEFA2SOL IV; -CLOP75TA PO; +EPIN1INJ21 IV PUSH; +EPIN1INJ21 SQ; -METO-309 PO; +SOLU250I IV PUSH
[2017-03-16 20:59] VITALS: BP 177/82; PULSE 80; RESP 18; TEMP 97.9; O2SAT 92
[2017-03-16 21:03] VITALS: RESP 18; O2SAT 80
--- NOTE | 2017-03-16 21:34 | RADRPT ---
EXAM DATE/TIME: 03/16/2017 21:06 [facility] COMPARISON: CHEST SINGLE AP, March 03, 2017, 15:31. INDICATIONS : Short of breath MEDICAL HISTORY : Cardiovascular disease. Hypertension. Carcinoma, lung SURGICAL HISTORY : ENCOUNTER: Initial ACUITY: 1 day PAIN SCORE: 0/10 LOCATION: Bilateral chest FINDINGS: There is slight cardiomegaly and moderate perivascular pulmonary edema worse in the lung bases. Small bilateral pleural effusions are also suspected. CONCLUSION: Moderate CHF. K. Aldair Fitch MD on March 16, 2017 at 21:31 Board Certified Radiologist. This report was verified electronically.
[2017-03-16] MEDS ORDERED: FUROSEMIDE 100 MG/10 ML VIAL IV PUSH ONE (21:45)
[2017-03-16 21:46] LABS: AUTOMATED NEUTROPHIL # 4.2 TH/MM3 (1.8-7.7); BASOPHIL % 0.7 % (0.0-2.0); EOSINOPHIL # 0.1 TH/MM3 (0-0.4); EOSINOPHIL % 1.7 % (0.0-4.0); HEMATOCRIT 29.5 % (39.0-51.0); HEMO FLAGS DIFF FINAL; LYMPH % 18.1 % (9.0-44.0); LYMPHOCYTE # 1.1 TH/MM3 (1.0-4.8); MEAN CELL VOLUME 104.5 FL (80.0-100.0); MEAN CORPUSCULAR HEMOGLOBIN 32.9 PG (27.0-34.0); MEAN CORPUSCULAR HGB CONC 31.4 % (32.0-36.0); NEUT % 69.5 % (16.0-70.0); PLATELET COUNT 139 TH/MM3 (150-450); RED BLOOD COUNT 2.82 MIL/MM3 (4.50-5.90); RED CELL DISTRIBUTION WIDTH 18.3 % (11.6-17.2)
--- NOTE | 2017-03-16 21:50 | PD ---
HPI Chief Complaint: Respiratory Distress Time Seen by Provider: 21:43 Travel History International Travel<30 days: No Contact w/Intl Traveler<30days: No Traveled to known affect area: No History of Present Illness HPI 71-year-old male that presents to the ED for evaluation of shortness of breath. Patient has a history of CHF and stage IV lung cancer. Patient was recently admitted to the hospital secondary to sepsis and bacteremia. Patient has not had any chemotherapy in the past 5 weeks. Per patient for the past couple days he developed more shortness of breath. He states compliant with his medications. Per patient she still has a PICC line and he gets IV antibiotics. Per patient she states compliance with this. He denies any chest pain. Per patient he feels short of breath even with his oxygen which she normally uses 4 L at home. He denies any back pain. He denies any numbness, tilling, weakness. Patient states that he gets short of breath especially when he lays down. Denies any abdominal pain. No nausea or vomiting. No bowel movement issues. No recent fevers. No allergies to medication. No other medical issues report today. 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) Cardiovascular Problems: Yes High Cholesterol: Yes Chemotherapy: Yes Chest Pain: No Congestive Heart Failure: No COPD: Yes Diabetes: No Diminished Hearing: Yes Endocrine: No Gastrointestinal Disorders: Yes (STOMACH CANCER ) Genitourinary: No Hepatitis: No Hiatal Hernia: No Hypertension: Yes (diagnosed 1984) Immune Disorder: No Implanted Vascular Access Dvce: Yes (PICC left) Musculoskeletal: No Neurologic: No Psychiatric: Yes Reproductive: No Respiratory: Yes Myocardial Infarction: Yes Radiation Therapy: No Sleep Apnea: Yes (NEVRER BEEN DX) Thyroid Disease: No Past Surgical History Abdominal Surgery: No AICD: No Arteriovenous Shunt: No Cardiac Surgery: Yes (2 stents 2015) Ear Surgery: Yes (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) Endocrine Surgery: No Eye Surgery: Yes (2015: cataract both eyes & cornea surgery to right eye ) Genitourinary Surgery: No Gynecologic Surgery: No Insulin Pump: No Joint Replacement: No Oral Surgery: Yes (several crowns) Pacemaker: No Thoracic Surgery: Yes (right side rib biopsy for cancer) Other Surgery: Yes (PORT PLACE RIGHT CHEST and removed) Social History Alcohol Use: No Tobacco Use: No (quit 30 yrs ago) Substance Use: No Allergies-Medications (Allergen,Severity, Reaction): Coded Allergies: No Known Allergies (Unverified , 03/16/17) Reported Meds & Prescriptions Reported Meds & Active Scripts Active Epinephrine Inj 1 Mg/Ml Inj 0.3 Mg SQ ONCE PRN Give with any signs of respiratory distress. Solu-Cortef Inj (Hydrocortisone Sodium Succinate) 250 Mg Inj 250 Mg IV PUSH ONCE PRN Give over 30-60 seconds. Cefazolin Inj (Cefazolin Sodium/Dextrose) 2 Gm/50 Ml Bagp 2 Gm IV Q8H 24 Days Cardizem CD 24 HR (Diltiazem CD 24 HR) 240 Mg Caper 240 Mg PO DAILY Eliquis (Apixaban) 5 Mg Tab 5 Mg PO BID Reported Digoxin 0.125 Mg Tab 0.125 Mg PO DAILY Potassium Chloride ER (Potassium Chloride) 10 Meq Cap 10 Meq PO DAILY Furosemide 40 Mg Tab 40 Mg PO DAILY Tamsulosin (Tamsulosin HCl) 0.4 Mg Cap 0.4 Mg PO HS Atorvastatin (Atorvastatin Calcium) 20 Mg Tab 20 Mg PO HS Review of Systems Except as stated in HPI: all other systems reviewed are Neg Physical Exam Narrative GENERAL: SKIN: Warm and dry. HEAD: Atraumatic. Normocephalic. EYES: Pupils equal and round. No scleral icterus. No injection or drainage. ENT: No nasal bleeding or discharge. Mucous membranes pink and moist. Tongue is midline. No uvula deviation. Patient does have a chronic deformity to the right side of the face with chronic dialysis secondary to surgery of his right face. NECK: Trachea midline. No JVD. CARDIOVASCULAR: Regular rate and rhythm. RESPIRATORY: No accessory muscle use. Patient has rales in all lung haskins. Breath sounds equal bilaterally. GASTROINTESTINAL: Abdomen soft, non-tender, nondistended. Hepatic and splenic margins not palpable. MUSCULOSKELETAL: Extremities without clubbing, cyanosis, or edema. No obvious deformities. Patient has full range of motion of the upper and lower extremities bilaterally. 2+ pulses bilaterally. Patient does have 2+ pitting edema on the lower extremities. NEUROLOGICAL: Awake and alert. No obvious cranial nerve deficits. Motor grossly within normal limits. Five out of 5 muscle strength in the arms and legs. Normal speech. PSYCHIATRIC: Appropriate mood and affect; insight and judgment normal. Data Data Last Documented VS Vital Signs Date Time Temp Pulse Resp B/P Pulse Ox O2 Delivery O2 Flow Rate FiO2 03/16/17 21:03 18 80 Room Air 03/16/17 20:59 97.9 80 177/82 03/16/17 20:58 5 Orders Electrocardiogram (03/16/17 20:54) Complete Blood Count With Diff (03/16/17 20:54) Comprehensive Metabolic Panel (03/16/17 20:54) Ckmb (Isoenzyme) Profile (03/16/17 20:54) Troponin I (03/16/17 20:54) B-Type Natriuretic Peptide (03/16/17 20:54) Prothrombin Time / Inr (Pt) (03/16/17 20:54) Act Partial Throm Time (Ptt) (03/16/17 20:54) Blood Culture (03/16/17 20:54) Magnesium (Mg) (03/16/17 20:54) Chest, Single Ap (03/16/17 20:54) Iv Access Insert/Monitor (03/16/17 20:54) Ecg Monitoring (03/16/17 20:54) Oxygen Administration (03/16/17 20:54) Oximetry (03/16/17 20:54) Lactic Acid Sepsis Protocol (03/16/17 20:55) Furosemide Inj (Lasix Inj) (03/16/17 21:45) Ct Pulmonary Angiogram (03/16/17 ) Labs Laboratory Tests Test 03/16/17 03/16/17 21:02 21:07 White Blood Count 6.0 TH/MM3 Red Blood Count 2.82 MIL/MM3 Hemoglobin 9.3 GM/DL Hematocrit 29.5 % Mean Corpuscular Volume 104.5 FL Mean Corpuscular Hemoglobin 32.9 PG Mean Corpuscular Hemoglobin 31.4 % Concent Red Cell Distribution Width 18.3 % Platelet Count 139 TH/MM3 Mean Platelet Volume 8.2 FL Neutrophils (%) (Auto) 69.5 % Lymphocytes (%) (Auto) 18.1 % Monocytes (%) (Auto) 10.0 % Eosinophils (%) (Auto) 1.7 % Basophils (%) (Auto) 0.7 % Neutrophils # (Auto) 4.2 TH/MM3 Lymphocytes # (Auto) 1.1 TH/MM3 Monocytes # (Auto) 0.6 TH/MM3 Eosinophils # (Auto) 0.1 TH/MM3 Basophils # (Auto) 0.0 TH/MM3 CBC Comment DIFF FINAL Differential Comment Prothrombin Time 15.1 SEC Prothromb Time International 1.3 RATIO Ratio Activated Partial 34.6 SEC Thromboplast Time Sodium Level 142 MEQ/L Potassium Level 4.4 MEQ/L Chloride Level 109 MEQ/L Carbon Dioxide Level 25.5 MEQ/L Anion Gap 8 MEQ/L Blood Urea Nitrogen 26 MG/DL Creatinine 1.08 MG/DL Estimat Glomerular Filtration 67 ML/MIN Rate Random Glucose 85 MG/DL Calcium Level 8.2 MG/DL Magnesium Level 1.9 MG/DL Total Bilirubin 0.8 MG/DL Aspartate Amino Transf 15 U/L (AST/SGOT) Alanine Aminotransferase 7 U/L (ALT/SGPT) Alkaline Phosphatase 92 U/L Total Creatine Kinase 36 U/L Troponin I 0.04 NG/ML B-Type Natriuretic Peptide 59 PG/ML Total Protein 6.5 GM/DL Albumin 2.2 GM/DL Lactic Acid Level 1.5 mmol/L MDM Medical Decision Making Medical Screen Exam Complete: Yes Emergency Medical Condition: Yes Medical Record Reviewed: Yes Interpretation(s) CBC & BMP Diagram 03/16/17 21:02 LFTs within normal limits. BNP within normal limits. Last Impressions Chest X-Ray 03/16/172053 Signed Impressions: Service Date/Time: Thursday, March 16, 2017 21:06 - CONCLUSION: Moderate CHF. K. Aldair Fitch MD Differential Diagnosis Shortness of breath versus CHF exacerbation versus PE versus hypoxia versus pulmonary edema versus pneumonia Narrative Course 71-year-old male that presents to the ED for evaluation of shortness of breath. Patient was properly examined and was found to have signs and symptoms very consistent what appears to be likely CHF exacerbation. Patient has a history of this in the past and he does appear to have swelling in the lower legs. Recommendation at this time is for labs and imaging. labs and imaging were ordered. CT still pending and the running of does not. Case will be signed out to my attending pending imaging results and likely admission. Diagnosis Primary Impression: CHF (congestive heart failure) Qualified Code: I50.9 - Acute congestive heart failure, unspecified congestive heart failure type Jose Juan Tyler Mar 16, 2017 21:50
[2017-03-16 21:58] LABS: APTT (PATIENT) 34.6 SEC (24.3-30.1); INTERNATIONAL NORMALIZED RATIO 1.3 RATIO; PROTHROMBIN TIME - PATIENT 15.1 SEC (9.8-11.6)
[2017-03-16 22:06] LABS: ALT (GPT) 7 U/L (12-78); ANION GAP 8 MEQ/L (5-15); AST (GOT) 15 U/L (15-37); BICARBONATE 25.5 MEQ/L (21.0-32.0); BLOOD UREA NITROGEN 26 MG/DL (7-18); CHLORIDE 109 MEQ/L (98-107); GLOMERULAR FILTRATION RATE 67 ML/MIN (>89); MAGNESIUM 1.9 MG/DL (1.5-2.5); POTASSIUM 4.4 MEQ/L (3.5-5.1); SODIUM (NA) 142 MEQ/L (136-145)
[2017-03-16 22:10] LABS: ALKALINE PHOSPHATASE 92 U/L (45-117); TOTAL BILIRUBIN ADULT 0.8 MG/DL (0.2-1.0)
[2017-03-16 22:14] LABS: CREATINE KINASE 36 U/L (39-308)
[2017-03-16] MEDS ORDERED: IOHEXOL 350 MG/ML 10 ML VIAL (for RAD DIAG) IV ONE (23:05)
--- NOTE | 2017-03-16 23:26 | RADRPT ---
EXAM DATE/TIME: 03/16/2017 23:02 [facility] COMPARISON: CT PULMONARY ANGIOGRAM, February 07, 2017, 21:16. INDICATIONS : Shortness of breath; rule out pulmonary embolus. IV CONTRAST: 75 cc Omnipaque 350 (iohexol) IV RADIATION DOSE: 23.33 CTDIvol (mGy) MEDICAL HISTORY : Carcinoma, lung. Cardiovascular disease Hypertension. SURGICAL HISTORY : None. ENCOUNTER: Initial ACUITY: 1 day PAIN SCALE: 0/10 LOCATION: chest TECHNIQUE: Volumetric scanning of the chest was performed using a pulmonary embolism protocol MIP images were re constructed. Using automated exposure control and adjustment of the mA and/or kV according to patien t size, radiation dose was kept as low as reasonably achievable to obtain optimal diagnostic quality images. DICOM format image data is available electronically for review and comparison. Follow-up recommendations for incidentally detected pulmonary nodules are based at a minimum on nodul e size and patient risk factors according to Fleischner Society Guidelines. FINDINGS: There is respiratory motion artifact, large bilateral pleural effusions and patchy areas of consolida tion most pronounced in the lower lobes. The left lower lobe mass is obscured. Patchy consolidative a reas have progressed since the previous study. There are mildly enlarged lymph nodes in the mediastin um which have increased in size since the previous study including a prevascular 1 cm node on image 4 5, 1 cm right paratracheal node on image 45, 1.1 cm short axis subcarinal node. There is no evidence for pulmonary embolism. Osseous structures are intact. CONCLUSION: 1. Progression of bilateral consolidation and large bilateral effusions without evidence of pulmonary embolism. Saul Chang MD on March 16, 2017 at 23:22 Board Certified Radiologist. This report was verified electronically.
[2017-03-16] MEDS ORDERED: PIPERACIL-TAZO 4.5 GM PREMIX 100 ML IV STA (23:28)
[2017-03-16] MEDS ORDERED: AZITHROMYCIN INJ 500 MG in SODIUM CHLOR 0.9% 250 ML INJ 250 ML IV STA (23:28)
[2017-03-16 23:30] VITALS: O2SAT 95
--- NOTE | 2017-03-16 23:39 | PD ---
Data Data Last Documented VS Vital Signs Date Time Temp Pulse Resp B/P Pulse Ox O2 Delivery O2 Flow Rate FiO2 03/16/17 21:03 18 80 Room Air 03/16/17 20:59 97.9 80 177/82 03/16/17 20:58 5 Orders Electrocardiogram (03/16/17 20:54) Complete Blood Count With Diff (03/16/17 20:54) Comprehensive Metabolic Panel (03/16/17 20:54) Ckmb (Isoenzyme) Profile (03/16/17 20:54) Troponin I (03/16/17 20:54) B-Type Natriuretic Peptide (03/16/17 20:54) Prothrombin Time / Inr (Pt) (03/16/17 20:54) Act Partial Throm Time (Ptt) (03/16/17 20:54) Blood Culture (03/16/17 20:54) Magnesium (Mg) (03/16/17 20:54) Chest, Single Ap (03/16/17 20:54) Iv Access Insert/Monitor (03/16/17 20:54) Ecg Monitoring (03/16/17 20:54) Oxygen Administration (03/16/17 20:54) Oximetry (03/16/17 20:54) Lactic Acid Sepsis Protocol (03/16/17 20:55) Furosemide Inj (Lasix Inj) (03/16/17 21:45) Ct Pulmonary Angiogram (03/16/17 ) Iohexol 350 Inj (Omnipaque 350 Inj) (03/16/17 23:05) Arterial Blood Gas (Abg) (03/16/17 23:25) Resp Bipap / Cpap Non Invas Vt (03/16/17 23:25) Piperacil-Tazo 4.5 Gm Premix (Zosyn 4.5 (03/16/17 23:28) Azithromycin Inj (Zithromax Inj) (03/16/17 23:28) Labs Laboratory Tests Test 03/16/17 03/16/17 21:02 21:07 White Blood Count 6.0 TH/MM3 Red Blood Count 2.82 MIL/MM3 Hemoglobin 9.3 GM/DL Hematocrit 29.5 % Mean Corpuscular Volume 104.5 FL Mean Corpuscular Hemoglobin 32.9 PG Mean Corpuscular Hemoglobin 31.4 % Concent Red Cell Distribution Width 18.3 % Platelet Count 139 TH/MM3 Mean Platelet Volume 8.2 FL Neutrophils (%) (Auto) 69.5 % Lymphocytes (%) (Auto) 18.1 % Monocytes (%) (Auto) 10.0 % Eosinophils (%) (Auto) 1.7 % Basophils (%) (Auto) 0.7 % Neutrophils # (Auto) 4.2 TH/MM3 Lymphocytes # (Auto) 1.1 TH/MM3 Monocytes # (Auto) 0.6 TH/MM3 Eosinophils # (Auto) 0.1 TH/MM3 Basophils # (Auto) 0.0 TH/MM3 CBC Comment DIFF FINAL Differential Comment Prothrombin Time 15.1 SEC Prothromb Time International 1.3 RATIO Ratio Activated Partial 34.6 SEC Thromboplast Time Sodium Level 142 MEQ/L Potassium Level 4.4 MEQ/L Chloride Level 109 MEQ/L Carbon Dioxide Level 25.5 MEQ/L Anion Gap 8 MEQ/L Blood Urea Nitrogen 26 MG/DL Creatinine 1.08 MG/DL Estimat Glomerular Filtration 67 ML/MIN Rate Random Glucose 85 MG/DL Calcium Level 8.2 MG/DL Magnesium Level 1.9 MG/DL Total Bilirubin 0.8 MG/DL Aspartate Amino Transf 15 U/L (AST/SGOT) Alanine Aminotransferase 7 U/L (ALT/SGPT) Alkaline Phosphatase 92 U/L Total Creatine Kinase 36 U/L Troponin I 0.04 NG/ML B-Type Natriuretic Peptide 59 PG/ML Total Protein 6.5 GM/DL Albumin 2.2 GM/DL Lactic Acid Level 1.5 mmol/L MDM Supervised Visit with TIO: Yes Narrative Course I, Dr. Crews, have reviewed the advance practice practioner's documentation and am in agreement, met with the patient face to face, made the diagnosis, and the medical decision making was done by me. *My assessment and Findings: 71-year-old male with history of stage IV lung cancer just discharged from the hospital one week ago for MSSA bacteremia, his port was infected and explanted. He is now receiving IV antibiotics through PICC line. He presents for increasing shortness of breath for the last several days, worse with laying flat. He is on 3-4 L of oxygen at home and despite this his sats were down into the 70s. There are increased to 6 L without much improvement. Patient is decreased throughout with mild to moderate respiratory distress, 30 peripheral edema in the bilateral lower extremities chronic per patient. Rotund abdomen. Differential includes CHF exacerbation, pulmonary edema, pneumonia, pulmonary embolism, ACS, arrhythmia, electrolyte abnormality, symptomatic anemia. Chest x-ray shows pulmonary edema, given 80 mg Lasix IV. Laboratory work hemoglobin 9.3. CT bony injury gram shows no evidence of PE but patient does have bilateral pneumonia and pulmonary edema. Unfortunately his respiratory status worsened with increased work of breathing and he desaturated into the 50s while in CT. He return to the emergency department and was placed on BiPAP but is having a high BiPAP requirement and therefore will be admitted to the intensive this. Patient is DNR/DNI and this was confirmed with him and his at bedside. We'll obtain ABG has baseline to evaluate for improvement with BiPAP therapy. I spoke with Dr. Mendez, security intern who accepted patient for admission. Critical Care Narrative Aggregate critical care time was 65 minutes. Time to perform other separately billable procedures was not included in the critical care time. My time did not include minutes spent treating any other patients simultaneously or on activities that did not directly contribute to the patient's treatment. The services I provided to this patient were to treat and/or prevent clinically significant deterioration that could result in: Cardiopulmonary decompensation, , disability I provided critical care services requiring my management, as noted below: Chart data review, documentation time, medication orders and management, vital sign assessments/reviewing monitor data, ordering and reviewing lab tests, ordering and interpreting/reviewing x-rays and diagnostic studies, care of the patient and discussion of the patient with the admitting physicians. Diagnosis Primary Impression: Respiratory failure Qualified Code: J96.01 - Acute respiratory failure with hypoxia Additional Impressions: CHF (congestive heart failure) Qualified Code: I50.9 - Acute congestive heart failure, unspecified congestive heart failure type Pulmonary edema Qualified Code: J81.0 - Acute pulmonary edema Pneumonia Qualified Code: J15.7 - Pneumonia of both lungs due to Mycoplasma pneumoniae, unspecified part of lung Admitting Information Admitting Physician Requests: Admit Kemi Crews MD Mar 16, 2017 23:39
[2017-03-16] MEDS ORDERED: SODIUM CHLOR 0.9% 1000 ML INJ 1,000 ML IV SCH (23:50)
[2017-03-17] VITALS (17 sets, daily range): BP systolic 136–163; BP diastolic 64–86; PULSE 66–84; RESP 14–30; TEMP 97.6–98.4; O2SAT 90–100
[2017-03-17] MEDS ORDERED: LORazepam 2 MG/ML VIAL IV PRN
[2017-03-17] MEDS ORDERED: LACTULOSE SYRUP 20 GM/30 ML CUP PO PRN
[2017-03-17] MEDS ORDERED: ZOLPIDEM TARTRATE 5 MG TAB PO PRN
[2017-03-17] MEDS ORDERED: MISCELLANEOUS NURSING INFORMATION XX SCH
[2017-03-17] MEDS ORDERED: BISACODYL 10 MG SUPP RECTAL PRN
[2017-03-17] MEDS ORDERED: SENNOSIDES 8.6 MG TAB PO PRN
[2017-03-17] MEDS ORDERED: HYDROmorphone HCL PF 1 MG/ML VIAL IV PRN
[2017-03-17] MEDS ORDERED: ONDANSETRON HCL 4 MG/2 ML VIAL IV PRN
[2017-03-17] MEDS ORDERED: CHLORHEXIDINE GLUCONATE 2 % 1 PACK (2 CLOTHS) TOP PRN
[2017-03-17] MEDS ORDERED: MAGNESIUM HYDROXIDE SUSP 30 ML CUP PO PRN
[2017-03-17] MEDS ORDERED: SODIUM CHLORIDE 0.9% FLUSH 10 ML FLUSH PRN
--- NOTE | 2017-03-17 | HHI.HP ---
[facility] Service Critical Care Medicine Primary Care Physician Isac Cortez M.D. Admission Diagnosis respiratory failure, CHF exacerbation, lung cancer Diagnosis: Travel History International Travel<30 Days: No Contact w/Intl Traveler <30 Da: No Traveled to Known Affected Are: No History of Present Illness 71-year-old male with stage IV lung cancer presents with complaints of worsening shortness of breath. Patient has also a history of CHF and was recently admitted to the hospital secondary to sepsis and bacteremia. Patient has not had any chemotherapy in the past 5 weeks. Per patient for the past couple days he developed more shortness of breath. He is compliant with his medications and still has a PICC line and he gets IV antibiotics. He denies any chest pain but he feels short of breath even with his oxygen which she normally uses 4 L at home. Patient states that he gets short of breath especially when he lays down. He denies any back pain. He denies any numbness, tilling, weakness. Denies any abdominal pain. No nausea or vomiting. No bowel movement issues. No recent fevers. No allergies to medication. No other medical issues report today. Review of Systems ROS Unable to obtain patient is on a BiPAP facemask due to respiratory distress Past Family Social History Allergies: Coded Allergies: No Known Allergies (Unverified , 03/16/17) Past Medical History Stage IV Lung cancer Hypertension COPD on home O2 Atrial fibrillation Past Surgical History Cardiac Stent Cataract Surgery Right Chest Port Reported Medications Reported Meds & Active Scripts Active Epinephrine Inj 1 Mg/Ml Inj 0.3 Mg SQ ONCE PRN Give with any signs of respiratory distress. Solu-Cortef Inj (Hydrocortisone Sodium Succinate) 250 Mg Inj 250 Mg IV PUSH ONCE PRN Give over 30-60 seconds. Cefazolin Inj (Cefazolin Sodium/Dextrose) 2 Gm/50 Ml Bagp 2 Gm IV Q8H 24 Days Cardizem CD 24 HR (Diltiazem CD 24 HR) 240 Mg Caper 240 Mg PO DAILY Eliquis (Apixaban) 5 Mg Tab 5 Mg PO BID Reported Digoxin 0.125 Mg Tab 0.125 Mg PO DAILY Potassium Chloride ER (Potassium Chloride) 10 Meq Cap 10 Meq PO DAILY Furosemide 40 Mg Tab 40 Mg PO DAILY Tamsulosin (Tamsulosin HCl) 0.4 Mg Cap 0.4 Mg PO HS Atorvastatin (Atorvastatin Calcium) 20 Mg Tab 20 Mg PO HS Active Ordered Medications Current Medications Medications (Trade) Dose Ordered Sig/Angie Route PRN Reason Start Time Stop Time Status Last Admin Dose Admin Apixaban (Eliquis) 5 mg BID PO 03/17/17 09:00 Atorvastatin Calcium (Lipitor) 20 mg HS PO 03/17/17 21:00 Digoxin (Lanoxin) 0.125 mg DAILY PO 03/17/17 09:00 Diltiazem HCl (Cardizem Cd) 240 mg DAILY PO 03/17/17 09:00 Tamsulosin HCl (Flomax) 0.4 mg HS PO 03/17/17 21:00 Methylprednisolone Sodium Succinate 40 mg 40 mg Q6HR IV PUSH 03/17/17 00:00 03/17/17 00:28 Sodium Chloride (NS 1000 ml Inj) 1,000 ml @ 84 mls/hr [id number] IV 03/16/17 23:50 Sodium Chloride (NS Flush) 2 ml UNSCH PRN .XX FLUSH AFTER USING IV ACCESS 03/17/17 00:00 Sodium Chloride (NS Flush) 2 ml BID IV FLUSH 03/17/17 09:00 Hydromorphone HCl (Dilaudid Pf Inj) 1 mg Q4H PRN IV PAIN SCALE 6 TO 10 03/17/17 00:00 Pantoprazole Sodium (Protonix Inj) 40 mg DAILY IV 03/17/17 09:00 Lorazepam (Ativan Inj) 1 mg Q1H PRN IV Agitation/Sedation 03/17/17 00:00 Ondansetron HCl (Zofran Inj) 4 mg Q6H PRN IV NAUSEA OR VOMITING 03/17/17 00:00 Zolpidem Tartrate (Ambien) 5 mg HS PRN PO INSOMNIA 03/17/17 00:00 Miscellaneous Information 1 [id number] XX 03/17/17 00:00 Chlorhexidine Gluconate (Chlorhexidine 2% Cloth) 3 pack Taper DAILY@04 TOP 03/17/17 04:00 03/13/18 03:59 Chlorhexidine Gluconate (Chlorhexidine 2% Cloth) 3 pack UNSCH PRN TOP HYGIENIC CARE 03/17/17 00:00 Senna/Docusate Sodium (Amelia-Colace) 1 tab BID PO 03/17/17 09:00 Magnesium Hydroxide (Milk Of Magnesia Liq) 30 ml Q12H PRN PO MILD - MODERATE CONSTIPATION 03/17/17 00:00 Sennosides (Senokot) 17.2 mg Q12H PRN PO MODERATE - SEVERE CONSTIPATION 03/17/17 00:00 Bisacodyl (Dulcolax Supp) 10 mg DAILY PRN RECTAL SEVERE CONSITIPATION 03/17/17 00:00 Lactulose (Lactulose Liq) 30 ml DAILY PRN PO SEVERE CONSITIPATION 03/17/17 00:00 Family History No family history of early coronary artery disease or malignancy Social History Negative for alcohol, tobacco or drugs Physical Exam Vital Signs Vital Signs Date Time Temp Pulse Resp B/P Pulse Ox O2 Delivery O2 Flow Rate FiO2 03/16/17 21:03 18 80 Room Air 03/16/17 20:59 97.9 80 18 177/82 92 03/16/17 20:58 92 Nasal Cannula 5 Physical Exam GENERAL: Well-nourished, well-developed patient. SKIN: Warm and dry. HEAD: Normocephalic. EYES: No scleral icterus. No injection or drainage. NECK: Supple, trachea midline. No JVD or lymphadenopathy. Facemask BiPAP CARDIOVASCULAR: Regular rate and rhythm without murmurs, gallops, or rubs. RESPIRATORY: Breath sounds equal bilaterally. No accessory muscle use. GASTROINTESTINAL: Abdomen soft, non-tender, nondistended. MUSCULOSKELETAL: No cyanosis, or edema. BACK: Nontender without obvious deformity. No CVA tenderness. EXTREMITIES: No clubbing or cyanosis, 2+ pitting edema to knees Laboratory Laboratory Tests Test 03/16/17 03/16/17 21:02 21:07 White Blood Count 6.0 Red Blood Count 2.82 Hemoglobin 9.3 Hematocrit 29.5 Mean Corpuscular Volume 104.5 Mean Corpuscular Hemoglobin 32.9 Mean Corpuscular Hemoglobin 31.4 Concent Red Cell Distribution Width 18.3 Platelet Count 139 Mean Platelet Volume 8.2 Neutrophils (%) (Auto) 69.5 Lymphocytes (%) (Auto) 18.1 Monocytes (%) (Auto) 10.0 Eosinophils (%) (Auto) 1.7 Basophils (%) (Auto) 0.7 Neutrophils # (Auto) 4.2 Lymphocytes # (Auto) 1.1 Monocytes # (Auto) 0.6 Eosinophils # (Auto) 0.1 Basophils # (Auto) 0.0 CBC Comment DIFF FINAL Differential Comment Prothrombin Time 15.1 Prothromb Time International 1.3 Ratio Activated Partial 34.6 Thromboplast Time Sodium Level 142 Potassium Level 4.4 Chloride Level 109 Carbon Dioxide Level 25.5 Anion Gap 8 Blood Urea Nitrogen 26 Creatinine 1.08 Estimat Glomerular Filtration 67 Rate Random Glucose 85 Calcium Level 8.2 Magnesium Level 1.9 Total Bilirubin 0.8 Aspartate Amino Transf 15 (AST/SGOT) Alanine Aminotransferase 7 (ALT/SGPT) Alkaline Phosphatase 92 Total Creatine Kinase 36 Troponin I 0.04 B-Type Natriuretic Peptide 59 Total Protein 6.5 Albumin 2.2 Lactic Acid Level 1.5 Date/Time Procedure Status Source Growth 03/16/17 21:15 Aerobic Blood Culture Received Blood Peripheral Pending 03/16/17 21:15 Anaerobic Blood Culture Received Blood Peripheral Pending Result Diagram: 03/16/17210103/16/172101 Imaging Last 24 hours Impressions Chest X-Ray 03/16/172053 Signed Impressions: Service Date/Time: Thursday, March 16, 2017 21:06 - CONCLUSION: Moderate CHF. K. Aldair Fitch MD Assessment and Plan Assessment and Plan Respiratory failure - Underlying stage IV lung cancer - Large bilateral pleural effusions - COPD on home O2 - Continue antibiotics and IV steroids - DuoNeb scheduled and when necessary Large pleural effusion - Palliative Thoracentesis COPD - DuoNeb scheduled and when necessary - IV steroids - IV antibiotics Atrial fibrillation - Continue diltiazem - Continue Eliquis Coronary artery disease - Atorvastatin DVT GI prophylaxis - Eliquis and pantoprazole Critical Care: The total critical care time was 35 minutes. Time to perform other separately billable procedures was not included in the critical care time. Jabier Mendez MD Mar 17, 2017 00:00
[2017-03-17 00:05] LABS: BLOOD GAS CARBOXYHEMOGLOBIN 2.5 % (0-4); BLOOD GAS HCO3 26 mmol/L (22-26); BLOOD GAS METHEMOGLOBIN 0.4 % (0-2); BLOOD GAS O2 HGB SATURATION 93 % (90-100); BLOOD GAS OXYGEN CONTENT 12.9 Vol % (12.0-20.0); BLOOD GAS PCO2 44 mmHg (38-42); BLOOD GAS PO2 85 mmHG (61-120); BLOOD GAS TOTAL HGB 9.8 G/DL (12.0-16.0); CRITICAL VALUE NO; DRAW SITE RT RADIAL; FIO2 100 %; NUMBER OF ARTERIAL PUNCTURES 1; OXYGEN DEVICE BiPAP; TEMP CORR TO 98.6; ULNAR PULSE PRESENT; VENT SETTINGS IPAP 10 EPAP5
[2017-03-17 00:06] LABS: STAT YES
[2017-03-17] MEDS: methylPREDNISolone SOD SUCC 40 MG/1 ML VIAL IV PUSH SCH ×4 (00:28→17:12)
--- NOTE | 2017-03-17 00:40 | RADRPT ---
EXAM DATE/TIME: 03/17/2017 00:02 [facility] COMPARISON: CHEST SINGLE AP, March 16, 2017, 21:06. INDICATIONS : Short of breath. MEDICAL HISTORY : Cardiovascular disease. Hypertension. Carcinoma, lung SURGICAL HISTORY : None. ENCOUNTER: Initial ACUITY: 1 day PAIN SCORE: 0/10 LOCATION: Bilateral chest FINDINGS: Bilateral effusions, cardiomegaly and pulmonary consolidation identified as before, increased in the left mid to lower lung zone. There degenerative changes of the spine. Left PICC line again seen. CONCLUSION: Worsening consolidation on the left. Saul Chang MD on March 17, 2017 at 0:37 Board Certified Radiologist. This report was verified electronically.
--- NOTE | 2017-03-17 02:22 | PD.PROCEDR ---
Procedure Note Procedure Thoracentesis A time-out was completed verifying correct patient, procedure, site, positioning , and special equipment if applicable. The patients right side was prepped and draped in a sterile manner after the appropriate infiltration level was confirmed by ultrasound. 1% lidocaine was used anesthetize the surrounding skin. A finder needle was then used to locate fluid and clear yellow fluid was obtained. A 10-blade scalpel used to make the incision. The thoracentesis catheter was then threaded without difficulty. The patient had 1100 ml of hemorrhagic yellow fluid removed from right. A post-procedure chest x-ray was ordered and the fluid will be sent for several studies. Estimated Blood Loss: 5 ml The patient tolerated the procedure well and there were no complications. CXR and chem analysis to follow Jabier Mendez MD Mar 17, 2017 02:22
[2017-03-17] MEDS: CHLORHEXIDINE GLUCONATE 2 % 1 PACK (2 CLOTHS) TOP SCH (02:43)
--- NOTE | 2017-03-17 03:00 | RADRPT ---
EXAM DATE/TIME: 03/17/2017 02:03 [facility] COMPARISON: CHEST SINGLE AP, March 17, 2017, 0:02. INDICATIONS : Post thoracentesis. MEDICAL HISTORY : Cardiovascular disease. Hypertension. Carcinoma, lung. SURGICAL HISTORY : None. ENCOUNTER: Subsequent ACUITY: 1 day PAIN SCORE: 0/10 LOCATION: Bilateral chest FINDINGS: There is improved aeration of the left lung status post thoracentesis. Patchy airspace disease in the left lower lobe noted. There is a small right-sided effusion tracking into the minor fissure and rig ht basilar airspace disease again noted. Cardiomegaly and degenerative changes of the spine. Left PIC C line noted. Tip overlies the SVC. CONCLUSION: Improved aeration left lung. Saul Chang MD on March 17, 2017 at 2:58 Board Certified Radiologist. This report was verified electronically.
[2017-03-17 04:08] LABS: AUTOMATED NEUTROPHIL # 6.4 TH/MM3 (1.8-7.7); BASOPHIL % 0.7 % (0.0-2.0); EOSINOPHIL % 0.4 % (0.0-4.0); HEMATOCRIT 29.8 % (39.0-51.0); HEMO FLAGS DIFF FINAL; LYMPH % 5.5 % (9.0-44.0); LYMPHOCYTE # 0.4 TH/MM3 (1.0-4.8); MEAN CELL VOLUME 104.4 FL (80.0-100.0); MEAN CORPUSCULAR HGB CONC 32.6 % (32.0-36.0); MONO % 3.7 % (0.0-8.0); NEUT % 89.7 % (16.0-70.0); PLATELET COUNT 132 TH/MM3 (150-450); RED BLOOD COUNT 2.86 MIL/MM3 (4.50-5.90); RED CELL DISTRIBUTION WIDTH 18.6 % (11.6-17.2); WHITE BLOOD COUNT 7.1 TH/MM3 (4.0-11.0)
[2017-03-17 04:28] LABS: ANION GAP 8 MEQ/L (5-15); AST (GOT) 19 U/L (15-37); BICARBONATE 28.4 MEQ/L (21.0-32.0); BLOOD UREA NITROGEN 25 MG/DL (7-18); CHLORIDE 109 MEQ/L (98-107); GLOMERULAR FILTRATION RATE 60 ML/MIN (>89); MAGNESIUM 1.8 MG/DL (1.5-2.5); POTASSIUM 4.6 MEQ/L (3.5-5.1); SODIUM (NA) 145 MEQ/L (136-145)
[2017-03-17 04:33] LABS: ALKALINE PHOSPHATASE 91 U/L (45-117); ALT (GPT) 7 U/L (12-78)
[2017-03-17] MEDS: PIPERACIL-TAZO 3.375 GM PREMIX 50 ML IV SCH ×3 (05:21→17:13)
[2017-03-17] MEDS: RESP: ALBUTEROL 2.5 MG/IPRATROPIUM 0.5 MG NEB (SCH) NEB ×3 (07:50→20:15)
[2017-03-17] MEDS: DILTIAZEM-CD 240 MG CAP ER PO SCH (08:40)
[2017-03-17] MEDS: DIGOXIN 0.125 MG TAB PO SCH (08:40)
[2017-03-17] MEDS: PANTOPRAZOLE SODIUM 40 MG VIAL IV SCH (08:40)
[2017-03-17] MEDS: DOCUSATE SODIUM 50 MG/SENNA 8.6 MG TAB PO SCH ×2 (08:40→20:06)
[2017-03-17] MEDS: SODIUM CHLORIDE 0.9% FLUSH 10 ML FLUSH IV FLUSH SCH ×2 (08:42→20:07)
[2017-03-17] MEDS ORDERED: APIXABAN 5 MG TABLET PO SCH (09:00)
--- NOTE | 2017-03-17 13:15 | EKG ---
Date Performed: 03/16/2017 Time Performed: 21:21:05 PTAGE: 71 years EKG: Sinus rhythm LOW QRS VOLTAGE IN PRECORDIAL LEADS POSSIBLE ANTERIOR MYOCARDIAL INFARCTION BORDERLINE ECG PREVIOUS TRACING : 02/26/2017 10.57 Since prior tracing, sinus rhythm has replaced atrial fibri llation. DOCTOR: Olu Padron Interpretating Date/Time 03/17/2017 13:13:30
--- NOTE | 2017-03-17 17:01 | PD.PROCEDR ---
Procedure Note Procedure Right Thoracentesis A time-out was completed verifying correct patient, procedure, site, positioning , and special equipment if applicable. The patients right side was prepped and draped in a sterile manner after the appropriate infiltration level was confirmed by ultrasound. 1% lidocaine was used anesthetize the surrounding skin and subcutaneous tissue. A finder needle was then used to locate fluid and yellow fluid was obtained. A 10-blade scalpel used to make the incision. The thoracentesis catheter was then threaded without difficulty. The patient had 1200 ml of clear free flowing yellow fluid removed from right pleural space. A post-procedure chest x-ray was ordered and the fluid will be sent for several studies. Estimated Blood Loss: 3 ml. The patient tolerated the procedure well and there were no complications. Halie Gonzalez MD Mar 17, 2017 17:01
--- NOTE | 2017-03-17 17:19 | MB ---
cc: CATRACHO HAYDEN DATE OF CONSULTATION 03/17/2017 REASON FOR CONSULTATION Pleural effusion. HISTORY OF PRESENT ILLNESS Mr. Ramos is a 71-year-old male with stage IV lung cancer. The patient is followed by Dr. Mitch Muhammad for his lung cancer and has been receiving chemotherapy up until recently. The patient's chemotherapy was recently held because of underlying infection and recent hospitalization with bacteremia. The patient was admitted with increasing shortness of breath. Chest x-ray With large bilateral effusions. A right thoracentesis was undertaken and the patient is indeed feeling better. Denies history of fever, chills, hemoptysis, however he does have a left lung infiltrate. PAST MEDICAL HISTORY 1. Stage IV lung cancer. 2. COPD. 3. Chronic respiratory failure on home oxygen therapy. 4. Hypertension. 5. He has a port in the right chest. MEDICATIONS Include: 1. Lasix. 2. Potassium. 3. Digoxin. 4. Atorvastatin. 5. Tamsulosin. 6. Ancef. 7. Eliquis. 8. Cardizem. 9. Solu-Cortef. ALLERGIES None known to medication. FAMILY HISTORY Noncontributory. REVIEW OF SYSTEMS 12-point review of systems as per HPI and past history otherwise negative. PHYSICAL EXAMINATION GENERAL: The patient is alert. VITAL SIGNS: Oxygen saturation 95% on O2 by simple mask. Temperature 98, pulse 80, respiratory rate 18, blood pressure 140/70. HEENT: Unremarkable. Eyes without icterus. NECK: Without adenopathy or thyroid enlargement. Central trachea. CHEST: Decreased breath sounds at bases. CARDIAC: Point of maximal impulse distant. S1, S2 audible. No murmur, no rub. ABDOMEN: Lax. Bowel sounds audible. EXTREMITIES: No trace edema. IMPRESSION 1. Lung cancer stage IV. 2. Bilateral pleural effusions, probably malignant related to lung cancer. 3. COPD on bronchodilators. 4. Hypoxic respiratory failure on oxygen therapy. PLAN The patient to be maintained on bronchodilator therapy, oxygen therapy. Antibiotic therapy has been instituted and appropriately so. Thoracentesis was helpful to improve the patient's symptomatology. His outlook as obviously poor should recurrent effusion become a problem, permanent drainage by a tube or catheter and subsequent pleurodesis probably will be the simplest route to pursue. Catracho Hayden MD WWW/LULU /4:03 PM /5:11 PM
--- NOTE | 2017-03-17 18:18 | RADRPT ---
EXAM DATE/TIME: 03/17/2017 17:05 [facility] COMPARISON: CHEST SINGLE AP, March 17, 2017, 2:03. INDICATIONS : Post thoracentesis. Respiratory failure. MEDICAL HISTORY : Cardiovascular disease. Hypertension. Carcinoma, lung. SURGICAL HISTORY : None. ENCOUNTER: Subsequent ACUITY: 3 days PAIN SCORE: 0/10 LOCATION: Bilateral chest FINDINGS: There is improvement in aeration of the lungs with slight interstitial edema remaining. Cardiomegaly has not changed. CONCLUSION: Improvement in the aeration of the lungs. Hung Fitch MD on March 17, 2017 at 18:15 Board Certified Radiologist. This report was verified electronically.
[2017-03-17 19:53] LABS: PLEURAL FLUID LYMPHS 64 %
[2017-03-17] MEDS: TAMSULOSIN HCL 0.4 MG CAP PO SCH (20:06)
[2017-03-17] MEDS: ATORVASTATIN 20 MG TAB PO SCH (20:06)
[2017-03-18] VITALS (14 sets, daily range): BP systolic 120–136; BP diastolic 58–88; PULSE 76–84; RESP 16–23; TEMP 97.2–98.4; O2SAT 94–97
[2017-03-18] MEDS: PIPERACIL-TAZO 3.375 GM PREMIX 50 ML IV SCH ×4 (00:49→18:02)
[2017-03-18] MEDS: AZITHROMYCIN INJ 500 MG in SODIUM CHLOR 0.9% 250 ML INJ 250 ML IV SCH (00:49)
[2017-03-18] MEDS: methylPREDNISolone SOD SUCC 40 MG/1 ML VIAL IV PUSH SCH ×4 (00:49→18:02)
[2017-03-18] MEDS: CHLORHEXIDINE GLUCONATE 2 % 1 PACK (2 CLOTHS) TOP SCH (04:00)
[2017-03-18] MEDS: RESP: ALBUTEROL 2.5 MG/IPRATROPIUM 0.5 MG NEB (SCH) NEB ×4 (04:00→20:59)
--- NOTE | 2017-03-18 07:24 | HHI.CCPN ---
Subjective Remarks/Hospital Course 71-year-old male with stage IV lung cancer presents with complaints of worsening shortness of breath. Patient has also a history of CHF and was recently admitted to the hospital secondary to sepsis and bacteremia. Patient has not had any chemotherapy in the past 5 weeks. Per patient for the past couple days he developed more shortness of breath. He is compliant with his medications and still has a PICC line and he gets IV antibiotics. He denies any chest pain but he feels short of breath even with his oxygen which she normally uses 4 L at home. Patient states that he gets short of breath especially when he lays down. He denies any back pain. He denies any numbness, tilling, weakness. Denies any abdominal pain. No nausea or vomiting. No bowel movement issues. No recent fevers. No allergies to medication. No other medical issues report today. 03/18/17: L thoracentesis with 1.1 L removed yesterday am and R thoracentesis with 1.2 L removed yesterday evening. Patient symptomatically improved. Now breathing comfortably on 35% oxygen via FM. Objective Vital Signs Date Time Temp Pulse Resp B/P Pulse Ox O2 Delivery O2 Flow Rate FiO2 03/18/17 06:00 81 03/18/17 04:00 98.2 23 129/63 97 03/18/17 00:10 40 03/17/17 20:42 Venturi Mask 6.00 Intake and Output 03/17/17 03/17/17 03/17/17 07:59 15:59 23:59 Intake Total 300 ml 531 ml 100 ml Output Total 750 ml 250 ml 250 ml Balance -450 ml 281 ml -150 ml Result Diagram: 03/17/17 0230 03/17/17 0230 Imaging Last 24 hours Impressions Chest X-Ray 03/16/172053 Signed Impressions: Service Date/Time: Thursday, March 16, 2017 21:06 - CONCLUSION: Moderate CHF. Hung Fitch MD Objective Remarks GENERAL: Well-nourished, well-developed patient. No acute distress SKIN: Warm and dry. HEAD: Normocephalic. EYES: No scleral icterus. No injection or drainage. NECK: Supple, trachea midline. No JVD or lymphadenopathy. Facemask CARDIOVASCULAR: Regular rate and rhythm without murmurs, gallops, or rubs. RESPIRATORY: Breath sounds equal bilaterally. No accessory muscle use. GASTROINTESTINAL: Abdomen soft, non-tender, nondistended. MUSCULOSKELETAL: No cyanosis, or edema. BACK: Nontender without obvious deformity. No CVA tenderness. EXTREMITIES: No clubbing or cyanosis, 2+ pitting edema to knees Urinary Catheter: Yes Assessment to: Continue A/P Assessment and Plan Respiratory failure - Underlying stage IV lung cancer - Large bilateral pleural effusions-status post bilateral thoracentesis (1.1L removed from Left and 1.2L from right) - COPD on home O2 - Continue antibiotics and IV steroids - DuoNeb scheduled and when necessary - Place on Lasix 20 mg daily with potassium supplements Large pleural effusion - s/p Palliative Thoracentesis COPD with exacerbation - DuoNeb scheduled and when necessary - IV steroids - IV antibiotics - BiPAP as needed Atrial fibrillation - Continue diltiazem - Continue Eliquis Coronary artery disease - Atorvastatin DVT GI prophylaxis - Eliquis and pantoprazole Critical Care: Level 2. Consult [facility] to assume care in am. Transfer to med surg. Pulmonary Halie Cordero MD Mar 18, 2017 07:24
--- NOTE | 2017-03-18 07:48 | PD.TRANSFR ---
Transfer Summary Admission Date Mar 16, 2017 at 23:36 Admitting Diagnosis respiratory failure, CHF exacerbation, lung cancer Diagnoses: (1) Respiratory failure Diagnosis: Principal (2) COPD exacerbation Diagnosis: Principal (3) Bilateral large pleural effusions Diagnosis: Principal (4) Pneumonia Diagnosis: Principal (5) CHF (congestive heart failure) Diagnosis: Principal (6) Stage 4 lung cancer Diagnosis: Secondary (7) CAD (coronary artery disease) Diagnosis: Secondary (8) HTN (hypertension) Diagnosis: Secondary (9) A-fib Diagnosis: Secondary Transfer Summary/Subjective 71-year-old male with stage IV lung cancer presents with complaints of worsening shortness of breath. Patient has also a history of CHF and was recently admitted to the hospital secondary to sepsis and bacteremia. Patient has not had any chemotherapy in the past 5 weeks. Per patient for the past couple days he developed more shortness of breath. He is compliant with his medications and still has a PICC line and he gets IV antibiotics. He denies any chest pain but he feels short of breath even with his oxygen which she normally uses 4 L at home. Patient states that he gets short of breath especially when he lays down. He denies any back pain. He denies any numbness, tilling, weakness. Denies any abdominal pain. No nausea or vomiting. No bowel movement issues. No recent fevers. No allergies to medication. No other medical issues report today. 03/18/17: L thoracentesis with 1.1 L removed yesterday am and R thoracentesis with 1.2 L removed yesterday evening. Patient symptomatically improved. Now breathing comfortably on 35% oxygen via FM. Objective Vital Signs Date Time Temp Pulse Resp B/P Pulse Ox O2 Delivery O2 Flow Rate FiO2 03/18/17 06:00 81 03/18/17 04:00 98.2 23 129/63 97 03/18/17 00:10 40 03/17/17 20:42 Venturi Mask 6.00 Intake and Output 03/17/17 03/17/17 03/17/17 07:59 15:59 23:59 Intake Total 300 ml 531 ml 100 ml Output Total 750 ml 250 ml 250 ml Balance -450 ml 281 ml -150 ml Result Diagram: 03/17/1722903/17/17 023 Imaging Last 24 hours Impressions Chest X-Ray 03/16/172053 Signed Impressions: Service Date/Time: Thursday, March 16, 2017 21:06 - CONCLUSION: Moderate CHF. Hung Fitch MD Objective Remarks GENERAL: Well-nourished, well-developed patient. No acute distress SKIN: Warm and dry. HEAD: Normocephalic. EYES: No scleral icterus. No injection or drainage. NECK: Supple, trachea midline. No JVD or lymphadenopathy. Facemask CARDIOVASCULAR: Regular rate and rhythm without murmurs, gallops, or rubs. RESPIRATORY: Breath sounds equal bilaterally. No accessory muscle use. GASTROINTESTINAL: Abdomen soft, non-tender, nondistended. MUSCULOSKELETAL: No cyanosis, or edema. BACK: Nontender without obvious deformity. No CVA tenderness. EXTREMITIES: No clubbing or cyanosis, 2+ pitting edema to knees A/P Assessment and Plan Respiratory failure - Underlying stage IV lung cancer - Large bilateral pleural effusions-status post bilateral thoracentesis (1.1L removed from Left and 1.2L from right) - COPD on home O2 - Continue antibiotics and IV steroids - DuoNeb scheduled and when necessary - Place on Lasix 20 mg daily with potassium supplements Large pleural effusion - s/p Palliative Thoracentesis COPD with exacerbation - DuoNeb scheduled and when necessary - IV steroids - IV antibiotics - BiPAP as needed Atrial fibrillation - Continue diltiazem - Continue Eliquis Coronary artery disease - Atorvastatin DVT GI prophylaxis - Eliquis and pantoprazole Critical Care: Level 2. Consult [facility] to assume care in am. Transfer to med surg. Pulmonary Halie Cordero MD Mar 18, 2017 07:48
--- NOTE | 2017-03-18 08:19 | RADRPT ---
EXAM DATE/TIME: 03/18/2017 07:44 [facility] COMPARISON: CHEST SINGLE AP, March 17, 2017, 17:05. INDICATIONS : Shortness of breath; Respiratory disease. MEDICAL HISTORY : Myocardial infarction. Chronic obstructive pulmonary disease. Emphysema. Cardiovascular disease. Hypertension. Carcinoma, lung. Stomach cancer. Afib. SURGICAL HISTORY : Infusaport. Cardiac stents. ENCOUNTER: Subsequent ACUITY: 2 months PAIN SCORE: 0/10 LOCATION: Bilateral chest FINDINGS: A single view of the chest demonstrates the lungs to be symmetrically aerated without evidence of mas s, infiltrate or effusion. Minimal interstitial changes. Mild cardiomegaly. The cardiomediastinal co ntours are unremarkable. Left-sided PICC line with tip in the SVC. Osseous structures are intact. CONCLUSION: 1. Minimal interstitial changes, not significantly changed. 2. Mild cardiomegaly. Arnulfo Rangel MD on March 18, 2017 at 8:17 Board Certified Radiologist. This report was verified electronically.
[2017-03-18] MEDS: DOCUSATE SODIUM 50 MG/SENNA 8.6 MG TAB PO SCH ×2 (08:32→21:35)
[2017-03-18] MEDS: PANTOPRAZOLE SODIUM 40 MG VIAL IV SCH (08:32)
[2017-03-18] MEDS: DILTIAZEM-CD 240 MG CAP ER PO SCH (08:32)
[2017-03-18] MEDS: DIGOXIN 0.125 MG TAB PO SCH (08:32)
[2017-03-18] MEDS: FUROSEMIDE 20 MG TAB PO SCH ×2 (08:34→18:02)
[2017-03-18] MEDS: POTASSIUM CHLORIDE 25 MEQ EFFERVESCENT TAB PO SCH (08:34)
--- NOTE | 2017-03-18 08:36 | HHI.PR ---
Subjective Remarks ALERT ON O2 NO SOB AT REST Objective Vital Signs Date Time Temp Pulse Resp B/P Pulse Ox O2 Delivery O2 Flow Rate FiO2 03/18/17 06:00 81 03/18/17 04:00 98.2 78 23 129/63 97 03/18/17 04:00 78 03/18/17 02:00 76 03/18/17 00:10 96 40 03/18/17 00:00 83 03/18/17 00:00 98.4 83 16 124/58 94 03/17/17 22:00 82 03/17/17 20:42 95 Venturi Mask 6.00 35 03/17/17 20:15 94 Venturi Mask 50 03/17/17 20:00 78 03/17/17 20:00 98.1 78 17 136/64 94 03/17/17 19:00 95 Venturi Mask 6.00 50 03/17/17 18:00 80 03/17/17 16:00 81 03/17/17 16:00 98.4 81 23 144/64 90 03/17/17 14:00 77 03/17/17 12:00 97.7 79 24 148/69 90 03/17/17 12:00 79 03/17/17 10:00 84 I/O 03/17/17 03/17/17 03/17/17 03/18/17 03/18/17 03/18/17 07:00 15:00 23:00 07:00 15:00 23:00 Intake Total 300 ml 531 ml 100 ml 560 ml Output Total 750 ml 250 ml 250 ml 150 ml Balance -450 ml 281 ml -150 ml 410 ml Intake Oral 420 ml 100 ml 240 ml IV Total 300 ml 111 ml 320 ml Output Urine Total 750 ml 250 ml 250 ml 150 ml # Bowel Movements 0 Result Diagram: 03/17/17 0230 03/17/17 0230 Objective Remarks Laboratory Tests Test 03/16/17 03/16/17 03/17/17 03/17/17 21:02 23:45 02:30 16:50 Red Blood Count 2.82 MIL/MM3 2.86 MIL/MM3 (4.50-5.90) (4.50-5.90) Hemoglobin 9.3 GM/DL 9.7 GM/DL (13.0-17.0) (13.0-17.0) Hematocrit 29.5 % 29.8 % (39.0-51.0) (39.0-51.0) Mean Corpuscular Volume 104.5 FL 104.4 FL (80.0-100.0) (80.0-100.0) Mean Corpuscular Hemoglobin 31.4 % Concent (32.0-36.0) Red Cell Distribution Width 18.3 % 18.6 % (11.6-17.2) (11.6-17.2) Platelet Count 139 TH/MM3 132 TH/MM3 (150-450) (150-450) Monocytes (%) (Auto) 10.0 % (0.0-8.0) Prothrombin Time 15.1 SEC (9.8-11.6) Activated Partial 34.6 SEC Thromboplast Time (24.3-30.1) Chloride Level 109 MEQ/L 109 MEQ/L (98-107) (98-107) Blood Urea Nitrogen 26 MG/DL (7-18) 25 MG/DL (7-18) Estimat Glomerular Filtration 67 ML/MIN (>89) 60 ML/MIN (>89) Rate Calcium Level 8.2 MG/DL 8.1 MG/DL (8.5-10.1) (8.5-10.1) Alanine Aminotransferase 7 U/L (12-78) 7 U/L (12-78) (ALT/SGPT) Total Creatine Kinase 36 U/L (39-308) Albumin 2.2 GM/DL 2.2 GM/DL (3.4-5.0) (3.4-5.0) Arterial Blood Partial 44 mmHg (38-42) Pressure CO2 Blood Gas Hemoglobin 9.8 G/DL (12.0-16.0) Neutrophils (%) (Auto) 89.7 % (16.0-70.0) Lymphocytes (%) (Auto) 5.5 % (9.0-44.0) Lymphocytes # (Auto) 0.4 TH/MM3 (1.0-4.8) Troponin I 0.06 NG/ML (0.02-0.05) Pleural Fluid WBC 228 /MM3 (0-10) Pleural Fluid RBC 2753 /MM3 (0-0) Medications and IVs GENERAL: SKIN: Warm and dry. HEAD: Atraumatic. Normocephalic. EYES: Pupils equal and round. No scleral icterus. No injection or drainage. ENT: No nasal bleeding or discharge. Mucous membranes pink and moist. NECK: Trachea midline. No JVD. CARDIOVASCULAR: Regular rate and rhythm. RESPIRATORY: No accessory muscle use. Clear to auscultation. Breath sounds DECREASED AT BASIS GASTROINTESTINAL: Abdomen soft, non-tender, nondistended. Hepatic and splenic margins not palpable. MUSCULOSKELETAL: Extremities without clubbing, cyanosis, or edema. No obvious deformities. NEUROLOGICAL: Awake and alert. No obvious cranial nerve deficits. Motor grossly within normal limits. Five out of 5 muscle strength in the arms and legs. Normal speech. PSYCHIATRIC: Appropriate mood and affect; insight and judgment normal. Assessment and Plan Assessment and Plan ASS: PLEURAL EFFISION METASTATIC CA PLAN O2 NEEDED INCREASE ACTIVITY Catracho Hayden MD Mar 18, 2017 08:36
[2017-03-18 11:31] LABS: TOTAL PROTEIN,PLEURAL FLUID 2.6 GM/DL
--- NOTE | 2017-03-18 13:10 | PD.CONS ---
Consult Service Palliative Care . Consult Requested By Dr. Mendez . Primary Care Physician Isac Cortez M.D. . Reason for Consultation a. To assist with evaluation and management of symptoms including: dyspnea, nausea, anorexia, insomnia b. To assist medical decision maker(s) with: better understanding of current medical conditions; weighing benefits/burdens of medical treatment options; making medical treatment decisions. . HPI History of Present Illness Mr. Ramos is a 71-year-old male with a known history of stage IV lung cancer; coronary artery disease status post myocardial infarction; COPD; atrial fibrillation; and basal cell carcinoma who was readmitted through the emergency department on 03/16/17 because of severe dyspnea following a hospitalization here at [facility] from through 03/03/17 for a methicillin sensitive staph aureus septicemia. and patient report that he had significant shortness of breath from the time he was first discharged home from the hospital in spite of home O2 at 3-4 L /m via nasal cannula. He could barely walk a few steps without having to rest even with continuous oxygen. Getting to the bathroom and back was a struggle for patient and . He slept in a recliner and history seems positive for orthopnea. Appetite was poor. There were occasional episodes of nausea. He had difficulty sleeping at night. There were no complaints of chest pain or palpitation. The patient had a PICC line in place at time of hospital discharge and the , herself, administered intravenous antibiotics 3 times daily. There were no complaints of fevers or chills. Home health services were provided. Patient had 1 physical therapy evaluation, but on the next visit O2 saturations were so low that the patient was unable to participate. The patient's shortness of breath became significantly worse particularly during the 2 days leading up to emergency department presentation. The patient has stage IV non-small cell lung cancer which was diagnosed in 2016. Per patient, he has responded well to chemotherapy and there has been no recent spread of disease. Due to his recent illness, however, he has not received any of his chemotherapy -- which he normally receives from Dr. Muhammad -- in about 5 weeks. Initial vital signs in the emergency department were as follows> temperature 97.9; pulse 80; respiratory rate 18; blood pressure 177/82; pulse oximetry 80 on room air Initial physical examination by the emergency painting department supervisor showed the following > there was no accessory muscle use. Rales were heard in all lung haskins. Breath sounds were equal bilaterally. 2+ pitting edema was noted in the lower extremities. The remainder of the exam was unremarkable. Initial diagnostic testing revealed the following: * CBC showed WBC 6.0; hemoglobin 9.3; platelet count 139. MCV was 104.5 * Coagulation profile showed PT 15.1; INR 1.3; PTT 34.6 * Chemistry profile showed sodium 142; potassium 4.4; chloride 109; CO2 25.5; anion gap 8; BUN 26; creatinine 1.08; GFR 67; glucose 85; calcium 8.2; magnesium 1.9; lactic acid 1.5 * Liver function studies show total bilirubin 0.8; AST 15; ALT 7; alkaline phosphatase 92; total protein 6.5; albumin 2.2 * Cardiac serology showed total CK 36; troponin 0.04; B-type natriuretic peptide 59 * Chest x-ray showed moderate congestive heart failure * CT angiography showed progression of bilateral consolidation and large bilateral effusions without evidence of pulmonary embolism The patient was given 80 mg of furosemide intravenously in the emergency department. Respiratory status deteriorated while in the emergency room and he desaturated to the 50s while getting his CT imaging. He was placed on BiPAP but the BiPAP requirement was high. Critical care was consulted and the patient was admitted to the intensive care unit. Critical care felt the patient's large pleural effusions were significantly contributing to his dyspnea. He underwent both left-sided and right sided thoracentesis. Approximately 1100 cc of hemorrhagic yellow fluid was removed from the left and approximately 1200 cc of clear yellow fluid was removed from the right pleural space less than 24 hours later. The patient had significant improvement in his respiratory symptoms following the procedures. Culture results on the pleural fluid are negative to date. Pathology is pending. Pulmonology has been consulted. The patient has done well in the ICU. At time of my visit he is awake alert and talkative. There is slight confusion. He denies pain. There is no shortness of breath while lying still in bed with oxygen running. He is scheduled to be transferred out of the intensive care unit later today. . Function/Cognitive Trajectory As noted above, patient was essentially recliner bound since discharge from the hospital last time. With great difficulty and assistance he could walk a few steps to the bathroom and back. Otherwise he would sit, sleep, and eat in his recliner. In addition to the breathlessness, patient reports significant generalized weakness. . Review of Systems Constitutional: COMPLAINS OF: Fatigue, Weight loss, Change in appetite, Generalized weakness, Sleep problems, DENIES: Fever, Weight gain, Chills, Pain Endocrine: DENIES: Heat/cold intolerance, Polydipsia, Polyuria Eyes: COMPLAINS OF: Blurred vision Ears, nose, mouth, throat: COMPLAINS OF: Hearing loss, DENIES: Throat pain, Hoarseness, Ear Pain, Epistaxis Respiratory: COMPLAINS OF: Cough, Snoring, Shortness of breath, DENIES: Apneas , Wheezing, Hemoptysis, Sputum production Cardiovascular: COMPLAINS OF: Dyspnea on Exertion, Lower Extremity Edema, Orthopnea, DENIES: Chest pain, Palpitations, Syncope, Claudication Gastrointestinal: COMPLAINS OF: Constipation, Nausea, Anorexia, DENIES: Abdominal pain, Black stools, Bloody stools, Diarrhea, Vomiting, Difficulty Swallowing, Dyspepsia or heartburn, Vomiting blood Musculoskeletal: COMPLAINS OF: Joint pain, DENIES: Back pain Integumentary: DENIES: Pruritus, Non-healing sores Hematologic/Lymphatics: DENIES: Bruising Immunologic/Allergic: DENIES: Urticaria Neurologic: DENIES: Headache Psychiatric: COMPLAINS OF: Confusion, Depression, DENIES: Hallucinations, Agitation, Suicidal Ideation, Homicidal Ideation, Delusions Past Family Social History Coded Allergies: No Known Allergies (Unverified , 03/16/17) Past Medical History Stage IV Non small cell Lung Cancer. Diagnosed in 2016. Has responded well to chemotherapy. Followed by Dr. Muhammad Hypertension -- since 1984 CAD CA at age 40. NSTEMI on 11/20/15. Stent placement COPD, O2 Dependent Atrial fibrillation (newly dx 01/2017) requring cardioversion Basal cell carcinoma face Recent sepsis BPH Sleep apnea (though not formally diagnosed) . Past Surgical History Cardiac Stent x2 2016 Cataract Surgery bilateral, 2015 Right Chest Port Resection right face/jaw/earlobe 2/2 basal cell carcinoma Right rib biopsy Placement and removal of [id number] right chest PICC line placement Thoracentesis . Reported Medications Pre- hospital medications at home included: Epinephrine Inj 1 Mg/Ml Inj 0.3 Mg SQ ONCE PRN Give with any signs of respiratory distress. Solu-Cortef Inj (Hydrocortisone Sodium Succinate) 250 Mg Inj 250 Mg IV PUSH ONCE PRN Cefazolin Inj (Cefazolin Sodium/Dextrose) 2 Gm/50 Ml Bagp 2 Gm IV Q8H 24 Days Cardizem CD 24 HR (Diltiazem CD 24 HR) 240 Mg Caper 240 Mg PO DAILY Eliquis (Apixaban) 5 Mg Tab 5 Mg PO BID Digoxin 0.125 Mg Tab 0.125 Mg PO DAILY Potassium Chloride ER (Potassium Chloride) 10 Meq Cap 10 Meq PO DAILY Furosemide 40 Mg Tab 40 Mg PO DAILY Tamsulosin (Tamsulosin HCl) 0.4 Mg Cap 0.4 Mg PO HS Atorvastatin (Atorvastatin Calcium) 20 Mg Tab 20 Mg PO HS . Current Medications Medications (Trade) Dose Ordered Sig/Angie Route Start Time Stop Time Status Last Admin (Lipitor) 20 mg HS PO 03/17/17 21:00 03/17/17 20:06 (Lanoxin) 0.125 mg DAILY PO 03/17/17 09:00 03/18/17 08:32 (Cardizem Cd) 240 mg DAILY PO 03/17/17 09:00 03/18/17 08:32 (Flomax) 0.4 mg HS PO 03/17/17 21:00 03/17/17 20:06 (SoluMEDROL INJ) 40 mg Q6HR IV PUSH 03/17/17 00:00 03/18/17 12:37 (NS Flush) 2 ml UNSCH PRN .XX 03/17/17 00:00 (NS Flush) 2 ml BID IV FLUSH 03/17/17 09:00 03/17/17 20:07 (Dilaudid Pf Inj) 1 mg Q4H PRN IV 03/17/17 00:00 (Protonix Inj) 40 mg DAILY IV 03/17/17 09:00 03/18/17 08:32 (Ativan Inj) 1 mg Q1H PRN IV 03/17/17 00:00 (Zofran Inj) 4 mg Q6H PRN IV 03/17/17 00:00 (Ambien) 5 mg HS PRN PO 03/17/17 00:00 Miscellaneous Information 1 Q361D XX 03/17/17 00:00 03/17/17 01:45 (Chlorhexidine 2% Cloth) 3 pack Taper DAILY@04 TOP 03/17/17 04:00 03/13/18 03:59 03/18/17 04:00 (Chlorhexidine 2% Cloth) 3 pack UNSCH PRN TOP 03/17/17 00:00 (Amelia-Colace) 1 tab BID PO 03/17/17 09:00 03/18/17 08:32 (Milk Of Magnesia Liq) 30 ml Q12H PRN PO 03/17/17 00:00 (Senokot) 17.2 mg Q12H PRN PO 03/17/17 00:00 (Dulcolax Supp) 10 mg DAILY PRN RECTAL 03/17/17 00:00 Lactulose 30 ml 30 ml DAILY PRN PO 03/17/17 00:00 Piperacillin Sod/ Tazobactam Sod 50 ml @ 100 mls/hr Q6H IV 03/17/17 06:00 03/18/17 12:37 (Zithromax Inj/ NS 250 ml Inj) 250 ml @ 250 mls/hr Q24H IV 03/18/17 01:00 03/18/17 00:49 (Eliquis) 5 mg BID PO 03/19/17 09:00 (Lasix) 20 mg BID@09,18 PO 03/18/17 09:00 03/18/17 08:34 (K-Lyte Cl Eff) 25 meq DAILY PO 03/18/17 09:00 03/18/17 08:34 . Family History No history of DM or CAD. . Substance Use Tobacco: Former smoker 12 PPD times 2530 years, quit > 20 years ago. Alcohol: None Prescription med abuse: None Illicits: None . Psychosocial History Originally from [facility] area. 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 , lives with his . Two children -- son and daughter -- both live in [facility]. There are 5 grandchildren. . Spiritual/Cultural Factors Yarsanism . Living Will: Completed, but not made available Health Care Surrogate: Completed, but not made available Durable Power of Ed Special Education Teacher: Never completed Date completed: Will note dates when documents are brought in. . Health Care Surrogate(s): is reportedly the health care surrogate. . Documented care wishes: Patient desires DNR status. . Today's verbally stated goals: Patient desires aggressive goals short of resuscitation. . Family/friends goals: At this point believes patient desires to continue chemotherapy. . Ethical and Legal Issues Patient has some mild confusion. He rightfully relies on his to help him with healthcare decisions. . Physical Exam Vital Signs Date Time Temp Pulse Resp B/P Pulse Ox O2 Delivery O2 Flow Rate FiO2 03/18/17 12:00 77 03/18/17 12:00 98.4 84 22 120/88 97 03/18/17 10:08 96 Nasal Cannula 6.00 03/18/17 10:00 77 03/18/17 08:00 77 03/18/17 08:00 98.3 77 22 131/60 97 03/18/17 06:00 81 03/18/17 04:00 98.2 78 23 129/63 97 03/18/17 04:00 78 03/18/17 02:00 76 03/18/17 00:10 96 40 03/18/17 00:00 83 03/18/17 00:00 98.4 83 16 124/58 94 03/17/17 22:00 82 03/17/17 20:42 95 Venturi Mask 6.00 35 03/17/17 20:15 94 Venturi Mask 50 03/17/17 20:00 78 03/17/17 20:00 98.1 78 17 136/64 94 03/17/17 19:00 95 Venturi Mask 6.00 50 03/17/17 18:00 80 03/17/17 16:00 81 03/17/17 16:00 98.4 81 23 144/64 90 03/17/17 14:00 77 . 03/17/17 03/18/17 19:00 07:00 Intake Total 531 ml 660 ml Output Total 250 ml 400 ml Balance 281 ml 260 ml Intake Oral 420 ml 340 ml IV Total 111 ml 320 ml Output Urine Total 250 ml 400 ml # Bowel Movements 0 Exam CONSTITUTIONAL/GENERAL: This is an obese male awake, alert, talkative in an ICU bed. TUBES/LINES/DRAINS: PICC line LUE; lucero; 02 via NC; SKIN: No jaundice, rashes, or lesions. No wounds seen anteriorly. Skin temperature appropriate. Not diaphoretic. HEAD: Atraumatic. Normocephalic. 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 EYES: Pupils equal and round and reactive. Extraocular motions intact. No scleral icterus. No injection or drainage. Fundi not examined. ENT: Right earlobe partially removed. Hearing grossly normal. Nose without bleeding or purulent drainage. Throat without visible erythema, exudates, masses , or lesions. NECK: Trachea midline. Supple, nontender. No palpable thyroid enlargement or nodularity. CARDIOVASCULAR: Regular rate and rhythm without murmurs, gallops, or rubs. Heart sounds distant. No JVD. Peripheral pulses symmetric. RESPIRATORY/CHEST: Symmetric, unlabored respirations. Faint crackles at bases. Breath sounds equal bilaterally but distant.. No wheezes,. GASTROINTESTINAL: Abdomen obese, distended, midldly firm, non-tender. No hepato -splenomegaly, or palpable masses. No guarding. Bowel sounds present. GENITOURINARY: Without palpable bladder distension. Montilla catheter in place. MUSCULOSKELETAL: Extremities without clubbing, cyanosis. 1+ bilateral LE edema. No joint tenderness or effusion noted. No calf tenderness. No mottling or clubbing. LYMPHATICS: No palpable cervical or supraclavicular adenopathy. NEUROLOGICAL: Awake and alert. Motor and sensory grossly within normal limits. Follows commands. Moves all extremities. Mildly confused -- has difficulty giving a coherent answer to a specific question. PSYCHIATRIC: No obvious anxiety/depression. No apparent hallucinations or other psychotic thought process. . Diagnostic Tests Laboratory Laboratory Tests Test 03/16/17 03/16/17 03/16/17 03/17/17 21:02 21:07 23:45 02:10 White Blood Count 6.0 TH/MM3 (4.0-11.0) Red Blood Count 2.82 MIL/MM3 (4.50-5.90) Hemoglobin 9.3 GM/DL (13.0-17.0) Hematocrit 29.5 % (39.0-51.0) Mean Corpuscular Volume 104.5 FL (80.0-100.0) Mean Corpuscular Hemoglobin 32.9 PG (27.0-34.0) Mean Corpuscular Hemoglobin 31.4 % Concent (32.0-36.0) Red Cell Distribution Width 18.3 % (11.6-17.2) Platelet Count 139 TH/MM3 (150-450) Mean Platelet Volume 8.2 FL (7.0-11.0) Neutrophils (%) (Auto) 69.5 % (16.0-70.0) Lymphocytes (%) (Auto) 18.1 % (9.0-44.0) Monocytes (%) (Auto) 10.0 % (0.0-8.0) Eosinophils (%) (Auto) 1.7 % (0.0-4.0) Basophils (%) (Auto) 0.7 % (0.0-2.0) Neutrophils # (Auto) 4.2 TH/MM3 (1.8-7.7) Lymphocytes # (Auto) 1.1 TH/MM3 (1.0-4.8) Monocytes # (Auto) 0.6 TH/MM3 (0-0.9) Eosinophils # (Auto) 0.1 TH/MM3 (0-0.4) Basophils # (Auto) 0.0 TH/MM3 (0-0.2) CBC Comment DIFF FINAL Differential Comment Prothrombin Time 15.1 SEC (9.8-11.6) Prothromb Time International 1.3 RATIO Ratio Activated Partial 34.6 SEC Thromboplast Time (24.3-30.1) Sodium Level 142 MEQ/L (136-145) Potassium Level 4.4 MEQ/L (3.5-5.1) Chloride Level 109 MEQ/L (98-107) Carbon Dioxide Level 25.5 MEQ/L (21.0-32.0) Anion Gap 8 MEQ/L (5-15) Blood Urea Nitrogen 26 MG/DL (7-18) Creatinine 1.08 MG/DL (0.60-1.30) Estimat Glomerular Filtration 67 ML/MIN (>89) Rate Random Glucose 85 MG/DL (74-106) Calcium Level 8.2 MG/DL (8.5-10.1) Magnesium Level 1.9 MG/DL (1.5-2.5) Total Bilirubin 0.8 MG/DL (0.2-1.0) Aspartate Amino Transf 15 U/L (15-37) (AST/SGOT) Alanine Aminotransferase 7 U/L (12-78) (ALT/SGPT) Alkaline Phosphatase 92 U/L (45-117) Total Creatine Kinase 36 U/L (39-308) Troponin I 0.04 NG/ML (0.02-0.05) B-Type Natriuretic Peptide 59 PG/ML (0-100) Total Protein 6.5 GM/DL (6.4-8.2) Albumin 2.2 GM/DL (3.4-5.0) Lactic Acid Level 1.5 mmol/L (0.4-2.0) Blood Gas Puncture Site RT RADIAL Blood Gas Patient Temperature 98.6 Blood Gas HCO3 26 mmol/L (22-26) Blood Gas Base Excess 2.0 mmol/L (-2-2) Blood Gas Oxygen Saturation 93 % (90-100) Arterial Blood pH 7.40 (7.380-7.420) Arterial Blood Partial 44 mmHg (38-42) Pressure CO2 Arterial Blood Partial 85 mmHG Pressure O2 (61-120) Arterial Blood Oxygen Content 12.9 Vol % (12.0-20.0) Arterial Blood 2.5 % (0-4) Carboxyhemoglobin Arterial Blood Methemoglobin 0.4 % (0-2) Blood Gas Hemoglobin 9.8 G/DL (12.0-16.0) Oxygen Delivery Device BiPAP Blood Gas Ventilator Setting IPAP 10 EPAP5 Blood Gas Inspired Oxygen 100 % Nasal Screen MRSA (PCR) MRSA NOT DETECTED (NOT DETECT) Test 03/17/17 03/17/17 03/17/17 02:30 12:40 16:50 White Blood Count 7.1 TH/MM3 (4.0-11.0) Red Blood Count 2.86 MIL/MM3 (4.50-5.90) Hemoglobin 9.7 GM/DL (13.0-17.0) Hematocrit 29.8 % (39.0-51.0) Mean Corpuscular Volume 104.4 FL (80.0-100.0) Mean Corpuscular Hemoglobin 34.0 PG (27.0-34.0) Mean Corpuscular Hemoglobin 32.6 % Concent (32.0-36.0) Red Cell Distribution Width 18.6 % (11.6-17.2) Platelet Count 132 TH/MM3 (150-450) Mean Platelet Volume 8.4 FL (7.0-11.0) Neutrophils (%) (Auto) 89.7 % (16.0-70.0) Lymphocytes (%) (Auto) 5.5 % (9.0-44.0) Monocytes (%) (Auto) 3.7 % (0.0-8.0) Eosinophils (%) (Auto) 0.4 % (0.0-4.0) Basophils (%) (Auto) 0.7 % (0.0-2.0) Neutrophils # (Auto) 6.4 TH/MM3 (1.8-7.7) Lymphocytes # (Auto) 0.4 TH/MM3 (1.0-4.8) Monocytes # (Auto) 0.3 TH/MM3 (0-0.9) Eosinophils # (Auto) 0.0 TH/MM3 (0-0.4) Basophils # (Auto) 0.0 TH/MM3 (0-0.2) CBC Comment DIFF FINAL Differential Comment Sodium Level 145 MEQ/L (136-145) Potassium Level 4.6 MEQ/L (3.5-5.1) Chloride Level 109 MEQ/L (98-107) Carbon Dioxide Level 28.4 MEQ/L (21.0-32.0) Anion Gap 8 MEQ/L (5-15) Blood Urea Nitrogen 25 MG/DL (7-18) Creatinine 1.20 MG/DL (0.60-1.30) Estimat Glomerular Filtration 60 ML/MIN (>89) Rate Random Glucose 96 MG/DL (74-106) Calcium Level 8.1 MG/DL (8.5-10.1) Phosphorus Level 3.9 MG/DL (2.5-4.9) Magnesium Level 1.8 MG/DL (1.5-2.5) Total Bilirubin 1.0 MG/DL (0.2-1.0) Aspartate Amino Transf 19 U/L (15-37) (AST/SGOT) Alanine Aminotransferase 7 U/L (12-78) (ALT/SGPT) Alkaline Phosphatase 91 U/L (45-117) Troponin I 0.06 NG/ML 0.04 NG/ML (0.02-0.05) (0.02-0.05) Total Protein 6.6 GM/DL (6.4-8.2) Albumin 2.2 GM/DL (3.4-5.0) Pleural Fluid pH 8.0 Pleural Fluid WBC 228 /MM3 (0-10) Pleural Fluid RBC 2753 /MM3 (0-0) Pleural Fluid Neutrophils 15 % Pleural Fluid Lymphocytes 64 % Pleural Fluid Monocytes 1 % Pleural Fluid Histiocytes 16 % Pleural Fluid Mesothelial 6 % Cells Pleural Fluid Total Protein 2.6 GM/DL Pleural Fluid LDH 190 U/L Pleural Fluid Glucose 164 MG/DL . Result Diagram: 03/17/17 0230 03/17/17 0230 Microbiology Microbiology Date/Time Procedure Status Source Growth 03/16/17 21:02 Aerobic Blood Culture - Preliminary Resulted Blood Peripheral NO GROWTH IN 2 DAYS 03/16/17 21:02 Anaerobic Blood Culture - Preliminary Resulted Blood Peripheral NO GROWTH IN 2 DAYS 03/16/17 21:15 Aerobic Blood Culture - Preliminary Resulted Blood Peripheral NO GROWTH IN 2 DAYS 03/16/17 21:15 Anaerobic Blood Culture - Preliminary Resulted Blood Peripheral NO GROWTH IN 2 DAYS 03/17/17 16:50 Gram Stain - Final Resulted Fluid Pleural Fluid 03/17/17 16:50 Body Fluid Culture Resulted Fluid Pleural Fluid Pending 03/17/17 16:50 Acid Fast Stain Received Fluid Pleural Fluid Pending 03/17/17 16:50 Mycobacterial Culture Received Fluid Pleural Fluid Pending 03/17/17 16:50 Fungal Smear - Final Resulted Fluid Pleural Fluid NO FUNGAL ELEMENTS SEEN. 03/17/17 16:50 Fungal Culture Resulted Fluid Pleural Fluid Pending . Imaging Last Impressions Chest X-Ray 03/18/17 0000 Signed Impressions: Service Date/Time: Saturday, March 18, 2017 07:44 - CONCLUSION: 1. Minimal interstitial changes, not significantly changed. 2. Mild cardiomegaly. Arnulfo Rangel MD CT Angiography 03/16/17 0000 Signed Impressions: Service Date/Time: Thursday, March 16, 2017 23:02 - CONCLUSION: 1. Progression of bilateral consolidation and large bilateral effusions without evidence of pulmonary embolism. Saul Chang MD . Procedures * Right sided thoracentesis * Left sided thoracentesis . Patient/Family Conference Present at Family Conference: Patient, , daughter Spoke to patient and daughter at bedside for about 25 minutes and then an additional 5 minutes with alone in hallway. . . Family Conference Time (mins): 30 Family Conference Location: Bedside, Hallway Issues Discussed: * Palliative care role, purpose, approach * Additional medical, psychosocial, and spiritual history * Patients general health, functional status, and cognitive changes in the time between hospitalizations. * Patient/family understanding of the current medical problems * Patient/family understanding of prognosis * Patients goals of medical treatment. * Current medical treatment options and benefits/burdens of those options * Questions answered to the best of my ability . Assessment and Plan Disease Oriented Problem List: (1) Stage 4 lung cancer (2) Bilateral large pleural effusions (3) CHF (congestive heart failure) (4) CAD (coronary artery disease) (5) Malnutrition (6) HTN (hypertension) Symptom Scale: (1) Dyspnea 0-10 Scale: 0 Comment: Denies dyspnea while at rest with 02 flowing. continues to have dypsnea with exertion. . (2) Anorexia 0-10 Scale: Unable to quantify Comment: Poor appetite. Even foods that he used to enjoy (e.g. chocolate and Coke) no longer appeal to him. . (3) Generalized weakness 0-10 Scale: Unable to quantify (4) Nausea 0-10 Scale: Unable to quantify Comment: Get intermittent nausea without vomiting. Exacerbated with sight or mention of food. . Pertinent Non-Medical Issues Psychosocial: Well supported by (at home with him) as well as a son and daughter who live in [facility]. Spiritual: Yarsanism Legal: Reortedly has advance directives. Patient has requested DNR status. is verbally designated surrogate. Ethical issues impacting care: Patient has mild confusion. Recommend shared decision making with spouse. . Important Contacts Spouse -- Moon Ramos [phone] / [phone] . Prognosis This patient has an underlying stage IV non-small cell carcinoma of the lung. He was diagnosed in 2016, given a prognosis To live until August 2016. He had been undergoing chemotherapy treatment with Dr. Muhammad and has responded well with recent imaging (per patient) not showing ongoing increase in tumor buden. He has underlying heart disease with a history of CA, stenting, and recent A fib RVR requiring cardioversion. He may have some CHF. There is some question of COPD the patient indicates has not yet been formally diagnosed with this, hx 1-2 PPD smoker , COPD would be likely. He was recently hospitalized with sepsis and required readmission within less than two weeks. Unclear if his current pleural effusions are due to CHF or to worsening cancer. Patient has not been able to return for chemotherapy for 5 weeks. . Code Status: No Code Plan == Code Status: NO CODE == Decision making: Patient is awake and alert but has mild confusion. He has a difficulty remembering what was said and has poor memory for the timing and details of hospitalizations and treatment. I therefore recommend that there be shared decision making with his legal decision maker. We have no written advance directives on hand, but patient has verbally indicated that he wants his to serve as his health care surrogate. Even without a written advance directive, the would be legal proxy under the [place] statutes. == Goals of medical treatment: At this time, patient is still hoping to improve and to be able to receive additional chemotherapy. His goals, or therefore, to continue with aggressive care short of resuscitation. == Pain: Patient denies any significant pain at this time. He does have orders for intravenous hydromorphone should he develop pain. == Dyspnea: Patient shortness of breath is much improved since the bilateral thoracentesis. It remains unclear, to what extent the pleural effusions are due to congestive heart failure versus malignancy. If there is quick reaccumulation of pleural fluid and we think this is most likely due to the cancer and not to congestive heart failure, may want to consider indwelling pleural catheters. == Anorexia: Patient's appetite appears to be improving now that his dyspnea has been mitigated. It is uncertain, however, if nutrition will be adequate to reverse the recent downhill trend. No further recommendations at this time. == Nausea: Appears to have improved since thoracentesis. This has not been a problem in the hospital. Ondansetron is available on an as-needed basis. No further recommendations at this time. == Insomnia: This was particularly bad at home. Patient has zolpidem available on a when necessary basis. No further recommendations at this time == Will try to get a copy of the patient's advanced directives here in the hospital so we can scan them into the EMR. == Disposition: was overwhelmed with care at home following last hospitalization. Patient will probably need skilled rehab OR home health along with a paid caregiver. == At such time that the patient's oncologist feels he is no longer a candidate for ongoing chemotherapy, the patient would certainly be eligible for hospice services and I believe the patient's goals, at that time, would transition to comfort measures only. == Palliative care we'll continue to follow to assist with symptom management and to further clarify goals of medical treatment as the clinical course evolves. . Thank you for the opportunity to participate in the care of Mr. Ramos. . Attestation To help prompt me to consider important information that might be impacting today's encounter and assessment, information from prior notes written by myself or my colleagues may have been "brought forward" into today's note. My signature on this note, however, is an attestation that I personally performed the exam, history, and/or decision-making noted today, and, unless otherwise indicated, the interactions with patient, family, and staff as well as the review of records all occurred today. I also attest that the listed assessment and stated plan reflect my best clinical judgment today based on the combination of historical information, prior notes, and today's exam/ interactions. When time spent is documented, it refers only to time spent today by the signer, or if indicated, combined time spent today by collaborating physician/nurse practitioner. . Brock Rodrigues MD Mar 18, 2017 13:10
[2017-03-18] MEDS: TAMSULOSIN HCL 0.4 MG CAP PO SCH (21:35)
[2017-03-18] MEDS: ATORVASTATIN 20 MG TAB PO SCH (21:35)
[2017-03-18] MEDS: SODIUM CHLORIDE 0.9% FLUSH 10 ML FLUSH IV FLUSH SCH (21:36)
[2017-03-19] VITALS (11 sets, daily range): BP systolic 128–154; BP diastolic 60–70; PULSE 71–82; RESP 18–20; TEMP 97.2–98; O2SAT 94–98
[2017-03-19] MEDS: PIPERACIL-TAZO 3.375 GM PREMIX 50 ML IV SCH ×4 (00:03→17:10)
[2017-03-19] MEDS: AZITHROMYCIN INJ 500 MG in SODIUM CHLOR 0.9% 250 ML INJ 250 ML IV SCH (00:03)
[2017-03-19] MEDS: methylPREDNISolone SOD SUCC 40 MG/1 ML VIAL IV PUSH SCH ×4 (00:03→21:11)
[2017-03-19] MEDS: CHLORHEXIDINE GLUCONATE 2 % 1 PACK (2 CLOTHS) TOP SCH (04:00)
[2017-03-19] MEDS: RESP: ALBUTEROL 2.5 MG/IPRATROPIUM 0.5 MG NEB (SCH) NEB ×4 (04:38→22:31)
[2017-03-19] MEDS: SODIUM CHLORIDE 0.9% FLUSH 10 ML FLUSH IV FLUSH SCH ×2 (08:25→21:00)
[2017-03-19] MEDS: APIXABAN 5 MG TABLET PO SCH ×2 (08:25→21:10)
[2017-03-19] MEDS: PANTOPRAZOLE SODIUM 40 MG VIAL IV SCH (08:25)
[2017-03-19] MEDS: POTASSIUM CHLORIDE 25 MEQ EFFERVESCENT TAB PO SCH (08:25)
[2017-03-19] MEDS: DILTIAZEM-CD 240 MG CAP ER PO SCH (08:25)
[2017-03-19] MEDS: FUROSEMIDE 20 MG TAB PO SCH ×2 (08:25→17:11)
[2017-03-19] MEDS: DIGOXIN 0.125 MG TAB PO SCH (08:25)
[2017-03-19] MEDS: DOCUSATE SODIUM 50 MG/SENNA 8.6 MG TAB PO SCH ×2 (08:26→21:00)
--- NOTE | 2017-03-19 12:25 | HHI.PR ---
Subjective Remarks Follow-up bilateral pleural effusions status post thoracentesis 03/19/17-patient seen and examined, reports improvement of shortness of breath, currently afebrile Objective Vitals Vital Signs Date Time Temp Pulse Resp B/P Pulse Ox O2 Delivery O2 Flow Rate FiO2 03/19/17 12:00 97.3 72 20 128/63 94 03/19/17 10:58 97 Nasal Cannula 5.00 03/19/17 08:31 97.4 82 18 154/70 94 03/19/17 04:40 96 Nasal Cannula 5.00 03/19/17 04:00 98.0 76 20 138/64 94 03/19/17 00:00 97.6 79 20 132/60 94 03/18/17 21:01 94 Nasal Cannula 6.00 03/18/17 20:10 79 03/18/17 20:00 Nasal Cannula 6.00 03/18/17 20:00 97.4 78 20 136/65 95 03/18/17 17:29 Nasal Cannula 6.00 03/18/17 16:00 97.2 76 22 122/60 96 03/18/17 13:40 97.4 80 22 133/61 95 I/O 03/18/17 03/18/17 03/18/17 03/19/17 03/19/17 03/19/17 07:00 15:00 23:00 07:00 15:00 23:00 Intake Total 560 ml Output Total 150 ml 200 ml 100 ml 250 ml Balance 410 ml -200 ml -100 ml -250 ml Intake Oral 240 ml IV Total 320 ml Output Urine Total 150 ml 200 ml 100 ml 250 ml # Bowel Movements 0 0 0 Result Diagram: 03/17/17 0230 03/17/17 0230 Imaging Last Impressions Chest X-Ray 03/18/17 0000 Signed Impressions: Service Date/Time: Saturday, March 18, 2017 07:44 - CONCLUSION: 1. Minimal interstitial changes, not significantly changed. 2. Mild cardiomegaly. Arnulfo Rangel MD CT Angiography 03/16/17 0000 Signed Impressions: Service Date/Time: Thursday, March 16, 2017 23:02 - CONCLUSION: 1. Progression of bilateral consolidation and large bilateral effusions without evidence of pulmonary embolism. Saul Chang MD Objective Remarks GENERAL: NAD SKIN: Warm and dry. HEAD: Normocephalic. EYES: No scleral icterus. No injection or drainage. NECK: Supple, trachea midline. No JVD or lymphadenopathy. CARDIOVASCULAR: Regular rate and rhythm without murmurs, gallops, or rubs. RESPIRATORY: Breath sounds decrease bilaterally. No accessory muscle use. GASTROINTESTINAL: Abdomen soft, non-tender, nondistended. MUSCULOSKELETAL: No cyanosis, or edema. BACK: Nontender without obvious deformity. No CVA tenderness. A/P Problem List: (1) Respiratory failure ICD Code: J96.90 Status: Acute (2) COPD exacerbation ICD Code: J44.1 Status: Acute (3) Bilateral large pleural effusions Status: Acute (4) Pneumonia ICD Code: J18.9 Status: Acute (5) CHF (congestive heart failure) ICD Code: I50.9 Status: Acute (6) Stage 4 lung cancer ICD Code: C34.90 Status: Acute (7) CAD (coronary artery disease) ICD Code: I25.10 Status: Acute (8) HTN (hypertension) ICD Code: I10 Status: Acute (9) A-fib ICD Code: I48.91 Status: Acute Assessment and Plan 71-year-old man with Acute on chronic respiratory failure Bilateral large pleural effusions Status post bilateral right and left thoracentesis Continue with Lasix Keep oxygen saturation above 92% Pulmonary medicine input appreciated Community-acquired bacteria pneumonia Continue IV Zosyn and azithromycin COPD exacerbation Currently on antibiotics, decrease Solu-Medrol to 20 mg every 8 hour and add Symbicort as well as Spiriva Continue with DuoNeb Pulmonary medicine input appreciated Obstructive sleep apnea Continue BIPAP at night History of atrial fibrillation Currently rate control, continue outpatient medications including Cardizem and Eliquis History of stage IV lung cancer Palliative medicine following Outpatient follow-up with oncology Other chronic medical conditions Continue outpatient medications DVT prophylaxis: Eliquis Discharge Planning Not medically stable for discharge patient still on IV antibiotics for community -acquired bacterial pneumonia Problem Qualifiers (1) Respiratory failure: Qualified Code: J96.01 - Acute respiratory failure with hypoxia (2) Pneumonia: Qualified Code: J15.7 - Pneumonia of both lungs due to Mycoplasma pneumoniae, unspecified part of lung (3) CHF (congestive heart failure): Qualified Code: I50.9 - Acute congestive heart failure, unspecified congestive heart failure type Arnulfo Adams MD Mar 19, 2017 12:25
--- NOTE | 2017-03-19 16:28 | HHI.HCPN ---
Reason for visit a. To assist with evaluation and management of symptoms including: dyspnea, nausea, anorexia, insomnia b. To assist medical decision maker(s) with: better understanding of current medical conditions; weighing benefits/burdens of medical treatment options; making medical treatment decisions. . Subjective/Interval History Mr. Ramos is out of the MICU and on a medical floor. Denies any worsening of breathing overnight. He is up in the chair at time of my visit. He tells me he has been able to walk a few steps. Denies pain, nausea. Eating well today. is at bedside and tells me she has brought in copies of his advance directives. Afebrile. Hemodynamically stable. Pulse ox 94-97 on 5 L/min via NC. No new CBC, chemistry, imaging No growth on pleural fluid cultures. Path pending on pleural fluid cytology. . Advance Directives Living Will: Copy in medical record Health Care Surrogate: Copy in medical record Durable Power of Cement Breaker: Never completed Advance Directive Specifics Date completed: Living Will / Health Care Surrogate completed on 06/09/09 . . Health Care Surrogate(s): Bjorn Ramos (spouse) is the designated surrogate. Bib Chery (stepson ) is the alternate. . Documented care wishes: Patient has living will stating he does NOT want life prolonging measures if he has a terminal or end stage condition or persistent vegetative state. He would want life-prolonging measures withheld or withdrawn including artificial nutrition/hydration. Patient desires DNR status. . Significant change in goals: No significant change. . Objective Vital Signs Date Time Temp Pulse Resp B/P Pulse Ox O2 Delivery O2 Flow Rate FiO2 03/19/17 12:00 97.3 72 20 128/63 94 03/19/17 10:58 97 Nasal Cannula 5.00 03/19/17 08:31 97.4 82 18 154/70 94 03/19/17 08:00 80 03/19/17 08:00 Nasal Cannula 5.00 03/19/17 04:40 96 Nasal Cannula 5.00 03/19/17 04:00 98.0 76 20 138/64 94 03/19/17 00:00 97.6 79 20 132/60 94 03/18/17 21:01 94 Nasal Cannula 6.00 03/18/17 20:10 79 03/18/17 20:00 Nasal Cannula 6.00 03/18/17 20:00 97.4 78 20 136/65 95 03/18/17 17:29 Nasal Cannula 6.00 Intake & Output 03/19/17 03/19/17 06:59 18:59 Output Total 350 ml Balance -350 ml Output Urine Total 350 ml # Bowel Movements 0 . Physical Exam CONSTITUTIONAL/GENERAL: This is an obese male awake, alert, up in chair. TUBES/LINES/DRAINS: PICC line LUE; barker; 02 via NC; SCDs SKIN: No jaundice, rashes, or lesions. No wounds seen anteriorly. Skin temperature appropriate. Not diaphoretic. HEAD: Atraumatic. Normocephalic. 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 Right facial droop from melanoma surgery. EYES: Pupils equal and round. Extraocular motions intact. No scleral icterus. No injection or drainage. Fundi not examined. ENT: Right earlobe partially removed. Hearing grossly normal. Nose without bleeding or purulent drainage. Throat without visible erythema, exudates, masses , or lesions. NECK: Trachea midline. Supple, nontender. CARDIOVASCULAR: Regular rate and rhythm without murmurs, gallops, or rubs. Heart sounds distant. No JVD. RESPIRATORY/CHEST: Symmetric, unlabored respirations. Faint crackles at bases. Breath sounds equal bilaterally but distant.. Decreased air movement bilaterally at baeses. No wheezes,. GASTROINTESTINAL: Abdomen obese, distended, mildly firm, non-tender. No hepato- splenomegaly, or palpable masses. No guarding. Bowel sounds present. GENITOURINARY: Without palpable bladder distension. Barker catheter in place. MUSCULOSKELETAL: Extremities without clubbing, cyanosis. 1+ bilateral LE edema. No calf tenderness. No mottling or clubbing. LYMPHATICS: Not examined. NEUROLOGICAL: Awake and alert. Motor and sensory grossly within normal limits. Follows commands. Moves all extremities. Mildly confused -- answers simple questions appropriately, but easily derails. PSYCHIATRIC: No obvious anxiety/depression. No apparent hallucinations or other psychotic thought process. . Diagnostic Tests Laboratory Laboratory Tests Test 03/16/17 03/16/17 03/16/17 03/17/17 21:02 21:07 23:45 02:10 White Blood Count 6.0 TH/MM3 (4.0-11.0) Red Blood Count 2.82 MIL/MM3 (4.50-5.90) Hemoglobin 9.3 GM/DL (13.0-17.0) Hematocrit 29.5 % (39.0-51.0) Mean Corpuscular Volume 104.5 FL (80.0-100.0) Mean Corpuscular Hemoglobin 32.9 PG (27.0-34.0) Mean Corpuscular Hemoglobin 31.4 % Concent (32.0-36.0) Red Cell Distribution Width 18.3 % (11.6-17.2) Platelet Count 139 TH/MM3 (150-450) Mean Platelet Volume 8.2 FL (7.0-11.0) Neutrophils (%) (Auto) 69.5 % (16.0-70.0) Lymphocytes (%) (Auto) 18.1 % (9.0-44.0) Monocytes (%) (Auto) 10.0 % (0.0-8.0) Eosinophils (%) (Auto) 1.7 % (0.0-4.0) Basophils (%) (Auto) 0.7 % (0.0-2.0) Neutrophils # (Auto) 4.2 TH/MM3 (1.8-7.7) Lymphocytes # (Auto) 1.1 TH/MM3 (1.0-4.8) Monocytes # (Auto) 0.6 TH/MM3 (0-0.9) Eosinophils # (Auto) 0.1 TH/MM3 (0-0.4) Basophils # (Auto) 0.0 TH/MM3 (0-0.2) CBC Comment DIFF FINAL Differential Comment Prothrombin Time 15.1 SEC (9.8-11.6) Prothromb Time International 1.3 RATIO Ratio Activated Partial 34.6 SEC Thromboplast Time (24.3-30.1) Sodium Level 142 MEQ/L (136-145) Potassium Level 4.4 MEQ/L (3.5-5.1) Chloride Level 109 MEQ/L (98-107) Carbon Dioxide Level 25.5 MEQ/L (21.0-32.0) Anion Gap 8 MEQ/L (5-15) Blood Urea Nitrogen 26 MG/DL (7-18) Creatinine 1.08 MG/DL (0.60-1.30) Estimat Glomerular Filtration 67 ML/MIN (>89) Rate Random Glucose 85 MG/DL (74-106) Calcium Level 8.2 MG/DL (8.5-10.1) Magnesium Level 1.9 MG/DL (1.5-2.5) Total Bilirubin 0.8 MG/DL (0.2-1.0) Aspartate Amino Transf 15 U/L (15-37) (AST/SGOT) Alanine Aminotransferase 7 U/L (12-78) (ALT/SGPT) Alkaline Phosphatase 92 U/L (45-117) Total Creatine Kinase 36 U/L (39-308) Troponin I 0.04 NG/ML (0.02-0.05) B-Type Natriuretic Peptide 59 PG/ML (0-100) Total Protein 6.5 GM/DL (6.4-8.2) Albumin 2.2 GM/DL (3.4-5.0) Lactic Acid Level 1.5 mmol/L (0.4-2.0) Blood Gas Puncture Site RT RADIAL Blood Gas Patient Temperature 98.6 Blood Gas HCO3 26 mmol/L (22-26) Blood Gas Base Excess 2.0 mmol/L (-2-2) Blood Gas Oxygen Saturation 93 % (90-100) Arterial Blood pH 7.40 (7.380-7.420) Arterial Blood Partial 44 mmHg (38-42) Pressure CO2 Arterial Blood Partial 85 mmHG Pressure O2 (61-120) Arterial Blood Oxygen Content 12.9 Vol % (12.0-20.0) Arterial Blood 2.5 % (0-4) Carboxyhemoglobin Arterial Blood Methemoglobin 0.4 % (0-2) Blood Gas Hemoglobin 9.8 G/DL (12.0-16.0) Oxygen Delivery Device BiPAP Blood Gas Ventilator Setting IPAP 10 EPAP5 Blood Gas Inspired Oxygen 100 % Nasal Screen MRSA (PCR) MRSA NOT DETECTED (NOT DETECT) Test 03/17/17 03/17/17 03/17/17 02:30 12:40 16:50 White Blood Count 7.1 TH/MM3 (4.0-11.0) Red Blood Count 2.86 MIL/MM3 (4.50-5.90) Hemoglobin 9.7 GM/DL (13.0-17.0) Hematocrit 29.8 % (39.0-51.0) Mean Corpuscular Volume 104.4 FL (80.0-100.0) Mean Corpuscular Hemoglobin 34.0 PG (27.0-34.0) Mean Corpuscular Hemoglobin 32.6 % Concent (32.0-36.0) Red Cell Distribution Width 18.6 % (11.6-17.2) Platelet Count 132 TH/MM3 (150-450) Mean Platelet Volume 8.4 FL (7.0-11.0) Neutrophils (%) (Auto) 89.7 % (16.0-70.0) Lymphocytes (%) (Auto) 5.5 % (9.0-44.0) Monocytes (%) (Auto) 3.7 % (0.0-8.0) Eosinophils (%) (Auto) 0.4 % (0.0-4.0) Basophils (%) (Auto) 0.7 % (0.0-2.0) Neutrophils # (Auto) 6.4 TH/MM3 (1.8-7.7) Lymphocytes # (Auto) 0.4 TH/MM3 (1.0-4.8) Monocytes # (Auto) 0.3 TH/MM3 (0-0.9) Eosinophils # (Auto) 0.0 TH/MM3 (0-0.4) Basophils # (Auto) 0.0 TH/MM3 (0-0.2) CBC Comment DIFF FINAL Differential Comment Sodium Level 145 MEQ/L (136-145) Potassium Level 4.6 MEQ/L (3.5-5.1) Chloride Level 109 MEQ/L (98-107) Carbon Dioxide Level 28.4 MEQ/L (21.0-32.0) Anion Gap 8 MEQ/L (5-15) Blood Urea Nitrogen 25 MG/DL (7-18) Creatinine 1.20 MG/DL (0.60-1.30) Estimat Glomerular Filtration 60 ML/MIN (>89) Rate Random Glucose 96 MG/DL (74-106) Calcium Level 8.1 MG/DL (8.5-10.1) Phosphorus Level 3.9 MG/DL (2.5-4.9) Magnesium Level 1.8 MG/DL (1.5-2.5) Total Bilirubin 1.0 MG/DL (0.2-1.0) Aspartate Amino Transf 19 U/L (15-37) (AST/SGOT) Alanine Aminotransferase 7 U/L (12-78) (ALT/SGPT) Alkaline Phosphatase 91 U/L (45-117) Troponin I 0.06 NG/ML 0.04 NG/ML (0.02-0.05) (0.02-0.05) Total Protein 6.6 GM/DL (6.4-8.2) Albumin 2.2 GM/DL (3.4-5.0) Pleural Fluid pH 8.0 Pleural Fluid WBC 228 /MM3 (0-10) Pleural Fluid RBC 2753 /MM3 (0-0) Pleural Fluid Neutrophils 15 % Pleural Fluid Lymphocytes 64 % Pleural Fluid Monocytes 1 % Pleural Fluid Histiocytes 16 % Pleural Fluid Mesothelial 6 % Cells Pleural Fluid Total Protein 2.6 GM/DL Pleural Fluid LDH 190 U/L Pleural Fluid Glucose 164 MG/DL Body Fluid Amylase Source PLEURAL (()) Body Fluid Amylase 21 U/L (()) . Result Diagram: 03/17/1722903/17/17229 Microbiology Microbiology Date/Time Procedure Status Source Growth 03/16/17 21:02 Aerobic Blood Culture - Preliminary Resulted Blood Peripheral NO GROWTH IN 3 DAYS 03/16/17 21:02 Anaerobic Blood Culture - Preliminary Resulted Blood Peripheral NO GROWTH IN 3 DAYS 03/16/17 21:15 Aerobic Blood Culture - Preliminary Resulted Blood Peripheral NO GROWTH IN 3 DAYS 03/16/17 21:15 Anaerobic Blood Culture - Preliminary Resulted Blood Peripheral NO GROWTH IN 3 DAYS 03/17/17 16:50 Gram Stain - Final Resulted Fluid Pleural Fluid 03/17/17 16:50 Body Fluid Culture - Preliminary Resulted Fluid Pleural Fluid NO GROWTH IN 48 HOURS. 03/17/17 16:50 Acid Fast Stain - Final Resulted Fluid Pleural Fluid NO ACID FAST BACILLI SEEN 03/17/17 16:50 Mycobacterial Culture Resulted Fluid Pleural Fluid Pending 03/17/17 16:50 Fungal Smear - Final Resulted Fluid Pleural Fluid NO FUNGAL ELEMENTS SEEN. 03/17/17 16:50 Fungal Culture Resulted Fluid Pleural Fluid Pending . Imaging Last Impressions Chest X-Ray 03/18/17 0000 Signed Impressions: Service Date/Time: Saturday, March 18, 2017 07:44 - CONCLUSION: 1. Minimal interstitial changes, not significantly changed. 2. Mild cardiomegaly. Arnulfo Rangel MD CT Angiography 03/16/17 0000 Signed Impressions: Service Date/Time: Thursday, March 16, 2017 23:02 - CONCLUSION: 1. Progression of bilateral consolidation and large bilateral effusions without evidence of pulmonary embolism. Saul Chang MD . Procedures * Right sided thoracentesis * Left sided thoracentesis . Other Echocardiogram 02/23/17 -- Mildly dilated left ventricle. EF 55-60%. Echocardiogram 02/27/17 -- no valvular abnormalities . Assessment and Plan Disease Oriented Problem List: (1) Stage 4 lung cancer Comment: Followed by Dr. Muhammad. Chemo has reportedly prevented significant spread of disease. . (2) Bilateral large pleural effusions (3) CHF (congestive heart failure) Comment: As echocardiogram of 02/23/17 showed an EF of 55-60% , if CHF is present it would most likely be diastolic failure. . (4) CAD (coronary artery disease) Comment: Hx of ID and stents. . (5) Malnutrition Comment: Low albumin . (6) HTN (hypertension) Symptom Scale: (1) Dyspnea 0-10 Scale: 0 Comment: Denies dyspnea while at rest with 02 flowing. continues to have dypsnea with exertion. . (2) Anorexia 0-10 Scale: Unable to quantify Comment: Upon admission, was complaining of poor appetite. Even foods that he used to enjoy (e.g. chocolate and Coke) no longer appealed to him. Appetite improving since hospitalization. . . (3) Generalized weakness 0-10 Scale: Unable to quantify (4) Nausea 0-10 Scale: Unable to quantify Comment: Get intermittent nausea without vomiting. Exacerbated with sight or mention of food. Improving. . . Pertinent Non-Medical Issues Psychosocial: Well supported by (at home with him) as well as a son and daughter who live in [facility]. Spiritual: [place] Legal: Living will and health care surrogate designation dated 06/09/09 now on medical record. Ethical issues impacting care: Patient has mild confusion. Recommend shared decision making with spouse. . Important Contacts Moon Ramos (spouse; health care surrogate) [phone] / [phone] Bib Chery (stepson; alternate health care surrogate) [phone] . Prognosis This patient has an underlying stage IV non-small cell carcinoma of the lung. He was diagnosed in 2016, given a prognosis to live until August 2016. He had been undergoing chemotherapy treatment with Dr. Muhammad and has responded well with recent imaging (per patient) not showing ongoing increase in tumor burden. He has underlying heart disease with a history of ID, stenting, and recent A fib RVR requiring cardioversion. He may have some CHF (diastolic likely since EF is 55-60%). There is some question of COPD -- Though the patient indicates he has not yet been formally diagnosed with this he was a 1-2 ppd smoker. He was recently hospitalized with sepsis and required readmission within less than two weeks. Unclear if his current pleural effusions are due to CHF or to worsening cancer. Patient has not been able to return for chemotherapy for 5 weeks. Albumin level is low and he is very de-conditioned. Patient is having a difficult time staying well enough to continue with chemotherapy. The longer this goes on , the greater the chance that the cancer progresses. Also , his functional status is nearing the point where he will find it difficult getting back and forth to oncology. Patient would be eligible for hospice services at such time that his goals become more comfort oriented. . Code Status: No Code Plan == Code Status: NO CODE == Decision making: Patient is awake and alert but has mild confusion. He has a difficulty remembering what was said and has poor memory for the timing and details of hospitalizations and treatment. I therefore recommend that there be shared decision making with his -- his health care surrogate . == Goals of medical treatment: At this time, patient is still hoping to improve and to be able to receive additional chemotherapy. His goals, are therefore, to continue with aggressive care short of resuscitation. == Pain: Patient denies any significant pain at this time. He does have orders for intravenous hydromorphone should he develop pain. == Dyspnea: Patient shortness of breath is much improved since the bilateral thoracentesis. It remains unclear, to what extent the pleural effusions are due to congestive heart failure versus malignancy. If there is quick reaccumulation of pleural fluid and we think this is most likely due to the cancer and not to congestive heart failure, may want to consider indwelling pleural catheters. == Anorexia: Patient's appetite appears to be improving now that his dyspnea has been mitigated. It is uncertain, however, if nutrition will be adequate to reverse the recent downhill trend. No further recommendations at this time. == Nausea: Appears to have improved since thoracentesis. This has not been a problem in the hospital. Ondansetron is available on an as-needed basis. No further recommendations at this time. == Insomnia: This was particularly bad at home. Patient has zolpidem available on a when necessary basis. No further recommendations at this time == Advance directives are now file. == Disposition: was overwhelmed with care at home following last hospitalization. Patient will probably need skilled rehab OR home health along with a paid caregiver. == At such time that the patient's oncologist feels he is no longer a candidate for ongoing chemotherapy, the patient would certainly be eligible for hospice services and I believe the patient's goals, at that time, would transition to comfort measures only. == Palliative care will continue to follow to assist with symptom management and to further clarify goals of medical treatment as the clinical course evolves. . Attestation To help prompt me to consider important information that might be impacting today's encounter and assessment, information from prior notes written by myself or my colleagues may have been "brought forward" into today's note. My signature on this note, however, is an attestation that I personally performed the exam, history, and/or decision-making noted today, and, unless otherwise indicated, the interactions with patient, family, and staff as well as the review of records all occurred today. I also attest that the listed assessment and stated plan reflect my best clinical judgment today based on the combination of historical information, prior notes, and today's exam/ interactions. When time spent is documented, it refers only to time spent today by the signer, or if indicated, combined time spent today by collaborating physician/nurse practitioner. . Brock Rodrigues MD Mar 19, 2017 16:28
[2017-03-19] MEDS: BUDESONIDE-FORMOTEROL 160/4.5 MCG INHALER INH SCH (21:00)
[2017-03-19] MEDS: ATORVASTATIN 20 MG TAB PO SCH (21:10)
[2017-03-19] MEDS: TAMSULOSIN HCL 0.4 MG CAP PO SCH (21:10)
[2017-03-20] VITALS (11 sets, daily range): BP systolic 122–155; BP diastolic 58–73; PULSE 56–78; RESP 16–22; TEMP 97.3–98.4; O2SAT 94–100
[2017-03-20] MEDS: PIPERACIL-TAZO 3.375 GM PREMIX 50 ML IV SCH ×5 (00:27→23:33)
[2017-03-20] MEDS: AZITHROMYCIN INJ 500 MG in SODIUM CHLOR 0.9% 250 ML INJ 250 ML IV SCH ×2 (00:30→23:34)
[2017-03-20] MEDS: RESP: ALBUTEROL 2.5 MG/IPRATROPIUM 0.5 MG NEB (SCH) NEB ×4 (03:27→21:04)
[2017-03-20] MEDS: CHLORHEXIDINE GLUCONATE 2 % 1 PACK (2 CLOTHS) TOP SCH (03:49)
[2017-03-20] MEDS: methylPREDNISolone SOD SUCC 40 MG/1 ML VIAL IV PUSH SCH ×2 (05:54→12:43)
[2017-03-20 07:13] LABS: AUTOMATED NEUTROPHIL # 8.4 TH/MM3 (1.8-7.7); BASOPHIL % 0.1 % (0.0-2.0); HEMATOCRIT 27.6 % (39.0-51.0); HEMO FLAGS DIFF FINAL; LYMPH % 4.7 % (9.0-44.0); LYMPHOCYTE # 0.4 TH/MM3 (1.0-4.8); MEAN CELL VOLUME 104.5 FL (80.0-100.0); MEAN CORPUSCULAR HEMOGLOBIN 33.7 PG (27.0-34.0); MEAN CORPUSCULAR HGB CONC 32.3 % (32.0-36.0); NEUT % 91.2 % (16.0-70.0); PLATELET COUNT 174 TH/MM3 (150-450); RED BLOOD COUNT 2.65 MIL/MM3 (4.50-5.90); RED CELL DISTRIBUTION WIDTH 18.3 % (11.6-17.2); WHITE BLOOD COUNT 9.2 TH/MM3 (4.0-11.0)
[2017-03-20 07:28] LABS: BICARBONATE 25.2 MEQ/L (21.0-32.0); POTASSIUM 3.9 MEQ/L (3.5-5.1)
[2017-03-20] MEDS: DOCUSATE SODIUM 50 MG/SENNA 8.6 MG TAB PO SCH ×2 (09:00→20:37)
[2017-03-20] MEDS: APIXABAN 5 MG TABLET PO SCH ×2 (09:58→20:36)
[2017-03-20] MEDS: PANTOPRAZOLE SODIUM 40 MG VIAL IV SCH (09:59)
[2017-03-20] MEDS: FUROSEMIDE 20 MG TAB PO SCH (09:59)
[2017-03-20] MEDS: BUDESONIDE-FORMOTEROL 160/4.5 MCG INHALER INH SCH ×2 (09:59→20:37)
[2017-03-20] MEDS: DILTIAZEM-CD 240 MG CAP ER PO SCH (09:59)
[2017-03-20] MEDS: POTASSIUM CHLORIDE 25 MEQ EFFERVESCENT TAB PO SCH (09:59)
[2017-03-20] MEDS: DIGOXIN 0.125 MG TAB PO SCH (09:59)
[2017-03-20] MEDS: SODIUM CHLORIDE 0.9% FLUSH 10 ML FLUSH IV FLUSH SCH ×2 (10:00→20:37)
[2017-03-20] MEDS: TIOTROPIUM BROMIDE 18 MCG INH INH SCH (10:12)
--- NOTE | 2017-03-20 13:51 | HHI.PR ---
Subjective Remarks As per who is at bedside, the patient had an episode this morning of expressive aphasia, slurred speech Apparently this has resolved completely Patient denies any headache, double vision Shortness of breath is much improved Creatinine is trending up Objective Vitals Vital Signs Date Time Temp Pulse Resp B/P Pulse Ox O2 Delivery O2 Flow Rate FiO2 03/20/17 11:56 97.5 74 20 146/66 97 03/20/17 10:31 63 03/20/17 09:00 Nasal Cannula 5.00 03/20/17 08:00 97.3 75 20 153/73 97 03/20/17 04:00 97.5 76 16 133/63 97 03/20/17 00:00 97.8 78 17 122/58 94 03/20/17 00:00 Nasal Cannula 5.00 03/19/17 22:31 98 Nasal Cannula 5.00 03/19/17 21:15 Nasal Cannula 5.00 03/19/17 20:15 77 03/19/17 20:00 97.2 74 18 139/65 95 03/19/17 16:09 97.4 71 20 134/64 97 03/19/17 16:00 Nasal Cannula 5.00 I/O 03/19/17 03/19/17 03/19/17 03/20/17 03/20/17 03/20/17 07:00 15:00 23:00 07:00 15:00 23:00 Intake Total 800 ml 240 ml 503 ml Output Total 250 ml 300 ml 380 ml 300 ml Balance -250 ml 500 ml -140 ml 203 ml Intake Oral 600 ml 240 ml 180 ml IV Total 200 ml 323 ml Output Urine Total 250 ml 300 ml 380 ml 300 ml # Voids 1 # Bowel Movements 0 1 0 0 Result Diagram: 03/20/17 0541 03/20/17 0541 Imaging Last Impressions Renal Ultrasound 03/20/17 0000 Signed Impressions: Service Date/Time: Monday, March 20, 2017 15:53 - CONCLUSION: Normal examination. Suspected extrarenal pelvis on the left. Bao Ibarra MD Head CT 03/20/17 0000 Signed Impressions: Service Date/Time: Monday, March 20, 2017 16:40 - CONCLUSION: Normal examination. Bao Ibarra MD Carotid Artery Ultrasound 03/20/17 0000 Signed Impressions: Service Date/Time: Monday, March 20, 2017 15:36 - CONCLUSION: Normal examination. Mild atherosclerotic disease in both common carotid vessels. Bao Ibarra MD Chest X-Ray 03/18/17 0000 Signed Impressions: Service Date/Time: Saturday, March 18, 2017 07:44 - CONCLUSION: 1. Minimal interstitial changes, not significantly changed. 2. Mild cardiomegaly. Arnulfo Rangel MD CT Angiography 03/16/17 0000 Signed Impressions: Service Date/Time: Thursday, March 16, 2017 23:02 - CONCLUSION: 1. Progression of bilateral consolidation and large bilateral effusions without evidence of pulmonary embolism. Saul Chang MD Objective Remarks GENERAL: NAD SKIN: Warm and dry. HEAD: Normocephalic. EYES: No scleral icterus. No injection or drainage. NECK: Supple, trachea midline. No JVD or lymphadenopathy. CARDIOVASCULAR: Regular rate and rhythm without murmurs, gallops, or rubs. RESPIRATORY: Breath sounds decrease bilaterally. No accessory muscle use. GASTROINTESTINAL: Abdomen soft, non-tender, nondistended. MUSCULOSKELETAL: No cyanosis, or edema. BACK: Nontender without obvious deformity. No CVA tenderness. Medications and IVs Current Medications Medications (Trade) Dose Ordered Sig/Angie Route Start Time Stop Time Status Last Admin (Lipitor) 20 mg HS PO 03/17/17 21:00 03/20/17 20:36 (Lanoxin) 0.125 mg DAILY PO 03/17/17 09:00 03/20/17 09:59 (Cardizem Cd) 240 mg DAILY PO 03/17/17 09:00 03/20/17 09:59 (Flomax) 0.4 mg HS PO 03/17/17 21:00 03/20/17 20:36 (NS Flush) 2 ml UNSCH PRN .XX 03/17/17 00:00 03/19/17 00:07 (NS Flush) 2 ml BID IV FLUSH 03/17/17 09:00 03/20/17 10:00 (Dilaudid Pf Inj) 1 mg Q4H PRN IV 03/17/17 00:00 (Protonix Inj) 40 mg DAILY IV 03/17/17 09:00 03/20/17 09:59 (Ativan Inj) 1 mg Q1H PRN IV 03/17/17 00:00 (Zofran Inj) 4 mg Q6H PRN IV 03/17/17 00:00 (Ambien) 5 mg HS PRN PO 03/17/17 00:00 Miscellaneous Information 1 Q361D XX 03/17/17 00:00 03/17/17 01:45 (Chlorhexidine 2% Cloth) 3 pack Taper DAILY@04 TOP 03/17/17 04:00 03/13/18 03:59 03/18/17 04:00 (Chlorhexidine 2% Cloth) 3 pack UNSCH PRN TOP 03/17/17 00:00 (Amelia-Colace) 1 tab BID PO 03/17/17 09:00 03/19/17 08:26 (Milk Of Magnamos Liq) 30 ml Q12H PRN PO 03/17/17 00:00 (Senokot) 17.2 mg Q12H PRN PO 03/17/17 00:00 (Dulcolax Supp) 10 mg DAILY PRN RECTAL 03/17/17 00:00 Lactulose 30 ml 30 ml DAILY PRN PO 03/17/17 00:00 Piperacillin Sod/ Tazobactam Sod 50 ml @ 100 mls/hr Q6H IV 03/17/17 06:00 03/20/17 17:33 (Zithromax Inj/ NS 250 ml Inj) 250 ml @ 250 mls/hr Q24H IV 03/18/17 01:00 03/20/17 00:30 (Eliquis) 5 mg BID PO 03/19/17 09:00 03/20/17 20:36 (K-Lyte Cl Eff) 25 meq DAILY PO 03/18/17 09:00 03/20/17 09:59 (Symbicort 160-4.5 Inh) 2 puff Q12HR INH 03/19/17 21:00 03/20/17 20:37 (Spiriva Inh) 18 mcg DAILY INH 03/20/17 09:00 03/20/17 10:12 Prednisone 20 mg 20 mg BID PO 03/20/17 21:00 03/20/17 20:36 (NS 1000 ml Inj) 1,000 ml @ 84 mls/hr [id number] IV 03/20/17 14:15 7/19/17 14:59 Urinary Catheter: No Vascular Central Line Catheter: No A/P Problem List: (1) Respiratory failure ICD Code: J96.90 Status: Acute (2) COPD exacerbation ICD Code: J44.1 Status: Acute (3) Bilateral large pleural effusions Status: Acute (4) Pneumonia ICD Code: J18.9 Status: Acute (5) CHF (congestive heart failure) ICD Code: I50.9 Status: Acute (6) Stage 4 lung cancer ICD Code: C34.90 Status: Chronic (7) CAD (coronary artery disease) ICD Code: I25.10 Status: Chronic (8) HTN (hypertension) ICD Code: I10 Status: Chronic (9) A-fib ICD Code: I48.91 Status: Chronic Assessment and Plan 71-year-old man with Acute on chronic respiratory failure Bilateral large pleural effusions Status post bilateral right and left thoracentesis Keep oxygen saturation above 92% Pulmonary medicine input appreciated Hold Lasix secondary to acute kidney injury. Community-acquired bacteria pneumonia Continue IV Zosyn and azithromycin COPD exacerbation Continue antibiotics as above. Continue with DuoNeb Pulmonary medicine input appreciated Obstructive sleep apnea Continue BIPAP at night History of atrial fibrillation Currently rate control, continue outpatient medications including Cardizem and Eliquis History of stage IV lung cancer Palliative medicine following Outpatient follow-up with oncology Other chronic medical conditions Continue outpatient medications Transient change in mental status/slurred speech/aphasia Cannot rule out TIA. We'll check CT of the head, check carotid Dopplers and check 2-D echocardiogram Acute kidney injury on CK V stage III. Patient has a baseline creatinine of 0.8-0.9. Creatinine much elevated from 1.2-1.7. Hold Lasix and give gentle IV fluids. Will check kidney ultrasound. Monitor BMP, strict I's and O's, avoid nephrotoxins. DVT prophylaxis: Eliquis Discharge Planning Discharge pending clinical improvement. TIA workup and improvement of acute kidney injury. Problem Qualifiers (1) Respiratory failure: Qualified Code: J96.01 - Acute respiratory failure with hypoxia (2) Pneumonia: Qualified Code: J15.7 - Pneumonia of both lungs due to Mycoplasma pneumoniae, unspecified part of lung (3) CHF (congestive heart failure): Qualified Code: I50.9 - Acute congestive heart failure, unspecified congestive heart failure type Pascual Peterson MD Mar 20, 2017 13:51
[2017-03-20] MEDS: SODIUM CHLOR 0.9% 1000 ML INJ 1,000 ML IV SCH (14:59)
--- NOTE | 2017-03-20 15:44 | HHI.PR ---
Subjective Remarks ALERT ON O2 NO SOB AT REST Objective Vital Signs Date Time Temp Pulse Resp B/P Pulse Ox O2 Delivery O2 Flow Rate FiO2 03/20/17 14:06 97 Nasal Cannula 5.00 03/20/17 11:56 97.5 74 20 146/66 97 03/20/17 10:31 63 03/20/17 09:00 Nasal Cannula 5.00 03/20/17 08:00 97.3 75 20 153/73 97 03/20/17 04:00 97.5 76 16 133/63 97 03/20/17 00:00 97.8 78 17 122/58 94 03/20/17 00:00 Nasal Cannula 5.00 03/19/17 22:31 98 Nasal Cannula 5.00 03/19/17 21:15 Nasal Cannula 5.00 03/19/17 20:15 77 03/19/17 20:00 97.2 74 18 139/65 95 03/19/17 16:09 97.4 71 20 134/64 97 03/19/17 16:00 Nasal Cannula 5.00 I/O 03/19/17 03/19/17 03/19/17 03/20/17 03/20/17 03/20/17 07:00 15:00 23:00 07:00 15:00 23:00 Intake Total 800 ml 240 ml 503 ml 650 ml Output Total 250 ml 300 ml 380 ml 300 ml Balance -250 ml 500 ml -140 ml 203 ml 650 ml Intake Oral 600 ml 240 ml 180 ml 600 ml IV Total 200 ml 323 ml 50 ml Output Urine Total 250 ml 300 ml 380 ml 300 ml # Voids 1 1 # Bowel Movements 0 1 0 0 1 Result Diagram: 03/20/17 0541 03/20/17 0541 Objective Remarks Laboratory Tests Test 03/16/17 03/16/17 03/17/17 03/17/17 21:02 23:45 02:30 16:50 Red Blood Count 2.82 MIL/MM3 2.86 MIL/MM3 (4.50-5.90) (4.50-5.90) Hemoglobin 9.3 GM/DL 9.7 GM/DL (13.0-17.0) (13.0-17.0) Hematocrit 29.5 % 29.8 % (39.0-51.0) (39.0-51.0) Mean Corpuscular Volume 104.5 FL 104.4 FL (80.0-100.0) (80.0-100.0) Mean Corpuscular Hemoglobin 31.4 % Concent (32.0-36.0) Red Cell Distribution Width 18.3 % 18.6 % (11.6-17.2) (11.6-17.2) Platelet Count 139 TH/MM3 132 TH/MM3 (150-450) (150-450) Monocytes (%) (Auto) 10.0 % (0.0-8.0) Prothrombin Time 15.1 SEC (9.8-11.6) Activated Partial 34.6 SEC Thromboplast Time (24.3-30.1) Chloride Level 109 MEQ/L 109 MEQ/L (98-107) (98-107) Blood Urea Nitrogen 26 MG/DL (7-18) 25 MG/DL (7-18) Estimat Glomerular Filtration 67 ML/MIN (>89) 60 ML/MIN (>89) Rate Calcium Level 8.2 MG/DL 8.1 MG/DL (8.5-10.1) (8.5-10.1) Alanine Aminotransferase 7 U/L (12-78) 7 U/L (12-78) (ALT/SGPT) Total Creatine Kinase 36 U/L (39-308) Albumin 2.2 GM/DL 2.2 GM/DL (3.4-5.0) (3.4-5.0) Arterial Blood Partial 44 mmHg (38-42) Pressure CO2 Blood Gas Hemoglobin 9.8 G/DL (12.0-16.0) Neutrophils (%) (Auto) 89.7 % (16.0-70.0) Lymphocytes (%) (Auto) 5.5 % (9.0-44.0) Lymphocytes # (Auto) 0.4 TH/MM3 (1.0-4.8) Troponin I 0.06 NG/ML (0.02-0.05) Pleural Fluid WBC 228 /MM3 (0-10) Pleural Fluid RBC 2753 /MM3 (0-0) Assessment and Plan Assessment and Plan ASS: PLEURAL EFFISION METASTATIC CA PLAN O2 NEEDED INCREASE ACTIVITY Discharge Planning GENERAL: SKIN: Warm and dry. HEAD: Atraumatic. Normocephalic. EYES: Pupils equal and round. No scleral icterus. No injection or drainage. ENT: No nasal bleeding or discharge. Mucous membranes pink and moist. NECK: Trachea midline. No JVD. CARDIOVASCULAR: Regular rate and rhythm. RESPIRATORY: No accessory muscle use. Clear to auscultation. Breath sounds equal bilaterally. GASTROINTESTINAL: Abdomen soft, non-tender, nondistended. Hepatic and splenic margins not palpable. MUSCULOSKELETAL: Extremities without clubbing, cyanosis, or edema. No obvious deformities. NEUROLOGICAL: Awake and alert. No obvious cranial nerve deficits. Motor grossly within normal limits. Five out of 5 muscle strength in the arms and legs. Normal speech. PSYCHIATRIC: Appropriate mood and affect; insight and judgment normal. Physician Attestation Laboratory Tests Test 03/17/17 03/20/17 16:50 05:41 Pleural Fluid WBC 228 /MM3 (0-10) Pleural Fluid RBC 2753 /MM3 (0-0) Red Blood Count 2.65 MIL/MM3 (4.50-5.90) Hemoglobin 8.9 GM/DL (13.0-17.0) Hematocrit 27.6 % (39.0-51.0) Mean Corpuscular Volume 104.5 FL (80.0-100.0) Red Cell Distribution Width 18.3 % (11.6-17.2) Neutrophils (%) (Auto) 91.2 % (16.0-70.0) Lymphocytes (%) (Auto) 4.7 % (9.0-44.0) Neutrophils # (Auto) 8.4 TH/MM3 (1.8-7.7) Lymphocytes # (Auto) 0.4 TH/MM3 (1.0-4.8) Blood Urea Nitrogen 67 MG/DL (7-18) Creatinine 1.74 MG/DL (0.60-1.30) Estimat Glomerular Filtration 39 ML/MIN (>89) Rate Random Glucose 112 MG/DL (74-106) Calcium Level 7.7 MG/DL (8.5-10.1) Catracho Hayden MD Mar 20, 2017 15:44
--- NOTE | 2017-03-20 16:54 | RADRPT ---
EXAM DATE/TIME: 03/20/2017 15:36 [facility] COMPARISON: No previous studies available for comparison. INDICATIONS : Transient ischemic attack. MEDICAL HISTORY : Congestive heart failure. Myocardial infarction. CAD. SURGICAL HISTORY : Right ear lobe removal. Bilateral cataract surgery. Cornea transplant right eye. Cardiac stents. ENCOUNTER: Initial ACUITY: 1 day PAIN SCORE: 2/10 LOCATION: Bilateral neck PEAK SYSTOLIC VELOCITIES (cm/sec): ICA/CCA RATIO: Right: 0.9 Left: 1.1 ICA: Right: 77.4 Left: 83.3 CCA: Right: 86.0 Left: 77.9 ECA: Right: 110.9 Left: 163.2 VERTEBRAL: Right: 53.4 antegrade Left: 46.9 antegrade Elevated flow velocities and ICA/CCA ratios have been found to correlate with increased degrees of vessel stenosis, calculated as percentage of diameter relative to a normal segment of distal ICA/CCA FINDINGS: RIGHT CAROTID: No significant stenosis is visualized. The waveforms are within normal limits. LEFT CAROTID: No significant stenosis is visualized. The waveforms are within normal limits. VERTEBRAL ARTERIES: Antegrade flow is seen in both vertebral arteries. MISCELLANEOUS: None. CONCLUSION: Normal examination. Mild atherosclerotic disease in both common carotid vessels. Bao Ibarra MD on March 20, 2017 at 16:52 Board Certified Radiologist. This report was verified electronically.
--- NOTE | 2017-03-20 16:55 | RADRPT ---
EXAM DATE/TIME: 03/20/2017 16:40 [facility] COMPARISON: CT BRAIN W/O CONTRAST, February 23, 2017, 17:12. INDICATIONS : Patient has headache, history of metastatic disease. RADIATION DOSE: 42.60 CTDIvol (mGy) MEDICAL HISTORY : Cardiovascular disease. A-fib SURGICAL HISTORY : stomach cancer ENCOUNTER: Initial ACUITY: 1 day PAIN SCALE: 0/10 LOCATION: cranial TECH NOTE: Gold bead in right eye for cancer treatment TECHNIQUE: Multiple contiguous axial images were obtained of the head. Using automated exposure control and adj ustment of the mA and/or kV according to patient size, radiation dose was kept as low as reasonably a chievable to obtain optimal diagnostic quality images. DICOM format image data is available electro nically for review and comparison. FINDINGS: CEREBRUM: The ventricles are normal for age. No evidence of midline shift, mass lesion, hemorrhage or acute in farction. No extra-axial fluid collections are seen. POSTERIOR FOSSA: The cerebellum and brainstem are intact. The 4th ventricle is midline. The cerebellopontine angle i s unremarkable. EXTRACRANIAL: The visualized portion of the orbits is intact. SKULL: The calvaria is intact. No evidence of skull fracture. CONCLUSION: Normal examination. Bao Ibarra MD on March 20, 2017 at 16:54 Board Certified Radiologist. This report was verified electronically.
--- NOTE | 2017-03-20 17:02 | RADRPT ---
EXAM DATE/TIME: 03/20/2017 15:53 [facility] COMPARISON: No previous studies available for comparison. INDICATIONS : Increased Bun and Creatinine. MEDICAL HISTORY : Hypercholesterolemia. CO. CHF. CAD. SURGICAL HISTORY : Bilateral cataract surgery. Cornea transplant right eye. Cardiac stents. ENCOUNTER: Initial ACUITY: 1 day PAIN SCORE: 2/10 LOCATION: Bilateral flank MEASUREMENTS: RIGHT KIDNEY: 10.0 x 5.6 x 5.5 cm LEFT KIDNEY: 9.1 x 4.8 x 6.0 cm FINDINGS: RIGHT KIDNEY: Renal cortex is normal in thickness and echotexture. No hydronephrosis, stone, or mass. LEFT KIDNEY: Renal cortex is normal in thickness and echotexture. No hydronephrosis, stone, or mass. Suspected ex trarenal pelvis on the left BLADDER: Within normal limits given the degree of distension. CONCLUSION: Normal examination. Suspected extrarenal pelvis on the left. Bao Ibarra MD on March 20, 2017 at 16:59 Board Certified Radiologist. This report was verified electronically.
[2017-03-20] MEDS: ATORVASTATIN 20 MG TAB PO SCH (20:36)
[2017-03-20] MEDS: predniSONE 20 MG TAB PO SCH (20:36)
[2017-03-20] MEDS: TAMSULOSIN HCL 0.4 MG CAP PO SCH (20:36)
[2017-03-21] VITALS (8 sets, daily range): BP systolic 98–177; BP diastolic 52–82; PULSE 59–97; RESP 18–20; TEMP 97.2–98.4; O2SAT 95–98
[2017-03-21] MEDS: SODIUM CHLOR 0.9% 1000 ML INJ 1,000 ML IV SCH ×3 (02:10→21:14)
[2017-03-21] MEDS: CHLORHEXIDINE GLUCONATE 2 % 1 PACK (2 CLOTHS) TOP SCH ×2 (03:04→21:14)
[2017-03-21] MEDS: RESP: ALBUTEROL 2.5 MG/IPRATROPIUM 0.5 MG NEB (SCH) NEB (03:16)
[2017-03-21] MEDS: PIPERACIL-TAZO 3.375 GM PREMIX 50 ML IV SCH ×3 (05:27→17:40)
[2017-03-21 06:15] LABS: AUTOMATED NEUTROPHIL # 6.9 TH/MM3 (1.8-7.7); LYMPH % 5.1 % (9.0-44.0); LYMPHOCYTE # 0.4 TH/MM3 (1.0-4.8); MEAN CELL VOLUME 104.6 FL (80.0-100.0); MEAN CORPUSCULAR HEMOGLOBIN 33.2 PG (27.0-34.0); MEAN CORPUSCULAR HGB CONC 31.8 % (32.0-36.0); NEUT % 86.9 % (16.0-70.0); PLATELET COUNT 161 TH/MM3 (150-450); RED BLOOD COUNT 2.68 MIL/MM3 (4.50-5.90); WHITE BLOOD COUNT 7.9 TH/MM3 (4.0-11.0)
[2017-03-21 06:29] LABS: HEMO FLAGS AUTO DIFF
[2017-03-21 07:01] LABS: BICARBONATE 25.4 MEQ/L (21.0-32.0); CALCIUM-PROTEIN CORRECTED 8.2 MG/DL (8.5-10.1); TOTAL BILIRUBIN ADULT 0.5 MG/DL (0.2-1.0)
[2017-03-21 08:32] LABS: SCAN/DIFF AUTO DIFF CONFIRMED
[2017-03-21] MEDS: TIOTROPIUM BROMIDE 18 MCG INH INH SCH (08:41)
[2017-03-21] MEDS: POTASSIUM CHLORIDE 25 MEQ EFFERVESCENT TAB PO SCH (08:41)
[2017-03-21] MEDS: BUDESONIDE-FORMOTEROL 160/4.5 MCG INHALER INH SCH ×2 (08:41→21:11)
[2017-03-21] MEDS: APIXABAN 5 MG TABLET PO SCH ×2 (08:41→21:13)
[2017-03-21] MEDS: DILTIAZEM-CD 240 MG CAP ER PO SCH (08:41)
[2017-03-21] MEDS: DIGOXIN 0.125 MG TAB PO SCH (08:41)
[2017-03-21] MEDS: predniSONE 20 MG TAB PO SCH ×2 (08:41→21:11)
[2017-03-21] MEDS: PANTOPRAZOLE SODIUM 40 MG VIAL IV SCH (08:42)
[2017-03-21] MEDS: SODIUM CHLORIDE 0.9% FLUSH 10 ML FLUSH IV FLUSH SCH ×2 (08:42→21:00)
[2017-03-21] MEDS: DOCUSATE SODIUM 50 MG/SENNA 8.6 MG TAB PO SCH ×2 (08:42→21:00)
--- NOTE | 2017-03-21 11:48 | HHI.HCPN ---
Met with Mr. Ramos, also present at bedside. Mr. Ramos is currently sitting in bedside chair, on NC, denies any shortness of breath. Verbalizes desire to discharge from the hospital. Patient and express concern regarding discharge and having proper equipment at home prior to discharge. Gently discussed and reviewed community DNR. Patient wishes for his /health care surrogate to sign as he self reports blurry vision. Form signed and faxed to HIM to be scanned into EMR. Copy given to . Yellow form placed on chart to go with patient upon discharge. Mr. Ramos and deny any questions or concerns at this time. Mr. Ramos is looking forward to getting out of the hospital. Palliative care will continue to follow throughout hospitalization. Светлана Chang, SHE[employer] INST[employer]ER Mar 21, 2017 11:48
--- NOTE | 2017-03-21 14:48 | HHI.PR ---
Subjective Remarks denies sob at rest denies cp good urine output denies cough denies further episodes of agitation Objective Vitals Vital Signs Date Time Temp Pulse Resp B/P Pulse Ox O2 Delivery O2 Flow Rate FiO2 03/21/17 12:00 97.3 68 18 146/67 98 03/21/17 11:29 97 Nasal Cannula 5.00 03/21/17 08:00 97.5 65 18 135/63 97 03/21/17 08:00 59 03/21/17 08:00 Nasal Cannula 5.00 03/21/17 04:00 Nasal Cannula 5.00 03/21/17 03:45 98.4 70 20 98/52 98 03/21/17 03:18 98 Nasal Cannula 5.00 03/21/17 00:00 Nasal Cannula 5.00 03/20/17 23:45 97.5 72 22 145/61 96 03/20/17 21:04 100 Nasal Cannula 5.00 03/20/17 20:40 Nasal Cannula 5.00 03/20/17 19:57 56 03/20/17 19:50 98.4 71 20 155/72 96 03/20/17 16:00 97.6 73 20 153/72 96 I/O 03/20/17 03/20/17 03/20/17 03/21/17 03/21/17 03/21/17 07:00 15:00 23:00 07:00 15:00 23:00 Intake Total 503 ml 650 ml 360 ml 1350 ml Output Total 300 ml 430 ml Balance 203 ml 650 ml 360 ml 920 ml Intake Oral 180 ml 600 ml 360 ml IV Total 323 ml 50 ml 1350 ml Output Urine Total 300 ml 430 ml # Voids 1 # Bowel Movements 0 1 2 Result Diagram: 03/21/17 0442 03/21/17 0442 Imaging Last Impressions Renal Ultrasound 03/20/17 0000 Signed Impressions: Service Date/Time: Monday, March 20, 2017 15:53 - CONCLUSION: Normal examination. Suspected extrarenal pelvis on the left. Bao Ibarra MD Head CT 03/20/17 0000 Signed Impressions: Service Date/Time: Monday, March 20, 2017 16:40 - CONCLUSION: Normal examination. Bao Ibarra MD Carotid Artery Ultrasound 03/20/17 0000 Signed Impressions: Service Date/Time: Monday, March 20, 2017 15:36 - CONCLUSION: Normal examination. Mild atherosclerotic disease in both common carotid vessels. Bao Ibarra MD Chest X-Ray 03/18/17 0000 Signed Impressions: Service Date/Time: Saturday, March 18, 2017 07:44 - CONCLUSION: 1. Minimal interstitial changes, not significantly changed. 2. Mild cardiomegaly. Arnulfo Rangel MD CT Angiography 03/16/17 0000 Signed Impressions: Service Date/Time: Thursday, March 16, 2017 23:02 - CONCLUSION: 1. Progression of bilateral consolidation and large bilateral effusions without evidence of pulmonary embolism. Saul Chang MD Objective Remarks GENERAL: NAD SKIN: Warm and dry. HEAD: Normocephalic. EYES: No scleral icterus. No injection or drainage. NECK: Supple, trachea midline. No JVD or lymphadenopathy. CARDIOVASCULAR: Regular rate and rhythm without murmurs, gallops, or rubs. RESPIRATORY: Breath sounds decrease bilaterally. No accessory muscle use. GASTROINTESTINAL: Abdomen soft, non-tender, nondistended. MUSCULOSKELETAL: No cyanosis, or edema. BACK: Nontender without obvious deformity. No CVA tenderness. Procedures none Medications and IVs Current Medications Medications (Trade) Dose Ordered Sig/Angie Route Start Time Stop Time Status Last Admin (Lipitor) 20 mg HS PO 03/17/17 21:00 03/20/17 20:36 (Lanoxin) 0.125 mg DAILY PO 03/17/17 09:00 03/21/17 08:41 (Cardizem Cd) 240 mg DAILY PO 03/17/17 09:00 03/21/17 08:41 (Flomax) 0.4 mg HS PO 03/17/17 21:00 03/20/17 20:36 (NS Flush) 2 ml UNSCH PRN .XX 03/17/17 00:00 03/19/17 00:07 (NS Flush) 2 ml BID IV FLUSH 03/17/17 09:00 03/21/17 08:42 (Dilaudid Pf Inj) 1 mg Q4H PRN IV 03/17/17 00:00 (Protonix Inj) 40 mg DAILY IV 03/17/17 09:00 03/21/17 08:42 (Ativan Inj) 1 mg Q1H PRN IV 03/17/17 00:00 (Zofran Inj) 4 mg Q6H PRN IV 03/17/17 00:00 (Ambien) 5 mg HS PRN PO 03/17/17 00:00 Miscellaneous Information 1 Q361D XX 03/17/17 00:00 03/17/17 01:45 (Chlorhexidine 2% Cloth) 3 pack Taper DAILY@04 TOP 03/17/17 04:00 03/13/18 03:59 03/18/17 04:00 (Chlorhexidine 2% Cloth) 3 pack UNSCH PRN TOP 03/17/17 00:00 (Amelia-Colace) 1 tab BID PO 03/17/17 09:00 03/19/17 08:26 (Milk Of Dang Litiffanie) 30 ml Q12H PRN PO 03/17/17 00:00 (Senokot) 17.2 mg Q12H PRN PO 03/17/17 00:00 (Dulcolax Supp) 10 mg DAILY PRN RECTAL 03/17/17 00:00 Lactulose 30 ml 30 ml DAILY PRN PO 03/17/17 00:00 Piperacillin Sod/ Tazobactam Sod 50 ml @ 100 mls/hr Q6H IV 03/17/17 06:00 03/21/17 17:40 (Zithromax Inj/ NS 250 ml Inj) 250 ml @ 250 mls/hr Q24H IV 03/18/17 01:00 03/20/17 23:34 (Eliquis) 5 mg BID PO 03/19/17 09:00 03/21/17 08:41 (K-Lyte Cl Eff) 25 meq DAILY PO 03/18/17 09:00 03/21/17 08:41 (Symbicort 160-4.5 Inh) 2 puff Q12HR INH 03/19/17 21:00 03/21/17 08:41 (Spiriva Inh) 18 mcg DAILY INH 03/20/17 09:00 03/21/17 08:41 Prednisone 20 mg 20 mg BID PO 03/20/17 21:00 03/21/17 08:41 Sodium Chloride 1,000 ml @ 84 mls/hr [id number] IV 03/20/17 14:15 03/21/17 12:05 (Calcium Chloride Inj/NS Inj) 120 ml @ 120 mls/hr ONCE ONCE IV 03/21/17 18:00 03/21/17 18:59 03/21/17 17:41 Urinary Catheter: No Vascular Central Line Catheter: No A/P Problem List: (1) Respiratory failure ICD Code: J96.90 Status: Acute (2) COPD exacerbation ICD Code: J44.1 Status: Acute (3) Bilateral large pleural effusions Status: Acute (4) Pneumonia ICD Code: J18.9 Status: Acute (5) CHF (congestive heart failure) ICD Code: I50.9 Status: Acute (6) Stage 4 lung cancer ICD Code: C34.90 Status: Chronic (7) CAD (coronary artery disease) ICD Code: I25.10 Status: Chronic (8) HTN (hypertension) ICD Code: I10 Status: Chronic (9) A-fib ICD Code: I48.91 Status: Chronic Assessment and Plan 71-year-old man with Acute on chronic respiratory failure Bilateral large pleural effusions Status post bilateral right and left thoracentesis Keep oxygen saturation above 92% Pulmonary medicine input appreciated Continue to hold Lasix secondary to acute kidney injury. Community-acquired bacteria pneumonia 03/21 DC Zosyn and Azithromycin and start on PO Levaquin x 10 days. Blood culture negative 5. COPD exacerbation Continue antibiotics as above. Continue with DuoNeb Pulmonary medicine input appreciated Continue prednisone taper and oral Levaquin. Obstructive sleep apnea Continue BIPAP at night History of atrial fibrillation Currently rate control, continue outpatient medications including Cardizem and Eliquis History of stage IV lung cancer Palliative medicine following Outpatient follow-up with oncology Other chronic medical conditions Continue outpatient medications Transient change in mental status/slurred speech/aphasia Cannot rule out TIA. CT head negative, carotid dopplers negative, echocardiogram showed systolic function with an EF of 40-45%. Limited views of the LV apex shows no thrombus. Acute kidney injury on CK V stage III. Patient has a baseline creatinine of 0.8-0.9. Creatinine increased up to 1.7 , now trending down to 1.6, continue gentle IV fluids. Nonoliguric KIESHA likely secondary to prerenal azotemia due to overdiuresis. Hypocalcemia Likely secondary to decreased by mouth intake. I will replace with IV calcium chloride. DVT prophylaxis: Eliquis Discharge Planning Possible discharge in a.m. pending resolution of KIESHA. Problem Qualifiers (1) Respiratory failure: Qualified Code: J96.01 - Acute respiratory failure with hypoxia (2) Pneumonia: Qualified Code: J15.7 - Pneumonia of both lungs due to Mycoplasma pneumoniae, unspecified part of lung (3) CHF (congestive heart failure): Qualified Code: I50.9 - Acute congestive heart failure, unspecified congestive heart failure type Pascual Peterson MD Mar 21, 2017 14:48
--- NOTE | 2017-03-21 15:20 | HHI.PR ---
Subjective Remarks ALERT ON O2 NO SOB AT REST Objective Vital Signs Date Time Temp Pulse Resp B/P Pulse Ox O2 Delivery O2 Flow Rate FiO2 03/21/17 12:00 97.3 68 18 146/67 98 03/21/17 11:29 97 Nasal Cannula 5.00 03/21/17 08:00 97.5 65 18 135/63 97 03/21/17 08:00 59 03/21/17 08:00 Nasal Cannula 5.00 03/21/17 04:00 Nasal Cannula 5.00 03/21/17 03:45 98.4 70 20 98/52 98 03/21/17 03:18 98 Nasal Cannula 5.00 03/21/17 00:00 Nasal Cannula 5.00 03/20/17 23:45 97.5 72 22 145/61 96 03/20/17 21:04 100 Nasal Cannula 5.00 03/20/17 20:40 Nasal Cannula 5.00 03/20/17 19:57 56 03/20/17 19:50 98.4 71 20 155/72 96 03/20/17 16:00 97.6 73 20 153/72 96 I/O 03/20/17 03/20/17 03/20/17 03/21/17 03/21/17 03/21/17 06:59 14:59 22:59 06:59 14:59 22:59 Intake Total 503 ml 650 ml 360 ml 1350 ml Output Total 300 ml 430 ml Balance 203 ml 650 ml 360 ml 920 ml Intake Oral 180 ml 600 ml 360 ml IV Total 323 ml 50 ml 1350 ml Output Urine Total 300 ml 430 ml # Voids 1 # Bowel Movements 0 1 2 Result Diagram: 03/21/1744103/21/17441 Objective Remarks Laboratory Tests Test 03/16/17 03/16/17 03/17/17 03/17/17 21:02 23:45 02:30 16:50 Red Blood Count 2.82 MIL/MM3 2.86 MIL/MM3 (4.50-5.90) (4.50-5.90) Hemoglobin 9.3 GM/DL 9.7 GM/DL (13.0-17.0) (13.0-17.0) Hematocrit 29.5 % 29.8 % (39.0-51.0) (39.0-51.0) Mean Corpuscular Volume 104.5 FL 104.4 FL (80.0-100.0) (80.0-100.0) Mean Corpuscular Hemoglobin 31.4 % Concent (32.0-36.0) Red Cell Distribution Width 18.3 % 18.6 % (11.6-17.2) (11.6-17.2) Platelet Count 139 TH/MM3 132 TH/MM3 (150-450) (150-450) Monocytes (%) (Auto) 10.0 % (0.0-8.0) Prothrombin Time 15.1 SEC (9.8-11.6) Activated Partial 34.6 SEC Thromboplast Time (24.3-30.1) Chloride Level 109 MEQ/L 109 MEQ/L (98-107) (98-107) Blood Urea Nitrogen 26 MG/DL (7-18) 25 MG/DL (7-18) Estimat Glomerular Filtration 67 ML/MIN (>89) 60 ML/MIN (>89) Rate Calcium Level 8.2 MG/DL 8.1 MG/DL (8.5-10.1) (8.5-10.1) Alanine Aminotransferase 7 U/L (12-78) 7 U/L (12-78) (ALT/SGPT) Total Creatine Kinase 36 U/L (39-308) Albumin 2.2 GM/DL 2.2 GM/DL (3.4-5.0) (3.4-5.0) Arterial Blood Partial 44 mmHg (38-42) Pressure CO2 Blood Gas Hemoglobin 9.8 G/DL (12.0-16.0) Neutrophils (%) (Auto) 89.7 % (16.0-70.0) Lymphocytes (%) (Auto) 5.5 % (9.0-44.0) Lymphocytes # (Auto) 0.4 TH/MM3 (1.0-4.8) Troponin I 0.06 NG/ML (0.02-0.05) Pleural Fluid WBC 228 /MM3 (0-10) Pleural Fluid RBC 2753 /MM3 (0-0) Medications and IVs GENERAL: SKIN: Warm and dry. HEAD: Atraumatic. Normocephalic. EYES: Pupils equal and round. No scleral icterus. No injection or drainage. ENT: No nasal bleeding or discharge. Mucous membranes pink and moist. NECK: Trachea midline. No JVD. CARDIOVASCULAR: Regular rate and rhythm. RESPIRATORY: No accessory muscle use. Clear to auscultation. Breath sounds equal bilaterally. GASTROINTESTINAL: Abdomen soft, non-tender, nondistended. Hepatic and splenic margins not palpable. MUSCULOSKELETAL: Extremities without clubbing, cyanosis, or edema. No obvious deformities. NEUROLOGICAL: Awake and alert. No obvious cranial nerve deficits. Motor grossly within normal limits. Five out of 5 muscle strength in the arms and legs. Normal speech. PSYCHIATRIC: Appropriate mood and affect; insight and judgment normal. Assessment and Plan Assessment and Plan ASS: PLEURAL EFFISION METASTATIC CA PLAN O2 NEEDED INCREASE ACTIVITY Catracho Hayden MD Mar 21, 2017 15:20
[2017-03-21] MEDS ORDERED: CALCIUM GLUCONATE 500 MG TAB PO ONE (16:00)
--- NOTE | 2017-03-21 17:42 | ECHRPT ---
Indication: cva/tia CONCLUSIONS Normal left ventricular size and wall thickness. The left ventricular systolic function is moderatel y decreased with an estimated ejection fraction in the range of 40-45%. Limited views of the LV apex show no thrombus. If further concern, would consider Definity. BP: / HR: Rhythm: Sinus MEASUREMENTS (Male / Female) Normal Values Technical Quality:Technically difficult study 2D ECHO LV Diastolic Diameter PLAX 4.8 cm 4.2 - 5.9 / 3.9 - 5.3 cm LV Systolic Diameter PLAX 3.8 cm IVS Diastolic Thickness 1.0 cm 0.6 - 1.0 / 0.6 - 0.9 cm LVPW Diastolic Thickness 0.9 cm 0.6 - 1.0 / 0.6 - 0.9 cm LV Relative Wall Thickness 0.4 DOPPLER TR Peak Velocity 315.0 cm/s TR Peak Gradient 39.7 mmHg FINDINGS LEFT VENTRICLE Normal left ventricular size and wall thickness. The left ventricular systolic function is moderatel y decreased with an estimated ejection fraction in the range of 40-45%. Limited views of the LV apex show no thrombus. If further concern, would consider Definity. RIGHT VENTRICLE Normal right ventricular size and systolic function. LEFT ATRIUM The left atrium was not well visualized. RIGHT ATRIUM The right atrium is not well visualized. ATRIAL SEPTUM Normal atrial septal thickness without atrial level shunting by limited color doppler interrogation. MITRAL VALVE Mild mitral valve regurgitation. AORTIC VALVE Trileaflet aortic valve. No aortic valve stenosis or regurgitation. TRICUSPID VALVE There is trace tricuspid valve regurgitation. There is estimated mild pulmonary hypertension present (45 mmHg). PULMONARY VALVE The pulmonary valve is not well visualized. VESSELS The inferior vena cava is normal in size. PERICARDIUM No pericardial effusion. Butch Villanueva DO (Electronically Signed) Final Date:21 March 2017 17:40
[2017-03-21] MEDS ORDERED: CALCIUM CHLORIDE INJ 2 GM in SODIUM CHLORIDE 0.9% INJ 100 ML IV ONE (18:00)
[2017-03-21 18:10] LABS: BICARBONATE 24.7 MEQ/L (21.0-32.0); MAGNESIUM 2.4 MG/DL (1.5-2.5); POTASSIUM 4.1 MEQ/L (3.5-5.1)
[2017-03-21 18:52] LABS: CALCIUM-PROTEIN CORRECTED 7.8 MG/DL (8.5-10.1)
[2017-03-21] MEDS: TAMSULOSIN HCL 0.4 MG CAP PO SCH (21:12)
[2017-03-21] MEDS: ATORVASTATIN 20 MG TAB PO SCH (21:13)
[2017-03-22] VITALS (9 sets, daily range): BP systolic 136–171; BP diastolic 66–79; PULSE 71–85; RESP 18–22; TEMP 97.2–98.1; O2SAT 94–98
[2017-03-22] MEDS: RESP: ALBUTEROL 2.5 MG/IPRATROPIUM 0.5 MG NEB (PRN) NEB ×3 (02:34→19:17)
--- NOTE | 2017-03-22 08:21 | HHI.PR ---
Subjective Remarks ALERT ON O2 NO SOB AT REST Objective Vital Signs Date Time Temp Pulse Resp B/P Pulse Ox O2 Delivery O2 Flow Rate FiO2 03/22/17 05:31 97.2 74 20 171/79 94 03/22/17 05:00 98.1 85 20 153/66 95 03/22/17 00:00 97.7 71 20 166/74 03/21/17 20:08 95 Nasal Cannula 5.00 03/21/17 20:00 97.2 67 20 177/82 97 03/21/17 20:00 Nasal Cannula 5.00 03/21/17 20:00 62 03/21/17 16:00 97.2 97 18 129/59 97 03/21/17 12:00 97.3 68 18 146/67 98 03/21/17 11:29 97 Nasal Cannula 5.00 I/O 03/21/17 03/21/17 03/21/17 03/22/17 03/22/17 03/22/17 07:00 15:00 23:00 07:00 15:00 23:00 Intake Total 1350 ml 1591 ml 480 ml 240 ml Output Total 430 ml 250 ml 200 ml 100 ml Balance 920 ml 1341 ml 280 ml 140 ml Intake Oral 700 ml 480 ml 240 ml IV Total 1350 ml 891 ml Output Urine Total 430 ml 250 ml 200 ml 100 ml # Voids 3 # Bowel Movements 2 3 0 0 Result Diagram: 03/21/172 03/21/17 1710 Objective Remarks Laboratory Tests Test 03/16/17 03/16/17 03/17/17 03/17/17 21:02 23:45 02:30 16:50 Red Blood Count 2.82 MIL/MM3 2.86 MIL/MM3 (4.50-5.90) (4.50-5.90) Hemoglobin 9.3 GM/DL 9.7 GM/DL (13.0-17.0) (13.0-17.0) Hematocrit 29.5 % 29.8 % (39.0-51.0) (39.0-51.0) Mean Corpuscular Volume 104.5 FL 104.4 FL (80.0-100.0) (80.0-100.0) Mean Corpuscular Hemoglobin 31.4 % Concent (32.0-36.0) Red Cell Distribution Width 18.3 % 18.6 % (11.6-17.2) (11.6-17.2) Platelet Count 139 TH/MM3 132 TH/MM3 (150-450) (150-450) Monocytes (%) (Auto) 10.0 % (0.0-8.0) Prothrombin Time 15.1 SEC (9.8-11.6) Activated Partial 34.6 SEC Thromboplast Time (24.3-30.1) Chloride Level 109 MEQ/L 109 MEQ/L (98-107) (98-107) Blood Urea Nitrogen 26 MG/DL (7-18) 25 MG/DL (7-18) Estimat Glomerular Filtration 67 ML/MIN (>89) 60 ML/MIN (>89) Rate Calcium Level 8.2 MG/DL 8.1 MG/DL (8.5-10.1) (8.5-10.1) Alanine Aminotransferase 7 U/L (12-78) 7 U/L (12-78) (ALT/SGPT) Total Creatine Kinase 36 U/L (39-308) Albumin 2.2 GM/DL 2.2 GM/DL (3.4-5.0) (3.4-5.0) Arterial Blood Partial 44 mmHg (38-42) Pressure CO2 Blood Gas Hemoglobin 9.8 G/DL (12.0-16.0) Neutrophils (%) (Auto) 89.7 % (16.0-70.0) Lymphocytes (%) (Auto) 5.5 % (9.0-44.0) Lymphocytes # (Auto) 0.4 TH/MM3 (1.0-4.8) Troponin I 0.06 NG/ML (0.02-0.05) Pleural Fluid WBC 228 /MM3 (0-10) Pleural Fluid RBC 2753 /MM3 (0-0) Assessment and Plan Assessment and Plan ASS: PLEURAL EFFISION METASTATIC CA PLAN O2 NEEDED INCREASE ACTIVITY Discharge Planning GENERAL: SKIN: Warm and dry. HEAD: Atraumatic. Normocephalic. EYES: Pupils equal and round. No scleral icterus. No injection or drainage. ENT: No nasal bleeding or discharge. Mucous membranes pink and moist. NECK: Trachea midline. No JVD. CARDIOVASCULAR: Regular rate and rhythm. RESPIRATORY: No accessory muscle use. Clear to auscultation. Breath sounds equal bilaterally. GASTROINTESTINAL: Abdomen soft, non-tender, nondistended. Hepatic and splenic margins not palpable. MUSCULOSKELETAL: Extremities without clubbing, cyanosis, or edema. No obvious deformities. NEUROLOGICAL: Awake and alert. No obvious cranial nerve deficits. Motor grossly within normal limits. Five out of 5 muscle strength in the arms and legs. Normal speech. PSYCHIATRIC: Appropriate mood and affect; insight and judgment normal. Catracho Hayden MD Mar 22, 2017 08:21
[2017-03-22] MEDS: BUDESONIDE-FORMOTEROL 160/4.5 MCG INHALER INH SCH ×2 (08:38→22:40)
[2017-03-22] MEDS: TIOTROPIUM BROMIDE 18 MCG INH INH SCH (08:38)
[2017-03-22] MEDS: DIGOXIN 0.125 MG TAB PO SCH (08:39)
[2017-03-22] MEDS: LEVOFLOXACIN 500 MG TAB PO SCH (08:41)
[2017-03-22] MEDS: APIXABAN 5 MG TABLET PO SCH ×2 (08:41→22:35)
[2017-03-22] MEDS: PANTOPRAZOLE SODIUM 40 MG VIAL IV SCH (08:41)
[2017-03-22] MEDS: DILTIAZEM-CD 240 MG CAP ER PO SCH (08:41)
[2017-03-22] MEDS: predniSONE 20 MG TAB PO SCH ×2 (08:41→22:35)
[2017-03-22] MEDS: POTASSIUM CHLORIDE 25 MEQ EFFERVESCENT TAB PO SCH (08:41)
[2017-03-22] MEDS: DOCUSATE SODIUM 50 MG/SENNA 8.6 MG TAB PO SCH ×2 (08:42→21:00)
[2017-03-22] MEDS: SODIUM CHLOR 0.9% 1000 ML INJ 1,000 ML IV SCH (08:42)
[2017-03-22] MEDS: SODIUM CHLORIDE 0.9% FLUSH 10 ML FLUSH IV FLUSH SCH ×2 (08:42→22:35)
[2017-03-22 12:05] LABS: BICARBONATE 24.1 MEQ/L (21.0-32.0); MAGNESIUM 2.4 MG/DL (1.5-2.5); POTASSIUM 4.2 MEQ/L (3.5-5.1)
[2017-03-22] MEDS ORDERED: FUROSEMIDE 40 MG TAB PO ONE (16:15)
[2017-03-22] MEDS ORDERED: PRED20 PO (16:36)
[2017-03-22] MEDS ORDERED: SPIRCAP INH (16:36)
[2017-03-22] MEDS ORDERED: LEVA500T20 PO (16:36)
--- NOTE | 2017-03-22 16:37 | HHI.DCPOC ---
Discharge Care Plan Diagnosis: (1) Bilateral large pleural effusions (2) Stage 4 lung cancer (3) COPD exacerbation (4) HTN (hypertension) (5) Pneumonia (6) A-fib (7) Respiratory failure (8) CHF (congestive heart failure) (9) CAD (coronary artery disease) (10) Pulmonary edema Goals to Promote Your Health * To prevent worsening of your condition and complications * To maintain your health at the optimal level Directions to Meet Your Goals Take your medications as prescribed Follow your dietary instruction Follow activity as directed Keep your appointments as scheduled Take your immunizations and boosters as scheduled If your symptoms worsen call your PCP, if no PCP go to Urgent Care Center or Emergency Room Smoking is Dangerous to Your Health. Avoid second hand smoke Call the 24-hour hour crisis hotline for domestic abuse at Pascual Peterson MD Mar 22, 2017 16:37
--- NOTE | 2017-03-22 16:51 | HHI.HCPN ---
Reason for visit a. To assist with evaluation and management of symptoms including: dyspnea, nausea, anorexia, insomnia b. To assist medical decision maker(s) with: better understanding of current medical conditions; weighing benefits/burdens of medical treatment options; making medical treatment decisions. . Subjective/Interval History Mr. Ramos is sitting up in his chair by the bedside at time of my visit. He is awake, alert, conversational. He had an episode of expressive aphasia and slurred speech on 03/20 which resolved spontaneously . There has been no recurrence. Workup including head CT , carotid dopplers, and echocardiogram showed no obvious cause. Patient apparently removed his own PICC line on 03/20/17. Antibiotic coverage at this time is oral levofloxacin. Patient denies pain. SOB has improved greatly since thoracentesis. He is able to ambulate to the bathroom. Denies nausea. Appetite is good. Overall, he is doing significantly better than he was at the time of his last discharge. Dr. Odonnell entered the room during my visit and we discussed discharge planning. The patient wants to go home, but there is understandable concern given what happened at last hospital discharge. Patient, who had been resistent to rehab, was willing to consider. salon/spa manager entered the room and we discussed rehab options vs home health. We also discussed hospice during the visit which could help at such time that Dr. Muhammad felt cancer directed treatments were no longer an option. . . . Family/friend interactions at bedside and participated in above discussions. . Advance Directives Living Will: Copy in medical record Health Care Surrogate: Copy in medical record Durable Power of Tank Truck Mechanic: Never completed Advance Directive Specifics Date completed: Living Will / Health Care Surrogate completed on 06/09/09 . . Health Care Surrogate(s): Bjorn Ramos (spouse) is the designated surrogate. Bib Chery (stepson ) is the alternate. . Documented care wishes: Patient has living will stating he does NOT want life prolonging measures if he has a terminal or end stage condition or persistent vegetative state. He would want life-prolonging measures withheld or withdrawn including artificial nutrition/hydration. Patient desires DNR status. . Significant change in goals: Community DNR was completed, on paper chart, and scanned into EMR on 03/21/17. . Objective Vital Signs Date Time Temp Pulse Resp B/P Pulse Ox O2 Delivery O2 Flow Rate FiO2 7/21/17 16:00 97.4 76 20 136/69 96 03/22/17 13:06 98 Nasal Cannula 5.00 03/22/17 11:57 98.1 77 20 149/70 97 03/22/17 08:15 83 03/22/17 08:15 Nasal Cannula 5.00 03/22/17 08:00 98.0 73 22 168/75 94 03/22/17 05:31 97.2 74 20 171/79 94 03/22/17 05:00 98.1 85 20 153/66 95 03/22/17 00:00 97.7 71 20 166/74 03/21/17 20:08 95 Nasal Cannula 5.00 03/21/17 20:00 97.2 67 20 177/82 97 03/21/17 20:00 Nasal Cannula 5.00 03/21/17 20:00 62 Intake & Output 03/22/17 03/22/17 07:00 19:00 Intake Total 720 ml 480 ml Output Total 300 ml Balance 420 ml 480 ml Intake Oral 720 ml 480 ml Output Urine Total 300 ml # Voids 2 # Bowel Movements 0 1 . Physical Exam CONSTITUTIONAL/GENERAL: This is an obese male awake, alert, up in chair. TUBES/LINES/DRAINS: barker; 02 via NC; SKIN: No jaundice, rashes, or lesions. No wounds seen anteriorly. Skin temperature appropriate. Not diaphoretic. HEAD: Atraumatic. Normocephalic. 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 Right facial droop from melanoma surgery. EYES: Pupils equal and round. Extraocular motions intact. No scleral icterus. No injection or drainage. Fundi not examined. ENT: Right earlobe partially removed. Hearing grossly normal. NECK: Trachea midline. Supple, nontender. CARDIOVASCULAR: Regular rate and rhythm without murmurs, gallops, or rubs. Heart sounds distant. No JVD. RESPIRATORY/CHEST: Symmetric, unlabored respirations. Breath sounds equal bilaterally but distant.. Decreased air movement bilaterally at bases. No wheezes,. GASTROINTESTINAL: Abdomen obese, distended, mildly firm, non-tender. No hepato- splenomegaly, or palpable masses. No guarding. Bowel sounds present. GENITOURINARY: Without palpable bladder distension. MUSCULOSKELETAL: Extremities without clubbing, cyanosis. Trace bilateral LE edema. No calf tenderness. No mottling or clubbing. LYMPHATICS: Not examined. NEUROLOGICAL: Awake and alert. Motor and sensory grossly within normal limits. Follows commands. Moves all extremities. Cognitively sharper today. PSYCHIATRIC: No obvious anxiety/depression. No apparent hallucinations or other psychotic thought process. . Diagnostic Tests Laboratory Laboratory Tests Test 03/20/17 03/21/17 03/21/17 03/22/17 05:41 04:42 17:10 11:10 White Blood Count 9.2 TH/MM3 7.9 TH/MM3 (4.0-11.0) (4.0-11.0) Red Blood Count 2.65 MIL/MM3 2.68 MIL/MM3 (4.50-5.90) (4.50-5.90) Hemoglobin 8.9 GM/DL 8.9 GM/DL (13.0-17.0) (13.0-17.0) Hematocrit 27.6 % 28.0 % (39.0-51.0) (39.0-51.0) Mean Corpuscular Volume 104.5 FL 104.6 FL (80.0-100.0) (80.0-100.0) Mean Corpuscular Hemoglobin 33.7 PG 33.2 PG (27.0-34.0) (27.0-34.0) Mean Corpuscular Hemoglobin 32.3 % 31.8 % Concent (32.0-36.0) (32.0-36.0) Red Cell Distribution Width 18.3 % 18.0 % (11.6-17.2) (11.6-17.2) Platelet Count 174 TH/MM3 161 TH/MM3 (150-450) (150-450) Mean Platelet Volume 7.9 FL 7.8 FL (7.0-11.0) (7.0-11.0) Neutrophils (%) (Auto) 91.2 % 86.9 % (16.0-70.0) (16.0-70.0) Lymphocytes (%) (Auto) 4.7 % 5.1 % (9.0-44.0) (9.0-44.0) Monocytes (%) (Auto) 4.0 % (0.0-8.0) 8.0 % (0.0-8.0) Eosinophils (%) (Auto) 0.0 % (0.0-4.0) 0.0 % (0.0-4.0) Basophils (%) (Auto) 0.1 % (0.0-2.0) 0.0 % (0.0-2.0) Neutrophils # (Auto) 8.4 TH/MM3 6.9 TH/MM3 (1.8-7.7) (1.8-7.7) Lymphocytes # (Auto) 0.4 TH/MM3 0.4 TH/MM3 (1.0-4.8) (1.0-4.8) Monocytes # (Auto) 0.4 TH/MM3 0.6 TH/MM3 (0-0.9) (0-0.9) Eosinophils # (Auto) 0.0 TH/MM3 0.0 TH/MM3 (0-0.4) (0-0.4) Basophils # (Auto) 0.0 TH/MM3 0.0 TH/MM3 (0-0.2) (0-0.2) CBC Comment DIFF FINAL AUTO DIFF Differential Comment AUTO DIFF CONFIRMED Sodium Level 141 MEQ/L 142 MEQ/L 142 MEQ/L (136-145) (136-145) (136-145) Potassium Level 3.9 MEQ/L 4.0 MEQ/L 4.1 MEQ/L (3.5-5.1) (3.5-5.1) (3.5-5.1) Chloride Level 107 MEQ/L 107 MEQ/L 106 MEQ/L (98-107) (98-107) (98-107) Carbon Dioxide Level 25.2 MEQ/L 25.4 MEQ/L 24.7 MEQ/L (21.0-32.0) (21.0-32.0) (21.0-32.0) Anion Gap 9 MEQ/L (5-15) 10 MEQ/L (5-15) 11 MEQ/L (5-15) Blood Urea Nitrogen 67 MG/DL (7-18) 68 MG/DL (7-18) 60 MG/DL (7-18) Creatinine 1.74 MG/DL 1.61 MG/DL 1.53 MG/DL (0.60-1.30) (0.60-1.30) (0.60-1.30) Estimat Glomerular Filtration 39 ML/MIN (>89) 43 ML/MIN (>89) 45 ML/MIN (>89) Rate Random Glucose 112 MG/DL 107 MG/DL 112 MG/DL (74-106) (74-106) (74-106) Calcium Level 7.7 MG/DL 7.4 MG/DL 7.4 MG/DL (8.5-10.1) (8.5-10.1) (8.5-10.1) Protein Corrected Calcium 8.2 MG/DL 7.8 MG/DL (8.5-10.1) (8.5-10.1) Total Bilirubin 0.5 MG/DL (0.2-1.0) Aspartate Amino Transf 35 U/L (15-37) (AST/SGOT) Alanine Aminotransferase 19 U/L (12-78) (ALT/SGPT) Alkaline Phosphatase 66 U/L (45-117) Total Protein 5.6 GM/DL 6.4 GM/DL (6.4-8.2) (6.4-8.2) Albumin 2.2 GM/DL (3.4-5.0) Magnesium Level 2.4 MG/DL (1.5-2.5) Urine Eosinophils NONE SEEN /HPF (NONE SEEN) Test 03/22/17 11:25 Sodium Level 141 MEQ/L (136-145) Potassium Level 4.2 MEQ/L (3.5-5.1) Chloride Level 108 MEQ/L (98-107) Carbon Dioxide Level 24.1 MEQ/L (21.0-32.0) Anion Gap 9 MEQ/L (5-15) Blood Urea Nitrogen 57 MG/DL (7-18) Creatinine 1.35 MG/DL (0.60-1.30) Estimat Glomerular Filtration 52 ML/MIN (>89) Rate Random Glucose 118 MG/DL (74-106) Calcium Level 8.1 MG/DL (8.5-10.1) Magnesium Level 2.4 MG/DL (1.5-2.5) . Result Diagram: 03/21/17 0442 03/22/17 1125 Procedures * Right sided thoracentesis * Left sided thoracentesis . Other * Cytology on pleural fluid from 03/17/17 revealed no malignant cells. . Assessment and Plan Disease Oriented Problem List: (1) Stage 4 lung cancer Comment: Followed by Dr. Muhammad. Chemo has reportedly prevented significant spread of disease. . (2) Bilateral large pleural effusions Comment: Now s/p bilateral thoracentesis. . (3) CHF (congestive heart failure) Comment: As echocardiogram of 02/23/17 showed an EF of 55-60% , if CHF is present it would most likely be diastolic failure. . (4) CAD (coronary artery disease) Comment: Hx of RI and stents. . (5) Malnutrition Comment: Low albumin . (6) HTN (hypertension) Symptom Scale: (1) Dyspnea 0-10 Scale: 0 Comment: Much improved post thoracentesis. Appears comfortable at rest with 02. . (2) Anorexia 0-10 Scale: Unable to quantify Comment: Upon admission, was complaining of poor appetite. Even foods that he used to enjoy (e.g. chocolate and Coke) no longer appealed to him. Appetite improving since hospitalization. . . (3) Generalized weakness 0-10 Scale: Unable to quantify Comment: Slowly improving. Now able to ambulate to bathroom. . (4) Nausea 0-10 Scale: Unable to quantify Comment: Get intermittent nausea without vomiting. Exacerbated with sight or mention of food. Improving. . . Pertinent Non-Medical Issues Psychosocial: Well supported by (at home with him) as well as a son and daughter who live in [facility] [place]. Spiritual: Zoroastrian Legal: Living will and health care surrogate designation dated 06/09/09 now on medical record. Ethical issues impacting care: Patient has mild confusion. Recommend shared decision making with spouse. . Important Contacts Moon Ramos (spouse; health care surrogate) [phone] / [phone] Bib Chery (stepson; alternate health care surrogate) [phone] . Prognosis This patient has an underlying stage IV non-small cell carcinoma of the lung. He was diagnosed in 2016, given a prognosis to live until August 2016. He had been undergoing chemotherapy treatment with Dr. Muhammad and has responded well with recent imaging (per patient) not showing any significant increase in tumor burden. He has underlying heart disease with a history of RI, stenting, and recent A fib RVR requiring cardioversion. He may have some CHF (diastolic likely since EF is 55-60%). There is some question of COPD -- Though the patient indicates he has not yet been formally diagnosed with this he was a 1-2 ppd smoker. He was recently hospitalized with sepsis and required readmission within less than two weeks. Unclear if his current pleural effusions are due to CHF or to worsening cancer but pleural fluid cytology came back showing no malignant cells. Patient has not been able to return for chemotherapy for 5 weeks. Albumin level is low and he is very de-conditioned. Patient is having a difficult time staying well enough to continue with chemotherapy. The longer this goes on , the greater the chance that the cancer progresses. Also , his functional status is nearing the point where he will find it difficult getting back and forth to oncology. Patient would be eligible for hospice services at such time that his goals become more comfort oriented. . Code Status: No Code Plan == Code Status: NO CODE == Decision making: Patient is awake and alert but has intermittent mild confusion. He has a difficulty remembering what was said and has poor memory for the timing and details of hospitalizations and treatment. I therefore recommend that there be shared decision making with his -- his health care surrogate . == Goals of medical treatment: At this time, patient is still hoping to improve and to be able to receive additional chemotherapy. His goals, are therefore, to continue with aggressive care short of resuscitation. == Pain: Patient denies any significant pain at this time. He does have orders for intravenous hydromorphone should he develop pain. == Dyspnea: Patient shortness of breath is much improved since the bilateral thoracentesis. It remains unclear, to what extent the pleural effusions are due to congestive heart failure versus malignancy. though cytology on pleural fluid showed no malignant cells. If there is quick reaccumulation of pleural fluid and we think this is most likely due to the cancer and not to congestive heart failure, may want to consider indwelling pleural catheters. == Anorexia: Patient's appetite appears to be improving now that his dyspnea has been mitigated. It is uncertain, however, if nutrition will be adequate to reverse the recent downhill trend. No further recommendations at this time. == Nausea: Appears to have improved since thoracentesis. This has not been a problem in the hospital. Ondansetron is available on an as-needed basis. No further recommendations at this time. == Insomnia: This was particularly bad at home. Patient has zolpidem available on a when necessary basis. No further recommendations at this time == Advance directives are now on file and scanned into EMR. == Disposition: was overwhelmed with care at home following last hospitalization. Patient wants to go home, but if he can improve mobility even 10-15 % in rehab, it will make going home much more likely to succeed. == At such time that the patient's oncologist feels he is no longer a candidate for ongoing chemotherapy, the patient would certainly be eligible for hospice services and I believe the patient's goals, at that time, would transition to comfort measures only. == Palliative care will continue to follow to assist with symptom management and to further clarify goals of medical treatment as the clinical course evolves. . Time Spent Total Floor Time (mins): 40 (Total floor time included chart review, patient exam, bedside discussion with patient and re home health vs rehab, discussion with Dr. Odonnell, discussion with case resource manager, documentation. ) Face to Face Time (mins): 25 >50% Counseling/Coord of Care: Yes Attestation To help prompt me to consider important information that might be impacting today's encounter and assessment, information from prior notes written by myself or my colleagues may have been "brought forward" into today's note. My signature on this note, however, is an attestation that I personally performed the exam, history, and/or decision-making noted today, and, unless otherwise indicated, the interactions with patient, family, and staff as well as the review of records all occurred today. I also attest that the listed assessment and stated plan reflect my best clinical judgment today based on the combination of historical information, prior notes, and today's exam/ interactions. When time spent is documented, it refers only to time spent today by the signer, or if indicated, combined time spent today by collaborating physician/nurse practitioner. . Brock Rodrigues MD Mar 22, 2017 16:51
--- NOTE | 2017-03-22 17:43 | HHI.FF ---
Infusion Therapy Location of Infusion Therapy: [facility] Infusion Therapy Order Patient Information Patient Weight 111.9 kg Diagnosis: Coded Allergies: No Known Allergies (Unverified , 03/16/17) Administer Medication Cefazolin 2 grams IV q 8 hours Start Treatment: Mar 22, 2017 Stop Treatment: Mar 27, 2017 Additional Information Venous access: PICC Line Additional Instructions [x] Peripheral flush and dressing changes per protocol [x] Implanted port and central body line finisher: * Implanted port: 10 ml Normal Saline followed by 5 ml Heparin 100 units/ml Heparin flush after each use and monthly to maintain. [] May leave port accessed during therapy. [] May leave peripheral site accessed for duration of therapy. [x] If patient has SOB or respiratory distress, check oxygen saturation. If less than 90% or clinical signs of respiratory distress, administer oxygen at 2 L/min. via nasal cannula and notify physician. [x] Anaphylaxis/Reaction orders: * Stop infusion. * Keep IV line open with saline flush. * Notify physician. * Monitor vital signs every 15 minutes until symptoms resolve. * Check Oxygen saturation; Oxygen at 2 L/min. via nasal cannula if less than 90% or clinical signs of respiratory distress. * Administer diphenhydramine (Benadryl) 25 mg IV STAT, (unless patient has received as pre-med). May repeat once, if necessary. * Solu-Cortef 250 mg IVP over 30-60 seconds, use 100 mg vials for each dissolution. * Epinephrine (1mg/1 ml) 0.3 mg subcutaneously or IVP now with any signs of respiratory distress. * Check with physician for new additional pre-med orders if patient is re- challenged or re-treated. [x] May remove PICC line when treatment complete, after confirming with Physician. [x] If the patient is admitted to the hospital, the ED, or transferred via [facility] , complete transfer form including medication reconciliation order sheet. Laboratory Tests Weekly Labs: CBC w/diff, Creatinine Pascual Peterson MD Mar 22, 2017 17:43
--- NOTE | 2017-03-22 17:44 | HHI.PR ---
Subjective Remarks sob at baseline denies fevers/chills feels puffy in arms Objective Vitals Vital Signs Date Time Temp Pulse Resp B/P Pulse Ox O2 Delivery O2 Flow Rate FiO2 03/22/17 16:00 97.4 76 20 136/69 96 03/22/17 13:06 98 Nasal Cannula 5.00 03/22/17 11:57 98.1 77 20 149/70 97 03/22/17 08:15 83 03/22/17 08:15 Nasal Cannula 5.00 03/22/17 08:00 98.0 73 22 168/75 94 03/22/17 05:31 97.2 74 20 171/79 94 03/22/17 05:00 98.1 85 20 153/66 95 03/22/17 00:00 97.7 71 20 166/74 03/21/17 20:08 95 Nasal Cannula 5.00 03/21/17 20:00 97.2 67 20 177/82 97 03/21/17 20:00 Nasal Cannula 5.00 03/21/17 20:00 62 I/O 03/21/17 03/21/17 03/21/17 03/22/17 03/22/17 03/22/17 07:00 15:00 23:00 07:00 15:00 23:00 Intake Total 1350 ml 1591 ml 480 ml 240 ml 480 ml Output Total 430 ml 250 ml 200 ml 100 ml Balance 920 ml 1341 ml 280 ml 140 ml 480 ml Intake Oral 700 ml 480 ml 240 ml 480 ml IV Total 1350 ml 891 ml Output Urine Total 430 ml 250 ml 200 ml 100 ml # Voids 3 2 # Bowel Movements 2 3 0 0 1 Result Diagram: 03/21/17 0442 03/22/17 1125 Objective Remarks GENERAL: NAD SKIN: Warm and dry. HEAD: Normocephalic. EYES: No scleral icterus. No injection or drainage. NECK: Supple, trachea midline. No JVD or lymphadenopathy. CARDIOVASCULAR: Regular rate and rhythm without murmurs, gallops, or rubs. RESPIRATORY: Breath sounds decrease bilaterally. No accessory muscle use. GASTROINTESTINAL: Abdomen soft, non-tender, nondistended. MUSCULOSKELETAL: No cyanosis, or edema. BACK: Nontender without obvious deformity. No CVA tenderness. Procedures none A/P Problem List: (1) Respiratory failure ICD Code: J96.90 Status: Acute (2) COPD exacerbation ICD Code: J44.1 Status: Acute (3) Bilateral large pleural effusions Status: Acute (4) Pneumonia ICD Code: J18.9 Status: Acute (5) CHF (congestive heart failure) ICD Code: I50.9 Status: Acute (6) Stage 4 lung cancer ICD Code: C34.90 Status: Chronic (7) CAD (coronary artery disease) ICD Code: I25.10 Status: Chronic (8) HTN (hypertension) ICD Code: I10 Status: Chronic (9) A-fib ICD Code: I48.91 Status: Chronic Assessment and Plan 71-year-old man with Acute on chronic respiratory failure Bilateral large pleural effusions Status post bilateral right and left thoracentesis Keep oxygen saturation above 92% Pulmonary medicine input appreciated 03/22 Resume lasix Community-acquired bacteria pneumonia 03/21 DC Zosyn and Azithromycin and start on PO Levaquin x 10 days. Blood culture negative 5. COPD exacerbation Continue antibiotics as above. Continue with DuoNeb Pulmonary medicine input appreciated Continue prednisone taper and oral Levaquin. Obstructive sleep apnea Continue BIPAP at night History of atrial fibrillation Currently rate control, continue outpatient medications including Cardizem and Eliquis History of stage IV lung cancer Palliative medicine following Outpatient follow-up with oncology Other chronic medical conditions Continue outpatient medications Transient change in mental status/slurred speech/aphasia Cannot rule out TIA. CT head negative, carotid dopplers negative, echocardiogram showed systolic function with an EF of 40-45%. Limited views of the LV apex shows no thrombus. On Apixaban. Acute kidney injury on CK V stage III. Patient has a baseline creatinine of 0.8-0.9. KIESHA due to overdiuresis now resolving - creatinine 1.3 Hypocalcemia Likely secondary to decreased by mouth intake. Sp replacement w IV Calcium Chloride. Level within normal range MSSA Bacteremia Patient previously on IV Cefazolin with a Stop date of 03/27 will continue DVT prophylaxis: Eliquis Discharge Planning DC in am to rehab. CM to arrange. Problem Qualifiers (1) Respiratory failure: Qualified Code: J96.01 - Acute respiratory failure with hypoxia (2) Pneumonia: Qualified Code: J15.7 - Pneumonia of both lungs due to Mycoplasma pneumoniae, unspecified part of lung (3) CHF (congestive heart failure): Qualified Code: I50.9 - Acute congestive heart failure, unspecified congestive heart failure type Pascual Peterson MD Mar 22, 2017 17:44
[2017-03-22] MEDS: ceFAZolin 2 GM PREMIX 50 ML IV SCH (18:00)
[2017-03-22] MEDS: ATORVASTATIN 20 MG TAB PO SCH (22:35)
[2017-03-22] MEDS: TAMSULOSIN HCL 0.4 MG CAP PO SCH (22:35)
[2017-03-22] MEDS: CHLORHEXIDINE GLUCONATE 2 % 1 PACK (2 CLOTHS) TOP SCH (22:38)
[2017-03-23] VITALS (10 sets, daily range): BP systolic 149–171; BP diastolic 67–78; PULSE 69–85; RESP 18–20; TEMP 97.2–97.7; O2SAT 93–98
[2017-03-23] MEDS: ceFAZolin 2 GM PREMIX 50 ML IV SCH ×3 (02:02→17:54)
[2017-03-23] MEDS: SODIUM CHLORIDE 0.9% FLUSH 10 ML FLUSH IV FLUSH SCH ×2 (08:03→21:00)
[2017-03-23] MEDS: PANTOPRAZOLE SODIUM 40 MG VIAL IV SCH (08:04)
[2017-03-23] MEDS: APIXABAN 5 MG TABLET PO SCH ×2 (08:07→21:00)
[2017-03-23] MEDS: DIGOXIN 0.125 MG TAB PO SCH (08:07)
[2017-03-23] MEDS: LEVOFLOXACIN 500 MG TAB PO SCH (08:07)
[2017-03-23] MEDS: FUROSEMIDE 40 MG TAB PO SCH (08:07)
[2017-03-23] MEDS: POTASSIUM CHLORIDE 25 MEQ EFFERVESCENT TAB PO SCH (08:07)
[2017-03-23] MEDS: DILTIAZEM-CD 240 MG CAP ER PO SCH (08:08)
[2017-03-23] MEDS: DOCUSATE SODIUM 50 MG/SENNA 8.6 MG TAB PO SCH (08:08)
[2017-03-23] MEDS: predniSONE 20 MG TAB PO SCH ×2 (08:08→21:00)
[2017-03-23] MEDS: BUDESONIDE-FORMOTEROL 160/4.5 MCG INHALER INH SCH ×2 (08:09→21:02)
[2017-03-23] MEDS: TIOTROPIUM BROMIDE 18 MCG INH INH SCH (08:09)
--- NOTE | 2017-03-23 14:40 | HHI.PR ---
Subjective Remarks patient states has had 3 episodes of diarrhea denies abdominal pain BP elevated denies cp sob at baseline patient states has good urine output. Objective Vitals Vital Signs Date Time Temp Pulse Resp B/P Pulse Ox O2 Delivery O2 Flow Rate FiO2 03/23/17 12:00 97.6 77 18 164/78 96 03/23/17 09:00 98 Nasal Cannula 5.00 03/23/17 08:00 97.7 75 18 159/76 97 03/23/17 04:00 97.2 69 18 171/70 95 03/23/17 00:00 97.5 71 20 150/68 96 03/22/17 20:00 85 03/22/17 20:00 97.4 78 18 162/73 97 03/22/17 20:00 Nasal Cannula 5.00 03/22/17 16:00 97.4 76 20 136/69 96 I/O 03/22/17 03/22/17 03/22/17 03/23/17 03/23/17 03/23/17 06:59 14:59 22:59 06:59 14:59 22:59 Intake Total 720 ml 480 ml Output Total 300 ml 200 ml 300 ml Balance 420 ml 480 ml -200 ml -300 ml Intake Oral 720 ml 480 ml Output Urine Total 300 ml 200 ml 300 ml # Voids 2 # Bowel Movements 0 1 0 1 Result Diagram: 03/21/17 0442 03/22/17 1125 Imaging Last Impressions Renal Ultrasound 03/20/17 0000 Signed Impressions: Service Date/Time: Monday, March 20, 2017 15:53 - CONCLUSION: Normal examination. Suspected extrarenal pelvis on the left. Bao Ibarra MD Head CT 03/20/17 0000 Signed Impressions: Service Date/Time: Monday, March 20, 2017 16:40 - CONCLUSION: Normal examination. Bao Ibarra MD Carotid Artery Ultrasound 03/20/17 0000 Signed Impressions: Service Date/Time: Monday, March 20, 2017 15:36 - CONCLUSION: Normal examination. Mild atherosclerotic disease in both common carotid vessels. Bao Ibarra MD Chest X-Ray 03/18/17 0000 Signed Impressions: Service Date/Time: Saturday, March 18, 2017 07:44 - CONCLUSION: 1. Minimal interstitial changes, not significantly changed. 2. Mild cardiomegaly. Arnulfo Rangel MD CT Angiography 03/16/17 0000 Signed Impressions: Service Date/Time: Thursday, March 16, 2017 23:02 - CONCLUSION: 1. Progression of bilateral consolidation and large bilateral effusions without evidence of pulmonary embolism. Saul Chang MD Objective Remarks GENERAL: NAD SKIN: Warm and dry. HEAD: Normocephalic. EYES: No scleral icterus. No injection or drainage. NECK: Supple, trachea midline. No JVD or lymphadenopathy. CARDIOVASCULAR: Regular rate and rhythm without murmurs, gallops, or rubs. RESPIRATORY: Breath sounds decrease bilaterally. No accessory muscle use. GASTROINTESTINAL: Abdomen soft, non-tender, nondistended. MUSCULOSKELETAL: No cyanosis, mild trace edema in BL lower extremities BACK: Nontender without obvious deformity. No CVA tenderness. Procedures none Medications and IVs Current Medications Medications (Trade) Dose Ordered Sig/Angie Route Start Time Stop Time Status Last Admin (Lipitor) 20 mg HS PO 03/17/17 21:00 03/22/17 22:35 (Lanoxin) 0.125 mg DAILY PO 03/17/17 09:00 03/23/17 08:07 (Cardizem Cd) 240 mg DAILY PO 03/17/17 09:00 03/23/17 08:08 (Flomax) 0.4 mg HS PO 03/17/17 21:00 03/22/17 22:35 (NS Flush) 2 ml UNSCH PRN .XX 03/17/17 00:00 03/19/17 00:07 (NS Flush) 2 ml BID IV FLUSH 03/17/17 09:00 03/23/17 08:03 (Dilaudid Pf Inj) 1 mg Q4H PRN IV 03/17/17 00:00 (Protonix Inj) 40 mg DAILY IV 03/17/17 09:00 03/23/17 08:04 (Ativan Inj) 1 mg Q1H PRN IV 03/17/17 00:00 (Zofran Inj) 4 mg Q6H PRN IV 03/17/17 00:00 (Ambien) 5 mg HS PRN PO 03/17/17 00:00 Miscellaneous Information 1 Q361D XX 03/17/17 00:00 03/17/17 01:45 (Chlorhexidine 2% Cloth) Taper DAILY@04 TOP 03/17/17 04:00 03/13/18 03:59 03/18/17 04:00 (Chlorhexidine 2% Cloth) 3 pack UNSCH PRN TOP 03/17/17 00:00 (Milk Of Dang Litiffanie) 30 ml Q12H PRN PO 03/17/17 00:00 (Senokot) 17.2 mg Q12H PRN PO 03/17/17 00:00 (Dulcolax Supp) 10 mg DAILY PRN RECTAL 03/17/17 00:00 (Eliquis) 5 mg BID PO 03/19/17 09:00 03/23/17 08:07 (K-Lyte Cl Eff) 25 meq DAILY PO 03/18/17 09:00 03/23/17 08:07 (Symbicort 160-4.5 Inh) 2 puff Q12HR INH 03/19/17 21:00 03/23/17 08:09 (Spiriva Inh) 18 mcg DAILY INH 03/20/17 09:00 03/23/17 08:09 (Deltasone) 20 mg BID PO 03/20/17 21:00 03/23/17 08:08 (Levaquin) 500 mg DAILY PO 03/22/17 09:00 03/23/17 08:07 Furosemide 40 mg 40 mg DAILY PO 03/23/17 09:00 03/23/17 08:07 (Ancef 2 Gm Premix) 50 ml @ 100 mls/hr Q8H IV 03/22/17 18:00 03/23/17 11:43 (Cardura) 2 mg ONCE ONCE PO 03/23/17 15:00 03/23/17 15:01 (Cardura) 2 mg DAILY PO 03/24/17 09:00 Urinary Catheter: No Vascular Central Line Catheter: No A/P Problem List: (1) Respiratory failure ICD Code: J96.90 Status: Chronic (2) COPD exacerbation ICD Code: J44.1 Status: Resolved (3) Bilateral large pleural effusions Status: Resolved (4) Pneumonia ICD Code: J18.9 Status: Resolved (5) CHF (congestive heart failure) ICD Code: I50.9 Status: Resolved (6) Stage 4 lung cancer ICD Code: C34.90 Status: Chronic (7) CAD (coronary artery disease) ICD Code: I25.10 Status: Chronic (8) HTN (hypertension) ICD Code: I10 Status: Chronic (9) A-fib ICD Code: I48.91 Status: Chronic Assessment and Plan 71-year-old man with Acute on chronic respiratory failure Bilateral large pleural effusions Status post bilateral right and left thoracentesis Keep oxygen saturation above 92% Pulmonary medicine input appreciated Continue diuresis with Lasix HCAP Patient has been recently been hospitalized. Upon review of records most recently discharged on 03/03/17/ SP treatment with IV antibiotics - IV Zosyn and Azithromycin which have been discontinued and patient started on Levaquin PO. Blood culture negative 5. COPD exacerbation Continue antibiotics as above. Continue with DuoNeb Pulmonary medicine input appreciated Continue prednisone taper and oral Levaquin. Obstructive sleep apnea Continue BIPAP at night History of atrial fibrillation Currently rate control, continue outpatient medications including Cardizem and Eliquis History of stage IV lung cancer Palliative medicine following Outpatient follow-up with oncology Other chronic medical conditions Continue outpatient medications Transient change in mental status/slurred speech/aphasia Cannot rule out TIA. CT head negative, carotid dopplers negative, echocardiogram showed systolic function with an EF of 40-45%. Limited views of the LV apex shows no thrombus. On Apixaban. Acute kidney injury on CK V stage III. Patient has a baseline creatinine of 0.8-0.9. KIESHA due to overdiuresis now resolving - creatinine 1.3 Hypocalcemia Likely secondary to decreased by mouth intake. Sp replacement w IV Calcium Chloride. Level within normal range MSSA Bacteremia Patient previously on IV Cefazolin with a Stop date of 03/27 - Continue upon DC. DVT prophylaxis: Eliquis Discharge Planning DC to SNF pending c diff test and stabilization of blood pressure. Problem Qualifiers (1) Respiratory failure: Qualified Code: J96.01 - Acute respiratory failure with hypoxia (2) Pneumonia: Qualified Code: J15.7 - Pneumonia of both lungs due to Mycoplasma pneumoniae, unspecified part of lung (3) CHF (congestive heart failure): Qualified Code: I50.9 - Acute congestive heart failure, unspecified congestive heart failure type Pascual Peterson MD Mar 23, 2017 14:40
[2017-03-23] MEDS ORDERED: DOXAZOSIN MESYLATE 2 MG TAB PO ONE (15:00)
[2017-03-23] MEDS: ATORVASTATIN 20 MG TAB PO SCH (21:00)
[2017-03-23] MEDS: TAMSULOSIN HCL 0.4 MG CAP PO SCH (21:00)
[2017-03-24] VITALS (8 sets, daily range): BP systolic 133–160; BP diastolic 67–80; PULSE 69–99; RESP 20; TEMP 97.4–97.8; O2SAT 94–97
[2017-03-24 02:03] LABS: C. DIFF EPI 027 PRESUMPTIVE NEGATIVE (NEGATIVE); C. DIFF TOXIN PCR NEGATIVE (NEGATIVE)
[2017-03-24] MEDS: ceFAZolin 2 GM PREMIX 50 ML IV SCH ×2 (02:32→09:46)
[2017-03-24] MEDS: CHLORHEXIDINE GLUCONATE 2 % 1 PACK (2 CLOTHS) TOP SCH (04:00)
[2017-03-24] MEDS ORDERED: DOXAZOSIN MESYLATE 2 MG TAB PO SCH (09:00)
[2017-03-24] MEDS: TIOTROPIUM BROMIDE 18 MCG INH INH SCH (09:41)
[2017-03-24] MEDS: BUDESONIDE-FORMOTEROL 160/4.5 MCG INHALER INH SCH (09:41)
[2017-03-24] MEDS: POTASSIUM CHLORIDE 25 MEQ EFFERVESCENT TAB PO SCH (09:42)
[2017-03-24] MEDS: PANTOPRAZOLE SODIUM 40 MG VIAL IV SCH (09:42)
[2017-03-24] MEDS: DILTIAZEM-CD 240 MG CAP ER PO SCH (09:43)
[2017-03-24] MEDS: FUROSEMIDE 40 MG TAB PO SCH (09:43)
[2017-03-24] MEDS: APIXABAN 5 MG TABLET PO SCH (09:43)
[2017-03-24] MEDS: DIGOXIN 0.125 MG TAB PO SCH (09:44)
[2017-03-24] MEDS: LEVOFLOXACIN 500 MG TAB PO SCH (09:44)
[2017-03-24] MEDS: predniSONE 20 MG TAB PO SCH (09:44)
[2017-03-24] MEDS: SODIUM CHLORIDE 0.9% FLUSH 10 ML FLUSH IV FLUSH SCH (09:45)
--- NOTE | 2017-03-24 13:35 | HHI.DS ---
Discharge Summary Admission Date Mar 16, 2017 at 23:36 Discharge Date: Mar 24, 2017 Admitting Diagnosis respiratory failure, CHF exacerbation, lung cancer (1) Respiratory failure ICD Code: J96.90 (2) COPD exacerbation ICD Code: J44.1 (3) Bilateral large pleural effusions (4) Pneumonia ICD Code: J18.9 (5) CHF (congestive heart failure) ICD Code: I50.9 (6) Stage 4 lung cancer ICD Code: C34.90 (7) CAD (coronary artery disease) ICD Code: I25.10 (8) HTN (hypertension) ICD Code: I10 (9) A-fib ICD Code: I48.91 Procedures none Brief History - From Admission 71-year-old male with stage IV lung cancer presents with complaints of worsening shortness of breath. Patient has also a history of CHF and was recently admitted to the hospital secondary to sepsis and bacteremia. Patient has not had any chemotherapy in the past 5 weeks. Per patient for the past couple days he developed more shortness of breath. He is compliant with his medications and still has a PICC line and he gets IV antibiotics. He denies any chest pain but he feels short of breath even with his oxygen which she normally uses 4 L at home. Patient states that he gets short of breath especially when he lays down. He denies any back pain. He denies any numbness, tilling, weakness. Denies any abdominal pain. No nausea or vomiting. No bowel movement issues. No recent fevers. No allergies to medication. No other medical issues report today. CBC/BMP: 03/21/17 0442 03/22/17 1125 Significant Findings Laboratory Tests Test 03/21/17 03/22/17 17:10 11:25 Blood Urea Nitrogen 60 MG/DL (7-18) 57 MG/DL (7-18) Creatinine 1.53 MG/DL 1.35 MG/DL (0.60-1.30) (0.60-1.30) Estimat Glomerular Filtration 45 ML/MIN (>89) 52 ML/MIN (>89) Rate Random Glucose 112 MG/DL 118 MG/DL (74-106) (74-106) Calcium Level 7.4 MG/DL 8.1 MG/DL (8.5-10.1) (8.5-10.1) Protein Corrected Calcium 7.8 MG/DL (8.5-10.1) Chloride Level 108 MEQ/L (98-107) PE at Discharge GENERAL: NAD SKIN: Warm and dry. HEAD: Normocephalic. EYES: No scleral icterus. No injection or drainage. NECK: Supple, trachea midline. No JVD or lymphadenopathy. CARDIOVASCULAR: Regular rate and rhythm without murmurs, gallops, or rubs. RESPIRATORY: Breath sounds decrease bilaterally. No accessory muscle use. GASTROINTESTINAL: Abdomen soft, non-tender, nondistended. MUSCULOSKELETAL: No cyanosis, mild trace edema in BL lower extremities BACK: Nontender without obvious deformity. No CVA tenderness. Transfer Summary 71-year-old male with stage IV lung cancer presents with complaints of worsening shortness of breath. Patient has also a history of CHF and was recently admitted to the hospital secondary to sepsis and bacteremia. Patient has not had any chemotherapy in the past 5 weeks. Per patient for the past couple days he developed more shortness of breath. He is compliant with his medications and still has a PICC line and he gets IV antibiotics. He denies any chest pain but he feels short of breath even with his oxygen which she normally uses 4 L at home. Patient states that he gets short of breath especially when he lays down. He denies any back pain. He denies any numbness, tilling, weakness. Denies any abdominal pain. No nausea or vomiting. No bowel movement issues. No recent fevers. No allergies to medication. No other medical issues report today. 03/18/17: L thoracentesis with 1.1 L removed yesterday am and R thoracentesis with 1.2 L removed yesterday evening. Patient symptomatically improved. Now breathing comfortably on 35% oxygen via FM. Pt Condition on Discharge: Stable Discharge Disposition: Discharge to SNF Discharge Time: > 30 minutes Discharge Instructions DIET: Follow Instructions for: Heart Healthy Diet Activities you can perform: See Additionl Instruction Other Activity Instructions: out of bed with assistance as per PT instructions Follow up Referrals: PCP Follow-up Pulmonology - 1 Week with Catracho Hayden MD, Rolando MD Mar 24, 2017 13:35
[2017-03-24] MEDS ORDERED: LOPERAMIDE HCL 2 MG CAP PO PRN (13:45)
== END 2017-03-24 18:15 | DRG 186 ==
LOC: NEPE 20:42 → NEDA 23:36 → HIMN 03-17 01:00 → N04B 03-18 13:36
PROVIDERS: ADMIT Hospitalist; ATTEND Hospitalist
PROC: 5A09357 Assistance with Respiratory Ventilation, Less than 24 Consecutive Hours, Continuous Positive Airway Pressure (ICD-10-PCS; principal; 2017-03-16)
PROC: 0W9B3ZX Drainage of Left Pleural Cavity, Percutaneous Approach, Diagnostic (ICD-10-PCS; 2017-03-16)
PROC: 0W993ZZ Drainage of Right Pleural Cavity, Percutaneous Approach (ICD-10-PCS; 2017-03-17)
DX: J90 Pleural effusion, not elsewhere classified (principal); J96.21 Acute and chronic respiratory failure with hypoxia; I50.33 Acute on chronic diastolic (congestive) heart failure; J15.9 Unspecified bacterial pneumonia; N17.9 Acute kidney failure, unspecified; E46 Unspecified protein-calorie malnutrition; C34.90 Malignant neoplasm of unspecified part of unspecified bronchus or lung; Z99.81 Dependence on supplemental oxygen; I13.0 Hypertensive heart and chronic kidney disease with heart failure and stage 1 through stage 4 chronic kidney disease, or unspecified chronic kidney disease; J44.0 Chronic obstructive pulmonary disease with (acute) lower respiratory infection; J44.1 Chronic obstructive pulmonary disease with (acute) exacerbation; R47.01 Aphasia; I48.91 Unspecified atrial fibrillation; F32.9 Major depressive disorder, single episode, unspecified; H91.90 Unspecified hearing loss, unspecified ear; I25.2 Old myocardial infarction; Z87.891 Personal history of nicotine dependence; Z85.028 Personal history of other malignant neoplasm of stomach; Z79.02 Long term (current) use of antithrombotics/antiplatelets; E78.00 Pure hypercholesterolemia, unspecified; I25.10 Atherosclerotic heart disease of native coronary artery without angina pectoris; Z95.5 Presence of coronary angioplasty implant and graft; G47.00 Insomnia, unspecified; R11.0 Nausea; Z85.828 Personal history of other malignant neoplasm of skin; N40.0 Benign prostatic hyperplasia without lower urinary tract symptoms; G47.33 Obstructive sleep apnea (adult) (pediatric); Z66 Do not resuscitate; E83.51 Hypocalcemia; T50.2X5A Adverse effect of carbonic-anhydrase inhibitors, benzothiadiazides and other diuretics, initial encounter; N18.3 Chronic kidney disease, stage 3 (moderate); R19.7 Diarrhea, unspecified
CPT/HCPCS: 32554; 36569; 36600; 70450; 71010; 71275; 76775; 76937; 80048; 80053; 82150; 82550; 82805; 82945; 83605; 83615; 83735; 83880; 83986; 84100; 84155; 84157; 84484; 85025; 85610; 85730; 87015; 87040; 87070; 87102; 87116; 87205; 87206; 87493; 87641; 88112; 89051; 93005; 93308; 93880; 94002; 94003; 94640; 94664; 96374; C9113; J0456; J0690; J1940; J2543; J2920; J7030; J7050; J7512; Q9967

== ENCOUNTER 2017-03-25 01:46 | Inpatient (IN) | payer MEDICARE ==
[2017-03-25] VITALS (20 sets, daily range): BP systolic 124–189; BP diastolic 70–91; PULSE 75–144; RESP 18–26; TEMP 97.7–98.9; O2SAT 93–100
[~2017-03-25] VITALS: Ht 180.3 cm; Wt 120.5 kg
[~2017-03-25 01:46] MED LIST changes: -EPIN1INJ21 IV PUSH; +PRED20 PO; +SPIRCAP INH
[2017-03-25] MEDS ORDERED: SODIUM CHLORIDE 0.9% FLUSH 10 ML FLUSH IVF PRN (02:00)
[2017-03-25] MEDS ORDERED: methylPREDNISolone SOD SUCC 125 MG/2 ML VIAL IVP ONE (02:00)
[2017-03-25] MEDS: RESP: ALBUTEROL 2.5 MG/IPRATROPIUM 0.5 MG NEB (SCH) INH (02:18)
[2017-03-25 02:26] LABS: AUTOMATED NEUTROPHIL # 7.9 TH/MM3 (1.8-7.7); BASOPHIL % 0.1 % (0.0-2.0); EOSINOPHIL % 0.2 % (0.0-4.0); HEMATOCRIT 31.7 % (39.0-51.0); LYMPH % 8.7 % (9.0-44.0); LYMPHOCYTE # 0.8 TH/MM3 (1.0-4.8); MEAN CELL VOLUME 103.2 FL (80.0-100.0); MEAN CORPUSCULAR HEMOGLOBIN 34.3 PG (27.0-34.0); MEAN CORPUSCULAR HGB CONC 33.2 % (32.0-36.0); MONO % 8.5 % (0.0-8.0); NEUT % 82.5 % (16.0-70.0); PLATELET COUNT 157 TH/MM3 (150-450); RED BLOOD COUNT 3.07 MIL/MM3 (4.50-5.90); RED CELL DISTRIBUTION WIDTH 17.6 % (11.6-17.2); WHITE BLOOD COUNT 9.6 TH/MM3 (4.0-11.0)
--- NOTE | 2017-03-25 02:28 | RADRPT ---
EXAM DATE/TIME: 03/25/2017 02:03 [facility] COMPARISON: CHEST SINGLE AP, March 18, 2017, 7:44. INDICATIONS : Respiratory complaint, shortness of breath. MEDICAL HISTORY : Myocardial infarction. Chronic obstructive pulmonary disease. Emphysema. SURGICAL HISTORY : Infusaport. Cardiac stents. ENCOUNTER: Initial ACUITY: 1 day PAIN SCORE: 0/10 LOCATION: Bilateral chest FINDINGS: Portable AP view of the chest demonstrates a normal-sized cardiac silhouette. There is bilateral mid and lower lung zone interstitial and air space opacity with pleural based opacities bilaterally. No p neumothorax is visualized. Bones and soft tissues demonstrate no acute finding. CONCLUSION: Bilateral mid and lower lung zone airspace opacity with small bilateral pleural effusions. Although n onspecific, the appearance could indicate pulmonary edema in the appropriate clinical setting. Carlos Velasco MD on March 25, 2017 at 2:26 Board Certified Radiologist. This report was verified electronically.
[2017-03-25 02:30] LABS: APTT (PATIENT) 24.6 SEC (24.3-30.1); HEMO FLAGS AUTO DIFF; INTERNATIONAL NORMALIZED RATIO 1.2 RATIO; PROTHROMBIN TIME - PATIENT 13.8 SEC (9.8-11.6)
[2017-03-25 02:42] LABS: BICARBONATE 25.3 MEQ/L (21.0-32.0); POTASSIUM 4.8 MEQ/L (3.5-5.1)
--- NOTE | 2017-03-25 02:54 | PD ---
HPI Chief Complaint: Respiratory Symptoms Time Seen by Provider: 02:00 Travel History International Travel<30 days: No Contact w/Intl Traveler<30days: No Traveled to known affect area: No History of Present Illness HPI 71yo M with PMH of stage IV lung CA, CHF here with c/o sob for 1 hour. States his long term was not giving him the oxygen that he needs. He is suppose to use 4 liter but they gave him 2. As per EVAC, he was saturating in the 70s on room air. Denies any fever, chest pain, n/v, abdominal pain. Pt was just admitted 03/16/17-03/24/17 and had thoracentesis. 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) Cardiovascular Problems: Yes High Cholesterol: Yes Chemotherapy: Yes Chest Pain: No Congestive Heart Failure: Yes COPD: Yes Coronary Artery Disease: Yes Diabetes: No Diminished Hearing: Yes Endocrine: No Gastrointestinal Disorders: Yes (STOMACH CANCER ) Genitourinary: No Hepatitis: No Hiatal Hernia: No Hypertension: Yes (diagnosed 1984) Immune Disorder: No Implanted Vascular Access Dvce: Yes (PICC left AND RUE) Musculoskeletal: No Neurologic: No Psychiatric: Yes Reproductive: No Respiratory: Yes Myocardial Infarction: Yes Radiation Therapy: No Sleep Apnea: Yes (NEVRER BEEN DX) Thyroid Disease: No Tetanus Vaccination: > 5 Years Influenza Vaccination: Yes Past Surgical History Abdominal Surgery: No AICD: No Arteriovenous Shunt: No Cardiac Surgery: Yes (2 stents 2015) Ear Surgery: Yes (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) Endocrine Surgery: No Eye Surgery: Yes (2014: cataract both eyes & cornea surgery to right eye ) Genitourinary Surgery: No Gynecologic Surgery: No Insulin Pump: No Joint Replacement: No Oral Surgery: Yes (several crowns) Pacemaker: No Thoracic Surgery: Yes (right side rib biopsy for cancer) Other Surgery: Yes (PORT PLACE RIGHT CHEST and removed) Social History Alcohol Use: No Tobacco Use: No (quit 30 yrs ago) Substance Use: No Allergies-Medications (Allergen,Severity, Reaction): Coded Allergies: No Known Allergies (Unverified , 03/25/17) Reported Meds & Prescriptions Reported Meds & Active Scripts Active Prednisone 20 Mg Tab 20 Mg PO DIRECTED 40 MG twice a day x 3 days, then 20 MG daily x 3 days, then 10 MG daily x 3 days Spiriva Handihaler (Tiotropium Inh) 18 Mcg Cap 18 Mcg INH DAILY Epinephrine Inj 1 Mg/Ml Inj 0.3 Mg SQ ONCE PRN Give with any signs of respiratory distress. Solu-Cortef Inj (Hydrocortisone Sodium Succinate) 250 Mg Inj 250 Mg IV PUSH ONCE PRN Give over 30-60 seconds. Cefazolin Inj (Cefazolin Sodium/Dextrose) 2 Gm/50 Ml Bagp 2 Gm IV Q8H 24 Days Cardizem CD 24 HR (Diltiazem CD 24 HR) 240 Mg Caper 240 Mg PO DAILY Eliquis (Apixaban) 5 Mg Tab 5 Mg PO BID Reported Digoxin 0.125 Mg Tab 0.125 Mg PO DAILY Furosemide 40 Mg Tab 40 Mg PO DAILY Tamsulosin (Tamsulosin HCl) 0.4 Mg Cap 0.4 Mg PO HS Atorvastatin (Atorvastatin Calcium) 20 Mg Tab 20 Mg PO HS Review of Systems Except as stated in HPI: all other systems reviewed are Neg Physical Exam Narrative GENERAL: 71yo M in moderate distress. SKIN: Focused skin assessment warm/dry. HEAD: Atraumatic. Normocephalic. EYES: Pupils equal and round. No scleral icterus. No injection or drainage. ENT: No nasal bleeding or discharge. Mucous membranes pink and moist. NECK: Trachea midline. No JVD. CARDIOVASCULAR: Regular rate and rhythm. No murmur appreciated. RESPIRATORY: + accessory muscle use. Decreased breath sounds bilateral lower lobes. GASTROINTESTINAL: Abdomen soft, non-tender, nondistended. MUSCULOSKELETAL: No obvious deformities. No clubbing. No cyanosis. +Bilateral lower ext edema. NEUROLOGICAL: Awake and alert. No obvious cranial nerve deficits. Motor grossly within normal limits. Normal speech. PSYCHIATRIC: Appropriate mood and affect; insight and judgment normal. Data Data Last Documented VS Vital Signs Date Time Temp Pulse Resp B/P Pulse Ox O2 Delivery O2 Flow Rate FiO2 03/25/17 02:15 20 100 BiPAP 40 03/25/17 02:15 112 03/25/17 01:49 98.2 138/79 Orders Complete Blood Count With Diff (03/25/17 02:00) Basic Metabolic Panel (Bmp) (03/25/17 02:00) B-Type Natriuretic Peptide (03/25/17 02:00) Act Partial Throm Time (Ptt) (03/25/17 02:00) Prothrombin Time / Inr (Pt) (03/25/17 02:00) Ckmb (Isoenzyme) Profile (03/25/17 02:00) Troponin I (03/25/17 02:00) Arterial Blood Gas (Abg) (03/25/17 02:00) Blood Culture (03/25/17 02:00) Iv Access Insert/Monitor (03/25/17 02:00) Ecg Monitoring (03/25/17 02:00) Oximetry (03/25/17 02:00) Oxygen Administration (03/25/17 02:00) Chest, Single Ap (03/25/17 02:00) Sodium Chloride 0.9% Flush (Ns Flush) (03/25/17 02:00) Methylprednisolone So Succ Inj (Solumedr (03/25/17 02:00) Albuterol-Ipratropium Neb (Duoneb Neb) (03/25/17 02:00) Resp Bipap / Cpap Non Invas Vt (03/25/17 02:00) Lactic Acid Sepsis Protocol (03/25/17 02:03) Vancomycin Inj (Vancomycin Inj) (03/25/17 04:00) Piperacil-Tazo 3.375 Gm Premix (Zosyn 3. (03/25/17 04:00) Admit Order (Ed Use Only) (03/25/17 04:00) Labs Laboratory Tests Test 03/25/17 02:10 White Blood Count 9.6 TH/MM3 Red Blood Count 3.07 MIL/MM3 Hemoglobin 10.5 GM/DL Hematocrit 31.7 % Mean Corpuscular Volume 103.2 FL Mean Corpuscular Hemoglobin 34.3 PG Mean Corpuscular Hemoglobin 33.2 % Concent Red Cell Distribution Width 17.6 % Platelet Count 157 TH/MM3 Mean Platelet Volume 7.9 FL Neutrophils (%) (Auto) 82.5 % Lymphocytes (%) (Auto) 8.7 % Monocytes (%) (Auto) 8.5 % Eosinophils (%) (Auto) 0.2 % Basophils (%) (Auto) 0.1 % Neutrophils # (Auto) 7.9 TH/MM3 Lymphocytes # (Auto) 0.8 TH/MM3 Monocytes # (Auto) 0.8 TH/MM3 Eosinophils # (Auto) 0.0 TH/MM3 Basophils # (Auto) 0.0 TH/MM3 CBC Comment AUTO DIFF Differential Total Cells 100 Counted Neutrophils % (Manual) 80 % Band Neutrophils % 2 % Lymphocytes % 8 % Monocytes % 7 % Eosinophils % 1 % Neutrophils # (Manual) 8.1 TH/MM3 Myelocytes 1 % Promyelocytes 1 % Differential Comment FINAL DIFF MANUAL Platelet Estimate NORMAL Platelet Morphology Comment NORMAL Prothrombin Time 13.8 SEC Prothromb Time International 1.2 RATIO Ratio Activated Partial 24.6 SEC Thromboplast Time Sodium Level 142 MEQ/L Potassium Level 4.8 MEQ/L Chloride Level 109 MEQ/L Carbon Dioxide Level 25.3 MEQ/L Anion Gap 8 MEQ/L Blood Urea Nitrogen 53 MG/DL Creatinine 1.40 MG/DL Estimat Glomerular Filtration 50 ML/MIN Rate Random Glucose 117 MG/DL Lactic Acid Level 2.8 mmol/L Calcium Level 7.9 MG/DL Total Creatine Kinase 55 U/L Troponin I 0.09 NG/ML B-Type Natriuretic Peptide 192 PG/ML MDM Medical Decision Making Medical Screen Exam Complete: Yes Emergency Medical Condition: Yes Interpretation(s) EKG: Afib at 98bpm. Q wave III. Differential Diagnosis Pleural effusion vs. Afib RVR vs. Pneumonia vs. CHF exacerbation Narrative Course 71yo M from [facility] here with SOB for an hour. Pt is DNR/DNI. Pt was tachypneic and we placed him on BIPAP immediately. Pt feels much better. Labs reviewed, no leukocytosis. H/H low at 10.5/31.7, at baseline. Lactic acid is elevated at 2.8. HR fluctuates in the 110s to 90s but mainly stays in the 90s if pt is not moving. BUN/creatinine at baseline at 53/1.40. Troponin 0.09 likely from fluid overload. BNP 192. CXR showed bilateral mid and lower lung zone airspace opacity with small bilateral pleural effusions. Likely pulmonary edema but will cover with vancomycin and zosyn since pt meets sepsis criteria. Discussed with Dr. Su and accepted to her service. Critical Care Narrative Aggregate critical care time was 45 minutes. Time to perform other separately billable procedures was not included in the critical care time. My time did not include minutes spent treating any other patients simultaneously or on activities that did not directly contribute to the patient's treatment. The services I provided to this patient were to treat and/or prevent clinically significant deterioration that could result in: cardiovascular collapse or . I provided critical care services requiring my management, as noted below: Chart data review, documentation time, medication orders and management, vital sign assessments/reviewing monitor data, ordering and reviewing lab tests, ordering and interpreting/reviewing x-rays and diagnostic studies, care of the patient and discussion of the patient with the admitting physicians. Diagnosis Primary Impression: Pneumonia Qualified Code: J18.9 - Pneumonia of both lower lobes due to infectious organism Admitting Information Admitting Physician Requests: No Figueroa DO Mar 25, 2017 02:54
[2017-03-25 03:16] LABS: BANDS 2 % (0-6); EOSINOPHILS 1 % (0-4); MYELOCYTES 1 % (0-0); NEUTROPHIL # MANUAL DIFF 8.1 TH/MM3 (1.8-7.7); POLYS (SEG NEUTROPHILS) 80 % (16-70); PROMYELOCYTES 1 % (0-0); WBC DIFF SAMPLE 100
[2017-03-25 03:17] LABS: PLATELET ESTIMATE SMEAR NORMAL (NORMAL); PLATELET MORPHOLOGY NORMAL (NORMAL); SCAN/DIFF FINAL DIFF MANUAL
[2017-03-25] MEDS ORDERED: SENNOSIDES 8.6 MG TAB PO PRN (04:00)
[2017-03-25] MEDS ORDERED: Vancomycin Consult Pharmacy 1 EA OTHER SCH (04:00)
[2017-03-25] MEDS ORDERED: PIPERACIL-TAZO 3.375 GM PREMIX 50 ML IV ONE (04:00)
[2017-03-25] MEDS ORDERED: MORPHINE SULFATE 4 MG/ML INJ IV PRN (04:00)
[2017-03-25] MEDS ORDERED: MAGNESIUM HYDROXIDE SUSP 30 ML CUP PO PRN (04:00)
[2017-03-25] MEDS ORDERED: LACTULOSE SYRUP 20 GM/30 ML CUP PO PRN (04:00)
[2017-03-25] MEDS ORDERED: VANCOMYCIN INJ 2,200 MG in SODIUM CHLORID 0.9% 500 ML INJ 500 ML IV ONE (04:00)
[2017-03-25] MEDS ORDERED: SODIUM CHLORIDE 0.9% FLUSH 10 ML FLUSH IV FLUSH PRN (04:00)
[2017-03-25] MEDS ORDERED: ACETAMINOPHEN 325 MG TAB PO PRN (04:00)
[2017-03-25] MEDS ORDERED: BISACODYL 10 MG SUPP RECTAL PRN (04:00)
[2017-03-25] MEDS ORDERED: RESP: ALBUTEROL 2.5 MG/IPRATROPIUM 0.5 MG NEB (PRN) NEB (04:00)
[2017-03-25] MEDS ORDERED: ONDANSETRON HCL 4 MG/2 ML VIAL IVP PRN (04:00)
[2017-03-25] MEDS ORDERED: ACETAMINOPHEN/HYDROcodone 325 MG/5 MG TAB PO PRN (04:00)
[2017-03-25 04:13] LABS: LACTIC ACID GHOST NOT REPORTABLE
--- NOTE | 2017-03-25 04:40 | HHI.HP ---
HPI Service [facility] Primary Care Physician Non-Staff Admission Diagnosis Bilateral lower pneumonia, pulmonary edema Diagnoses: (1) Respiratory failure Diagnosis: Principal (2) CHF (congestive heart failure) Diagnosis: Principal (3) PNA (pneumonia) Diagnosis: Principal (4) COPD (chronic obstructive pulmonary disease) Diagnosis: Principal (5) Lung cancer Diagnosis: Principal (6) A-fib Diagnosis: Principal (7) DNR (do not resuscitate) Diagnosis: Principal Travel History International Travel<30 Days: No Contact w/Intl Traveler <30 Da: No Traveled to Known Affected Are: No History of Present Illness This is a 71-year-old DNR male with a PMH of Stage IV Lung CA, HTN, CHF (Echo w/ EF 40-45%), COPD, O2 Dependent and A-fib who was sent to the ER from [facility] secondary to hypoxia and respiratory distress. Per report, pt w / O2 sat 70's on RA. Multiple admits recently for A-fib w/ RVR, PNA, Bacteremia and Pleural Effusions s/p Thoracentesis. Most recently admitted from 03/16-03/24/17 for Respiratory Failure, COPD, PNA and Pleural Effusions. Previously on Chemo, however off x5 wks secondary to illness, following w/ Dr. Muhammad. On arrival, O2 sat 86% on RA, placed on BIPAP w/ O2 sat 100%. WBC normal however elevated neutrophil count. Chemistry essentially at baseline, creatinine 1.40, previously 1.35 on 03/22/17. Lactic Acid 2.8. Troponin 0.09. CXR with bilateral mid and lower lung airspace opacities and small bilateral pleural effusions. S/p Blood Culture, Vanc/Zosyn in ER. Currently improved on BIPAP. Review of Systems Except as stated in HPI: all other systems reviewed are Neg ROS: 14 point review of systems otherwise negative. Past Family Social History Past Medical History PMH: Stage IV Lung CA, HTN, CHF (Echo 03/21/17 w/ EF 40-45%), COPD, O2 Dependent and A-fib Past Surgical History PAST SURGICAL HISTORY: Cardiac Stent, Cataract Surgery, Port Placement Allergies: Coded Allergies: No Known Allergies (Unverified , 03/25/17) Family History PAST FAMILY HISTORY: Reviewed. No h/o DM or CAD Social History PAST SOCIAL HISTORY: Negative for alcohol, tobacco or drugs. Physical Exam Vital Signs Vital Signs Date Time Temp Pulse Resp B/P Pulse Ox O2 Delivery O2 Flow Rate FiO2 03/25/17 02:15 20 100 BiPAP 40 03/25/17 02:15 100 BiPAP 40 03/25/17 02:15 112 24 86 Room Air 03/25/17 01:55 95 40 03/25/17 01:49 98.2 112 26 138/79 100 Physical Exam PE: GENERAL: Very pleasant elderly white male in no acute distress currently on BiPAP, appears comfortable. HEENT: PERRLA, EOMI. No scleral icterus or conjunctival pallor. No lid lag or facial droop. CARDIOVASCULAR: Irregularly irregular, in A. fib. No obvious murmurs to auscultation. No chest tenderness to palpation. RESPIRATORY: No obvious rhonchi or wheezing. Clear to auscultation. Decreased breath sounds at bases bilaterally. GASTROINTESTINAL: Abdomen soft, non-tender, nondistended. BS normal. MUSCULOSKELETAL: Extremities without clubbing, cyanosis, or edema. No obvious deformities. NEUROLOGICAL: Awake, alert and oriented x4. No focal neurologic deficits. Moving both upper and lower extremities spontaneously. Laboratory Laboratory Tests Test 03/25/17 02:10 White Blood Count 9.6 Red Blood Count 3.07 Hemoglobin 10.5 Hematocrit 31.7 Mean Corpuscular Volume 103.2 Mean Corpuscular Hemoglobin 34.3 Mean Corpuscular Hemoglobin 33.2 Concent Red Cell Distribution Width 17.6 Platelet Count 157 Mean Platelet Volume 7.9 Neutrophils (%) (Auto) 82.5 Lymphocytes (%) (Auto) 8.7 Monocytes (%) (Auto) 8.5 Eosinophils (%) (Auto) 0.2 Basophils (%) (Auto) 0.1 Neutrophils # (Auto) 7.9 Lymphocytes # (Auto) 0.8 Monocytes # (Auto) 0.8 Eosinophils # (Auto) 0.0 Basophils # (Auto) 0.0 CBC Comment AUTO DIFF Differential Total Cells 100 Counted Neutrophils % (Manual) 80 Band Neutrophils % 2 Lymphocytes % 8 Monocytes % 7 Eosinophils % 1 Neutrophils # (Manual) 8.1 Myelocytes 1 Promyelocytes 1 Differential Comment FINAL DIFF MANUAL Platelet Estimate NORMAL Platelet Morphology Comment NORMAL Prothrombin Time 13.8 Prothromb Time International 1.2 Ratio Activated Partial 24.6 Thromboplast Time Sodium Level 142 Potassium Level 4.8 Chloride Level 109 Carbon Dioxide Level 25.3 Anion Gap 8 Blood Urea Nitrogen 53 Creatinine 1.40 Estimat Glomerular Filtration 50 Rate Random Glucose 117 Lactic Acid Level 2.8 Calcium Level 7.9 Total Creatine Kinase 55 Troponin I 0.09 B-Type Natriuretic Peptide 192 Date/Time Procedure Status Source Growth 03/25/17 02:10 Aerobic Blood Culture Received Blood Peripheral Pending 03/25/17 02:10 Anaerobic Blood Culture Received Blood Peripheral Pending Result Diagram: 03/25/1720903/25/17209 Assessment and Plan Problem List: (1) Respiratory failure ICD Code: J96.90 Status: Chronic (2) CHF (congestive heart failure) ICD Code: I50.9 Status: Resolved (3) PNA (pneumonia) ICD Code: J18.9 Status: Acute (4) COPD (chronic obstructive pulmonary disease) ICD Code: J44.9 Status: Acute (5) HTN (hypertension) ICD Code: I10 Status: Chronic (6) A-fib ICD Code: I48.91 Status: Chronic (7) DNR (do not resuscitate) ICD Code: Z66 Status: Acute Assessment and Plan A/P: 1. Respiratory Failure: Multifactorial-secondary to Lung CA/CHF w/ recurrent pleural effusions/PNA/COPD. O2 sat 70's on RA, currently on BIPAP w/ O2 sat 100 %, wean as tolerated. 2. CHF: Echo 03/21/17 w/ EF 40-45%, s/p Bilateral Thoracentesis on recent admit for extensive pleural effusions, s/p eval by Dr. Hayden, plan for possible catheter and pleurodesis if recurrence. CXR w/ mild bilateral pleural effusions , images reviewed by me, s/p Lasix IV in ER, will continue w/ diuresis. Consult Dr. Hayden for further evaluation/recommendations. 3. PNA: h/o multiple admits in the recent past w/ PNA/Bacteremia, on IV Abx, afebrile, WBC normal however elevated neutrophil count. S/p Blood Culture, Vanc /Zosyn in ER. Will follow up cultures, continue w/ IV Abx for possible underlying PNA. 4. COPD: Chronic Respiratory Failure. Resume home Symbicort. DuoNeb q4h and q2h prn, substitute for Xopenex secondary to A-fib. 5. HTN: Controlled. Resume home medications. 6. Lung CA: Stage IV Lung CA, previously on Chemo however off x5 wks due to recurrent illness/hospitalization, follows w/ Dr. Muhammad. 7. A-fib: Chronic. Resume home Digoxin, Cardizem, Eliquis. 8. DNR: Code Status discussed and confirmed, pt does not wish for intubation or resuscitation. DNR order placed. 9. DVT Prophylaxis: On Eliquis 10. Social work for d/c planning as needed. 11. Case discussed w/ ER physician at length. Physician Certification 2 Midnight Certification Type: Admission for Inpatient Services Order for Inpatient Services The services are ordered in accordance with Medicare regulations or non- Medicare payer requirements, as applicable. In the case of services not specified as inpatient-only, they are appropriately provided as inpatient services in accordance with the 2-midnight benchmark. Estimated LOS (days): 2 days is the estimated time the patient will need to remain in the hospital, assuming treatment plan goals are met and no additional complications. Post-Hospital Plan: Not yet determined Sahara Su MD Mar 25, 2017 04:40
[2017-03-25 04:58] LABS: BLOOD GAS CARBOXYHEMOGLOBIN 2.1 % (0-4); BLOOD GAS HCO3 23 mmol/L (22-26); BLOOD GAS METHEMOGLOBIN 0.5 % (0-2); BLOOD GAS O2 HGB SATURATION 95 % (90-100); BLOOD GAS OXYGEN CONTENT 14.8 Vol % (12.0-20.0); BLOOD GAS PCO2 34 mmHg (38-42); BLOOD GAS PO2 89 mmHG (61-120); TEMP CORR TO 98.6
[2017-03-25 04:59] LABS: CRITICAL VALUE NO; FIO2 40 %; NUMBER OF ARTERIAL PUNCTURES 1; OXYGEN DEVICE BIPAP NIPPV; STAT YES; VENT SETTINGS 10PS/5 PEEP
[2017-03-25 05:03] LABS: DRAW SITE RT RADIAL; ULNAR PULSE PRESENT
[2017-03-25] MEDS: RESP: ALBUTEROL 2.5 MG/IPRATROPIUM 0.5 MG NEB (SCH) NEB ×4 (07:31→20:00)
--- NOTE | 2017-03-25 08:41 | EKG ---
Date Performed: 03/25/2017 Time Performed: 01:55:18 PTAGE: 71 years EKG: ATRIAL FIBRILLATION POSSIBLE ANTERIOR MYOCARDIAL INFARCTION NONSPECIFIC ST/T ABNORMALITIES ABNORMAL RHYTHM ECG PREVIOUS TRACING : 03/16/2017 21.21 No significant change from previous tracing noted. DOCTOR: Leonardo Acuna Interpretating Date/Time 03/25/2017 08:41:12
[2017-03-25] MEDS: TIOTROPIUM BROMIDE 18 MCG INH INH SCH (09:25)
[2017-03-25] MEDS: FUROSEMIDE 40 MG/4 ML VIAL IV PUSH SCH ×2 (09:25→18:00)
[2017-03-25] MEDS: DILTIAZEM-CD 240 MG CAP ER PO SCH (09:25)
[2017-03-25] MEDS: APIXABAN 5 MG TABLET PO SCH ×2 (09:25→21:43)
[2017-03-25] MEDS: SODIUM CHLORIDE 0.9% FLUSH 10 ML FLUSH IV FLUSH SCH ×2 (09:25→21:00)
[2017-03-25] MEDS: DIGOXIN 0.125 MG TAB PO SCH (09:26)
[2017-03-25] MEDS: DOCUSATE SODIUM 50 MG/SENNA 8.6 MG TAB PO SCH ×2 (09:26→21:00)
[2017-03-25] MEDS: CEFEPIME INJ 1,000 MG in SODIUM CHLORIDE 0.9% INJ 100 ML IV SCH (16:00)
[2017-03-25] MEDS: VANCOMYCIN INJ 1,250 MG in SODIUM CHLOR 0.9% 250 ML INJ 250 ML IV SCH (17:00)
[2017-03-25] MEDS ORDERED: DILTIAZEM HCL 25 MG/5 ML VIAL IV ONE (19:45)
[2017-03-25] MEDS: ATORVASTATIN 20 MG TAB PO SCH (21:42)
[2017-03-26] VITALS (26 sets, daily range): BP systolic 131–157; BP diastolic 70–80; PULSE 72–156; RESP 18–19; TEMP 97.4–98.1; O2SAT 90–96
[2017-03-26] MEDS: CEFEPIME INJ 1,000 MG in SODIUM CHLORIDE 0.9% INJ 100 ML IV SCH ×2 (04:56→16:14)
[2017-03-26 05:12] LABS: AUTOMATED NEUTROPHIL # 9.6 TH/MM3 (1.8-7.7); BASOPHIL % 0.3 % (0.0-2.0); HEMATOCRIT 29.7 % (39.0-51.0); LYMPH % 5.1 % (9.0-44.0); LYMPHOCYTE # 0.6 TH/MM3 (1.0-4.8); MEAN CELL VOLUME 103.1 FL (80.0-100.0); MEAN CORPUSCULAR HEMOGLOBIN 33.3 PG (27.0-34.0); MEAN CORPUSCULAR HGB CONC 32.3 % (32.0-36.0); MONO % 9.8 % (0.0-8.0); NEUT % 84.8 % (16.0-70.0); PLATELET COUNT 154 TH/MM3 (150-450); RED BLOOD COUNT 2.88 MIL/MM3 (4.50-5.90); RED CELL DISTRIBUTION WIDTH 18.2 % (11.6-17.2); WHITE BLOOD COUNT 11.4 TH/MM3 (4.0-11.0)
--- NOTE | 2017-03-26 05:19 | MB ---
cc: ADELSO DARDEN M.D. DATE OF CONSULTATION 03/25/2017 REASON FOR CONSULTATION Lung cancer. COPD. HISTORY OF PRESENT ILLNESS Mr. Ramos is a 71-year-old male with Stage IV lung cancer as well as history of congestive heart failure and COPD. The patient was recently hospitalized and discharged to a senior care on oxygen therapy. The patient tells me he felt quite good upon departure; however, during the night while in the senior care he is not sure if he was getting his oxygen or not and felt short of breath. He was assured by staff that he was doing well and subsequently his shortness of breath had worsened when he was brought to the emergency. The patient had no chest pain while in the emergency room, he was alert and oriented, oxygen saturation in the 70s on room air, in the 90s on oxygen therapy. PAST MEDICAL, SOCIAL, FAMILY HISTORY Well-documented during his recent hospitalization. PHYSICAL EXAMINATION GENERAL: On exam upon presentation the patient is alert. VITAL SIGNS: Temperature 98, pulse 70, respirations 18, blood pressure 130/70. Oxygen saturation between 94 and 96% on 3 liters oxygen. HEENT: Exam unremarkable. Eyes without icterus. NECK: Without adenopathy or thyroid enlargement. Central trachea. CHEST: No dullness to percussion. A few rhonchi on auscultation. CARDIAC EXAM: PMI distant. S1, S2 audible. Positive S3. A 1/6 ejection systolic murmur left sternal border. ABDOMEN: Lax. Bowel sounds are audible. EXTREMITIES: No clubbing, cyanosis or edema. LABORATORY DATA White count 9.6, hemoglobin 10, hematocrit 31, platelets 157. Arterial blood gas - pH 7.44, pCO2 34, pO2 of 89. INR 1.2. CHEST X-RAY Bilateral basilar and mid-lung opacities. Bilateral pleural effusions. IMPRESSION 1. Hypoxic respiratory failure. 2. COPD. 3. CHF. 4. Abnormal chest x-ray most likely related to congestive heart failure. The patient does not seem to me to have an acute infectious process at present. PLAN 1. The patient will continue oxygen therapy. 2. Bronchodilator therapy would obviously be helpful. 3. Therapy for underlying congestive heart failure. 4. Activity should be gradually increased. 5. I believe the patient's at this time is considering hospice care. This will be discussed with her and in detail once it has been discussed in detail. I do thank you for asking me to partake in Mr. Ramos care. MD DEDRA Resendiz/ARCADIO /4:35 PM /5:09 AM
[2017-03-26 05:27] LABS: HEMO FLAGS AUTO DIFF
[2017-03-26 05:36] LABS: ALT (GPT) 34 U/L (12-78); ANION GAP 7 MEQ/L (5-15); AST (GOT) 40 U/L (15-37); BICARBONATE 24.9 MEQ/L (21.0-32.0); BLOOD UREA NITROGEN 58 MG/DL (7-18); CHLORIDE 112 MEQ/L (98-107); GLOMERULAR FILTRATION RATE 54 ML/MIN (>89); POTASSIUM 4.5 MEQ/L (3.5-5.1); SODIUM (NA) 144 MEQ/L (136-145)
[2017-03-26 05:39] LABS: ALKALINE PHOSPHATASE 81 U/L (45-117); TOTAL BILIRUBIN ADULT 0.6 MG/DL (0.2-1.0)
[2017-03-26] MEDS: VANCOMYCIN INJ 1,250 MG in SODIUM CHLOR 0.9% 250 ML INJ 250 ML IV SCH (06:17)
[2017-03-26 06:50] LABS: BANDS 6 % (0-6); METAMYELOCYTES 2 % (0-1); MYELOCYTES 4 % (0-0); NEUTROPHIL # MANUAL DIFF 10.1 TH/MM3 (1.8-7.7); POLYS (SEG NEUTROPHILS) 77 % (16-70); WBC DIFF SAMPLE 100
[2017-03-26 06:52] LABS: PLATELET ESTIMATE SMEAR NORMAL (NORMAL); PLATELET MORPHOLOGY NORMAL (NORMAL); SCAN/DIFF FINAL DIFF MANUAL
[2017-03-26] MEDS: RESP: ALBUTEROL 2.5 MG/IPRATROPIUM 0.5 MG NEB (SCH) NEB ×4 (07:27→19:22)
[2017-03-26] MEDS: DOCUSATE SODIUM 50 MG/SENNA 8.6 MG TAB PO SCH ×2 (09:00→21:00)
[2017-03-26] MEDS: DILTIAZEM-CD 240 MG CAP ER PO SCH (09:12)
[2017-03-26] MEDS: FUROSEMIDE 40 MG/4 ML VIAL IV PUSH SCH ×2 (09:12→17:46)
[2017-03-26] MEDS: APIXABAN 5 MG TABLET PO SCH ×2 (09:13→21:33)
[2017-03-26] MEDS: SODIUM CHLORIDE 0.9% FLUSH 10 ML FLUSH IV FLUSH SCH ×2 (09:13→21:32)
[2017-03-26] MEDS: DIGOXIN 0.125 MG TAB PO SCH (09:13)
[2017-03-26] MEDS: TIOTROPIUM BROMIDE 18 MCG INH INH SCH (09:13)
[2017-03-26] MEDS ORDERED: INFLUENZA VIRUS VACCINE (QUADRIVALENT) 0.5 ML SYR IM ONE (10:00)
[2017-03-26] MEDS ORDERED: DILTIAZEM HCL 25 MG/5 ML VIAL IV PUSH ONE (11:15)
--- NOTE | 2017-03-26 16:38 | HHI.PR ---
Subjective Remarks ass: alert no sob at rest O2 SAT 95% ON O2 via nasal canula Objective Vital Signs Date Time Temp Pulse Resp B/P Pulse Ox O2 Delivery O2 Flow Rate FiO2 03/26/17 16:08 80 03/26/17 15:50 96 5.00 03/26/17 15:50 84 03/26/17 15:50 97.4 84 18 134/74 96 03/26/17 15:04 90 Nasal Cannula 5.00 03/26/17 13:10 84 03/26/17 12:06 92 03/26/17 11:06 156 03/26/17 11:06 92 5.00 03/26/17 11:06 97.6 92 18 131/72 93 03/26/17 10:10 120 03/26/17 09:52 114 03/26/17 08:06 101 03/26/17 07:30 93 Nasal Cannula 5.00 03/26/17 07:29 93 5.00 03/26/17 07:29 98 03/26/17 07:29 97.4 98 18 151/80 93 03/26/17 06:00 118 03/26/17 05:42 94 Nasal Cannula 5.00 03/26/17 05:00 92 03/26/17 04:00 82 03/26/17 04:00 92 Nasal Cannula 6.00 03/26/17 03:55 Nasal Cannula 6.00 03/26/17 03:55 76 Nasal Cannula 3.50 03/26/17 03:30 95 Nasal Cannula 3.50 03/26/17 03:30 98.1 78 18 148/79 95 03/26/17 03:00 79 03/26/17 02:00 73 03/26/17 01:00 85 03/26/17 00:00 72 03/25/17 23:10 95 Nasal Cannula 4.00 03/25/17 23:10 97.7 82 18 138/70 95 03/25/17 23:00 75 03/25/17 22:00 84 03/25/17 21:00 106 03/25/17 20:42 95 Nasal Cannula 6.00 03/25/17 20:06 144 03/25/17 20:00 98.1 86 18 124/86 96 03/25/17 20:00 96 Nasal Cannula 5.00 03/25/17 20:00 95 03/25/17 19:00 87 I/O 03/25/17 03/25/17 03/25/17 03/26/17 03/26/17 03/26/17 07:00 15:00 23:00 07:00 15:00 23:00 Intake Total 200 ml 590 ml Output Total 810 ml 150 ml 250 ml Balance -810 ml 50 ml 340 ml Intake Oral 100 ml 240 ml IV Total 100 ml 350 ml Output Urine Total 810 ml 150 ml 250 ml # Voids 2 1 # Bowel Movements 1 Result Diagram: 03/26/17 0455 03/26/17 0455 Objective Remarks GENERAL: SKIN: Warm and dry. HEAD: Atraumatic. Normocephalic. EYES: Pupils equal and round. No scleral icterus. No injection or drainage. ENT: No nasal bleeding or discharge. Mucous membranes pink and moist. NECK: Trachea midline. No JVD. CARDIOVASCULAR: Regular rate and rhythm. RESPIRATORY: No accessory muscle use. Clear to auscultation. Breath sounds equal bilaterally. GASTROINTESTINAL: Abdomen soft, non-tender, nondistended. Hepatic and splenic margins not palpable. MUSCULOSKELETAL: Extremities without clubbing, cyanosis, or edema. No obvious deformities. NEUROLOGICAL: Awake and alert. No obvious cranial nerve deficits. Motor grossly within normal limits. Five out of 5 muscle strength in the arms and legs. Normal speech. PSYCHIATRIC: Appropriate mood and affect; insight and judgment normal. Assessment and Plan Assessment and Plan resiratory failure COPD CHF METASTATIC CA PLAN O2 NEEDED BRONCHODILATOR THERAPY OUTLOOK Catracho Moss MD Mar 26, 2017 16:38
--- NOTE | 2017-03-26 17:12 | HHI.PR ---
Subjective Remarks SOB at baseline denies cough/cp afebrile currently on 5 liters nasal canula Objective Vitals Vital Signs Date Time Temp Pulse Resp B/P Pulse Ox O2 Delivery O2 Flow Rate FiO2 03/26/17 16:08 80 03/26/17 15:50 96 5.00 03/26/17 15:50 84 03/26/17 15:50 97.4 84 18 134/74 96 03/26/17 15:04 90 Nasal Cannula 5.00 03/26/17 13:10 84 03/26/17 12:06 92 03/26/17 11:06 156 03/26/17 11:06 92 5.00 03/26/17 11:06 97.6 92 18 131/72 93 03/26/17 10:10 120 03/26/17 09:52 114 03/26/17 08:06 101 03/26/17 07:30 93 Nasal Cannula 5.00 03/26/17 07:29 93 5.00 03/26/17 07:29 98 03/26/17 07:29 97.4 98 18 151/80 93 03/26/17 06:00 118 03/26/17 05:42 94 Nasal Cannula 5.00 03/26/17 05:00 92 03/26/17 04:00 82 03/26/17 04:00 92 Nasal Cannula 6.00 03/26/17 03:55 Nasal Cannula 6.00 03/26/17 03:55 76 Nasal Cannula 3.50 03/26/17 03:30 95 Nasal Cannula 3.50 03/26/17 03:30 98.1 78 18 148/79 95 03/26/17 03:00 79 03/26/17 02:00 73 03/26/17 01:00 85 03/26/17 00:00 72 03/25/17 23:10 95 Nasal Cannula 4.00 03/25/17 23:10 97.7 82 18 138/70 95 03/25/17 23:00 75 03/25/17 22:00 84 03/25/17 21:00 106 03/25/17 20:42 95 Nasal Cannula 6.00 03/25/17 20:06 144 03/25/17 20:00 98.1 86 18 124/86 96 03/25/17 20:00 96 Nasal Cannula 5.00 03/25/17 20:00 95 03/25/17 19:00 87 I/O 03/25/17 03/25/17 03/25/17 03/26/17 03/26/17 03/26/17 07:00 15:00 23:00 07:00 15:00 23:00 Intake Total 200 ml 590 ml Output Total 810 ml 150 ml 250 ml Balance -810 ml 50 ml 340 ml Intake Oral 100 ml 240 ml IV Total 100 ml 350 ml Output Urine Total 810 ml 150 ml 250 ml # Voids 2 1 # Bowel Movements 1 Result Diagram: 03/26/17 0455 03/26/17 0455 Imaging Last Impressions Chest X-Ray 03/25/17 0200 Signed Impressions: Service Date/Time: Saturday, March 25, 2017 02:03 - CONCLUSION: Bilateral mid and lower lung zone airspace opacity with small bilateral pleural effusions. Although nonspecific, the appearance could indicate pulmonary edema in the appropriate clinical setting. Carlos Velasco MD Objective Remarks on nasal canula, not on respiratory distress S1S2 RRR Breath sounds clear to auscultation, decreased breath sounds at the bases soft abdomen trace edma in lower extremities Medications and IVs Current Medications Medications (Trade) Dose Ordered Sig/Angie Route Start Time Stop Time Status Last Admin (NS Flush) 2 ml UNSCH PRN IVF 03/25/17 02:00 Furosemide 40 mg 40 mg BID@09,18 IV PUSH 03/25/17 09:00 03/26/17 17:46 Pharmacy Profile Note 0 ml @ 0 mls/hr UNSCH OTHER 03/25/17 04:00 (Maxipime Inj/NS Inj) 100 ml @ 200 mls/hr Q12H IV 03/25/17 16:00 03/26/17 16:14 (NS Flush) 2 ml UNSCH PRN IV FLUSH 03/25/17 04:00 (NS Flush) 2 ml BID IV FLUSH 03/25/17 09:00 03/26/17 21:32 (Zofran Inj) 4 mg Q6H PRN IVP 03/25/17 04:00 (Tylenol) 650 mg Q6H PRN PO 03/25/17 04:00 (Spring 5-325 Mg) 1 tab Q4H PRN PO 03/25/17 04:00 (Morphine Inj) 2 mg Q3H PRN IV 03/25/17 04:00 (Amelia-Colace) 1 tab BID PO 03/25/17 09:00 03/25/17 09:26 (Milk Of Magnesia Liq) 30 ml Q12H PRN PO 03/25/17 04:00 (Senokot) 17.2 mg Q12H PRN PO 03/25/17 04:00 (Dulcolax Supp) 10 mg DAILY PRN RECTAL 03/25/17 04:00 (Lactulose Liq) 30 ml DAILY PRN PO 03/25/17 04:00 (Eliquis) 5 mg BID PO 03/25/17 09:00 03/26/17 21:33 (Lipitor) 20 mg HS PO 03/25/17 21:00 03/26/17 21:33 (Lanoxin) 0.125 mg DAILY PO 03/25/17 09:00 03/26/17 09:13 (Cardizem Cd) 240 mg DAILY PO 03/25/17 09:00 03/26/17 09:12 Tiotropium Witten 18 mcg 18 mcg DAILY INH 03/25/17 09:00 03/26/17 09:13 (Vancomycin Inj/ NS 250 ml Inj) 262.5 ml @ 250 mls/hr Q12H IV 03/25/17 17:00 Hold 03/26/17 06:17 A/P Problem List: (1) Respiratory failure ICD Code: J96.90 Status: Chronic (2) CHF (congestive heart failure) ICD Code: I50.9 Status: Resolved (3) PNA (pneumonia) ICD Code: J18.9 Status: Acute (4) COPD (chronic obstructive pulmonary disease) ICD Code: J44.9 Status: Acute (5) HTN (hypertension) ICD Code: I10 Status: Chronic (6) A-fib ICD Code: I48.91 Status: Chronic (7) DNR (do not resuscitate) ICD Code: Z66 Status: Acute Assessment and Plan 1. Respiratory Failure: Multifactorial-secondary to Lung CA/CHF w/ recurrent pleural effusions/PNA/COPD. O2 sat 70's on RA on admission, sp treatment with BIPAP successfully weaned. 03/26 Continue supplemental o2 to keep oxygen saturation > 92%. Patient and family are requesting [facility] hospice to be consulted. 2. CHF: Echo 7/20/17 w/ EF 40-45%, s/p Bilateral Thoracentesis on recent admit for extensive pleural effusions, s/p eval by Dr. Hayden, plan for possible catheter and pleurodesis if recurrence. CXR w/ mild bilateral pleural effusions , images reviewed by me, s/p Lasix IV in ER, will continue w/ diuresis. Pulmonary consulted - appreciate recommendations. 3. PNA: h/o multiple admits in the recent past w/ PNA/Bacteremia, on IV Abx, afebrile, WBC normal however elevated neutrophil count. S/p Blood Culture, Vanc /Zosyn in ER. Will follow up cultures, continue w/ IV Abx for possible underlying PNA. 4. COPD: Chronic Respiratory Failure. Resume home Symbicort. DuoNeb q4h and q2h prn, substitute for Xopenex secondary to A-fib. 5. HTN: Controlled. Continue home medications. 6. Lung CA: Stage IV Lung CA, previously on Chemo however off x5 wks due to recurrent illness/hospitalization, follows w/ Dr. Muhammad. 7. A-fib: Chronic. Resume home Digoxin, Cardizem, Eliquis. 8. DNR: Code Status discussed and confirmed, pt does not wish for intubation or resuscitation. DNR order placed. 9. DVT Prophylaxis: On Eliquis Discharge Planning Awaiting hospice consultation. Pascual Peterson MD Mar 26, 2017 17:12
[2017-03-26] MEDS: ATORVASTATIN 20 MG TAB PO SCH (21:33)
[2017-03-27] VITALS (22 sets, daily range): BP systolic 115–159; BP diastolic 64–90; PULSE 73–100; RESP 18–22; TEMP 97.4–97.8; O2SAT 93–99
[2017-03-27] MEDS: CEFEPIME INJ 1,000 MG in SODIUM CHLORIDE 0.9% INJ 100 ML IV SCH (04:00)
[2017-03-27] MEDS ORDERED: PHARMACY ORDERED LAB ONE (04:45)
--- NOTE | 2017-03-27 05:48 | RADRPT ---
EXAM DATE/TIME: 03/27/2017 05:31 [facility] COMPARISON: CT BRAIN W/O CONTRAST, March 20, 2017, 16:40. INDICATIONS : Trauma. Fall. RADIATION DOSE: 41.25 CTDIvol (mGy) MEDICAL HISTORY : Cardiovascular disease. Hypertension. SURGICAL HISTORY : None. ENCOUNTER: Initial ACUITY: 1 day PAIN SCALE: 6/10 LOCATION: cranial TECHNIQUE: Multiple contiguous axial images were obtained of the head. Using automated exposure control and adj ustment of the mA and/or kV according to patient size, radiation dose was kept as low as reasonably a chievable to obtain optimal diagnostic quality images. DICOM format image data is available electro nically for review and comparison. FINDINGS: CEREBRUM: There is mild cerebral atrophy. Ventricles are normal. No evidence of midline shift, mass lesion, he morrhage or acute infarction. No extra-axial fluid collections are seen. POSTERIOR FOSSA: The cerebellum and brainstem are intact. The 4th ventricle is midline. The cerebellopontine angle i s unremarkable. EXTRACRANIAL: Metallic structure remains present at the anterior right lobe. SKULL: The calvaria is intact. No evidence of skull fracture. CONCLUSION: Stable noncontrast head CT. No acute intracranial abnormality is identified. Carlos Velasco MD on March 27, 2017 at 5:44 Board Certified Radiologist. This report was verified electronically.
--- NOTE | 2017-03-27 06:19 | RADRPT ---
EXAM DATE/TIME: 03/27/2017 05:43 [facility] COMPARISON: SHOULDER RIGHT COMPLETE (>2VWS), March 27, 2017, 5:40. INDICATIONS : Evaluate for foreign body. PICC line came out of arm post fall. MEDICAL HISTORY : Cardiovascular disease. Hypertension. SURGICAL HISTORY : None. ENCOUNTER: Initial ACUITY: 1 day PAIN SCORE: 1/10 LOCATION: Right upper extremity FINDINGS: 2 views of the right arm demonstrate no fracture or dislocation. No soft tissue abnormality or radiop aque foreign body is identified. CONCLUSION: No foreign body is identified. Carlos Velasco MD on March 27, 2017 at 6:16 Board Certified Radiologist. This report was verified electronically.
--- NOTE | 2017-03-27 06:20 | RADRPT ---
EXAM DATE/TIME: 03/27/2017 05:40 [facility] COMPARISON: No previous studies available for comparison. INDICATIONS : Evaluate right shoulder post fall. Patient states no pain. MEDICAL HISTORY : None. SURGICAL HISTORY : None. ENCOUNTER: Initial ACUITY: 1 day PAIN SCORE: 0/10 LOCATION: Right upper extremity FINDINGS: 4 views of the right shoulder demonstrate no fracture or dislocation. The acromioclavicular joint is intact but demonstrates mild osteoarthritis change. The visualized soft tissues demonstrate no abnorm ality. Visualized portions of the right lung are clear. No displaced rib fracture is seen. CONCLUSION: No acute right shoulder abnormality is identified. Carlos Velasco MD on March 27, 2017 at 6:17 Board Certified Radiologist. This report was verified electronically.
[2017-03-27] MEDS: RESP: ALBUTEROL 2.5 MG/IPRATROPIUM 0.5 MG NEB (SCH) NEB ×3 (07:54→15:13)
[2017-03-27] MEDS: DILTIAZEM-CD 240 MG CAP ER PO SCH (08:18)
[2017-03-27] MEDS: APIXABAN 5 MG TABLET PO SCH (08:18)
[2017-03-27] MEDS: SODIUM CHLORIDE 0.9% FLUSH 10 ML FLUSH IV FLUSH SCH (08:18)
[2017-03-27] MEDS: DIGOXIN 0.125 MG TAB PO SCH (08:18)
[2017-03-27] MEDS: DOCUSATE SODIUM 50 MG/SENNA 8.6 MG TAB PO SCH (08:21)
[2017-03-27] MEDS: TIOTROPIUM BROMIDE 18 MCG INH INH SCH (09:00)
[2017-03-27] MEDS: FUROSEMIDE 40 MG/4 ML VIAL IV PUSH SCH ×2 (09:00→12:07)
[2017-03-27 10:35] LABS: AUTOMATED NEUTROPHIL # 10.1 TH/MM3 (1.8-7.7); BASOPHIL % 0.2 % (0.0-2.0); EOSINOPHIL # 0.1 TH/MM3 (0-0.4); EOSINOPHIL % 0.6 % (0.0-4.0); HEMATOCRIT 30.5 % (39.0-51.0); LYMPH % 9.2 % (9.0-44.0); LYMPHOCYTE # 1.2 TH/MM3 (1.0-4.8); MEAN CELL VOLUME 103.4 FL (80.0-100.0); MEAN CORPUSCULAR HEMOGLOBIN 33.1 PG (27.0-34.0); MONO % 10.9 % (0.0-8.0); NEUT % 79.1 % (16.0-70.0); PLATELET COUNT 130 TH/MM3 (150-450); RED BLOOD COUNT 2.95 MIL/MM3 (4.50-5.90); RED CELL DISTRIBUTION WIDTH 17.9 % (11.6-17.2); WHITE BLOOD COUNT 12.8 TH/MM3 (4.0-11.0)
[2017-03-27 10:40] LABS: HEMO FLAGS AUTO DIFF
[2017-03-27 11:10] LABS: BANDS 3 % (0-6); POLYS (SEG NEUTROPHILS) 83 % (16-70); WBC DIFF SAMPLE 100
[2017-03-27 11:12] LABS: KERATOCYTES OCC (NORMAL); OVALOCYTES 1+ (NORMAL); PLATELET ESTIMATE SMEAR LOW (NORMAL); PLATELET MORPHOLOGY NORMAL (NORMAL); SCAN/DIFF FINAL DIFF MANUAL; TOXIC GRANULATION 1+ (NORMAL)
[2017-03-27 11:17] LABS: ANION GAP 7 MEQ/L (5-15); AST (GOT) 37 U/L (15-37); BICARBONATE 25.6 MEQ/L (21.0-32.0); BLOOD UREA NITROGEN 52 MG/DL (7-18); CHLORIDE 113 MEQ/L (98-107); GLOMERULAR FILTRATION RATE 72 ML/MIN (>89); MAGNESIUM 2.5 MG/DL (1.5-2.5); POTASSIUM 3.9 MEQ/L (3.5-5.1); SODIUM (NA) 146 MEQ/L (136-145)
[2017-03-27 11:20] LABS: ALKALINE PHOSPHATASE 85 U/L (45-117); ALT (GPT) 36 U/L (12-78); TOTAL BILIRUBIN ADULT 0.7 MG/DL (0.2-1.0)
[2017-03-27] MEDS ORDERED: VANCOMYCIN INJ 1,750 MG in SODIUM CHLORID 0.9% 500 ML INJ 500 ML IV SCH (14:00)
--- NOTE | 2017-03-27 15:52 | HHI.DS ---
Discharge Summary Admission Date Mar 25, 2017 at 04:02 Discharge Date: Mar 27, 2017 Admitting Diagnosis Bilateral lower pneumonia, pulmonary edema (1) Respiratory failure ICD Code: J96.90 (2) CHF (congestive heart failure) ICD Code: I50.9 (3) PNA (pneumonia) ICD Code: J18.9 (4) COPD (chronic obstructive pulmonary disease) ICD Code: J44.9 (5) HTN (hypertension) ICD Code: I10 (6) A-fib ICD Code: I48.91 (7) DNR (do not resuscitate) ICD Code: Z66 Brief History - From Admission This is a 71-year-old DNR male with a PMH of Stage IV Lung CA, HTN, CHF (Echo w/ EF 40-45%), COPD, O2 Dependent and A-fib who was sent to the ER from [facility] secondary to hypoxia and respiratory distress. Per report, pt w / O2 sat 70's on RA. Multiple admits recently for A-fib w/ RVR, PNA, Bacteremia and Pleural Effusions s/p Thoracentesis. Most recently admitted from 03/16-03/24/17 for Respiratory Failure, COPD, PNA and Pleural Effusions. Previously on Chemo, however off x5 wks secondary to illness, following w/ Dr. Muhammad. On arrival, O2 sat 86% on RA, placed on BIPAP w/ O2 sat 100%. WBC normal however elevated neutrophil count. Chemistry essentially at baseline, creatinine 1.40, previously 1.35 on 03/22/17. Lactic Acid 2.8. Troponin 0.09. CXR with bilateral mid and lower lung airspace opacities and small bilateral pleural effusions. S/p Blood Culture, Vanc/Zosyn in ER. Currently improved on BIPAP. CBC/BMP: 03/27/17 0950 03/27/17 0950 Significant Findings Laboratory Tests Test 03/25/17 03/25/17 03/25/17 03/25/17 02:10 04:20 08:03 14:50 Red Blood Count 3.07 MIL/MM3 (4.50-5.90) Hemoglobin 10.5 GM/DL (13.0-17.0) Hematocrit 31.7 % (39.0-51.0) Mean Corpuscular Volume 103.2 FL (80.0-100.0) Mean Corpuscular Hemoglobin 34.3 PG (27.0-34.0) Red Cell Distribution Width 17.6 % (11.6-17.2) Neutrophils (%) (Auto) 82.5 % (16.0-70.0) Lymphocytes (%) (Auto) 8.7 % (9.0-44.0) Monocytes (%) (Auto) 8.5 % (0.0-8.0) Neutrophils # (Auto) 7.9 TH/MM3 (1.8-7.7) Lymphocytes # (Auto) 0.8 TH/MM3 (1.0-4.8) Neutrophils % (Manual) 80 % (16-70) Lymphocytes % 8 % (9-44) Neutrophils # (Manual) 8.1 TH/MM3 (1.8-7.7) Myelocytes 1 % (0-0) Promyelocytes 1 % (0-0) Prothrombin Time 13.8 SEC (9.8-11.6) Chloride Level 109 MEQ/L (98-107) Blood Urea Nitrogen 53 MG/DL (7-18) Creatinine 1.40 MG/DL (0.60-1.30) Estimat Glomerular Filtration 50 ML/MIN (>89) Rate Random Glucose 117 MG/DL (74-106) Lactic Acid Level 2.8 mmol/L 2.5 mmol/L 2.8 mmol/L (0.4-2.0) (0.4-2.0) (0.4-2.0) Calcium Level 7.9 MG/DL (8.5-10.1) Troponin I 0.09 NG/ML 0.14 NG/ML 0.13 NG/ML (0.02-0.05) (0.02-0.05) (0.02-0.05) B-Type Natriuretic Peptide 192 PG/ML (0-100) Arterial Blood pH 7.44 (7.380-7.420) Arterial Blood Partial 34 mmHg (38-42) Pressure CO2 Blood Gas Hemoglobin 11.0 G/DL (12.0-16.0) Test 03/26/17 03/27/17 04:55 09:50 White Blood Count 11.4 TH/MM3 12.8 TH/MM3 (4.0-11.0) (4.0-11.0) Red Blood Count 2.88 MIL/MM3 2.95 MIL/MM3 (4.50-5.90) (4.50-5.90) Hemoglobin 9.6 GM/DL 9.8 GM/DL (13.0-17.0) (13.0-17.0) Hematocrit 29.7 % 30.5 % (39.0-51.0) (39.0-51.0) Mean Corpuscular Volume 103.1 FL 103.4 FL (80.0-100.0) (80.0-100.0) Red Cell Distribution Width 18.2 % 17.9 % (11.6-17.2) (11.6-17.2) Neutrophils (%) (Auto) 84.8 % 79.1 % (16.0-70.0) (16.0-70.0) Lymphocytes (%) (Auto) 5.1 % (9.0-44.0) Monocytes (%) (Auto) 9.8 % (0.0-8.0) 10.9 % (0.0-8.0) Neutrophils # (Auto) 9.6 TH/MM3 10.1 TH/MM3 (1.8-7.7) (1.8-7.7) Lymphocytes # (Auto) 0.6 TH/MM3 (1.0-4.8) Monocytes # (Auto) 1.1 TH/MM3 1.4 TH/MM3 (0-0.9) (0-0.9) Neutrophils % (Manual) 77 % (16-70) 83 % (16-70) Lymphocytes % 5 % (9-44) 6 % (9-44) Neutrophils # (Manual) 10.1 TH/MM3 11.0 TH/MM3 (1.8-7.7) (1.8-7.7) Metamyelocytes 2 % (0-1) Myelocytes 4 % (0-0) Chloride Level 112 MEQ/L 113 MEQ/L (98-107) (98-107) Blood Urea Nitrogen 58 MG/DL (7-18) 52 MG/DL (7-18) Estimat Glomerular Filtration 54 ML/MIN (>89) 72 ML/MIN (>89) Rate Calcium Level 7.9 MG/DL 8.1 MG/DL (8.5-10.1) (8.5-10.1) Aspartate Amino Transf 40 U/L (15-37) (AST/SGOT) Total Protein 5.4 GM/DL 5.4 GM/DL (6.4-8.2) (6.4-8.2) Albumin 2.4 GM/DL 2.3 GM/DL (3.4-5.0) (3.4-5.0) Platelet Count 130 TH/MM3 (150-450) Toxic Granulation 1+ (NORMAL) Platelet Estimate LOW (NORMAL) Ovalocytes 1+ (NORMAL) Sodium Level 146 MEQ/L (136-145) PE at Discharge on nasal canula, not on respiratory distress S1S2 RRR Breath sounds clear to auscultation, decreased breath sounds at the bases soft abdomen trace edma in lower extremities Pt Condition on Discharge: Guarded Discharge Disposition: Hospice/ Home Discharge Time: <= 30 minutes Discharge Instructions DIET: Follow Instructions for: As Tolerated, No Restrictions Activities you can perform: See Additionl Instruction Other Activity Instructions: out of bed with assistance Pascual Peterson MD Mar 27, 2017 15:52
--- NOTE | 2017-03-27 15:57 | HHI.PR ---
Subjective Remarks ass: alert no sob at rest O2 SAT 95% ON O2 via nasal canula Objective Vital Signs Date Time Temp Pulse Resp B/P Pulse Ox O2 Delivery O2 Flow Rate FiO2 03/27/17 15:26 98 03/27/17 15:24 93 5.00 03/27/17 15:24 97.7 98 22 139/64 93 03/27/17 15:13 93 Nasal Cannula 3.00 03/27/17 14:10 95 03/27/17 13:09 89 03/27/17 12:12 85 03/27/17 11:13 94 5.00 03/27/17 11:13 97.5 98 22 115/72 94 03/27/17 11:13 84 03/27/17 10:03 73 03/27/17 09:19 96 03/27/17 08:11 98 03/27/17 07:54 99 Nasal Cannula 5.00 03/27/17 07:44 97 5.00 03/27/17 07:44 85 03/27/17 07:44 97.6 85 22 142/73 97 03/27/17 06:30 97.8 85 18 143/85 99 03/27/17 06:00 82 03/27/17 05:00 88 03/27/17 04:52 97.7 95 18 151/86 98 03/27/17 04:00 100 03/27/17 03:30 97.4 92 22 159/90 97 03/27/17 03:30 97 Nasal Cannula 5.00 03/27/17 03:30 92 20 159/90 97 03/27/17 03:00 77 03/27/17 02:05 76 03/27/17 01:00 74 03/27/17 00:00 86 03/26/17 23:00 76 03/26/17 23:00 94 Nasal Cannula 5.00 40 03/26/17 23:00 98.0 84 18 157/70 96 03/26/17 22:00 86 03/26/17 21:00 98 03/26/17 20:00 100 03/26/17 19:00 97.6 102 19 135/70 94 03/26/17 19:00 102 03/26/17 19:00 94 Nasal Cannula 5.00 40 03/26/17 18:12 95 7/25/17 17:20 77 03/26/17 16:08 80 I/O 03/26/17 03/26/17 03/26/17 03/27/17 03/27/17 03/27/17 06:59 14:59 22:59 06:59 14:59 22:59 Intake Total 590 ml 630 ml 240 ml Output Total 250 ml 925 ml Balance 340 ml 630 ml -685 ml Intake Oral 240 ml 480 ml 240 ml IV Total 350 ml 150 ml 0 ml Output Urine Total 250 ml 925 ml # Voids 1 3 1 # Bowel Movements 1 1 0 Result Diagram: 03/27/17 0950 03/27/17 0950 Objective Remarks GENERAL: SKIN: Warm and dry. HEAD: Atraumatic. Normocephalic. EYES: Pupils equal and round. No scleral icterus. No injection or drainage. ENT: No nasal bleeding or discharge. Mucous membranes pink and moist. NECK: Trachea midline. No JVD. CARDIOVASCULAR: Regular rate and rhythm. RESPIRATORY: No accessory muscle use. Clear to auscultation. Breath sounds equal bilaterally. GASTROINTESTINAL: Abdomen soft, non-tender, nondistended. Hepatic and splenic margins not palpable. MUSCULOSKELETAL: Extremities without clubbing, cyanosis, or edema. No obvious deformities. NEUROLOGICAL: Awake and alert. No obvious cranial nerve deficits. Motor grossly within normal limits. Five out of 5 muscle strength in the arms and legs. Normal speech. PSYCHIATRIC: Appropriate mood and affect; insight and judgment normal. Assessment and Plan Assessment and Plan resiratory failure COPD CHF METASTATIC CA PLAN O2 NEEDED BRONCHODILATOR THERAP[facility] Home with hospice today Catracho Hayden MD Mar 27, 2017 15:57
[2017-03-29] MEDS ORDERED: PHARMACY ORDERED LAB ONE (01:45)
--- NOTE | 2017-04-05 10:43 | PQ ---
Physician Query Response Document PATIENT: LISA PRAKASH : 1945 ADMIT DATE: 03/25/2017 4:02 AM DISCH DATE: 03/27/2017 4:26 PM RESPONDING PROVIDER #: [email or web address] QUERY TEXT: Conflicting Documentation Clarification A single mention or documentation of multiple diagnoses for the same clinical presentation appears in the record. Please clarify the diagnosis/diagnoses. PNEUMONIA Please also document if the condition is: -- Confirmed and current -- Confirmed, treated and resolved -- Ruled out -- Other, please specify PLEASE CALL [facility] @ EXT [id number] FOR ASSISTANCE The patient's Clinical Indicators include: PER H (3) PNA (pneumonia) PER PULMONARY CONSULTATION: ABNORMAL CHEST X RAY LIKELY RELATED TO CHF. THE PATIENT DOES NOT APPEAR TO HAVE INFECTIOUS PROCESS AT PRESENT. MEDS: VANCOMYCIN IV Query created by: Vandana Fernandez on 03/27/2017 11:43 AM RESPONSE TEXT: Patient treated for suspected PNA with IV antibiotics - current QUERY TEXT: CHF Acuity and Type Congestive Heart Failure is documented in the Medical Record. Please document the type and acuity (in cludes probable or suspected) Such as: Type: -- Systolic -- Diastolic -- Combined -- Other, please specify Acuity: -- Acute -- Chronic -- Acute on chronic -- Other, please specify PLEASE CALL [facility] @ EXT [id number] FOR ASSISTANCE The patient's Clinical Indicators include: PER H 2. CHF: Echo 03/21/17 w/ EF 40-45%, s/p Bilateral Thoracentesis on recent admit for extensive pleura l effusions, s/p eval by Dr. Hayden, plan for possible catheter and pleurodesis if recurrence. CXR w/ mild bilateral pleural effusions, images reviewed by me, s/p Lasix IV in ER, 03/25/17 OOC=[id number] Query created by: Vandana Fernandez on 03/27/2017 11:51 AM RESPONSE TEXT: Acute on chronic systolic heart failure Electronically signed by: Pascual Atkins MD 04/05/2017 10:39 AM
== END 2017-03-27 16:26 | disposition hospice, home (50) | DRG 189 ==
LOC: NEPC 01:46 → NEDA 04:02 → HCIS 15:54
PROVIDERS: ADMIT Hospitalist; ATTEND Hospitalist
DX: J96.91 Respiratory failure, unspecified with hypoxia (principal); I50.23 Acute on chronic systolic (congestive) heart failure; J18.9 Pneumonia, unspecified organism; I11.0 Hypertensive heart disease with heart failure; C34.90 Malignant neoplasm of unspecified part of unspecified bronchus or lung; Z99.81 Dependence on supplemental oxygen; I48.91 Unspecified atrial fibrillation; J44.0 Chronic obstructive pulmonary disease with (acute) lower respiratory infection; E78.00 Pure hypercholesterolemia, unspecified; I25.10 Atherosclerotic heart disease of native coronary artery without angina pectoris; I25.2 Old myocardial infarction; H91.90 Unspecified hearing loss, unspecified ear; Z66 Do not resuscitate; Z85.028 Personal history of other malignant neoplasm of stomach; Z95.5 Presence of coronary angioplasty implant and graft; Z79.01 Long term (current) use of anticoagulants; F32.9 Major depressive disorder, single episode, unspecified
CPT/HCPCS: 36600; 70450; 71010; 73030; 73060; 76937; 80048; 80053; 80202; 82550; 82805; 83605; 83735; 83880; 84100; 84484; 85007; 85027; 85610; 85730; 87040; 93005; 94002; 94640; 94664; 96374; J0692; J1940; J2543; J2930; J3370; J7040; J7050

== ENCOUNTER 2017-03-30 21:28 | Emergency (ER) | payer MEDICARE ==
[~2017-03-30] VITALS: Ht 180.3 cm; Wt 140.0 kg
[~2017-03-30 21:28] MED LIST changes: -POTA10CA PO
[2017-03-30 21:31] VITALS: O2SAT 100
[2017-03-30 21:34] VITALS: BP 133/60; PULSE 74; RESP 22; TEMP 97.8; O2SAT 100
[2017-03-30 21:44] VITALS: O2SAT 95
[2017-03-30] MEDS ORDERED: SODIUM CHLORIDE 0.9% FLUSH 10 ML FLUSH IVF PRN (21:45)
--- NOTE | 2017-03-30 21:47 | PD ---
HPI Chief Complaint: Respiratory Distress Time Seen by Provider: 21:34 Travel History International Travel<30 days: No Contact w/Intl Traveler<30days: No History of Present Illness HPI This 71-year-old man with stage IV lung CVA, CHF, COPD, for recurrent admissions for respiratory failure, recurrent pleural effusions, just started with hospice, not on chemotherapy secondary to recurrent comorbid illness, who presents to the emergency department again with worsening exacerbation of shortness of breath. He apparently is on high flow nasal cannula or nasal Pap at home at 6 L/m. EMS reports that family states he's been having worsening shortness of breath since about noon today. They found him at about 71% on his 6 L/m nasal oxygen. He was labored in breathing with coarse wheezing throughout the lung haskins. He was given 125 mg of Solu-Medrol, 3 albuterol treatments, 100 mg of IV Lasix, and sublingual nitroglycerin. Improved some in route. Patient states he's been taking all his medications regularly. He is not missed any medications. He is DNR/DNI. History Past Medical History Narrative Medical Stage IV lung CA A. fib COPD CHF, EF 40-45% Hypertension Social History Alcohol Use: No Tobacco Use: No (quit 30 yrs ago) Allergies-Medications (Allergen,Severity, Reaction): Coded Allergies: No Known Allergies (Unverified , 03/25/17) Reported Meds & Prescriptions Reported Meds & Active Scripts Active Spiriva Handihaler (Tiotropium Inh) 18 Mcg Cap 18 Mcg INH DAILY Epinephrine Inj 1 Mg/Ml Inj 0.3 Mg SQ ONCE PRN Give with any signs of respiratory distress. Solu-Cortef Inj (Hydrocortisone Sodium Succinate) 250 Mg Inj 250 Mg IV PUSH ONCE PRN Give over 30-60 seconds. Cardizem CD 24 HR (Diltiazem CD 24 HR) 240 Mg Caper 240 Mg PO DAILY Eliquis (Apixaban) 5 Mg Tab 5 Mg PO BID Reported Digoxin 0.125 Mg Tab 0.25 Mg PO DAILY Furosemide 40 Mg Tab 40 Mg PO DAILY Tamsulosin (Tamsulosin HCl) 0.4 Mg Cap 0.4 Mg PO HS Atorvastatin (Atorvastatin Calcium) 20 Mg Tab 20 Mg PO HS Review of Systems ROS Limitations: Clinical Condition Physical Exam Narrative GENERAL: 71-year-old man, obese, chronically ill-appearing, pale, on a C Pap. SKIN: Cool, clammy. HEAD: Atraumatic. Normocephalic. EYES: Pupils equal and round. No scleral icterus. No injection or drainage. ENT: No nasal bleeding or discharge. Mucous membranes pink and moist. NECK: Trachea midline. No JVD. CARDIOVASCULAR: Regular rate and rhythm. No murmur appreciated. RESPIRATORY: Mild respiratory distress. Coarse breath sounds on the posterior lung haskins. On Cipro. GASTROINTESTINAL: Abdomen soft, non-tender, nondistended. Hepatic and splenic margins not palpable. MUSCULOSKELETAL: No obvious deformities. Moderate pitting edema both lower extremities. NEUROLOGICAL: Awake and alert. No obvious cranial nerve deficits. Motor grossly within normal limits. Normal speech. Data Data Last Documented VS Vital Signs Date Time Temp Pulse Resp B/P Pulse Ox O2 Delivery O2 Flow Rate FiO2 03/31/17 04:10 94 50 03/30/17 21:44 CPAP 03/30/17 21:34 97.8 74 22 133/60 Orders Complete Blood Count With Diff (03/30/17 21:38) Comprehensive Metabolic Panel (03/30/17 21:38) B-Type Natriuretic Peptide (03/30/17 21:38) Troponin I (03/30/17 21:38) Iv Access Insert/Monitor (03/30/17 21:38) Electrocardiogram (03/30/17 21:38) Ecg Monitoring (03/30/17 21:38) Oximetry (03/30/17 21:38) Oxygen Administration (03/30/17 21:38) Chest, Single Ap (03/30/17 21:38) Sodium Chloride 0.9% Flush (Ns Flush) (03/30/17 21:45) Resp Bipap / Cpap Non Invas Vt (03/30/17 21:38) Arterial Blood Gas (Abg) (03/30/17 22:04) Albuterol-Ipratropium Neb (Duoneb Neb) (03/31/17 04:00) Lorazepam Inj (Ativan Inj) (03/31/17 04:30) Admit Order (Ed Use Only) (03/31/17 ) Labs Laboratory Tests Test 03/30/17 03/30/17 21:45 22:04 White Blood Count 22.8 TH/MM3 Red Blood Count 2.86 MIL/MM3 Hemoglobin 9.4 GM/DL Hematocrit 29.7 % Mean Corpuscular Volume 103.8 FL Mean Corpuscular Hemoglobin 32.9 PG Mean Corpuscular Hemoglobin 31.7 % Concent Red Cell Distribution Width 17.5 % Platelet Count 127 TH/MM3 Mean Platelet Volume 8.6 FL Neutrophils (%) (Auto) 84.3 % Lymphocytes (%) (Auto) 8.0 % Monocytes (%) (Auto) 7.2 % Eosinophils (%) (Auto) 0.3 % Basophils (%) (Auto) 0.2 % Neutrophils # (Auto) 19.3 TH/MM3 Lymphocytes # (Auto) 1.8 TH/MM3 Monocytes # (Auto) 1.6 TH/MM3 Eosinophils # (Auto) 0.1 TH/MM3 Basophils # (Auto) 0.0 TH/MM3 CBC Comment DIFF FINAL Differential Comment Sodium Level 144 MEQ/L Potassium Level 5.1 MEQ/L Chloride Level 110 MEQ/L Carbon Dioxide Level 27.3 MEQ/L Anion Gap 7 MEQ/L Blood Urea Nitrogen 54 MG/DL Creatinine 1.26 MG/DL Estimat Glomerular Filtration 56 ML/MIN Rate Random Glucose 106 MG/DL Calcium Level 8.0 MG/DL Total Bilirubin 1.0 MG/DL Aspartate Amino Transf 30 U/L (AST/SGOT) Alanine Aminotransferase 31 U/L (ALT/SGPT) Alkaline Phosphatase 122 U/L Troponin I 0.06 NG/ML B-Type Natriuretic Peptide 112 PG/ML Total Protein 5.7 GM/DL Albumin 2.3 GM/DL Blood Gas Puncture Site LT RADIAL Blood Gas Patient Temperature 98.6 Blood Gas HCO3 26 mmol/L Blood Gas Base Excess 2.1 mmol/L Blood Gas Oxygen Saturation 90 % Arterial Blood pH 7.41 Arterial Blood Partial 42 mmHg Pressure CO2 Arterial Blood Partial 66 mmHG Pressure O2 Arterial Blood Oxygen Content 11.9 Vol % Arterial Blood 2.6 % Carboxyhemoglobin Arterial Blood Methemoglobin 0.5 % Blood Gas Hemoglobin 9.3 G/DL Oxygen Delivery Device BiPAP Blood Gas Ventilator Setting [id number] Blood Gas Inspired Oxygen 50 % [facility] Medical Decision Making Medical Screen Exam Complete: Yes Emergency Medical Condition: Yes Interpretation(s) My review of EKG: Normal sinus rhythm at a rate of 73 normal axis, normal intervals, some lateral T-wave inversions. No definite evidence of acute ischemia. LABS: CBC remarkable for leukocytosis, mild anemia Remarkable for elevated BUN BNP 112 Troponin 0.06 ABG 7.41/42/66/26, base excess 2.1 Chest x-ray: Stable airspace opacities and pleural spaces in both lower lungs. Left worse than right. Differential Diagnosis Shortness of breath, pleural effusion, COPD exacerbation, PE, other Narrative Course Medical decision making This is a 71-year-old man who presents to the emergency department arm for shortness of breath. Multiple previous exacerbations. Multiple contribute in factors. Previous workups for PE of been negative. I spoke to the who states the patient has been suffering. She would like to do just comfort care. She seems unsure what to do when the patient becomes so dyspneic however. I spoke to the [facility] hospice, the we'll send out a nurse out we can work on outpatient plan for him. FINAL: Hospice nurse came out to evaluate the patient. Initially they were unsure how low it take to arrange the appropriate outpatient resources for him. Patient was going to be admitted. I spoke with Dr. Sahara Su. Shortly thereafter, the hospitalist nurse stated that they will give us in the respiratory therapist to come and evaluate him at 8 AM. They will arrange for transport home for him once today are sure that he has everything that he needs at home. Diagnosis Primary Impression: Shortness of breath Bao Richardson MD Mar 30, 2017 21:47
[2017-03-30 22:16] LABS: BLOOD GAS BASE EXCESS 2.1 mmol/L (-2-2); BLOOD GAS CARBOXYHEMOGLOBIN 2.6 % (0-4); BLOOD GAS HCO3 26 mmol/L (22-26); BLOOD GAS METHEMOGLOBIN 0.5 % (0-2); BLOOD GAS O2 HGB SATURATION 90 % (90-100); BLOOD GAS OXYGEN CONTENT 11.9 Vol % (12.0-20.0); BLOOD GAS PCO2 42 mmHg (38-42); BLOOD GAS PO2 66 mmHG (61-120); BLOOD GAS TOTAL HGB 9.3 G/DL (12.0-16.0); CRITICAL VALUE NO; DRAW SITE LT RADIAL; FIO2 50 %; NUMBER OF ARTERIAL PUNCTURES 1; OXYGEN DEVICE BiPAP; STAT YES; TEMP CORR TO 98.6; ULNAR PULSE PRESENT; VENT SETTINGS IPAP12/EPAP5
[2017-03-30 22:21] LABS: AUTOMATED NEUTROPHIL # 19.3 TH/MM3 (1.8-7.7); BASOPHIL % 0.2 % (0.0-2.0); EOSINOPHIL # 0.1 TH/MM3 (0-0.4); EOSINOPHIL % 0.3 % (0.0-4.0); HEMATOCRIT 29.7 % (39.0-51.0); HEMO FLAGS DIFF FINAL; LYMPHOCYTE # 1.8 TH/MM3 (1.0-4.8); MEAN CELL VOLUME 103.8 FL (80.0-100.0); MEAN CORPUSCULAR HEMOGLOBIN 32.9 PG (27.0-34.0); MEAN CORPUSCULAR HGB CONC 31.7 % (32.0-36.0); MONO % 7.2 % (0.0-8.0); NEUT % 84.3 % (16.0-70.0); PLATELET COUNT 127 TH/MM3 (150-450); RED BLOOD COUNT 2.86 MIL/MM3 (4.50-5.90); RED CELL DISTRIBUTION WIDTH 17.5 % (11.6-17.2); WHITE BLOOD COUNT 22.8 TH/MM3 (4.0-11.0)
--- NOTE | 2017-03-30 22:28 | RADRPT ---
EXAM DATE/TIME: 03/30/2017 21:56 [facility] COMPARISON: CHEST SINGLE AP, March 25, 2017, 2:03. INDICATIONS : Short of Breath MEDICAL HISTORY : Myocardial infarction. Congestive heart failure. Carcinoma, gastric. Lung ca, Atrial Fib, Copd, E mphysema SURGICAL HISTORY : Picc Line ENCOUNTER: Initial ACUITY: 1 day PAIN SCORE: 0/10 LOCATION: Bilateral chest FINDINGS: Bilateral mid and lower lung infiltrates including consolidation left lower lung with loss of delinea tion left hemidiaphragm and with bilateral pleural effusions are similar in severity and appearance c ompared to 03/25/17. The heart is mildly enlarged. CONCLUSION: Stable airspace opacities and pleural effusions in both lower lungs, left worse that right. Ric Rosario MD on March 30, 2017 at 22:26 Board Certified Radiologist. This report was verified electronically.
[2017-03-30 22:47] LABS: ALKALINE PHOSPHATASE 122 U/L (45-117); ALT (GPT) 31 U/L (12-78); ANION GAP 7 MEQ/L (5-15); AST (GOT) 30 U/L (15-37); BICARBONATE 27.3 MEQ/L (21.0-32.0); BLOOD UREA NITROGEN 54 MG/DL (7-18); CHLORIDE 110 MEQ/L (98-107); GLOMERULAR FILTRATION RATE 56 ML/MIN (>89); POTASSIUM 5.1 MEQ/L (3.5-5.1); SODIUM (NA) 144 MEQ/L (136-145)
[2017-03-30 23:30] VITALS: BP 158/83; PULSE 71; RESP 24; O2SAT 95
[2017-03-31] VITALS (11 sets, daily range): BP systolic 142–171; BP diastolic 66–91; PULSE 61–70; RESP 8–22; TEMP 98.3; O2SAT 94–97
[2017-03-31] MEDS: RESP: ALBUTEROL 2.5 MG/IPRATROPIUM 0.5 MG NEB (SCH) NEB ×3 (04:07→12:06)
[2017-03-31] MEDS ORDERED: LORazepam 2 MG/ML VIAL IV PUSH ONE (04:30)
[2017-03-31] MEDS ORDERED: fentaNYL 50 MCG/HR PATCH T-DERMAL ONE (04:45)
--- NOTE | 2017-03-31 14:43 | EKG ---
Date Performed: 03/30/2017 Time Performed: 21:34:26 PTAGE: 71 years EKG: Sinus rhythm LOW QRS VOLTAGE IN PRECORDIAL LEADS POSSIBLE ANTERIOR MYOCARDIAL INFARCTION Baseline artifact in micheal ds V2 and V3 makes interpretation difficult. Generalized low voltage, most prominent in precordial le ads Nonspecific ST-T change Compared to previous tracing, there's a rhythm changes from atrial fibril lation to sinus rhythm BORDERLINE ECG PREVIOUS TRACING : 03/25/2017 01.55 DOCTOR: Asher Thomas Interpretating Date/Time 03/31/2017 14:41:21
== END 2017-03-31 14:36 | disposition home or self-care (01) ==
LOC: NEPC 21:28 → UNDOADMOB 03-31 04:26 → NEDA 03-31 04:26 → NEPC 03-31 14:36
DX: R06.02 Shortness of breath (principal); D72.829 Elevated white blood cell count, unspecified; C34.90 Malignant neoplasm of unspecified part of unspecified bronchus or lung; D64.9 Anemia, unspecified; I50.9 Heart failure, unspecified; J44.9 Chronic obstructive pulmonary disease, unspecified; J96.90 Respiratory failure, unspecified, unspecified whether with hypoxia or hypercapnia; I48.91 Unspecified atrial fibrillation; I10 Essential (primary) hypertension
CPT/HCPCS: 36600; 71010; 80053; 82805; 83880; 84484; 85025; 93005; 94002; 94003; 94640; 96374; 99285; J2060